=== PATIENT | male | born 1960 | race Caucasian/White ===

== ENCOUNTER 2019-09-09 17:00 | Outpatient (CLI) | payer OTHER, SELFPAY ==
[2019-09-09 17:26] LABS: Hematocrit 43.8 % (42.0-52.0); Mean Corpuscular HGB Conc 34.2 g/dl (32-36); Mean Corpuscular Hemoglobin 29.8 pg (26-34); Mean Corpuscular Volume 87.1 fl (80-100); Platelet Count Result 226 k/mm3 (150-375); Red Blood Count 5.03 M/mm3 (4.6-6.20); Red Cell Distribution Width 15.8 % (11.5-14.5); White Blood Count 9.6 K/mm3 (4.5-10.0)
[2019-09-09 17:37] LABS: Hemoglobin A1C 10.3 % (<5.7)
[2019-09-09 17:39] LABS: Alanine Aminotransferase 26 U/L (4-50); Albumin Level 3.8 g/dL (3.5-5.1); Alkaline Phosphatase 78 U/L (38-126); Aspartate Amino Transferase 34 U/L (17-59); Bilirubin,Total 0.5 mg/dL (0.2-1.3); Blood Urea Nitrogen 17 mg/dL (9-20); Carbon Dioxide 29 mmol/L (22-30); Chloride 94 mmol/L (98-107); Estimated Glomerular Filt Rate > 60; Glucose 416 mg/dL (75-110); Potassium 4.4 mmol/L (3.4-5.0); Sodium 130 mmol/L (137-145)
[2019-09-09 17:49] LABS: Add Urine Microscopic? YES; Appearance Urine Clear (Clear); Bacteria Urine Trace /hpf; Bilirubin Urine Negative (Negative); Blood Urine Negative (Negative); Color Urine Colorless (Yellow); Glucose Urine UA 3+ mg/dL (Negative); Ketones Urine Negative (Negative); Leukocyte Esterase Ur Negative LEU/UL (NEGATIVE); Nitrate Urine Negative (Negative); Protein Urine Negative (Negative); RBC Urine 0-2 /hpf (0-2); Specific Grav Ur 1.024 (1.001-1.035); Squamous Epithelial Cell Urine Rare /hpf (Few); Urobilinogen Urine Negative mg/dL (<2.0); WBC Urine 0-3 /hpf (0-3)
[2019-09-09 18:08] LABS: Prostate Specific Antigen < 0.1 ng/mL (< OR = 4.0)
== END 2019-09-09 17:01 | disposition home or self-care (01) ==
PROVIDERS: PCP Family Medicine; Visit Provider Family Medicine
DX: E11.9 Type 2 diabetes mellitus without complications (principal); R53.83 Other fatigue; C61 Malignant neoplasm of prostate
CPT/HCPCS: 36415; 80053; 81001; 83036; 84153; 85027

== ENCOUNTER 2020-01-24 14:23 | Outpatient (CLI) | payer OTHER, SELFPAY ==
--- NOTE | ~2020-01-24 | XR_ITS ---
EXAMINATION: XR hand LT 2V DATE: 01/24/2020 14:40 INDICATION: Left hand pain. TECHNIQUE: 2 views of left hand were obtained. COMPARISON: None. FINDINGS: Bone alignment is normal. No fracture. There is mild osteoarthritis of triscaphe joint, fir st carpometacarpal joint, first metacarpophalangeal joint, first interphalangeal joint, and second an d fourth distal interphalangeal joints. There is a punctate calcification at ulnar aspect of fourth m etacarpophalangeal joint. IMPRESSION: 1. Mild polyarticular osteoarthritis. Reviewed, dictated and finalized at location A.
== END 2020-01-24 14:24 | disposition home or self-care (01) ==
PROVIDERS: PCP Family Medicine; Visit Provider Family Medicine
DX: M19.042 Primary osteoarthritis, left hand (principal)
CPT/HCPCS: 73120

== ENCOUNTER 2020-06-19 18:26 | Observation (INO) | payer OTHER, SELFPAY ==
[2020-06-19] VITALS (23 sets, daily range): BP systolic 102–132; BP diastolic 57–83; PULSE 86–105; RESP 12–22; TEMP 36.9–38.2; O2SAT 90–98; BMI 32.8
--- NOTE | ~2020-06-19 | CT_ITS ---
EXAMINATION: CT abdomen pelvis w con EXAM DATE: 06/19/2020 19:48 INDICATION: Vomiting, weakness, abdominal pain. TECHNIQUE: Spiral CT of the abdomen and pelvis was performed following intravenous injection of 100 m L Omnipaque 350. Axial, coronal and sagittal images were reviewed. The dose-length product (DLP) fo r this examination was 805.56 mGy-cm. The exposure was tailored according to patient size (auto mA e xposure control), and iterative reconstruction (ASIR) was used as additional dose reduction technique . Comparison is made to prior examination from 02/12/2019. FINDINGS: The liver, spleen, adrenal glands and pancreas are unremarkable. Gallbladder is unremarkab le. No biliary obstruction. Portal and splenic veins are patent. Kidneys enhance symmetrically. T here is no hydronephrosis. There is a left renal cyst measuring about 3.5 cm. The prostate is unrema rkable. Small bilateral inguinal fat-containing hernias, right greater than left. The bladder is unr emarkable. There is mild to moderate scattered arteriosclerotic disease. Several right inguinal lymp h nodes upper limits of normal in size. The appendix is normal. The stomach and small bowel are unremarkable. There is expected amount of c olonic stool. No free intraperitoneal gas. The heart is normal in size. There are no pericardial or pleural effusions. Left lower lobe calcified granuloma. There are no osteoblastic or osteolytic lesions identified. IMPRESSION: 1. No acute intra-abdominal findings. 2. Right inguinal lymph nodes upper limits of normal in size. 3. Small inguinal hernias. Reviewed, dictated and finalized at location A.
--- NOTE | ~2020-06-19 | CT_ITS ---
EXAMINATION: CT brain wo con INDICATION: Headache and confusion COMPARISON: None TECHNIQUE: Standard unenhanced head CT. The dose-length product (DLP) was 605.33 mGy-cm. The mA was a djusted according to patient size. Iterative reconstruction technique was employed. FINDINGS: There is no intracranial hemorrhage, acute infarction, or abnormal mass lesion. There is no abnormal mass effect or midline shift. The horn-white matter differentiation is normal. The basal ci sterns are patent. The orbits are normal. There is mild enlargement of the left lateral ventricle com pared to the right with mild nodularity along the lateral aspect of the anterior horn of the lateral ventricle. The paranasal sinuses, mastoids and calvarium are normal. IMPRESSION: 1. No acute intracranial abnormality. 2. Mild nodularity along the lateral/anterior aspect of the left lateral ventricle which could reflec t sequela of prior infarction or possibly horn matter heterotopia. Reviewed, dictated and finalized at location A. IMPRESSION: 1. No acute intracranial abnormality. 2. Mild nodularity along the lateral/anterior aspect of the left lateral ventri sujit which could reflect sequela of prior infarction or possibly horn matter het erotopia.
--- NOTE | ~2020-06-19 | XR_ITS ---
EXAMINATION: XR chest 1V portable EXAM DATE: 06/19/2020 18:51 INDICATION: Cough, nausea and vomiting. TECHNIQUE: Portable AP frontal chest x-ray was obtained. Comparison is made to prior examination from 09/21/2016. FINDINGS: The lungs are clear. There are no pleural effusions. The cardiomediastinal silhouette is within normal limits. There is no pneumothorax suspected. The bones and soft tissues are unremarkab le. IMPRESSION: No acute cardiopulmonary findings. Reviewed, dictated and finalized at location A.
--- NOTE | ~2020-06-19 | CT_ITS ---
EXAMINATION: CT diagnostic chest wo con DATE: 06/20/2020 05:48 INDICATION: Hypoxia TECHNIQUE: Computed tomography (CT) of the chest was performed without intravenous contrast. The dose -length product (DLP) was 669.21 mGy-cm. Automated exposure control and iterative reconstruction tech nique were employed. COMPARISON: 05/22/2017 FINDINGS: There is mild emphysema. Dependent atelectasis is noted. No focal airspace opacities are id entified. There is no pleural effusion or pneumothorax. No pathologically enlarged thoracic lymph nod es are identified. The heart size is normal. There is calcified coronary artery atherosclerosis. Calc ified pulmonary nodules are consistent with old granulomatous disease. Punctate calcifications in an otherwise normal spleen also likely represent healed granulomatous disease. IMPRESSION: 1. Mild atelectasis. Reviewed, dictated and finalized at location A. IMPRESSION: 1. Mild atelectasis.
--- NOTE | ~2020-06-19 | XR_ITS ---
EXAMINATION: XR foot RT 2V INDICATION: Diabetic foot wound of the great toe TECHNIQUE: Two views of the right foot are obtained. COMPARISON: None available FINDINGS: A subtle soft tissue ulceration is seen at the medial aspect of the first toe near the inte rphalangeal joint. No underlying osseous abnormality is identified. There is no fracture. Mild osteoa rthritis is noted. IMPRESSION: 1. Soft tissue ulceration of the first toe without underlying osseous abnormality. Reviewed, dictated and finalized at location A. IMPRESSION: 1. Soft tissue ulceration of the first toe without underlying osseous abnormali ty.
--- NOTE | 2020-06-19 18:31 | ECG_ITS ---
Measurements Intervals [place] Rate: 103 P: 47 CO: 180 QRS: 36 QRSD: 97 T: 61 QT: 336 QTc: 441 Interpretive Statements SINUS TACHYCARDIA POSSIBLE LEFT ATRIAL ENLARGEMENT MINIMAL Q WAVES- INFERIOR LEADS BORDERLINE ECG Electronically Signed On 06-19-2020 18:45:09 CDT by Radhames Glasgow D.O.
[2020-06-19 18:42] LABS: Basophils Absolute Auto 0.1 K/mm3 (0.0-0.1); Basophils Percent Auto 0.3 % (0.2-1.2); Hematocrit 50.9 % (42.0-52.0); Hemoglobin 17.3 g/dL (14.0-18.0); Immature Granulocyte Absolute 0.15 K/mm3 (0.00-0.031); Immature Granulocyte Percent A 0.7 % (0-0.5); Lymphocytes Absolute Auto 1.26 K/mm3 (0.9-3.2); Lymphocytes Percent Auto 5.7 % (18.3-44.2); Mean Corpuscular Hemoglobin 28.7 pg (26-34); Mean Corpuscular Volume 84.4 fl (80-100); Mean Platelet Volume 10.2 fl (7.4-10.4); Monocytes Percent Auto 4.4 % (2.6-8.5); Neutrophils Absolute Auto 19.6 K/mm3 (1.3-6.7); Neutrophils Percent Auto 88.9 % (45.5-73.1); Platelet Count Result 230 k/mm3 (150-375); Red Blood Count 6.03 M/mm3 (4.6-6.20); Red Cell Distribution Width 14.9 % (11.5-14.5)
[2020-06-19 18:54] LABS: Alanine Aminotransferase 41 U/L (4-50); Alkaline Phosphatase 89 U/L (38-126); Anion Gap 8 mmol/L (8-16); Aspartate Amino Transferase 45 U/L (17-59); Bilirubin,Total 0.7 mg/dL (0.2-1.3); Blood Urea Nitrogen 18 mg/dL (9-20); Calcium 8.9 mg/dL (8.4-10.2); Carbon Dioxide 32 mmol/L (22-30); Chloride 92 mmol/L (98-107); Estimated CRCL calculation 74 ml/min; Estimated Glomerular Filt Rate > 60; Glucose 366 mg/dL (75-110); Lipase 106 U/L (23-300); Potassium 3.7 mmol/L (3.4-5.0); Sodium 132 mmol/L (137-145)
[2020-06-19] MEDS: ONDANSETRON INJ 4 MG/2 ML VIAL IV PUSH (19:51)
[2020-06-19] MEDS: SODIUM CHLORIDE 0.9% IV 1,000 ML 999 ML IV CONT ×2 (19:51→22:27)
[2020-06-19 20:31] LABS: Add Urine Microscopic? YES; Appearance Urine Clear (Clear); Bacteria Urine Trace /hpf; Bilirubin Urine Negative (Negative); Blood Urine Negative (Negative); Color Urine Yellow (Yellow); Glucose Urine UA 3+ mg/dL (Negative); Ketones Urine Negative (Negative); Leukocyte Esterase Ur Negative LEU/UL (Negative); Nitrate Urine Negative (Negative); Protein Urine 1+ mg/dL (Negative); Squamous Epithelial Cell Urine Rare /hpf (Few); Urobilinogen Urine Negative mg/dL (<2.0); WBC Urine 0-3 /hpf
[2020-06-19 20:32] LABS: Specific Grav Ur 1.044 (1.001-1.035)
--- NOTE | 2020-06-19 22:19 | ED.GENADULT ---
HPI - General Adult General Chief complaint: Weakness Stated complaint: lethargic/weak/chest pain/sore throat Time Seen by Provider: 06/19/20 19:17 History of Present Illness HPI narrative: Patient 59-year-old gentleman who presents the emergency department with chief complaint of generalized malaise patient reports that today he started having sore throat body aches and just feeling unwell. Patient states that there is not a true localizing symptom denies headache or nuchal rigidity. Patient has not had any vomiting or diarrhea patient denies any new wounds. Patient states not improved by anything nor is it worsened by anything. Related Data Home Medications Medication Instructions Recorded Confirmed atorvastatin 40 mg PO DAILY 06/19/20 hydrocodone-acetaminophen 1 tablet PO BID PRN 06/19/20 insulin glargine [Lantus Solostar 70 SUBCUT BID 06/19/20 U-100 Insulin] lisinopril 20 mg PO DAILY 06/19/20 Allergies Allergy/AdvReac Type Severity Reaction Status Date / Time Penicillins Allergy Unknown Nausea Verified 06/17/20 11:07 pregabalin Allergy Unknown Altered Verified 06/17/20 11:07 mental status Sulfa (Sulfonamide Allergy Unknown Gastrointestinal Verified 06/17/20 11:07 Antibiotics) Upset Review of Systems Review of Systems: Narrative: A 10 system review of systems was completed on the patient and is negative except for what is stated in the HPI. Nursing and ancillary documentation was reviewed. [facility] Past Medical History Medical History Long-term insulin use Non-compliant patient Surgical History Surgical History Status post prostatectomy Family History Family History Mother Family history of diabetes mellitus in first degree relative Social History Social History Smoking packs per day: 2 Smoking cigarettes per day: 40.0 Years smoked: 50 Smoking pack-years: 100.00 Smoking status: Heavy tobacco smoker Tobacco type: cigarettes Second hand tobacco smoke exposure: Yes Alcohol intake: current Drinks per week: 1 Substance use: never Substance use type: does not use Gender identity (if verbalized by the patient): Male Exam Narrative: Exam Narrative: GENERAL: Ill-appearing, well-nourished, and in no acute distress. HEAD: Normocephalic, atraumatic. EYES: PERRLA and EOMI. ENT: Nares clear, no rhinorrhea or epistaxis. Mucous membranes moist. NECK: Supple. CHEST: Clear to auscultation. No respiratory distress. HEART: Regular rate and rhythm. No murmur heard. Normal peripheral pulses. ABDOMEN: Soft, nontender, nondistended, normal active bowel sounds. EXTREMITIES: Normal range of motion. No edema. SKIN: Warm, dry, no rash. NEURO: No focal deficits. Alert and oriented x3. PSYCH: Normal mood and affect. Course Course Emergency Course: Patient laboratory studies showed a significant white blood cell count elevation of 22,000. A infectious work-up has been obtained which is not showed a localizing infectious source at this time patient does appear to be moderately dehydrated with a specific gravity being elevated patient received 30/kg of normal saline boluses given there is not a current definitive infectious source cultures were obtained at this time in discussion with the hospitalist the patient will not be treated with antimicrobial therapy and will be closely observed. Patient has been fairly recently tested for COVID-19 but will be retested for COVID-19 Vital Signs Vital signs: Vital Signs Temperature 36.9 C 06/19/20 18:30 Pulse Rate 105 H 06/19/20 18:30 Respiratory Rate 22 H 06/19/20 18:30 Blood Pressure 131/75 06/19/20 18:30 Pulse Oximetry 98 06/19/20 18:30 Temperature 36.9 C 06/19/20 18:30
[2020-06-19 23:05] LABS: Lactic Acid Reflex 1.3 mmol/L (0.7-2.1)
--- NOTE | 2020-06-19 23:19 | ADMGEN ---
This patient, Israel Ward, was admitted to -. Patient/family oriented to hospital policies and general routines including ID bracelet, bed and alarms, visiting hours, pain management, procedures, bathroom and other care routines, personal items, smoking policy, room service/diet, and visiting hours. Information on how to activate the Rapid Response Team has been discussed. Patient/Family are encouraged to report perceived risks to care and to ask questions if they do not understand what they are told or what they should do.
[2020-06-20] VITALS (9 sets, daily range): BP systolic 108–131; BP diastolic 61–70; PULSE 56–84; RESP 14–20; TEMP 36.6–36.9; O2SAT 88–98
[2020-06-20 00:15] LABS: Glucose Point of Care 222 (65-105)
[2020-06-20] MEDS: SODIUM CHLORIDE 0.9% IV 1,000 ML 999 ML IV CONT (00:21)
[2020-06-20] MEDS: HYDROcodone/acetaminophen (*CRX) 10-325 MG TABLET 1 TAB PO ×2 (00:51→14:12)
[2020-06-20] MEDS: SODIUM CHLORIDE 0.9% IV 1,000 ML 125 ML IV CONT ×3 (02:11→22:10)
[2020-06-20] MEDS: INSULIN HUMAN ISOPHAN/REGULAR 70/30 (*BKC) 100 UNITS/ML 35 UNITS SUB-Q ×3 (02:22→17:50)
--- NOTE | 2020-06-20 02:31 | PM.IMHP ---
H&P: HPI History of Present Illness Date/Time: 06/20/20 02:31 Chief Complaint: Vomiting, weakness, sore throat and body aches Narrative: 59-year-old male with a past medical history of diabetes mellitus, diabetic peripheral neuropathy, COPD and history of medical non compliant who presented to the ER with reports of sore throat, weakness, body aches and vomiting. The patient reported that he has had a sore throat that is waxing and waning for the last several months. He reports that his more uncomfortable when he tries to swallow. He denies any choking on food. He thought it was associated with swallowing food that was too hot a couple of months ago. He has had a chronic smoker's cough. But he reports that over the last month he has had a cough productive of yellow to greenish sputum. He denies any chest pain. He has chronic shortness of breath that is unchanged from baseline. However over the last 2 or 3 days he has had increasing weakness and body aches. He denies any known COVID-19 exposures. He had a rapid COVID swab performed at [place] [facility] last week so that he could be evaluated his primary care physician's office. His COVID swab was negative. There is no recent notes from his primary care provider in the system but it appears that he was evaluated on 06/17/2020. It appears that some of his home medications were refilled in mid May. He stated that he had not been taking his Lantus for several months but started taking his Lantus again last week. He reported that when he was at his primary care provider's office his glucose was in the 500s. His glucose when he arrived to the ER was down to the mid 300s. He received samples of insulin from his primary care physician's office. He has not been checking Accu-Cheks. On review of outside records it appears the patient has been offered samples of multiple he denies any dysuria. He does have chronic difficulty with leakage of urine. He does have difficulty starting and stopping his urinary stream and will have urinary hesitancy. These symptoms are all unchanged from his baseline. He reports generalized body aches and fatigue. He reported that he had slept most of the day on the before coming to the ER. He has been having a constant moderate posterior headache. He is not having any neck stiffness or visual changes. He denies feeling confused. The patient is alert and oriented x3 but then will give variable answers on history. He did have a couple of episodes of vomiting yesterday before coming to the ER. He denies any hematemesis or coffee-ground emesis. He has been having intermittent loose stools with 1-2 loose stools a day on and off for the last week. He reports lower abdominal pain. He had a CT of the abdomen in the ER to demonstrated no acute intra-abdominal process. He denies any fevers or chills. After arriving to the medical floor the patient did spike a fever to 100.7. Patient was briefly tachycardic and had intermittent tachypnea in the ER. When the patient arrived to the medical floor the patient was noted to be hypoxic with oxygen saturations between 88 and 89% on room air and was placed on 2 L nasal cannula. He does not use inhalers at home. He had not tried any medications to relieve his symptoms. He does have a chronic wound on his left great toe on the plantar surface. He reports that it occasionally drains clear fluid. The area is not red or swollen. He also has a chronic wound on the top of his left foot between the 4th and 5th metatarsal that does not appear infected or swollen. He reports that he is supposed to follow-up with a surgeon as outpatient regarding his toe but he does not recall the name of the surgeon. Review of Systems Review of Systems: Narrative: 12 systems were reviewed with pertinent positives and negatives per HPI. Except as documented in the HPI, all other systems were reviewed and are negative. [facility] Past Medical History Medical Histo
--- NOTE | 2020-06-20 03:21 | PC.NURSE ---
Patient is drowsy and oriented but is inconsistent. Pt will say things that make it seem as if he is not alert and oriented. Speach at times can slurred and hard to understand. When Nurse asks patient to repeat himself his speach clears and he is able to be understood. Patient is also unsteady on his feet. He has a staggering gait. MD aware of patients behavior. MD aware of temperature and at times tachycardia. Patient is a poor historian and what he said for the admission is questionable. While doing admission patient requested a blanket and when nurse returned found patient digging through his bags trying to take his home [place]. Patient notified that it was not allowed. Patient was also notified that nurse needed to get his blood sugar and patient proceeded to drink his 32oz soft drink that he brought to the hospital. Patient notified that drinking soda was not conducive to blood sugar control.
[2020-06-20 04:37] LABS: Amphetamine Screen Urine Negative (Negative); Barbiturate Screen Urine Negative (Negative); Benzodiazepines Screen Urine Negative (Negative); Cannabinoid Screen Urine Negative (Negative); Cocaine Screen Urine Negative (Negative); Methadone Screen Urine Negative (Negative); Opiate Screen Urine Positive (Negative); Phencyclidine Screen Urine Negative (Negative)
[2020-06-20 06:31] LABS: Basophils Percent Auto 0.3 % (0.2-1.2); Eosinophils Percent Auto 0.2 % (0-4.4); Hematocrit 45.9 % (42.0-52.0); Hemoglobin 15.4 g/dL (14.0-18.0); Immature Granulocyte Absolute 0.07 K/mm3 (0.00-0.031); Immature Granulocyte Percent A 0.5 % (0-0.5); Lymphocytes Absolute Auto 2.84 K/mm3 (0.9-3.2); Mean Corpuscular HGB Conc 33.6 g/dl (32-36); Mean Corpuscular Hemoglobin 27.9 pg (26-34); Mean Corpuscular Volume 83.2 fl (80-100); Mean Platelet Volume 10.2 fl (7.4-10.4); Monocytes Absolute Auto 0.9 K/mm3 (0.1-0.6); Neutrophils Absolute Auto 11.1 K/mm3 (1.3-6.7); Platelet Count Result 195 k/mm3 (150-375); Red Blood Count 5.52 M/mm3 (4.6-6.20); Red Cell Distribution Width 14.6 % (11.5-14.5)
[2020-06-20 06:36] LABS: Glucose Point of Care 158 (65-105)
[2020-06-20 06:44] LABS: Anion Gap 1 mmol/L (8-16); Blood Urea Nitrogen 14 mg/dL (9-20); Calcium 7.9 mg/dL (8.4-10.2); Carbon Dioxide 31 mmol/L (22-30); Chloride 103 mmol/L (98-107); Estimated CRCL calculation 110 ml/min; Estimated Glomerular Filt Rate > 60; Glucose 138 mg/dL (75-110); Potassium 3.2 mmol/L (3.4-5.0); Sodium 135 mmol/L (137-145)
[2020-06-20 07:41] LABS: Ethanol < 10 mg/dL (<10)
[2020-06-20] MEDS: ALBUTEROL SULFATE (*SP) INHALER 6 PUFF INHALATION ×3 (07:46→20:38)
[2020-06-20 08:19] LABS: Glucose Point of Care 157 (65-105)
[2020-06-20] MEDS: NICOTINE (*PBKC) 21 MG PATCH 1 PATCH TRANSDERM (08:52)
[2020-06-20] MEDS: ENOXAPARIN 40 MG/0.4 ML SYRINGE SUB-Q (08:56)
[2020-06-20] MEDS: FLUCONAZOLE 100 MG TABLET PO (08:56)
[2020-06-20] MEDS: GABAPENTIN 300 MG CAPSULE 600 MG PO ×4 (08:58→20:37)
[2020-06-20] MEDS: ASPIRIN 81 MG ENTERIC TABLET PO (08:58)
[2020-06-20] MEDS: ATORVASTATIN 40 MG TABLET PO (08:58)
[2020-06-20] MEDS: SERTRALINE HCL 50 MG TABLET PO (08:58)
[2020-06-20 11:52] LABS: Glucose Point of Care 145 (65-105)
--- NOTE | 2020-06-20 13:36 | PM.IMPN ---
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 source unclear. CXR negative. ua negative. does endorse cough and sore throat. CT abdomen and pelvis negative. CT chest with atelecatsis. COVID tested recently was negative. reordered and pending. # Acute hypoxia: improved. underlying COPD and chronic tobacco abuse. continue albuterol prn. on levaquin for bronchitis. # acute bronchitis/pharyngitis: on levaquin. strep swab culture pending. # possible thrush on fluconazole. # sore throat: strep screen neative. influeza a and b negative. # TYpe 2 DM: ssi. home dose of insulin. # Diabetic neuropathy # Toe ulcer: foot xray negative. routine wound care. likely related to diabetic foot # Tobacco abuse # DVT proph: lovenox Subjective Date/time seen: 06/20/20 13:36 Interval history: no overnight events,s till feels ill. he has not had any fever since yeserday. he reports sore throat. he feels a little nauseous as well. no abdominal pain, he has chronic foot ulcerations on great toe. Review of Systems Constitutional: Constitutional: Reports fatigue, Reports lethargy and Reports weakness Eyes: Eyes: Denies blurry vision and Denies photophobia ENT: Denies epistaxis and Denies nasal discharge Cardiovascular: Cardiovascular: Denies chest pain, Denies diaphoresis, Denies lightheadedness and Denies palpitations Respiratory: Respiratory: Reports cough, Denies hemoptysis, Denies dyspnea, Denies dyspnea on exertion and Denies wheezing Gastrointestinal: Gastrointestinal: Denies abdominal pain, Denies bloating, Denies constipation, Denies diarrhea, Reports nausea and Denies vomiting Genitourinary: Genitourinary: Denies dysuria and Denies urinary frequency Musculoskeletal: Musculoskeletal: Denies back pain and Denies neck pain Integumentary/Breasts: Skin/Breast: Denies dry skin and Denies pruritus Neurologic: Denies confusion and Denies numbness Psychiatric: Psychiatric: Denies anxiety and Denies confusion Exam Narrative: Exam Narrative: PHYSICAL EXAM: General: No acute distress, obese HEENT: Mucous membranes are tacky, crowded posterior oropharynx, large tongue, posterior oral pharyngeal tissues, petechiae to the undersurface of the tongue Respiratory: decreased breath sounds bilaterally, no increased work of breathing Cardiovascular: Regular rate, regular rhythm, non distant heart sounds, 2+ bilateral radial and pedal pulses Gastrointestinal: Obese, nontender, soft, normal bowel sounds Skin: Tattoo left upper arm, Trip complexion Musculoskeletal: Wound to the right great toe on the plantar surface, no surrounding erythema, no drainage, wound to the ventral surface of the left foot between the 4th and 5th metatarsal space no drainage, no erythema Neurological: Alert and oriented x3, however still a difficult historian, moves all extremities equally, no facial asymmetry, speech is slow but clear, unsteady gait Psychiatric: Odd affect, otherwise co
[2020-06-20 16:46] LABS: Glucose Point of Care 157 (65-105)
[2020-06-20 20:23] LABS: SARS-CoV-2 RNA PCR Negative
[2020-06-20 22:33] LABS: Glucose Point of Care 197 (65-105)
[2020-06-21] MEDS: HYDROcodone/acetaminophen (*CRX) 10-325 MG TABLET 1 TAB PO (05:23)
[2020-06-21 06:00] VITALS: BP 137/62; PULSE 68; RESP 20; TEMP 37; O2SAT 98
[2020-06-21 06:41] LABS: Basophils Percent Auto 0.2 % (0.2-1.2); Eosinophils Absolute Auto 0.1 K/mm3 (0-0.3); Eosinophils Percent Auto 1.3 % (0-4.4); Hematocrit 41.2 % (42.0-52.0); Hemoglobin 13.6 g/dL (14.0-18.0); Immature Granulocyte Absolute 0.03 K/mm3 (0.00-0.031); Immature Granulocyte Percent A 0.3 % (0-0.5); Lymphocytes Absolute Auto 1.71 K/mm3 (0.9-3.2); Lymphocytes Percent Auto 19.5 % (18.3-44.2); Mean Corpuscular Hemoglobin 28.3 pg (26-34); Mean Corpuscular Volume 85.8 fl (80-100); Mean Platelet Volume 10.9 fl (7.4-10.4); Monocytes Absolute Auto 0.6 K/mm3 (0.1-0.6); Monocytes Percent Auto 7.3 % (2.6-8.5); Neutrophils Absolute Auto 6.3 K/mm3 (1.3-6.7); Neutrophils Percent Auto 71.4 % (45.5-73.1); Platelet Count Result 157 k/mm3 (150-375); Red Cell Distribution Width 14.9 % (11.5-14.5); White Blood Count 8.8 K/mm3 (4.5-10.0)
[2020-06-21 06:53] LABS: Anion Gap 2 mmol/L (8-16); Blood Urea Nitrogen 13 mg/dL (9-20); Calcium 7.7 mg/dL (8.4-10.2); Carbon Dioxide 29 mmol/L (22-30); Chloride 103 mmol/L (98-107); Estimated CRCL calculation 110 ml/min; Estimated Glomerular Filt Rate > 60; Glucose 225 mg/dL (75-110); Potassium 3.4 mmol/L (3.4-5.0); Sodium 134 mmol/L (137-145)
[2020-06-21 08:00] VITALS: PULSE 68; RESP 20; O2SAT 98
[2020-06-21] MEDS: ALBUTEROL SULFATE (*SP) INHALER 6 PUFF INHALATION (08:15)
[2020-06-21] MEDS: INSULIN HUMAN ISOPHAN/REGULAR 70/30 (*BKC) 100 UNITS/ML 35 UNITS SUB-Q (08:16)
[2020-06-21] MEDS: ENOXAPARIN 40 MG/0.4 ML SYRINGE SUB-Q (08:18)
[2020-06-21] MEDS: GABAPENTIN 300 MG CAPSULE 600 MG PO (08:18)
[2020-06-21] MEDS: NICOTINE (*PBKC) 21 MG PATCH 1 PATCH TRANSDERM (08:18)
[2020-06-21] MEDS: ATORVASTATIN 40 MG TABLET PO (08:19)
[2020-06-21] MEDS: lisinopriL 20 MG TABLET PO (08:19)
[2020-06-21] MEDS: ASPIRIN 81 MG ENTERIC TABLET PO (08:19)
[2020-06-21] MEDS: FLUCONAZOLE 100 MG TABLET PO (08:19)
[2020-06-21] MEDS: SERTRALINE HCL 50 MG TABLET PO (08:19)
[2020-06-21 08:32] LABS: Glucose Point of Care 178 (65-105)
--- NOTE | 2020-06-21 10:16 | PM.DS ---
DS: Admitting Diagnosis Admitting Diagnosis Admitting Diagnosis: Dehydration Leukocytosis Hyperglycemia DS: Discharge Diagnosis Discharge Diagnosis (1) Hyperglycemia: Code(s): R73.9 - Hyperglycemia, unspecified Status: Acute (2) Leukocytosis: Qualifiers: Leukocytosis type: unspecified Qualified Code(s): D72.829 - Elevated white blood cell count, unspecified Code(s): D72.829 - Elevated white blood cell count, unspecified Status: Acute (3) Dehydration: Code(s): E86.0 - Dehydration Status: Acute (4) Type 2 diabetes mellitus with hyperglycemia: Qualifiers: Diabetes mellitus watermelon inspector insulin use: with watermelon inspector use Qualified Code(s): E11.65 - Type 2 diabetes mellitus with hyperglycemia; Z79.4 - care home (current) use of insulin Code(s): E11.65 - Type 2 diabetes mellitus with hyperglycemia Status: Acute (5) SIRS (systemic inflammatory response syndrome): Code(s): R65.10 - Systemic inflammatory response syndrome (SIRS) of non-infectious origin without acute organ dysfunction Status: Acute DS: Summary Hospital Course Reason for hospitalization: Dehydration Leukocytosis Hyperglycemia Hospital Course: Patient is 59 years old male with history of diabetes admitted complains of having generalized weakness patient was found to have leukocytosis WBC count of 22 no obvious source of infection was present except possible bronchitis. Patient also complained of have generalized weakness. Patient was found to have hyperglycemia. Patient was given IV antibiotics. Blood cultures were negative. Today patient is feeling better so patient discharged home stable condition. Time spent discussing smoking cessation with patient: 3 to 10 minutes Status at Discharge Cognitive/behavioral status at discharge: Stable Functional status at discharge: independent ambulation Overall status at discharge: patient is back to baseline Time Spent with Patient Time attestation: Total time spent providing and/or coordinating discharge services: Time spent: Less than 30 minutes DS: Data Data Completed and Pending Labs on day of discharge: Labs from last 24 hours 06/21/20 06/21/20 06/21/20 08:12 06:06 06:06 WBC 8.8 RBC 4.80 Hgb 13.6 L Hct 41.2 L MCV 85.8 MCH 28.3 MCHC 33.0 RDW 14.9 H Plt Count 157 MPV 10.9 H Immature Gran % (Auto) 0.3 Neut % (Auto) 71.4 Lymph % (Auto) 19.5 [place] % (Auto) 7.3 Eos % (Auto) 1.3 Baso % (Auto) 0.2 Lymph # (Auto) 1.71 Gooding # (Auto) 0.6 Eos # (Auto) 0.1 Baso # (Auto) 0.0 Abs Immat Gran (auto) 0.03 Absolute Neuts (auto) 6.3 Absolute Nucleated RBC 0.0 Nucleated RBC % 0.0 Sodium 134 L Potassium 3.4 Chloride 103 Carbon Dioxide 29 Anion Gap 2 L BUN 13 Creatinine 0.70 Estim Creat Clear Calc 110 Estimated GFR > 60 Glucose 225 H POC Capillary Glucose 178 H Calcium 7.7 L SARS-CoV-2 RNA (RT-PCR) 06/20/20 06/20/20 06/20/20 20:35 16:42 11:45 WBC RBC Hgb Hct MCV MCH MCHC RDW Plt Count MPV Immature Gran % (Auto) Neut % (Auto) Lymph % (Auto) [place] % (Auto) Eos % (Auto) Baso % (Auto) Lymph # (Auto) Gooding # (Auto) Eos # (Auto) Baso # (Auto) Abs Immat Gran (auto) Absolute Neuts (auto) Absolute Nucleated RBC Nucleated RBC % Sodium Potassium Chloride Carbon Dioxide Anion Gap BUN Creatinine Estim Creat Clear Calc Estimated GFR Glucose POC Capillary Glucose 197 H 157 H 145 H Calcium SARS-CoV-2 RNA (RT-PCR) 06/19/20 22:59 WBC RBC Hgb Hct MCV MCH MCHC RDW Plt Count MPV Immature Gran % (Auto) Neut % (Auto) Lymph % (Auto) Good[place] % (Auto) Eos % (Auto) Baso % (Auto) Lymph # (Auto) Gooding # (Auto) Eos # (Auto) Baso # (Auto) Abs Immat Gran (auto) Absolute Neuts (auto
[2020-06-22 07:13] LABS: Glucose Point of Care 380 (65-105)
== END 2020-06-21 11:45 | disposition home or self-care (01) ==
LOC: ANHED 22:21 → ANH3MEDSUR 23:53
PROVIDERS: Emergency Medicine; Internal Medicine; Admitting Provider Internal Medicine; Emergency Provider Emergency Medicine; PCP Family Medicine; Visit Provider Internal Medicine
DX: E86.0 Dehydration (principal); R65.10 Systemic inflammatory response syndrome (SIRS) of non-infectious origin without acute organ dysfunction; J96.01 Acute respiratory failure with hypoxia; E11.42 Type 2 diabetes mellitus with diabetic polyneuropathy; E11.65 Type 2 diabetes mellitus with hyperglycemia; Z20.822 Contact with and (suspected) exposure to COVID-19; F17.210 Nicotine dependence, cigarettes, uncomplicated; G47.33 Obstructive sleep apnea (adult) (pediatric); J44.9 Chronic obstructive pulmonary disease, unspecified; Z85.46 Personal history of malignant neoplasm of prostate; Z79.4 Long term (current) use of insulin
CPT/HCPCS: 36415; 70450; 71045; 71250; 73620; 74177; 80048; 80053; 80307; 81001; 82948; 83605; 83690; 85025; 87040; 87081; 87804; 87880; 93005; 94640; 96361; 96365; 96372; 96374; 99285; A9270; C9803; G0378; J1650; J1815; J1956; J2405; J7030; Q9967; U0003; U0005

== ENCOUNTER 2020-09-15 15:55 | Outpatient (CLI) | payer OTHER, SELFPAY ==
[2020-09-15 17:22] LABS: Prostate Specific Antigen < 0.1 ng/mL (< OR = 4.0)
[2020-09-15 17:32] LABS: Hemoglobin A1C 6.8 % (<5.7)
== END 2020-09-15 15:56 | disposition home or self-care (01) ==
PROVIDERS: PCP Family Medicine; Visit Provider Family Medicine
DX: C61 Malignant neoplasm of prostate (principal); E11.65 Type 2 diabetes mellitus with hyperglycemia; Z79.4 Long term (current) use of insulin
CPT/HCPCS: 36415; 83036; 84153

== ENCOUNTER 2020-10-26 15:57 | Outpatient (CLI) | payer OTHER, SELFPAY ==
--- NOTE | ~2020-10-26 | XR_ITS ---
EXAMINATION: XR foot LT min 3V DATE: 10/26/2020 16:29 INDICATION: Left foot pain, initial encounter TECHNIQUE: Dorsoplantar, lateral, and oblique views of the left foot were obtained. COMPARISON: None. FINDINGS: There is an acute, traumatic, closed, oblique, nondisplaced fracture in the proximal shaft of the fifth metatarsal. There is adjacent swelling of the soft tissues. There are approximately 2 mm of separation of the fracture fragments with weightbearing. The joint spaces are normal. No addition al acute osseous findings are evident. IMPRESSION: 1. Acute fracture in the proximal shaft of the fifth metatarsal. Reviewed, dictated and finalized at location A.
== END 2020-10-26 15:58 | disposition home or self-care (01) ==
PROVIDERS: PCP Family Medicine; Visit Provider Podiatrist Foot & Ankle Surgery
DX: S92.352A Displaced fracture of fifth metatarsal bone, left foot, initial encounter for closed fracture (principal)
CPT/HCPCS: 73630

== ENCOUNTER 2020-10-29 09:28 | Outpatient (CLI) | payer OTHER, SELFPAY ==
[2020-10-29 10:04] LABS: Anion Gap 3 mmol/L (8-16); Blood Urea Nitrogen 15 mg/dL (9-20); Carbon Dioxide 31 mmol/L (22-30); Chloride 102 mmol/L (98-107); Estimated Glomerular Filt Rate > 60; Glucose 194 mg/dL (65-110); Potassium 3.9 mmol/L (3.4-5.0); Sodium 136 mmol/L (137-145)
== END 2020-10-29 09:29 | disposition home or self-care (01) ==
PROVIDERS: Anesthesiology; PCP Family Medicine; Visit Provider Podiatrist Foot & Ankle Surgery
DX: E11.9 Type 2 diabetes mellitus without complications (principal); Z01.818 Encounter for other preprocedural examination
CPT/HCPCS: 36415; 80048

== ENCOUNTER 2020-11-16 03:04 | Day surgery (SDC) | payer OTHER, SELFPAY ==
[2020-11-11 14:43] VITALS: BMI 31.4
[2020-11-16] VITALS (10 sets, daily range): BP systolic 118–138; BP diastolic 56–71; PULSE 49–66; RESP 12–16; TEMP 36.2; O2SAT 91–100
--- NOTE | ~2020-11-16 | XR_ITS ---
EXAMINATION: XR surgery orthopedic DATE: 11/16/2020 08:29 INDICATION: Left fifth metatarsal fracture. TECHNIQUE: 4 intraoperative fluoroscopic views of left foot were obtained. I was not present. Fluoros copy exposure time was 1 minute 13 seconds. COMPARISON: Left foot radiographs 10/26/2020 FINDINGS: There is a transverse fracture of proximal diaphysis of fifth metatarsal in near-anatomic a lignment. Internal fixation is seen with a lag screw. IMPRESSION: 1. Internal fixation of a transverse fracture of proximal diaphysis of fifth metatarsal. Reviewed, dictated and finalized at location A. IMPRESSION: 1. Internal fixation of a transverse fracture of proximal diaphysis of fifth me tatarsal.
[2020-11-16] MEDS: LACTATED RINGERS 1,000 ML 30 ML IV CONT ×2 (06:50→08:37)
[2020-11-16 06:51] LABS: Glucose Point of Care 130 mg/dl (65-105)
--- NOTE | 2020-11-16 06:57 | WPDANESEPPF ---
Anes - Initial Pre Proc Eval Procedure: Operation Date: 11/16/20 07:30 Proposed Procedures p Open Reduction Internal Fixation Left Fifth Metatarsal - Nnamdi Cole MD Date/Time: 11/16/20 06:57 Surgeon: Nnamdi Cole MD Pre Op Diagnosis: left 5th metatarsal fracture Patient Data Age: 59 Gender: M Height: 1.8 m Weight: 102.2 kg Allergies Allergy/AdvReac Type Severity Reaction Status Date / Time Sulfa (Sulfonamide Allergy Severe Gastrointestinal Verified 11/16/20 06:38 Antibiotics) Upset Penicillins Allergy Intermediate Nausea Verified 11/16/20 06:38 pregabalin Allergy Unknown Altered Verified 11/16/20 06:38 mental status Home Medications Medication Instructions Recorded Confirmed Type gabapentin 300 mg capsule 600 mg PO QID #240 cap 06/17/20 11/11/20 Rx Lantus Solostar U-100 Insulin 55 unit SUBCUT BID 06/19/20 11/11/20 History aspirin 81 mg PO DAILY 06/19/20 11/11/20 History blood sugar diagnostic #100 ea 06/23/20 11/03/20 Rx sertraline 100 mg tablet 100 mg PO DAILY #90 tablet 09/09/20 11/11/20 Rx atorvastatin 40 mg tablet 40 mg PO DAILY #90 tablet 10/13/20 11/11/20 Rx lisinopril 20 mg tablet 20 mg PO DAILY #90 tablet 10/13/20 11/11/20 Rx ibuprofen 400 mg PO Q6H PRN 10/28/20 11/11/20 History rivaroxaban [Xarelto] 10 mg PO DAILY 10/28/20 11/11/20 History hydrocodone 10 mg-acetaminophen 1 tablet PO BID PRN #60 tablet 11/06/20 11/11/20 Rx 325 mg tablet Laboratory Tests 11/16/20 06:49 POC Capillary Glucose 130 mg/dl H mg/dl (65-105) Patient hx anesthesia problems: none Family hx anesthesia problems: none PMFSH Past Medical History Medical History Anxiety Congestion of nasal sinus COPD (chronic obstructive pulmonary disease) Coronary artery disease involving [place] coronary artery of [place] heart Depression Diabetic peripheral neuropathy associated with type 2 diabetes mellitus Erectile dysfunction following simple prostatectomy Essential hypertension Excessive bleeding Fracture of fifth metatarsal bone of left foot History of MRSA infection Hyperlipidemia Insulin dependent diabetes mellitus Left foot pain Obstructive sleep apnea Describes symptoms but has never had a formal polysomnogram Peripheral neuropathy Prostate cancer Radical prostatectomy October 2015 with recurrence treated with radiation therapy March 2017 Tobacco use Wears glasses Surgical History Surgical History History of cardiac catheterization (~09/2016) 100% occlusion of the distal left circumflex artery with evidence of collaterals with several collaterals filling the left PDA, RCA is a small vessel with 50% lesion not amenable to intervention, 30-40% lesion will small diagonal branch of the LAD, left main coronary is mild stenosis 10-20% History of carpal tunnel release (~1995) Left History of colonoscopy with polypectomy (~11/2017) History of shoulder surgery (~2001) Status post prostatectomy (~10/2015) Radical prostatectomy Family History Family History Mother Diabetes mellitus Hypertension Father COPD (chronic obstructive pulmonary disease) Social History Social History Social History: He has smoked up to 2 pack of cigarettes per day since the age of 14. He denies any significant alcohol use. He lives at home with his girlfriend. He has 2 adult children. 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 Primary care physician: Dr. Levar Melgar Code status: Full code Smoking packs per day: 0.5 Smoking cigarettes per day: 10.0 Years smoked: 40 Smoking pack-years: 20.00 Smoking status: Current every day smoker Tobacco type: cigarettes Second hand tobacco smoke exposure: Yes Additional smoking assessment comments: STATES 2PK/DAY DOWN TO 0.5PK/DAY-SMOKED FOR
--- NOTE | 2020-11-16 07:09 | WPDHPUPDATE1 ---
History and Physical Update Update Date/Time: 11/16/20 07:09 History and Physical has been reviewed, including an updated exam of the patient. There are NO changes in the patient's condition. Risks, benefits, and alternatives have been discussed and questions answered. Patient agrees to proceed with procedure.
[2020-11-16] MEDS: ACETAMINOPHEN 500 MG TABLET 1000 MG PO (07:14)
[2020-11-16] MEDS: KETOROLAC 15 MG/ML VIAL (*BKC) IV PUSH (07:16)
[2020-11-16] MEDS: ceFAZolin 2 GM/D5W 50 ML 2 GM/50 ML BAG IVPB (07:27)
[2020-11-16] MEDS: BUPIVACAINE HCL 0.5% PF 30 ML VIAL INFILTRATE (08:06)
[2020-11-16 08:50] LABS: Glucose Point of Care 119 mg/dl (65-105)
--- NOTE | 2020-11-16 08:58 | W.PM.PROC2 ---
Procedure Note - Detailed Date of Procedure 11/16/20 Pre-op Diagnosis left 5th metatarsal fracture Post-op Diagnosis same Procedure Performed Open reduction internal fixation left 5th metatarsal fracture Surgeon Nnamdi Cole MD [employer] 1st legislative assistant Anesthesia general Indications 59-year-old gentleman with diabetes and peripheral neuropathy with left 5th metatarsal fracture. Fracture in the location of metatarsal bone at risk for delayed or nonunion. Presents for operative treatment. Findings Fracture with minimal displacement. No appreciable healing noted on radiograph. Description of Procedure What was done: Patient identified in the preoperative holding. Informed consent given. Operative extremity marked. Patient received intravenous antibiotics. Patient brought to the operating room where underwent general anesthetic by anesthesia team. Positioned supine on operating room table. Time-out performed confirming the patient, site of the surgery and the plan. Left foot prepped draped usual sterile surgical fashion using ChloraPrep skin solution. Foot and Ankle exsanguinated and a calf tourniquet inflated to 225 mmHg. Local anesthetic with 0.5% Marcaine plain. Fifteen blade knife used to make a longitudinal incision at the base of the 5th metatarsal. Image intensification used to confirm the location of the incision. Dissection carried down through the fascia to the metatarsal bone. Reduction of the fracture ensured with fluoroscopy. fixation achieved with a 5.5 mm partially-threaded compression screw. Guide pin placed and verified. Drilling and tapping performed. 60 mm x 5.5 mm screw then placed with good compression. Image intensification confirmed final placement. Wound irrigated and closed with 4-0 nylon in a running suture. Sterile dressing applied. The patient was then woken from anesthesia, extubated and taken to the recovery room in stable condition. All sponge, needle, instrument counts were correct at the end of the case. Implants Arthrex 5.5 mm x 60 mm solid screw, partially threaded Estimated Blood Loss 5 Tourniquet Time 40 Drains No Packing No Pathology none sent Complications None Condition stable Disposition PACU
== END 2020-11-16 11:03 | disposition home or self-care (01) ==
PROVIDERS: PCP Family Medicine; Visit Provider Orthopaedic Surgery
PROC: (CPT 28485; principal; 2020-11-16 07:30)
DX: S92.352A Displaced fracture of fifth metatarsal bone, left foot, initial encounter for closed fracture (principal); Y93.K1 Activity, walking an animal; Y93.9 Activity, unspecified; Y92.9 Unspecified place or not applicable; Y99.9 Unspecified external cause status; E11.42 Type 2 diabetes mellitus with diabetic polyneuropathy; Z79.4 Long term (current) use of insulin; I25.10 Atherosclerotic heart disease of native coronary artery without angina pectoris; J44.9 Chronic obstructive pulmonary disease, unspecified; I10 Essential (primary) hypertension; E78.5 Hyperlipidemia, unspecified; F41.9 Anxiety disorder, unspecified; F32.9 Major depressive disorder, single episode, unspecified; F17.210 Nicotine dependence, cigarettes, uncomplicated; Z86.14 Personal history of Methicillin resistant Staphylococcus aureus infection; Z85.46 Personal history of malignant neoplasm of prostate; Z90.79 Acquired absence of other genital organ(s); Z79.01 Long term (current) use of anticoagulants; Z79.899 Other long term (current) drug therapy; Z79.82 Long term (current) use of aspirin; Z88.0 Allergy status to penicillin; Z88.2 Allergy status to sulfonamides
CPT/HCPCS: 28485; 82948; A9270; J0690; J1100; J1885; J2250; J2370; J2405; J2704; J3010; J7120

== ENCOUNTER 2021-01-07 14:51 | Inpatient (IN) | payer OTHER, SELFPAY ==
[2021-01-07] VITALS (7 sets, daily range): BP systolic 132–172; BP diastolic 58–76; PULSE 43–451; RESP 12–20; TEMP 36.2–37.1; O2SAT 97–100; BMI 31.4
--- NOTE | ~2021-01-07 | US_ITS ---
EXAMINATION: US carotid duplex BI DATE: 01/08/2021 15:01 INDICATION: Dysphagia and left hemiparesis. TECHNIQUE: Grayscale, color Doppler, and pulsed Doppler images of the cervical carotid arteries were obtained. The degree of vessel stenosis is placed in one of the following categories: normal, <50%, 5 0-69%, >=70% but less than near-occlusion, near-occlusion, or total occlusion. Note that percent sten osis relative to normal distal artery lumen diameter is indirectly measured from velocity measurement s as described by Raymon, et al. Radiology 2003; [id number]:340-346. COMPARISON: None. FINDINGS: RIGHT: The right common carotid artery (CCA) peak systolic velocity (PSV) is 143 cm/s. The right internal ca rotid artery (ICA) PSV is 109 cm/s. The right ICA end-diastolic velocity (EDV) is 25 cm/s. The right ICA/CCA PSV ratio is 0.8. Grayscale and color Doppler images yield an estimate of <50% diameter reduc tion from plaque in the ICA. The external carotid artery (ECA) PSV is 166 cm/s. There is antegrade fl ow in the right vertebral artery. LEFT: The left CCA PSV is 119 cm/s. The left ICA PSV is 123 cm/s. The left ICA EDV is 31 cm/s. The left ICA /CCA PSV ratio is 1.0. Grayscale and color Doppler images yield an estimate of <50% diameter reductio n from plaque in the ICA. The ECA PSV is 156 cm/s. There is antegrade flow in the left vertebral greg ry. IMPRESSION: 1. <50% stenosis in the right internal carotid artery. 2. <50% stenosis in the left internal carotid artery. Reviewed, dictated and finalized at location A.
--- NOTE | ~2021-01-07 | MR_ITS ---
EXAMINATION: MR brain/brain stem wo/w con EXAM DATE: 01/08/2021 11:21 INDICATION: De [place] matter heterotopia?, CVA. Left hemiparesis. TECHNIQUE: Magnetic resonance imaging (MRI) of the brain/brain stem obtained without contrast. Sagit silvio T1, axial diffusion, gradient echo (T2*), T1, T2, FLAIR sequences obtained. Patient was then inj ected with 20 cc intravenous Multihance contrast. Axial and coronal postcontrast T1 weighted sequence s obtained. There is no prior study for comparison. FINDINGS: There is focus of restricted diffusion in the right side of the archana measuring 1.2 cm consi stent with an acute infarction. There is also punctate acute infarction in the left internal capsule. No larger territorial infarctions. Along the lateral margin of the left lateral ventricle there is focal region of nodularity measuring about 1.7 x 0.8 cm, which follows de la cruz matter signal intensity on all pulse sequences, consistent wit h de la cruz matter heterotopia. No enhancement or hemorrhage within this. There is no acute hemorrhage seen on the T2*, a hemosiderin sensitive sequence. There is mild perive ntricular and subcortical T2/FLAIR signal hyperintensity, nonspecific but probably related to small v essel ischemic disease (microangiopathy). There is mild prominence of the sulci and ventricles rela luda to cerebral atrophy. There are no extra-axial collections. Flow voids are seen in the cerebral arteries on the T2-weighted sequences consistent with their expected patency. The orbits are unrema rkable. Soft tissue is unremarkable. There are no areas of abnormal enhancement on the postcontrast images. IMPRESSION: 1. Acute small right archana infarction and punctate left internal capsular lacunar infarctions. 2. 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 Reviewed, dictated and finalized at location B. IMPRESSION: 1. Acute small right archana infarction and punctate left internal capsular lacun ar infarctions. 2. 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
--- NOTE | ~2021-01-07 | CT_ITS ---
EXAMINATION: CT soft tissue neck w con DATE: 01/07/2021 17:34 INDICATION: Neck pain. Dysphagia. TECHNIQUE: Computed tomography (CT) of the neck was performed with 75 mL Omnipaque-350 intravenous co ntrast. Automated exposure control and iterative reconstruction technique were employed. The dose-ritchie gth product was 663.32 mGy-cm. COMPARISON: Chest CT 06/20/2020 FINDINGS: There is mild emphysema. There are no pathologically enlarged lymph nodes. There is plaque in the proximal internal carotid arteries with less than 50% stenosis relative to normal distal arter y lumen diameters. There is mild mucosal thickening in the paranasal sinuses. There is mild cervical spondylosis. IMPRESSION: 1. Mild emphysema. Reviewed, dictated and finalized at location A. IMPRESSION: 1. Mild emphysema.
--- NOTE | ~2021-01-07 | CT_ITS ---
EXAMINATION: CT brain wo con DATE: 01/07/2021 17:33 INDICATION: Left hemiparesis. Neck pain. TECHNIQUE: Computed tomography (CT) of the head was performed without intravenous contrast. The mA wa s adjusted according to patient size. Iterative reconstruction technique was employed. The dose-lengt h product was 681.00 mGy-cm. COMPARISON: Head CT 06/20/2020 FINDINGS: There is a 1.9 x 0.5 cm mass at the lateral aspect of body of left lateral ventricle that i s isodense to horn matter. There is periventricular volume loss in this area with ex vacuo dilatation of the body of the left lateral ventricle. There are scattered areas of low attenuation in the cereb ral white matter. There is no acute ischemic infarct or intracranial hemorrhage. The orbits are norm al. There is mild mucosal thickening in the paranasal sinuses. The mastoid air cells are normal. IMPRESSION: 1. Stable mass at lateral aspect of body of left lateral ventricle with local volume loss, which may be horn matter heterotopia. Brain MRI without and with contrast is recommended. 2. Mild nonspecific cerebral white matter disease, which likely represents chronic small vessel ische britney disease. Reviewed, dictated and finalized at location A. IMPRESSION: 1. Stable mass at lateral aspect of body of left lateral ventricle with local v olume loss, which may be horn matter heterotopia. Brain MRI without and with co ntrast is recommended. 2. Mild nonspecific cerebral white matter disease, which likely represents tint layer sam small vessel ischemic disease.
--- NOTE | ~2021-01-07 | XR_ITS ---
EXAMINATION: XR chest 1V portable DATE: 01/07/2021 16:04 INDICATION: Slurred speech. TECHNIQUE: A single frontal view of the chest was obtained. COMPARISON: Chest single view 06/19/2020 FINDINGS: There is mild atelectasis in left lower lung zone. No pleural effusion or pneumothorax. The heart size is normal. IMPRESSION: 1. Mild atelectasis in left lower lung zone. Reviewed, dictated and finalized at location A.
--- NOTE | ~2021-01-07 | XR_ITS ---
MODIFIED ESOPHAGRAM HISTORY: CVA. Dysphagia. TECHNIQUE: Modified barium esophagram was performed by speech pathologist under radiologist fluorosco pic guidance. This was recorded on tape. The exam was reviewed on 01/10/2021 10:22 CDT. The DAP fo r this procedure was 3.1 Gycm2. Fluoroscopy time is 3.1 minutes. FINDINGS: Lateral projection of the cervical spine demonstrates normal alignment. During pharyngeal phase there is reduced laryngeal elevation and adduction. There is pyriform sinus residue. There is laryngeal penetration with aspiration. There is delayed swallow trigger.. IMPRESSION: 1: Laryngeal penetration with aspiration, particularly with thin liquids. 2: Please refer to speech pathologist report for additional detail. Reviewed, dictated and finalized at location A.
--- NOTE | ~2021-01-07 | XR_ITS ---
EXAMINATION: XR chest 2V DATE: 01/09/2021 14:40 INDICATION: Leukocytosis. Dysphagia. TECHNIQUE: Frontal and lateral views of the chest were obtained. COMPARISON: Chest single view 01/07/2021, chest CT 06/20/2020 FINDINGS: A calcified left lung nodule is consistent with old granulomatous disease. No pleural effus ion or pneumothorax. The heart size is normal. IMPRESSION: 1. No acute cardiopulmonary disease. Reviewed, dictated and finalized at location A.
--- NOTE | 2021-01-07 15:03 | ECG_ITS ---
Measurements Intervals [place] Rate: 51 P: 57 LA: 190 QRS: 26 QRSD: 101 T: 52 QT: 444 QTc: 412 Interpretive Statements SINUS BRADYCARDIA PEAKED T WAVES- CONSIDER HYPERKALEMIA OR ISCHEMIA ABNORMAL ECG Electronically Signed On 01-07-2021 15:17:14 CDT by Radhames Glasgow D.O.
[2021-01-07 15:28] LABS: Glucose Point of Care 204 mg/dl (65-105)
[2021-01-07 15:35] LABS: Basophils Percent Auto 0.4 % (0.2-1.2); Eosinophils Absolute Auto 0.2 K/mm3 (0-0.3); Eosinophils Percent Auto 1.5 % (0-4.4); Hematocrit 40.8 % (42.0-52.0); Hemoglobin 13.8 g/dL (14.0-18.0); Immature Granulocyte Absolute 0.07 K/mm3 (0.00-0.031); Immature Granulocyte Percent A 0.7 % (0-0.5); Lymphocytes Absolute Auto 2.18 K/mm3 (0.9-3.2); Lymphocytes Percent Auto 20.8 % (18.3-44.2); Mean Corpuscular HGB Conc 33.8 g/dl (32-36); Mean Corpuscular Hemoglobin 30.1 pg (26-34); Mean Corpuscular Volume 89.1 fl (80-100); Mean Platelet Volume 9.9 fl (7.4-10.4); Monocytes Absolute Auto 0.7 K/mm3 (0.1-0.6); Monocytes Percent Auto 6.9 % (2.6-8.5); Neutrophils Absolute Auto 7.3 K/mm3 (1.3-6.7); Neutrophils Percent Auto 69.7 % (45.5-73.1); Platelet Count Result 220 k/mm3 (150-375); Red Blood Count 4.58 M/mm3 (4.6-6.20); Red Cell Distribution Width 15.7 % (11.5-14.5); White Blood Count 10.5 K/mm3 (4.5-10.0)
[2021-01-07 15:44] LABS: INR 0.9; Prothrombin Time 12.2 Seconds (11.1-14.7)
[2021-01-07 15:45] LABS: Partial Thromboplastin Time 27.7 SECONDS (22.3-36.8)
[2021-01-07 15:46] LABS: Anion Gap 7 mmol/L (8-16); Blood Urea Nitrogen 10 mg/dL (9-20); Calcium 8.9 mg/dL (8.4-10.2); Carbon Dioxide 30 mmol/L (22-30); Chloride 101 mmol/L (98-107); Estimated CRCL calculation 116 ml/min; Estimated Glomerular Filt Rate > 60; Glucose 204 mg/dL (65-110); Potassium 3.7 mmol/L (3.4-5.0); Sodium 138 mmol/L (137-145)
--- NOTE | 2021-01-07 15:56 | PC.NURSE ---
no answer for x-ray
[2021-01-07 15:57] LABS: Troponin I < 0.012 ng/mL (0.000-0.034)
--- NOTE | 2021-01-07 16:06 | ED.NEUROSD ---
HPI - Neuro Symptoms/Deficit General Chief Complaint: Neuro Symptoms/Deficit Stated Complaint: slurred speech Time Seen by Provider: 01/07/21 16:05 Source: patient Mode of arrival: ambulatory Limitations: no limitations History of Present Illness HPI Narrative: Pt is a 60 yo M with a history of Type II DM, HLD, previous LA, presenting for evaluation of difficulty swallowing with slurred speech. Pt also reports dyspnea and fatigue. Last known normal was yesterday morning 01/06. Pt has had difficulty eating and difficulty with coordinating swallowing. Pt reports a change in his voice. He has had decreased oral intake secondary to difficulty swallowing. He is tolerating his secretions. He denies significant throat pain. He does reports rhinorrhea and congestion. Pt reports left sided weakness as well. No vision changes. No headache or dizziness. No numbness. No pain in his chest or abdomen. Denies recent sick contacts. No history of COVID. He is vaccinated. Related Data Home Medications Medication Instructions Recorded Confirmed aspirin 81 mg PO DAILY 06/19/20 12/22/20 Xarelto 10 mg PO DAILY 10/28/20 12/22/20 ibuprofen 400 mg PO Q6H PRN 10/28/20 12/22/20 Allergies Allergy/AdvReac Type Severity Reaction Status Date / Time Sulfa (Sulfonamide Allergy Severe Gastrointestinal Verified 12/22/20 10:08 Antibiotics) Upset Penicillins Allergy Intermediate Nausea Verified 12/22/20 10:08 pregabalin Allergy Unknown Altered Verified 12/22/20 10:08 mental status Review of Systems Review of Systems: CONSTITUTIONAL: Denies fever, chills, or sweats. EYES: Denies visual changes, redness, or discharge. ENT: Denies rhinorrhea, congestion, sore throat, or otalgia. Reports difficulty with swallowing. CARDIOVASCULAR: Denies chest pain, palpitations, or edema. RESPIRATORY: Denies cough or dyspnea. GASTROINTESTINAL: Denies abdominal pain, nausea, vomiting, or diarrhea. GENITOURINARY: Denies dysuria or hematuria. SKIN: Denies rash or itching. MUSCULOSKELETAL: Denies back pain, joint pain, or myalgia. NEUROLOGIC: Denies headache, numbness, reports left sided weakness PMFSH Past Medical History Medical History Anxiety Congestion of nasal sinus COPD (chronic obstructive pulmonary disease) Coronary artery disease involving [place] coronary artery of [place] heart Depression Diabetic peripheral neuropathy associated with type 2 diabetes mellitus Encounter for postoperative care Erectile dysfunction following simple prostatectomy Essential hypertension Excessive bleeding Fracture of fifth metatarsal bone of left foot History of MRSA infection Hyperlipidemia Insulin dependent diabetes mellitus Left foot pain Obstructive sleep apnea Describes symptoms but has never had a formal polysomnogram Peripheral neuropathy Prostate cancer Radical prostatectomy October 2015 with recurrence treated with radiation therapy March 2017 Tobacco use Wears glasses Surgical History Surgical History History of cardiac catheterization (~09/2016) 100% occlusion of the distal left circumflex artery with evidence of collaterals with several collaterals filling the left PDA, RCA is a small vessel with 50% lesion not amenable to intervention, 30-40% lesion will small diagonal branch of the LAD, left main coronary is mild stenosis 10-20% History of carpal tunnel release (~1995) Left History of colonoscopy with polypectomy (~11/2017) History of shoulder surgery (~2001) Status post prostatectomy (~10/2015) Radical prostatectomy Family History Family History Mother Diabetes mellitus Hypertension Father COPD (chronic obstructive pulmonary disease) Social History Social History Social History: He has smoked up to 2 pack of cigarettes per day sin
--- NOTE | 2021-01-07 19:58 | PM.IMHP ---
H&P: HPI History of Present Illness Date/Time: 01/07/21 19:58 Chief Complaint: Problem swallowing Narrative: This is a 60-year-old male with past medical history significant for dyslipidemia, diabetes, peripheral diabetic neuropathy, tobacco dependence, hypertension. Patient presented to the emergency room with complaints of problems swallowing his own secretions states that has not been able to eat in the last 2 days or so this started abruptly in the morning of the day before prior to coming to emergency room. Patient states that he has been his usual state of health no fevers, no rigors, no chills, no nausea, no vomiting, no new medications, no cough, no sputum production ,no shortness of breath, no focal sensorimotor deficit, no vision changes, no syncope, no near syncope, no dizziness, no vertigo, no lightheadedness. Patient felt that he is lips and mouth were swelling and that his speech was abnormal due to these can not speak properly Preliminary workup was unrevealing a CT of soft tissue of the neck any enlarged lymph nodes. A CT of the head showed a left lateral ventricle stable mass. A chest x-ray showed left base atelectasis. Patient has been placed in observation. Review of Systems Review of Systems: Problems swallowing has not been able to eat in roughly 2 days this started a day before presenting to the emergency room. Constitutional: Constitutional: Denies body ache(s), Denies chills, Denies fatigue, Denies fever(s), Denies frequent falls, Denies headache(s) and Denies lethargy Eyes: Eyes: Denies change in vision ENT: Reports dysphagia, Denies vertigo, Denies dizziness, Denies lip swelling, Denies nasal discharge, Denies nasal obstruction, Denies neck mass, Denies neck pain and Denies odynophagia Cardiovascular: Cardiovascular: Denies chest pain at rest, Denies rapid heart rate, Denies lightheadedness, Denies radiating jaw, neck or arm pain, Denies palpitations, Denies dyspnea, Denies dyspnea on exertion and Denies orthopnea Respiratory: Respiratory: Denies change in phlegm color, Denies cough, Denies excessive phlegm production and Denies dyspnea Gastrointestinal: Gastrointestinal: Denies abdominal pain, Denies dyspepsia, Denies heartburn, Denies diarrhea, Denies nausea and Denies vomiting Genitourinary: Genitourinary: Reports no additional male genitourinary complaints Musculoskeletal: Musculoskeletal: Reports no additional musculoskeletal complaints Integumentary/Breasts: Skin/Breast: Reports system reviewed and no additional complaints, except as docu Neurologic: Reports system reviewed and no additional complaints, except as documented, Denies focal weakness, Denies Sensory deficit (Neuro) and Denies disequilibrium Psychiatric: Psychiatric: Reports no additional psychiatric complaints Endocrine: Endocrine: Reports no additional endocrine complaints Hematologic/Lymphatic: Hematologic/Lymphatic: Reports no additional hematologic/lymphatic complaints Allergic/Immunologic: Allergic/Immunologic: Reports no additional allergic/immunologic complaints [facility] Past Medical History Medical History (Updated 01/08/21 @ 00:58 by Yusuf Pham MD) Anxiety Congestion of nasal sinus COPD (chronic obstructive pulmonary disease) Coronary artery disease involving [place] coronary artery of [place] heart Depression Diabetic peripheral neuropathy associated with type 2 diabetes mellitus Encounter for postoperative care Erectile dysfunction following simple prostatectomy Essential hypertension Excessive bleeding Fracture of fifth metatarsal bone of left foot History of MRSA infection Hyperlipidemia Insulin dependent diabetes mellitus Left foot pain Obstructive sleep apnea Describes symptoms but has never had a formal polysomnogram Peripheral neuropathy Prostate cancer Radical prostatectomy October 2015 with recurrence treated with radiation therapy March 2017 Tobacco use Wears glasses Surgical History Surgical History (
--- NOTE | 2021-01-07 21:24 | PC.NURSE ---
This patient, Israel Ward, was admitted to 3 Med Surg Room [id number]. Patient/family oriented to hospital policies and general routines including ID bracelet, bed and alarms, visiting hours, pain management, procedures, bathroom and other care routines, personal items, smoking policy, room service/diet, and visiting hours. Information on how to activate the Rapid Response Team has been discussed. Patient/Family are encouraged to report perceived risks to care and to ask questions if they do not understand what they are told or what they should do.
[2021-01-07] MEDS: HYDROcodone/acetaminophen (*CRX) 10-325 MG TABLET 1 TAB PO (23:34)
[2021-01-07] MEDS: GABAPENTIN 300 MG CAPSULE 600 MG PO (23:34)
[2021-01-07] MEDS: NICOTINE (*PBKC) 21 MG PATCH 1 PATCH TRANSDERM (23:59)
[2021-01-08] VITALS (7 sets, daily range): BP systolic 147–168; BP diastolic 63–79; PULSE 49–65; RESP 16–20; TEMP 36.1–36.8; O2SAT 94–95
--- NOTE | 2021-01-08 04:22 | PC.NURSE ---
patient complained through the night of intense pain in legs (chronic), said he takes norco to sleep. Gave the patient norco as ordered and he called within an hour to say he needed to double his dose because that is what he takes at home... I told him that is not how it is prescribed so I would not give it that way. He began to be irritated and said I should do as he says, not what is ordered/prescribed because he takes it the way he wants to at home . I Told him I would call the doctor and get tylenol on board but that was it, because I would not help him abuse medication. I educated him on the importance of taking medications as prescribed and the risks of overusing pain medications, he was not interested in what I had to say. I informed the doctor of his requests and when I went back in to give him the tylenol he was very asleep and I did not wake him. Will reassess his pain and see how else I can assist during morning rounds.
[2021-01-08] MEDS: ACETAMINOPHEN 500 MG TABLET 1000 MG PO (05:00)
[2021-01-08] MEDS: OXYMETAZOLINE HCL 0.05% NAS 15 ML BTL (*BKC) 1 SPRAY NASAL ×2 (05:01→22:22)
[2021-01-08] MEDS: HYDROcodone/acetaminophen (*CRX) 10-325 MG TABLET 1 TAB PO ×3 (08:10→22:22)
[2021-01-08] MEDS: ATORVASTATIN 40 MG TABLET PO (08:11)
[2021-01-08] MEDS: GABAPENTIN 300 MG CAPSULE 600 MG PO ×4 (08:11→22:22)
[2021-01-08] MEDS: SERTRALINE HCL 50 MG TABLET 100 MG PO (08:11)
[2021-01-08] MEDS: NICOTINE (*PBKC) 21 MG PATCH 1 PATCH TRANSDERM (08:11)
[2021-01-08] MEDS: ASPIRIN 81 MG ENTERIC TABLET PO (08:11)
[2021-01-08] MEDS: INSULIN GLARGINE (*BKC) 100 UNITS/ML 55 UNITS SUB-Q ×2 (08:14→17:08)
[2021-01-08 08:26] LABS: Glucose Point of Care 223 mg/dl (65-105)
--- NOTE | 2021-01-08 10:25 | PM.IMPN ---
Progress Note: A&P Assessment and Plan (1) Acute CVA (cerebrovascular accident): Code(s): I63.9 - Cerebral infarction, unspecified Status: Acute Assessment and Plan: patient reported left-sided weakness with slurred speech and difficulty swallowing MRI confirmed findings of an acute stroke carotid Dopplers show less than 50% stenosis bilaterally echo in the a.m. labs stable neurology consult thank you for your suggestions Plavix and aspirin on board patient currently on atorvastatin at home (2) Dysphagia: Code(s): R13.10 - Dysphagia, unspecified Status: Acute Assessment and Plan: Seems to be resolved at this time CT head reviewed CT soft tissue of the neck reviewed Will hold lisinopril Unclear etiology MRI showed acute CVA (3) Coronary artery disease involving [place] coronary artery of [place] heart: Code(s): I25.10 - Atherosclerotic heart disease of [place] coronary artery without angina pectoris Status: Acute Assessment and Plan: Stable Continue home meds (4) Obstructive sleep apnea: Code(s): G47.33 - Obstructive sleep apnea (adult) (pediatric) Status: Inactive Assessment and Plan: Unclear if patient using CPAP at nighttime (5) Tobacco use: Code(s): Z72.0 - Tobacco use Status: Acute Assessment and Plan: Nicotine patch as needed smoking cessation information and education provided for 15 minutes (6) Diabetic peripheral neuropathy associated with type 2 diabetes mellitus: Code(s): E11.42 - Type 2 diabetes mellitus with diabetic polyneuropathy Status: Acute Assessment and Plan: Continue gabapentin (7) Peripheral neuropathic pain: Code(s): M79.2 - Neuralgia and neuritis, unspecified Status: Acute Assessment and Plan: Continue gabapentin (8) COPD (chronic obstructive pulmonary disease): Code(s): J44.9 - Chronic obstructive pulmonary disease, unspecified Status: Acute Assessment and Plan: Patient is on no meds (9) Diabetes mellitus: Code(s): E11.9 - Type 2 diabetes mellitus without complications Status: Acute Assessment and Plan: glucose on labs is 204 continue home Lantus 55 units subQ b.i.d. Accu-Cheks a.c. HS insulin sliding scale trend glucose adjust medications as needed Time Spent With Patient Time with patient: Greater than 35 minutes Subjective Date/time seen: 01/08/21 10:25 Interval history: patient is a 60-year-old male who is here for left-sided weakness. MRI today showed that he had an acute stroke. Patient has not had any issues since yesterday. He has been able to swallow and has been able to eat solid food. He has also been able to walk without stumbling or falling. his only complaint was that his feet hurt from diabetic neuropathy. Patient also explained that when this all started his daughter when get shots answer coughing and hacking his face. However no residual effects at this time. patient probably discharge tomorrow after echocardiogram. Review of Systems Review of Systems: All systems reviewed & are unremarkable except as noted in HPI and below Exam Const: General: cooperative, healthy appearing, no acute distress, well developed, alert and awake Nutritional Appearance: well nourished Orientation/consciousness: patient oriented x3 Limitations: no limitations HENMT: Head: normal to inspection Ears: hearing grossly normal bilaterally General nose exam: Normal external nose present Mouth: Yes Normal oral and palatal mucosa present, Yes lip normal and Yes tongue normal Teeth and gingiva: abnormal tooth and associated gingiva and poor dentition Eyes: General: appearance normal, both eyes and all related structures Neck: Neck: normal visual inspection, full ROM, trachea midline and supple Chest: Chest palpation & inspection: normal inspection of the
[2021-01-08 12:24] LABS: Glucose Point of Care 191 mg/dl (65-105)
[2021-01-08] MEDS: CLOPIDOGREL BISULFATE 300 MG TABLET PO (17:09)
[2021-01-08 17:10] LABS: Glucose Point of Care 187 mg/dl (65-105)
[2021-01-08 17:47] LABS: SARS-CoV-2 RNA PCR Negative
[2021-01-08 21:02] LABS: Glucose Point of Care 203 mg/dl (65-105)
[2021-01-09] VITALS (9 sets, daily range): BP systolic 138–154; BP diastolic 61–74; PULSE 43–57; RESP 16–19; TEMP 36.4–36.6; O2SAT 92–96
--- NOTE | 2021-01-09 | ECHO_ITS ---
Patient Info Name: Israel Ward Age: 60 years : 1960 Gender: Male Ht: 71 in Wt: 225 lbs BSA: 2.29 m2 HR: 45 bpm Technical Quality: Good Exam Date: 01/09/2021 8:28 AM Exam Location: [facility] Patient Status: Inpatient Admit Date: 01/08/2021 Staff Ordering Physician: Mau [employer] As[employer]er: Emmy Pimentel RDCS Attending Provider: Cris Grace MD Referring Physician: Prashanth ESTRELLA; Exam Type: CA echo doppler w bubble study Study Info Indications - cva Complete two-dimensional, color flow and Doppler transthoracic echocardiogram is performed with agitated saline. Contrast/Agitated Saline Contrast/Ag. Saline: Agitated Saline Amount: 6.00 ml Summary 1. Left ventricular chamber dimension is normal. 2. Left ventricular systolic function is normal, estimated at 55-60%. 3. There is mildly increased left ventricular wall thickness. 4. The left ventricular diastolic function is normal. 5. E/e' 8 is minimally elevated. 6. Left atrial chamber dimension is mildly enlarged. 7. The mitral valve has mildly calcified annulus. 8. There is mild mitral valve regurgitation. 9. There is trace tricuspid valve regurgitation. 10. No pulmonary hypertension, estimated pulmonary arterial systolic pressure is 34 mmHg. Left Ventricle E/e' 8 is minimally elevated. Left ventricular chamber dimension is normal. Left ventricular systolic function is normal, estimated at 55-60%. There is mildly increased left ventricular wall thickness. The left ventricular diastolic function is normal. Right Ventricle Right ventricular systolic function is normal and with normal TAPSE 2. 6 cm. Right ventricular chamber dimension is normal. Left Atria Left atrial chamber dimension is mildly enlarged. Right Atria Right atrial chamber dimension is normal. Atrial Septum Agitated saline injection opacified right cardiac chambers with and without vasalva maneuver without shunt to left cardiac chambers. Intact interatrial septum visualized by color flow and agitated saline imaging. Aortic Valve The aortic valve is trileaflet. There is no aortic valve stenosis. There is no aortic valve regurgitation. Pulmonic Valve There is no pulmonic regurgitation. Mitral Valve The mitral valve has mildly calcified annulus. There is no mitral valve stenosis. There is mild mitral valve regurgitation. Tricuspid Valve There is trace tricuspid valve regurgitation. No pulmonary hypertension, estimated pulmonary arterial systolic pressure is 34 mmHg. Pericardium/Pleural There is no pericardial effusion. Inferior Vena Cava Normal inferior vena cava with >50% collapse upon inspiration consistent with normal right atrial pressure, 5 mmHg. Aorta The aortic root size at the sinus of Valsalva is normal. Left Ventricular Outflow Tract Name Value Normal LVOT 2D LVOT Diameter 2.4 cm LVOT Doppler LVOT Peak Gradient 3 mmHg LVOT Mean Gradient 1 mmHg LVOT VTI 20 cm LVOT VTI/A
[2021-01-09] MEDS: HYDROcodone/acetaminophen (*CRX) 10-325 MG TABLET 1 TAB PO ×3 (04:49→22:00)
[2021-01-09 06:28] LABS: Basophils Percent Auto 0.2 % (0.2-1.2); Eosinophils Percent Auto 0.1 % (0-4.4); Hematocrit 42.1 % (42.0-52.0); Hemoglobin 14.6 g/dL (14.0-18.0); Immature Granulocyte Absolute 0.09 K/mm3 (0.00-0.031); Immature Granulocyte Percent A 0.6 % (0-0.5); Lymphocytes Absolute Auto 2.69 K/mm3 (0.9-3.2); Lymphocytes Percent Auto 17.4 % (18.3-44.2); Mean Corpuscular HGB Conc 34.7 g/dl (32-36); Mean Corpuscular Hemoglobin 29.9 pg (26-34); Mean Corpuscular Volume 86.3 fl (80-100); Monocytes Absolute Auto 0.9 K/mm3 (0.1-0.6); Monocytes Percent Auto 5.9 % (2.6-8.5); Neutrophils Absolute Auto 11.7 K/mm3 (1.3-6.7); Neutrophils Percent Auto 75.8 % (45.5-73.1); Platelet Count Result 251 k/mm3 (150-375); Red Blood Count 4.88 M/mm3 (4.6-6.20); Red Cell Distribution Width 15.3 % (11.5-14.5); White Blood Count 15.5 K/mm3 (4.5-10.0)
[2021-01-09 06:47] LABS: Alanine Aminotransferase 18 U/L (4-50); Albumin Level 4.3 g/dL (3.5-5.1); Alkaline Phosphatase 59 U/L (38-126); Anion Gap 8 mmol/L (8-16); Aspartate Amino Transferase 24 U/L (17-59); Bilirubin,Total 0.5 mg/dL (0.2-1.3); Blood Urea Nitrogen 21 mg/dL (9-20); Calcium 9.4 mg/dL (8.4-10.2); Carbon Dioxide 31 mmol/L (22-30); Chloride 99 mmol/L (98-107); Estimated CRCL calculation 116 ml/min; Estimated Glomerular Filt Rate > 60; Glucose 113 mg/dL (65-110); Potassium 3.8 mmol/L (3.4-5.0); Sodium 138 mmol/L (137-145)
[2021-01-09 08:32] LABS: Glucose Point of Care 92 mg/dl (65-105)
[2021-01-09] MEDS: ASPIRIN 81 MG ENTERIC TABLET PO (09:04)
[2021-01-09] MEDS: GABAPENTIN 300 MG CAPSULE 600 MG PO ×4 (09:04→22:00)
[2021-01-09] MEDS: CLOPIDOGREL BISULFATE 75 MG TABLET PO (09:04)
[2021-01-09] MEDS: NICOTINE (*PBKC) 21 MG PATCH 1 PATCH TRANSDERM (09:04)
[2021-01-09] MEDS: SERTRALINE HCL 50 MG TABLET 100 MG PO (09:05)
[2021-01-09] MEDS: INSULIN GLARGINE (*BKC) 100 UNITS/ML 55 UNITS SUB-Q ×2 (09:05→17:33)
[2021-01-09] MEDS: ATORVASTATIN 40 MG TABLET PO (09:05)
[2021-01-09 12:14] LABS: Glucose Point of Care 114 mg/dl (65-105)
--- NOTE | 2021-01-09 14:02 | PM.IMPN ---
Progress Note: A&P Assessment and Plan (1) Acute CVA (cerebrovascular accident): Code(s): I63.9 - Cerebral infarction, unspecified Status: Acute Assessment and Plan: patient reported left-sided weakness (IMPROVED) with slurred speech and difficulty swallowing (PERSISTENT) slurring of words and mumbling speech since 9am Dec. 14, and admitted to ED on afternoon. MRI confirmed findings of an acute stroke: MRI yesterday showed that he had multiple acute infarcts or stroke. His MRI showed acute right archana infarct and punctate left internal capsular lacunar infarct. carotid Dopplers show less than 50% stenosis bilaterally Echo was completed this morning, but awaiting Report WBC elevated at 15.5 awaiting Neurology consultation Plavix and aspirin and statin on board Ordered Speech therapy evaluation, swallow study, as well as PT and OT evaluation. (2) Dysphagia: Code(s): R13.10 - Dysphagia, unspecified Status: Acute Assessment and Plan: May be improved, but persisting, CXR clear todoay, but need a SWALLOW study and Speech therapist evaluation CT head clear CT soft tissue of the neck reviewed BPs stable 138/68 - 147/73; able to restart lisinopril MRI showed acute CVA getting PT/OT evaluation and Neurology consultation (3) Coronary artery disease involving [place] coronary artery of [place] heart: Code(s): I25.10 - Atherosclerotic heart disease of [place] coronary artery without angina pectoris Status: Acute Assessment and Plan: Stable Continue home meds (4) Tobacco use: Code(s): Z72.0 - Tobacco use Status: Acute Assessment and Plan: Nicotine patch as needed COPD history - but not symptomatic smoking cessation information and education provided for 15 minutes (5) Diabetic peripheral neuropathy associated with type 2 diabetes mellitus: Code(s): E11.42 - Type 2 diabetes mellitus with diabetic polyneuropathy Status: Acute Assessment and Plan: Continue gabapentin continues to have chronic diabetic neuropathy in both feet and legs, which he treats thru his Orthopedic surgeon and his Pain Management physicians. has long healing multiple diabetic foot ulcers on both feet, ordered Wound Nurse consultation. (6) Peripheral neuropathic pain: Code(s): M79.2 - Neuralgia and neuritis, unspecified Status: Acute Assessment and Plan: Continue gabapentin (7) COPD (chronic obstructive pulmonary disease): Code(s): J44.9 - Chronic obstructive pulmonary disease, unspecified Status: Acute Assessment and Plan: Patient is on no meds no wheezing, no cough, no SOB, no O2 requirement (8) Diabetes mellitus: Code(s): E11.9 - Type 2 diabetes mellitus without complications Status: Acute Assessment and Plan: glucose on labs is 113, controlled continue home Lantus 55 units subQ b.i.d. Accu-Cheks a.c. HS insulin sliding scale diabetic diet (9) Bradycardia: Code(s): R00.1 - Bradycardia, unspecified Status: Acute Assessment and Plan: EKG at admission: SINUS BRADYCARDIA, PEAKED T WAVES- CONSIDER HYPERKALEMIA OR ISCHEMIA, ABNORMAL ECG. Continuous cardiac telemetry monitoring bradycardic with HR 43-50bpm, cardiac history per patient denies chest pain or palpitations at this time no BB on home med list even in 2014 his HR showed some bradycardia with HR 50s Potassium 3.8 sodium 138 Mag 2.0 Subjective Date/time seen: 01/09/21 14:02 Interval history: Israel is a 60-year-old male who is here for left sided weakness, slurring of words and mumbling speech since 9am , and admitted to ED on afternoon. He is bradycardic with HR 43-50bpm, but denies chest pain or palpitations at this time. Left-sided weakness seems to have resolved at this time of my assessment. Patient denies any concerns for left sided weakness. Patient was informed and did n
--- NOTE | 2021-01-09 14:54 | PCPTNOTE ---
On 01/09/21, the student, Andry Bautista, provided care and completed [facility] documentation on this patient. I have reviewed the student's documentation and agree with the findings.
[2021-01-09 17:10] LABS: Glucose Point of Care 120 mg/dl (65-105)
[2021-01-09] MEDS: OXYMETAZOLINE HCL 0.05% NAS 15 ML BTL (*BKC) 1 SPRAY NASAL (19:49)
[2021-01-09 20:57] LABS: Glucose Point of Care 174 mg/dl (65-105)
[2021-01-10] VITALS (9 sets, daily range): BP systolic 138–154; BP diastolic 65–74; PULSE 43–72; RESP 18–20; TEMP 36–36.5; O2SAT 93–96
[2021-01-10 07:42] LABS: Hematocrit 43.5 % (42.0-52.0); Hemoglobin 14.5 g/dL (14.0-18.0); Mean Corpuscular HGB Conc 33.3 g/dl (32-36); Mean Corpuscular Volume 89.9 fl (80-100); Mean Platelet Volume 10.5 fl (7.4-10.4); Platelet Count Result 241 k/mm3 (150-375); Red Blood Count 4.84 M/mm3 (4.6-6.20); Red Cell Distribution Width 15.5 % (11.5-14.5); White Blood Count 10.6 K/mm3 (4.5-10.0)
[2021-01-10 07:52] LABS: Anion Gap 8 mmol/L (8-16); Blood Urea Nitrogen 22 mg/dL (9-20); Calcium 9.1 mg/dL (8.4-10.2); Carbon Dioxide 32 mmol/L (22-30); Chloride 99 mmol/L (98-107); Estimated CRCL calculation 103 ml/min; Estimated Glomerular Filt Rate > 60; Glucose 93 mg/dL (65-110); Potassium 3.7 mmol/L (3.4-5.0); Sodium 139 mmol/L (137-145)
[2021-01-10 08:21] LABS: Glucose Point of Care 102 mg/dl (65-105)
[2021-01-10] MEDS: CLOPIDOGREL BISULFATE 75 MG TABLET PO (08:24)
[2021-01-10] MEDS: GABAPENTIN 300 MG CAPSULE 600 MG PO ×4 (08:24→20:24)
[2021-01-10] MEDS: ASPIRIN 81 MG ENTERIC TABLET PO (08:24)
[2021-01-10] MEDS: SERTRALINE HCL 50 MG TABLET 100 MG PO (08:24)
[2021-01-10] MEDS: ATORVASTATIN 40 MG TABLET PO (08:24)
[2021-01-10] MEDS: NICOTINE (*PBKC) 21 MG PATCH 1 PATCH TRANSDERM (08:24)
[2021-01-10] MEDS: INSULIN GLARGINE (*BKC) 100 UNITS/ML 55 UNITS SUB-Q ×2 (08:25→17:30)
[2021-01-10] MEDS: HYDROcodone/acetaminophen (*CRX) 10-325 MG TABLET 1 TAB PO ×3 (08:29→20:24)
--- NOTE | 2021-01-10 09:11 | PCSTNOTE ---
Bedside swallow evaluation completed. Please see ST Inpatient Evaluation for details and recommendations.
--- NOTE | 2021-01-10 11:26 | PCSTNOTE ---
Modified Barium Swallow Study completed. Please see ST Inpatient Evaluation for details and recommendations.
[2021-01-10 11:54] LABS: Glucose Point of Care 125 mg/dl (65-105)
[2021-01-10] MEDS: OXYMETAZOLINE HCL 0.05% NAS 15 ML BTL (*BKC) 1 SPRAY NASAL (12:02)
--- NOTE | 2021-01-10 12:17 | PM.IMPN ---
Progress Note: A&P Assessment and Plan (1) Acute CVA (cerebrovascular accident): Code(s): I63.9 - Cerebral infarction, unspecified Status: Acute Assessment and Plan: patient reported left-sided weakness (IMPROVED) with slurred speech and difficulty swallowing (PERSISTENT) slurring of words and mumbling speech since 9am , and admitted to ED on afternoon. MRI confirmed findings of an acute stroke: MRI yesterday showed that he had multiple acute infarcts or stroke. His MRI showed acute right archana infarct and punctate left internal capsular lacunar infarct. carotid Dopplers show less than 50% stenosis bilaterally Echo was completed this morning, but awaiting Report WBC elevated at 15.5 awaiting Neurology consultation Plavix and aspirin and statin on board Speech therapy evaluation, swallow study completed PT and OT evaluation Likely home 01/11 (2) Dysphagia: Code(s): R13.10 - Dysphagia, unspecified Status: Acute Assessment and Plan: Improving, but persisting, MRI showed acute CVA (3) Coronary artery disease involving [place] coronary artery of [place] heart: Code(s): I25.10 - Atherosclerotic heart disease of [place] coronary artery without angina pectoris Status: Acute Assessment and Plan: Stable Continue home meds (4) Tobacco use: Code(s): Z72.0 - Tobacco use Status: Acute Assessment and Plan: Nicotine patch as needed He would like a nicotine patch at discharge COPD history - but not symptomatic smoking cessation information and education provided for 15 minutes (5) Diabetic peripheral neuropathy associated with type 2 diabetes mellitus: Code(s): E11.42 - Type 2 diabetes mellitus with diabetic polyneuropathy Status: Acute Assessment and Plan: Continue gabapentin continues to have chronic diabetic neuropathy in both feet and legs, which he treats thru his Orthopedic surgeon and his Pain Management physicians. has long healing multiple diabetic foot ulcers on both feet wound nurse to evaluate (6) Peripheral neuropathic pain: Code(s): M79.2 - Neuralgia and neuritis, unspecified Status: Acute Assessment and Plan: Continue gabapentin (7) COPD (chronic obstructive pulmonary disease): Code(s): J44.9 - Chronic obstructive pulmonary disease, unspecified Status: Acute Assessment and Plan: Patient is on no meds no wheezing, no cough, no SOB, no O2 requirement (8) Diabetes mellitus: Code(s): E11.9 - Type 2 diabetes mellitus without complications Status: Acute Assessment and Plan: glucose reviewed 01/10 continue home Lantus 55 units subQ b.i.d. Accu-Cheks a.c. HS insulin sliding scale diabetic diet (9) Bradycardia: Code(s): R00.1 - Bradycardia, unspecified Status: Acute Assessment and Plan: EKG at admission: SINUS BRADYCARDIA, PEAKED T WAVES- CONSIDER HYPERKALEMIA OR ISCHEMIA, ABNORMAL ECG. Continuous cardiac telemetry monitoring unremarkable 01/10 bradycardic with HR 43-50bpm, cardiac history per patient denies chest pain or palpitations at this time no BB on home med list even in 2014 his HR showed some bradycardia with HR 50s Subjective Date/time seen: 01/10/21 12:17 Interval history: Israel is a 60-year-old left-handed male who is here for left sided weakness, slurring of words and mumbling speech since 9am , and admitted to ED on afternoon. His MRI showed acute right archana infarct and punctate left internal capsular lacunar infarct. 01/20 visit: Patient has not had new issues since admission. He has been able to swallow and has been able to eat solid food per his report. He has also been able to walk without stumbling or falling. He continues to have slurred words and have mumbled speech when he speaks fast. He does appear to have a right sided droop of his lower lip. Speech ther
[2021-01-10 17:10] LABS: Glucose Point of Care 128 mg/dl (65-105)
[2021-01-10 20:32] LABS: Glucose Point of Care 150 mg/dl (65-105)
[2021-01-11] VITALS: PULSE 56
[2021-01-11 04:00] VITALS: PULSE 45
[2021-01-11] MEDS: HYDROcodone/acetaminophen (*CRX) 10-325 MG TABLET 1 TAB PO ×2 (04:53→14:29)
[2021-01-11 06:00] VITALS: BP 187/81; PULSE 47; RESP 18; TEMP 36.9; O2SAT 96
[2021-01-11 08:00] VITALS: PULSE 64; O2SAT 95
[2021-01-11] MEDS: OXYMETAZOLINE HCL 0.05% NAS 15 ML BTL (*BKC) 1 SPRAY NASAL (08:01)
[2021-01-11] MEDS: NICOTINE (*PBKC) 21 MG PATCH 1 PATCH TRANSDERM (08:01)
[2021-01-11] MEDS: ASPIRIN 81 MG ENTERIC TABLET PO (08:01)
[2021-01-11] MEDS: GABAPENTIN 300 MG CAPSULE 600 MG PO ×2 (08:01→12:41)
[2021-01-11] MEDS: SERTRALINE HCL 50 MG TABLET 100 MG PO (08:02)
[2021-01-11] MEDS: ATORVASTATIN 40 MG TABLET PO (08:02)
[2021-01-11 08:22] LABS: Glucose Point of Care 102 mg/dl (65-105)
[2021-01-11] MEDS: INSULIN GLARGINE (*BKC) 100 UNITS/ML 55 UNITS SUB-Q (08:43)
--- NOTE | 2021-01-11 10:15 | PM.DS ---
DS: Admitting Diagnosis Discharge Date Date of service 01/11/2021 at 10:15 a.m. Admitting Diagnosis acute CVA DS: Discharge Diagnosis Discharge Diagnosis (1) Acute CVA (cerebrovascular accident): Code(s): I63.9 - Cerebral infarction, unspecified Status: Acute Assessment and Plan: patient reported left-sided weakness (IMPROVED) with slurred speech and difficulty swallowing (PERSISTENT) slurring of words and mumbling speech since 9am , and admitted to ED on afternoon. MRI confirmed findings of an acute stroke: MRI yesterday showed that he had multiple acute infarcts or stroke. His MRI showed acute right archana infarct and punctate left internal capsular lacunar infarct. carotid Dopplers show less than 50% stenosis bilaterally Echo was completed this morning, but awaiting Report WBC trending down 10.6 Neurology consultation Plavix and aspirin and statin on board Speech therapy evaluation, swallow study completed PT and OT evaluation Likely home 01/11 (2) Dysphagia: Code(s): R13.10 - Dysphagia, unspecified Status: Acute Assessment and Plan: Improving, but persisting, MRI showed acute CVA (3) Coronary artery disease involving [place] coronary artery of [place] heart: Code(s): I25.10 - Atherosclerotic heart disease of [place] coronary artery without angina pectoris Status: Acute Assessment and Plan: Stable Continue home meds (4) Tobacco use: Code(s): Z72.0 - Tobacco use Status: Acute Assessment and Plan: Nicotine patch as needed COPD history - but not symptomatic smoking cessation information and education provided for 15 minutes (5) Diabetic peripheral neuropathy associated with type 2 diabetes mellitus: Code(s): E11.42 - Type 2 diabetes mellitus with diabetic polyneuropathy Status: Acute Assessment and Plan: Continue gabapentin continues to have chronic diabetic neuropathy in both feet and legs, which he treats thru his Orthopedic surgeon and his Pain Management physicians. has long healing multiple diabetic foot ulcers on both feet wound nurse to evaluate (6) Peripheral neuropathic pain: Code(s): M79.2 - Neuralgia and neuritis, unspecified Status: Acute Assessment and Plan: Continue gabapentin (7) COPD (chronic obstructive pulmonary disease): Code(s): J44.9 - Chronic obstructive pulmonary disease, unspecified Status: Acute Assessment and Plan: Patient is on no meds no wheezing, no cough, no SOB, no O2 requirement (8) Diabetes mellitus: Code(s): E11.9 - Type 2 diabetes mellitus without complications Status: Acute Assessment and Plan: glucose reviewed 01/10 continue home Lantus 55 units subQ b.i.d. Accu-Cheks a.c. HS insulin sliding scale diabetic diet (9) Bradycardia: Code(s): R00.1 - Bradycardia, unspecified Status: Acute Assessment and Plan: EKG at admission: SINUS BRADYCARDIA, PEAKED T WAVES- CONSIDER HYPERKALEMIA OR ISCHEMIA, ABNORMAL ECG. Continuous cardiac telemetry monitoring unremarkable 01/10 bradycardic with HR 43-50bpm, cardiac history per patient denies chest pain or palpitations at this time no BB on home med list even in 2014 his HR showed some bradycardia with HR 50s DS: Summary Hospital Course Hospital Course: patient is 60-year-old male with a past medical history of hyperlipidemia, diabetes, and high blood pressure who presented to the ED with left-sided weakness and dysphasia. Head CT was performed which showed cerebral white matter disease and left lateral ventricle and local volume loss. Brain MRI showed acute small right archana infarction and small left internal capsular Lacunar infarct. Carotid Doppler ultrasounds showed less than 50% stenosis. Echocardiogram was also done with an EF of 55-60%. Modified barium swallow was
--- NOTE | 2021-01-11 10:15 | P.DS_ITS ---
DS: Admitting Diagnosis Discharge Date Date of service 01/11/2021 at 10:15 a.m. Admitting Diagnosis acute CVA DS: Discharge Diagnosis Discharge Diagnosis (1) Acute CVA (cerebrovascular accident): Code(s): I63.9 - Cerebral infarction, unspecified Status: Acute Assessment and Plan: * patient reported left-sided weakness (IMPROVED) with slurred speech and difficulty swallowing (PERSISTENT) * slurring of words and mumbling speech since 9am , and admitted to ED on afternoon. * MRI confirmed findings of an acute stroke: MRI yesterday showed that he had multiple acute infarcts or stroke. His MRI showed acute right archana infarct and punctate left internal capsular lacunar infarct. * carotid Dopplers show less than 50% stenosis bilaterally * Echo was completed this morning, but awaiting Report * WBC trending down 10.6 * Neurology consultation * Plavix and aspirin and statin on board * Speech therapy evaluation, swallow study completed * PT and OT evaluation * Likely home 01/11 (2) Dysphagia: Code(s): R13.10 - Dysphagia, unspecified Status: Acute Assessment and Plan: * Improving, but persisting, * MRI showed acute CVA (3) Coronary artery disease involving [place] coronary artery of [place] heart: Code(s): I25.10 - Atherosclerotic heart disease of [place] coronary artery without angina pectoris Status: Acute Assessment and Plan: * Stable * Continue home meds (4) Tobacco use: Code(s): Z72.0 - Tobacco use Status: Acute Assessment and Plan: * Nicotine patch as needed * COPD history - but not symptomatic * smoking cessation information and education provided for 15 minutes (5) Diabetic peripheral neuropathy associated with type 2 diabetes mellitus: Code(s): E11.42 - Type 2 diabetes mellitus with diabetic polyneuropathy Status: Acute Assessment and Plan: Continue gabapentin continues to have chronic diabetic neuropathy in both feet and legs, which he treats thru his Orthopedic surgeon and his Pain Management physicians. has long healing multiple diabetic foot ulcers on both feet wound nurse to evaluate (6) Peripheral neuropathic pain: Code(s): M79.2 - Neuralgia and neuritis, unspecified Status: Acute Assessment and Plan: Continue gabapentin (7) COPD (chronic obstructive pulmonary disease): Code(s): J44.9 - Chronic obstructive pulmonary disease, unspecified Status: Acute Assessment and Plan: * Patient is on no meds * no wheezing, no cough, no SOB, no O2 requirement (8) Diabetes mellitus: Code(s): E11.9 - Type 2 diabetes mellitus without complications Status: Acute Assessment and Plan: * glucose reviewed 01/10 * continue home Lantus 55 units subQ b.i.d. * Accu-Cheks a.c. HS * insulin sliding scale * diabetic diet (9) Bradycardia: Code(s): R00.1 - Bradycardia, unspecified Status: Acute Assessment and Plan: EKG at admission: SINUS BRADYCARDIA, PEAKED T WAVES- CONSIDER HYPERKALEMIA OR ISCHEMIA, ABNORMAL ECG. Continuous cardiac telemetry monitoring unremarkable 01/10 bradycardic with HR 43-50bpm, cardiac history per patient denies chest pain or palpitations at this time no BB on home med list even in 2014 his HR showed some bradycardia with HR 50s DS: Summary Hospital Course Hospital Course: jesika
[2021-01-11 11:36] LABS: Glucose Point of Care 126 mg/dl (65-105)
[2021-01-11] MEDS: CLOPIDOGREL BISULFATE 75 MG TABLET PO (12:23)
[2021-01-11 14:19] VITALS: BP 150/72; PULSE 52; RESP 18; TEMP 36.5; O2SAT 95
--- NOTE | 2021-02-02 11:41 | WPDNEURCNPN ---
Consult date: 02/02/21 HPI: Israel Ward is a 60 year old male not seen in consult. [facility] Past Medical History Medical History Anxiety Congestion of nasal sinus COPD (chronic obstructive pulmonary disease) Coronary artery disease involving [place] coronary artery of [place] heart Depression Diabetic peripheral neuropathy associated with type 2 diabetes mellitus Encounter for postoperative care Erectile dysfunction following simple prostatectomy Essential hypertension Excessive bleeding Fracture of fifth metatarsal bone of left foot History of MRSA infection History of stroke with current residual effects Hyperlipidemia Insulin dependent diabetes mellitus Left foot pain Obesity Obstructive sleep apnea Describes symptoms but has never had a formal polysomnogram Peripheral neuropathy Prostate cancer Radical prostatectomy October 2015 with recurrence treated with radiation therapy March 2017 Tobacco use Wears glasses Surgical History Surgical History History of cardiac catheterization (~09/2016) 100% occlusion of the distal left circumflex artery with evidence of collaterals with several collaterals filling the left PDA, RCA is a small vessel with 50% lesion not amenable to intervention, 30-40% lesion will small diagonal branch of the LAD, left main coronary is mild stenosis 10-20% History of carpal tunnel release (~1995) Left History of colonoscopy with polypectomy (~11/2017) History of shoulder surgery (~2001) Status post prostatectomy (~10/2015) Radical prostatectomy Family History Family History Mother Diabetes mellitus Hypertension Father COPD (chronic obstructive pulmonary disease) Social History Social History Social History: He has smoked up to 2 pack of cigarettes per day since the age of 14. He denies any significant alcohol use. He lives at home with his girlfriend. He has 2 adult children. 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 Primary care physician: Dr. Levar Melgar Code status: Full code Smoking packs per day: 0.5 Smoking cigarettes per day: 10.0 Years smoked: 45 Smoking pack-years: 22.50 Tobacco type: cigarettes Second hand tobacco smoke exposure: Yes Additional smoking assessment comments: STATES 2PK/DAY DOWN TO 0.5PK/DAY-SMOKED FOR 35-40 YR Alcohol intake: former Drinks per week: 1 Alcohol use details: occasionally Substance use: never Substance use type: does not use Spiritual care concerns: No Meds Home Medications and Allergies Home Medications Medication Instructions Recorded Confirmed Type aspirin 81 mg PO DAILY 06/19/20 01/19/21 History sertraline 100 mg tablet 100 mg PO DAILY #90 tablet 09/09/20 01/19/21 Rx atorvastatin 40 mg tablet 40 mg PO DAILY #90 tablet 10/13/20 01/19/21 Rx ibuprofen 400 mg PO Q6H PRN 10/28/20 01/19/21 History gabapentin 300 mg capsule 600 mg PO QID #240 cap 12/23/20 01/19/21 Rx insulin glargine 100 unit/mL (3 55 unit SUBCUT BID #15 ml 12/24/20 01/19/21 Rx mL) subcutaneous pen lisinopril 20 mg tablet 20 mg PO DAILY #90 tablet 12/29/20 01/19/21 Rx hydrocodone 10 mg-acetaminophen 1 tablet PO Q6-8H PRN #60 tablet 01/07/21 01/19/21 Rx 325 mg tablet nicotine 1 patch TRANSDERMAL DAILY 01/07/21 01/19/21 History EB-N3 DR 1 tablet PO DAILY 01/11/21 01/19/21 History clopidogrel 75 mg PO QAM 42 Days #42 tablet 01/11/21 01/19/21 Rx Allergies Allergy/AdvReac Type Severity Reaction Status Date / Time Sulfa (Sulfonamide Allergy Severe Gastrointestinal Verified 01/19/21 08:25 Antibiotics) Upset Penicillins Allergy Intermediate Nausea Verified 01/19/21 08:25 pregabalin Allergy Unknown Altered Verified 01/19/21 08:25 mental status Results Labs CBC & Chem 7: 01/10/21 06:00
== END 2021-01-11 16:20 | disposition home or self-care (01) | DRG 65 ==
LOC: ANHED 19:18 → ANH3MEDSUR 22:40 → ANH3MED 05-18 15:30 → ANH3MEDSUR 05-18 15:30
PROVIDERS: Emergency Medicine; Nurse Practitioner; Admitting Provider Internal Medicine; Emergency Provider Emergency Medicine; PCP Family Medicine; Visit Provider Nurse Practitioner
DX: I63.9 Cerebral infarction, unspecified (principal); G81.94 Hemiplegia, unspecified affecting left nondominant side; Z20.822 Contact with and (suspected) exposure to COVID-19; R47.81 Slurred speech; R26.2 Difficulty in walking, not elsewhere classified; R13.10 Dysphagia, unspecified; I25.10 Atherosclerotic heart disease of native coronary artery without angina pectoris; E11.42 Type 2 diabetes mellitus with diabetic polyneuropathy; J44.9 Chronic obstructive pulmonary disease, unspecified; E11.9 Type 2 diabetes mellitus without complications; R00.1 Bradycardia, unspecified; E78.5 Hyperlipidemia, unspecified; F19.10 Other psychoactive substance abuse, uncomplicated; G47.33 Obstructive sleep apnea (adult) (pediatric); F32.A Depression, unspecified; F17.210 Nicotine dependence, cigarettes, uncomplicated; F41.9 Anxiety disorder, unspecified; I25.2 Old myocardial infarction; Z79.01 Long term (current) use of anticoagulants; Z79.82 Long term (current) use of aspirin; Z85.46 Personal history of malignant neoplasm of prostate
CPT/HCPCS: 36415; 70450; 70491; 70553; 71045; 71046; 80048; 80053; 82948; 83735; 84484; 85025; 85027; 85610; 85730; 87081; 87880; 92507; 92523; 92610; 92611; 93005; 93306; 93880; 96365; 96375; 97161; 97165; 99285; A9270; A9577; C9803; G0378; J0131; J1100; J1815; Q9967; U0003; U0005

== ENCOUNTER 2021-02-24 13:00 | Outpatient (RCR) | payer OTHER, SELFPAY ==
--- NOTE | 2021-02-16 13:45 | PTOPEVAL ---
PHYSICAL THERAPY EVALUATION/ DISCHARGE 02-16-21 Thank you for referring Israel Ward to [facility] s/p CVA. Irsael is doing well with his LE strength, mobility and balance skills. Skilled PT services are not indicated for him, therefore he will be discharged from PT services. And is to continue at home with increasing his activity level and endurance. Please review, sign, date and return this plan of care YESSENIA. I agree with and certify that the following plan of care is medically necessary. Referring Physician Date Attending Provider: Levar Melgar MD Document 02/16/21 13:05 GAUDENCIO (Rec: 02/16/21 13:45 GAUDENCIO [id number]) Therapy Assessment Status Past Medical History Source of Past Medical History Recalled from Previous Visit, Confirmed with Patient/Family Neurological History Hx Cerebrovascular Accident (CVA) Yes: this admission dx Hx Other Neurological Disorders Yes: DIABETIC NEUROPATHY B LE and feet Cardiovascular History Hx Coronary Artery Disease Yes Hx Hypercholesterolemia Yes: meds Hx Hypertension Yes: meds Hx Myocardial Infarction Yes Respiratory History Hx Pneumonia Yes Hx Sleep Apnea Yes: not been tested Gastrointestinal History Hx Gastrointestinal Disorders No Significant History Genitourinary History Hx Prostatectomy Yes: due to cancer- radiation treatments Musculoskeletal History Hx Fractures Yes: RT WRIST, LT 5TH METATARSAL FX Hx Orthopedic Surgery Yes: RT WRIST X2, BILATERAL CTR; R rot cuff surgery Hematological History Hx Hematological Disorders No Significant History Endocrine History Hx Diabetes Yes: type 2 HEENT History Hx Sinus Problems Yes Hx Dental Problems Yes: UPPER FULL DENTURES Integumentary History Hx Other Skin Disorders Yes: SORES ON ARMS Reproductive History Hx Other Reproductive Disorders Yes: ERECTILE DYSFUNCTION Psychosocial History Hx Anxiety Yes Hx Depression Yes Pain History Has Past Pain Affected Your Daily Life Yes: DIABETIC NEUROPATHY History of Long-Term Prescription Pain Yes: HYDROCODONE Medication Use (Opiates) Anesthesia History Hx Post-Op Nausea/Vomiting Yes Other History Hx Cancer Yes: PROSTATE Hx Radiation Therapy Yes: COMPLETED Evaluation Information Problem Diagnosis CVA Onset Jan 08, 2021 Subjective Information was in the hospital for 5 days Query Text:As Reported By Patient/ ; then returned home; has Family not had any therapy; no leg exercises at home, just
--- NOTE | 2021-02-16 16:17 | STOPEVAL ---
SPEECH THERAPY INITIAL EVALUATION: Thank you for referring Israel Ward to [facility].? The patient is scheduled to be seen for therapy? 1x/week for 4 weeks. Please review, sign, date and return this plan of care YESSENIA. I agree with and certify that the following plan of care is medically necessary. Referring Physician Date Attending Provider: Levar Melgar MD Outpatient Past Medical History Past Medical History Source of Past Medical History Recalled from Previous Visit, Confirmed with Patient/Family Neurological History Hx Cerebrovascular Accident (CVA) Yes: Mid December; hospitalized x5 days Hx Other Neurological Disorders Yes: DIABETIC NEUROPATHY B LE and feet Cardiovascular History Hx Coronary Artery Disease Yes Hx Hypercholesterolemia Yes: meds Hx Hypertension Yes: meds Hx Myocardial Infarction Yes Respiratory History Hx Pneumonia Yes Hx Sleep Apnea Yes: not been tested Gastrointestinal History Hx Gastrointestinal Disorders No Significant History Genitourinary History Hx Prostatectomy Yes: due to cancer- radiation treatments Musculoskeletal History Hx Fractures Yes: RT WRIST, LT 5TH METATARSAL FX Hx Orthopedic Surgery Yes: RT WRIST X2, BILATERAL CTR; R rot cuff surgery Hematological History Hx Hematological Disorders No Significant History Endocrine History Hx Diabetes Yes: type 2 HEENT History Hx Sinus Problems Yes Hx Dental Problems Yes: UPPER FULL DENTURES Integumentary History Hx Other Skin Disorders Yes: SORES ON ARMS Reproductive History Hx Other Reproductive Disorders Yes: ERECTILE DYSFUNCTION Psychosocial History Hx Anxiety Yes Hx Depression Yes Pain History Has Past Pain Affected Your Daily Life Yes: DIABETIC NEUROPATHY History of Long-Term Prescription Pain Yes: HYDROCODONE Medication Use (Opiates) Anesthesia History Hx Post-Op Nausea/Vomiting Yes Other History Hx Cancer Yes: PROSTATE Hx Radiation Therapy Yes: COMPLETED Evaluation Information Problem Diagnosis s/p CVA; dysphagia and dysarthria Onset Jan 08, 2021 Subjective Information Pt was in the hospital for 5 Query Text:As Reported By Patient/ days with CVA; then returned Family home; he has not had any home health; Pt reports he is not doing any HEP for dysphagia but says he was told to tuck his chin down so fo
--- NOTE | 2021-02-24 13:21 | PCSTNOTE ---
Patient did not show up for scheduled appointment this date.
--- NOTE | 2021-03-12 13:56 | PCSTNOTE ---
Speech Therapy Discharge: Attending Provider: Levar Melgar MD Patient:Israel aWrd Date of :1960 Patient has not returned for any further treatments since the initial evaluation on 02/24/2021, therefore he will be discharged at this time. Thank you for referring this patient to [facility]. Please review, sign, date and return this discharge summary YESSENIA. I have been updated about the patient's current status and I agree with discharge from the above service at this time. Referring Physician Date
== END 2021-05-03 07:39 | disposition home or self-care (01) ==
LOC: ANHST 13:00
PROVIDERS: PCP Family Medicine; Visit Provider Family Medicine
DX: I69.291 Dysphagia following other nontraumatic intracranial hemorrhage (principal); M62.81 Muscle weakness (generalized)
CPT/HCPCS: 92522; 92610; 97161

== ENCOUNTER 2021-03-09 10:55 | Outpatient (CLI) | payer OTHER, SELFPAY ==
[2021-03-09 11:26] LABS: Alanine Aminotransferase 23 U/L (4-50); Alkaline Phosphatase 67 U/L (38-126); Anion Gap 6 mmol/L (8-16); Aspartate Amino Transferase 29 U/L (17-59); Bilirubin,Total 0.5 mg/dL (0.2-1.3); Blood Urea Nitrogen 15 mg/dL (9-20); Calcium 8.7 mg/dL (8.4-10.2); Carbon Dioxide 31 mmol/L (22-30); Chloride 95 mmol/L (98-107); Estimated Glomerular Filt Rate > 60; Glucose 216 mg/dL (65-110); Hemoglobin A1C 7.4 % (<5.7); Sodium 132 mmol/L (137-145)
[2021-03-09 11:57] LABS: Prostate Specific Antigen < 0.1 ng/mL (< OR = 4.0)
== END 2021-03-09 10:56 | disposition home or self-care (01) ==
LOC: ANHLAB 10:57
PROVIDERS: PCP Family Medicine; Visit Provider Family Medicine
DX: Z12.5 Encounter for screening for malignant neoplasm of prostate (principal); C61 Malignant neoplasm of prostate; E11.9 Type 2 diabetes mellitus without complications
CPT/HCPCS: 36415; 80053; 83036; 84153

== ENCOUNTER 2021-07-16 15:26 | Emergency (ER) | payer OTHER, SELFPAY ==
[2021-07-16 15:44] VITALS: BP 161/133; PULSE 90; RESP 16; TEMP 36.9; O2SAT 97
--- NOTE | 2021-07-16 17:26 | PC.NURSE ---
no answer when called from waiting room
== END 2021-07-16 17:37 | disposition left against medical advice (07) ==
PROVIDERS: Emergency Provider Nurse Practitioner Family; PCP Family Medicine
DX: S99.922A Unspecified injury of left foot, initial encounter (principal)
CPT/HCPCS: 99199

== ENCOUNTER 2023-06-28 09:21 | Outpatient (CLI) | payer OTHER, SELFPAY ==
[2023-06-28 09:55] LABS: Basophils Absolute Auto 0.1 K/mm3 (0.0-0.1); Basophils Percent Auto 0.3 % (0.2-1.2); Eosinophils Absolute Auto 0.2 K/mm3 (0-0.3); Eosinophils Percent Auto 1.1 % (0-4.4); Hematocrit 43.8 % (42.0-52.0); Hemoglobin 13.7 g/dL (14.0-18.0); Immature Granulocyte Absolute 0.11 K/mm3 (0.00-0.031); Immature Granulocyte Percent A 0.6 % (0-0.5); Lymphocytes Absolute Auto 1.32 K/mm3 (0.9-3.2); Lymphocytes Percent Auto 7.1 % (18.3-44.2); Mean Corpuscular HGB Conc 31.3 g/dl (32-36); Mean Corpuscular Hemoglobin 27.5 pg (26-34); Mean Corpuscular Volume 87.8 fl (80-100); Monocytes Absolute Auto 1.2 K/mm3 (0.1-0.6); Monocytes Percent Auto 6.4 % (2.6-8.5); Neutrophils Absolute Auto 15.8 K/mm3 (1.3-6.7); Neutrophils Percent Auto 84.5 % (45.5-73.1); Platelet Count Result 241 k/mm3 (150-375); Red Blood Count 4.99 M/mm3 (4.6-6.20); Red Cell Distribution Width 14.6 % (11.5-14.5); White Blood Count 18.7 K/mm3 (4.5-10.0)
[2023-06-28 10:17] LABS: Alanine Aminotransferase 15 U/L (6-50); Albumin Level 3.9 g/dL (3.5-5.1); Alkaline Phosphatase 54 U/L (38-126); Anion Gap 7 mmol/L (4-12); Aspartate Amino Transferase 37 U/L (17-59); Bilirubin,Total 1.2 mg/dL (0.2-1.3); Blood Urea Nitrogen 33 mg/dL (9-20); Calcium 8.9 mg/dL (8.4-10.2); Carbon Dioxide 28 mmol/L (22-30); Chloride 98 mmol/L (98-107); Cholesterol 173 mg/dL (0-200); Estimated Glomerular Filt Rate 26; Glucose 199 mg/dL (65-110); HDL Direct 28 mg/dL; Potassium 4.1 mmol/L (3.4-5.0); Sodium 133 mmol/L (137-145); Triglycerides 203 mg/dL (<150)
[2023-06-28 10:27] LABS: LDL Cholesterol Direct 106 mg/dL
[2023-06-28 11:26] LABS: Hepatitis C Virus Antibody Negative (Negative)
== END 2023-06-28 09:22 | disposition home or self-care (01) ==
PROVIDERS: PCP Family Medicine; Visit Provider Family Medicine
DX: E78.5 Hyperlipidemia, unspecified (principal); I10 Essential (primary) hypertension; E11.9 Type 2 diabetes mellitus without complications; F32.A Depression, unspecified; Z11.59 Encounter for screening for other viral diseases
CPT/HCPCS: 36415; 80053; 80061; 83036; 85025; 86803

== ENCOUNTER 2023-06-29 12:12 | Inpatient (IN) | payer OTHER, SELFPAY ==
[2023-06-29] VITALS (7 sets, daily range): BP systolic 102–128; BP diastolic 54–98; PULSE 81–112; RESP 15–20; TEMP 35.8–37.7; O2SAT 93–100; BMI 31.4
--- NOTE | ~2023-06-29 | US_ITS ---
EXAMINATION: US renal BI DATE: 06/30/2023 09:42 INDICATION: Acute renal insufficiency TECHNIQUE: Multiple ultrasound grayscale images of the kidneys were obtained. COMPARISON: None. FINDINGS: The right kidney measures 11.4 x 5.6 x 4.9 cm. The left kidney measures 11.8 x 6.3 x 4.8 cm. The kidn eys demonstrate normal echogenicity. Bilateral anechoic renal cysts measuring 1.7 cm on the right and 4.1 cm on the left. There is no hydronephrosis in either kidney. 4 mm echogenic stone with twinkle artifact at the mid left kidney. The bladder is normal. IMPRESSION: 1. 4 mm left renal stone and bilateral renal cysts. Otherwise normal kidneys with no hydronephrosis. Reviewed, dictated and finalized at location A. IMPRESSION: 1. 4 mm left renal stone and bilateral renal cysts. Otherwise normal kidneys w ith no hydronephrosis.
--- NOTE | ~2023-06-29 | CT_ITS ---
EXAMINATION: CT brain wo con DATE: 06/29/2023 20:39 INDICATION: Diabetic presenting with leukocytosis, chills and fatigue. TECHNIQUE: Computed tomography (CT) of the head was performed without intravenous contrast. Sagittal and coronal reconstructions were performed. The mA was adjusted according to patient size. Iterative reconstruction technique was employed. The dose-length product was 756.67 mGy-cm. COMPARISON: No prior imaging available at this time for comparison. Correlation was made with report from MRI dated 01/08/[address] dated 01/07/2021 FINDINGS: No acute intracranial hemorrhage, acute infarction or abnormal extra axial fluid collection. There is mild scattered white matter hypoattenuation consistent with chronic small vessel ischemic disease. 1 .8 x 0.6 cm mass at the lateral aspect of the body of the left lateral ventricle which is isodense to horn matter with similar measurements described on prior CT consistent with horn matter heterotopia. No new or enlarging intracranial masses identified. Ventricles are otherwise normal and symmetric. M ild mucosal thickening in the right maxillary and bilateral ethmoid sinuses. The orbits and mastoid a ir cells are normal. IMPRESSION: 1. No acute intracranial process. 2. Mild scattered white matter hypoattenuation consistent with chronic small vessel ischemic disease. 3. 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 Reviewed, dictated and finalized at location A. IMPRESSION: 1. No acute intracranial process. 2. Mild scattered white matter hypoattenuation consistent with chronic small ve ssel ischemic disease. 3. No change in size of a chronic left ventricular mass most consistent with gr ay matter heterotopia.
--- NOTE | ~2023-06-29 | XR_ITS ---
EXAMINATION: XR toe 2nd LT min 2V DATE: 06/29/2023 12:53 INDICATION: Left second toe swelling. TECHNIQUE: 4 views of left second toe were obtained. COMPARISON: None. FINDINGS: Bone alignment is normal. No fracture. There is mild flattening of head of second metatarsa l, consistent with osteonecrosis (Freiberg's infraction). There is screw fixation of fifth metatarsal . Joint spaces are normal in the second digit. IMPRESSION: 1. No fracture. Reviewed, dictated and finalized at location A. IMPRESSION: 1. No fracture.
[2023-06-29 13:17] LABS: Basophils Percent Auto 0.2 % (0.2-1.2); Eosinophils Absolute Auto 0.2 K/mm3 (0-0.3); Eosinophils Percent Auto 0.8 % (0-4.4); Hematocrit 41.9 % (42.0-52.0); Hemoglobin 13.2 g/dL (14.0-18.0); Immature Granulocyte Absolute 0.13 K/mm3 (0.00-0.031); Immature Granulocyte Percent A 0.6 % (0-0.5); Lymphocytes Absolute Auto 1.68 K/mm3 (0.9-3.2); Lymphocytes Percent Auto 8.1 % (18.3-44.2); Mean Corpuscular HGB Conc 31.5 g/dl (32-36); Mean Corpuscular Hemoglobin 27.6 pg (26-34); Mean Corpuscular Volume 87.5 fl (80-100); Mean Platelet Volume 11.8 fl (7.4-10.4); Monocytes Absolute Auto 1.3 K/mm3 (0.1-0.6); Monocytes Percent Auto 6.3 % (2.6-8.5); Neutrophils Absolute Auto 17.3 K/mm3 (1.3-6.7); Platelet Count Result 244 k/mm3 (150-375); Red Blood Count 4.79 M/mm3 (4.6-6.20); Red Cell Distribution Width 14.5 % (11.5-14.5); White Blood Count 20.7 K/mm3 (4.5-10.0)
--- NOTE | 2023-06-29 13:40 | ED.WOUNDLAC ---
HPI - Wound/Laceration General Chief Complaint: Wound/Laceration Stated Complaint: left toe wound (type 2 diabetic) Time Seen by Provider: 06/29/23 13:11 Source: patient Mode of arrival: ambulatory Limitations: no limitations History of Present Illness HPI narrative: patient presents with report of a wound to his left 2nd toe. He has been experiencing chills and fatigue for the past 3 or 4 days. He only noticed the wound today when it started bleeding. Does not know last HA1C. Denies alcohol; long time smoker. Patient states he takes 55 units of long-acting insulin b.i.d., name unknown and he took his last dose yesterday evening. Related Data Home Medications Medication Instructions Recorded Confirmed atorvastatin 20 mg tablet 20 mg PO DAILY 06/07/23 06/29/23 cyclobenzaprine 10 mg tablet 10 mg PO TID PRN Muscle Spasm 06/07/23 06/29/23 fenofibrate 120 mg tablet 120 mg PO DAILY 06/07/23 06/29/23 gabapentin 300 mg capsule 600 mg PO BID 06/29/23 06/29/23 hydrocodone 10 mg-acetaminophen 1 tablet PO Q6-8H PRN Pain (Scale 06/29/23 06/29/23 325 mg tablet Score 4-6) naproxen sodium 550 mg tablet 550 mg PO Q12H PRN Pain (Scale 06/29/23 06/29/23 Score 1-3) oxymetazoline 0.05 % nasal spray 1 spray intranasal BID PRN Nasal 06/29/23 06/29/23 (12 Hour Nasal [place]) Congestion Allergies Allergy/AdvReac Type Severity Reaction Status Date / Time Sulfa (Sulfonamide Allergy Severe Gastrointestinal Verified 06/29/23 12:30 Antibiotics) Upset Penicillins Allergy Intermediate Nausea Verified 06/29/23 12:30 pregabalin Allergy Unknown Altered Verified 06/29/23 12:30 mental status [facility] Past Medical History Medical History Anxiety Congestion of nasal sinus COPD (chronic obstructive pulmonary disease) Coronary artery disease involving [place] coronary artery of [place] heart Depression Diabetic peripheral neuropathy associated with type 2 diabetes mellitus Erectile dysfunction following simple prostatectomy Essential hypertension Excessive bleeding Fracture of fifth metatarsal bone of left foot History of MRSA infection History of stroke with current residual effects Hyperlipidemia Insulin dependent diabetes mellitus L3 vertebral fracture Left foot pain Obesity Obstructive sleep apnea Describes symptoms but has never had a formal polysomnogram Peripheral neuropathy Prostate cancer Radical prostatectomy October 2015 with recurrence treated with radiation therapy March 2017 Tobacco use Wears glasses Surgical History Surgical History History of cardiac catheterization (~09/2016) 100% occlusion of the distal left circumflex artery with evidence of collaterals with several collaterals filling the left PDA, RCA is a small vessel with 50% lesion not amenable to intervention, 30-40% lesion will small diagonal branch of the LAD, left main coronary is mild stenosis 10-20% History of carpal tunnel release (~1995) Left History of colonoscopy with polypectomy (~11/2017) History of shoulder surgery (~2001) S/P foot surgery, left Status post prostatectomy (~10/2015) Radical prostatectomy Family History Family History Mother Diabetes mellitus Hypertension Father COPD (chronic obstructive pulmonary disease) Social History Social History Social History: He has smoked up to 2 pack of cigarettes per day since the age of 14. He denies any significant alcohol use. He lives at home with his girlfriend. He has 2 adult children. 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 Primary care physician: Dr. Levar Melgar Code status: Full code Smoking packs per day: 0.5 Smoking cigarettes per day: 10.0 Years smoked: 45 Smoking pack-years: 22.50 Smoking status: Current every day smoker Tobacco type: cigarette
[2023-06-29 13:48] LABS: Alanine Aminotransferase 15 U/L (6-50); Albumin Level 3.9 g/dL (3.5-5.1); Alkaline Phosphatase 64 U/L (38-126); Anion Gap 9 mmol/L (4-12); Aspartate Amino Transferase 41 U/L (17-59); Bilirubin,Total 1.2 mg/dL (0.2-1.3); Blood Urea Nitrogen 31 mg/dL (9-20); Carbon Dioxide 24 mmol/L (22-30); Chloride 98 mmol/L (98-107); Estimated CRCL calculation 42 ml/min; Estimated Glomerular Filt Rate 34; Glucose 199 mg/dL (65-110); Potassium 4.8 mmol/L (3.4-5.0); Sodium 131 mmol/L (137-145)
[2023-06-29] MEDS: SODIUM CHLORIDE 0.9% IV 1,000 ML 999 ML IV CONT ×2 (13:55)
[2023-06-29 14:32] LABS: Erythrocyte Sedimentation Rate 22 mm/hr (0-20)
[2023-06-29 14:59] LABS: Influenza A QL RT-PCR Negative (Negative); Influenza B QL RT-PCR Negative (Negative); RSV RNA, RT-PCR Negative (Negative); SARS-CoV-2 RNA PCR Negative (Negative)
[2023-06-29] MEDS: PIPERACILLN/TAZ 3.375GM/NS50ML 3.375 GM/50 ML BAG IVPB ×2 (15:17→22:50)
--- NOTE | 2023-06-29 16:02 | PC.NURSE ---
1600-ENTERED PATIENT'S ROOM. INQUIRED TO HOW PATIENT WAS FEELING AND IF HE WAS HAVING ANY PAIN. PATIENT DEMANDED-I AM HUNGRY AND THIRSTY. WHAT DO I HAVE TO DO TO GET SOME SERVICE AROUND HERE? I EXPLAINED TO PATIENT I WOULD CHECK IF HE COULD HAVE SOMETHING TO EAT OR DRINK.
[2023-06-29 16:09] LABS: Reflex Lactic Acid Yes or No Add Lactic
[2023-06-29 16:29] LABS: Lactic Acid 1.2 mmol/L (0.7-2.0)
[2023-06-29] MEDS: VANCOMYCIN 1,500 MG/NS 500 ML 1,500 MG/500 ML BAG 250 MG IVPB (16:53)
--- NOTE | 2023-06-29 17:54 | PC.NURSE ---
1754-PER ORDER OF PROVIDER, PATIENT WAS OFFERED FOOD AND DRINK BUT DECLINED.
--- NOTE | 2023-06-29 19:01 | PC.NURSE ---
1900-DESPITE MULTIPLE INSTRUCTIONS AND REPOSITIONING, PATIENT WILL NOT LEAVE LEFT ARM ON BED. PATIENT CONSTANTLY IS PLACING LEFT ARM UNDER HEAD CAUSING IV VANCOMYCIN TO STOP RUNNING. WILL MOVE IV VANCOMYCIN TO OTHER RIGHT ARM IV SITE.
--- NOTE | 2023-06-29 19:39 | PM.IMHP ---
H&P: HPI History of Present Illness Date/Time: 06/29/23 19:39 Chief Complaint: Wound Narrative: 62 y/o M presents here with wound to left second toe with PMH of COPD, depression, CAD, diabetes, ED, HTN, MRSA, stroke, HLD, obesity, BINTA, prostate cancer (s/p radical prostatectomy in 2016, radiation therapy 2018), in tobacco use. Patient presented here from home for further evaluation of a wound to his left 2nd toe. Patient 1st noted wound today due to bleeding that occurred. Has been experiencing associated chills, fever, body aches, and fatigue for the past 3-4 days. Patient is known diabetic. Diabetes medications are currently managed by his PCP, last saw his provider in the past 6 months. Patient does not know when his last A1C was. Denies any preceding injury, wounds, or cuts to feet or toes. Still endorsing chills. Denying pain to foot/toe. Rare alcohol use - once every 8 to 9 months. No new work outs, strenuous activity, seizure disorder, or falls prior to arrival. After arrival to the ED, patient was attempting to get up to urinate. Patient urinated on himself and then he slipped in the urine. +head strike without LOC. no other injuries endorsed by patient. Head CT was negative for acute intracranial abnormality. No previous history of kidney disease. Initial VS at presentation: 96.4? F, HR 112, RR 20, 117/98, and 100% on RA. ED workup showed: WBC 20.7, mild anemia, sodium 131, creatinine 2.5 with a GFR of 26 (previously 0.8 on 03/09/2021), glucose 199, lactic acid 3.0, CRP 43, and viral PCR negative. XR of left toe showed no fracture or and mild flattening of the head of the 2nd metatarsal consistent with osteonecrosis. Review of Systems Review of Systems: All systems reviewed & are unremarkable except as noted in HPI and below [facility] Past Medical History Medical History Anxiety Congestion of nasal sinus COPD (chronic obstructive pulmonary disease) Coronary artery disease involving [place] coronary artery of [place] heart Depression Diabetic peripheral neuropathy associated with type 2 diabetes mellitus Erectile dysfunction following simple prostatectomy Essential hypertension Excessive bleeding Fracture of fifth metatarsal bone of left foot History of MRSA infection History of stroke with current residual effects Hyperlipidemia Insulin dependent diabetes mellitus L3 vertebral fracture Left foot pain Obesity Obstructive sleep apnea Describes symptoms but has never had a formal polysomnogram Peripheral neuropathy Prostate cancer Radical prostatectomy October 2015 with recurrence treated with radiation therapy March 2017 Tobacco use Wears glasses Surgical History Surgical History History of cardiac catheterization (~09/2016) 100% occlusion of the distal left circumflex artery with evidence of collaterals with several collaterals filling the left PDA, RCA is a small vessel with 50% lesion not amenable to intervention, 30-40% lesion will small diagonal branch of the LAD, left main coronary is mild stenosis 10-20% History of carpal tunnel release (~1995) Left History of colonoscopy with polypectomy (~11/2017) History of shoulder surgery (~2001) S/P foot surgery, left Status post prostatectomy (~10/2015) Radical prostatectomy Family History Family History Mother Diabetes mellitus Hypertension Father COPD (chronic obstructive pulmonary disease) Social History Social History Social History: He has smoked up to 2 pack of cigarettes per day since the age of 14. He denies any significant alcohol use. He lives at home with his girlfriend. He has 2 adult children. 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 Primary care physician: Dr. Levar Melgar Code status: Full code Smoking packs per day: 0.
[2023-06-29 20:18] LABS: Creatine Kinase 810 U/L (55-170)
[2023-06-29 21:28] LABS: Appearance Urine Clear (Clear); Bacteria Urine None Seen /hpf; Bilirubin Urine Negative (Negative); Blood Urine Negative (Negative); Color Urine Yellow (Yellow); Glucose Urine UA 1+ mg/dL (Negative); Ketones Urine Negative (Negative); Leukocyte Esterase Ur Negative LEU/UL (Negative); Nitrate Urine Negative (Negative); Non Pathogenic Casts 0-2; Protein Urine Trace mg/dL (Negative); RBC Urine 0-2 /hpf (0-2); Specific Grav Ur 1.013 (1.001-1.035); Squamous Epithelial Cell Urine None Seen /hpf (Few); WBC Urine 0-5 /hpf (0-3)
[2023-06-29 21:29] LABS: Add Urine Microscopic? YES
--- NOTE | 2023-06-29 21:51 | ADMGEN ---
This patient, Israel Ward, was admitted to 2 Medical Room 247-. Patient/family oriented to hospital policies and general routines including ID bracelet, bed and alarms, visiting hours, pain management, procedures, bathroom and other care routines, personal items, smoking policy, room service/diet, and visiting hours. Information on how to activate the Rapid Response Team has been discussed. Patient/Family are encouraged to report perceived risks to care and to ask questions if they do not understand what they are told or what they should do.
[2023-06-29 21:52] LABS: Creatinine Urine 87.3 mg/dL; Total Protein Urine Random 22 mg/dL; Ur Ttl Prot Creatinine Ratio 0.25 mg/mg (0-0.20)
[2023-06-29 21:56] LABS: Sodium Urine Random 47 meq/L
[2023-06-29 22:23] LABS: Amphetamine Screen Urine Negative (Negative); Barbiturate Screen Urine Negative (Negative); Benzodiazepines Screen Urine Negative (Negative); Cannabinoid Screen Urine Negative (Negative); Cocaine Screen Urine Negative (Negative); Methadone Screen Urine Negative (Negative); Opiate Screen Urine Positive (Negative); Phencyclidine Screen Urine Negative (Negative)
[2023-06-29] MEDS: LACTATED RINGERS 1,000 ML 100 ML IV CONT (22:50)
[2023-06-29] MEDS: INSULIN GLARGINE (*BKC) 100 UNITS/ML 55 UNITS SUB-Q (22:52)
[2023-06-29 22:57] LABS: Glucose Point of Care 269 mg/dl (65-105)
[2023-06-30] MEDS: PIPERACILLN/TAZ 3.375GM/NS50ML 3.375 GM/50 ML BAG IVPB ×4 (04:21→23:21)
[2023-06-30 04:23] VITALS: BP 128/53; PULSE 83; RESP 16; TEMP 36.5; O2SAT 95
[2023-06-30] MEDS: LACTATED RINGERS 1,000 ML 100 ML IV CONT ×2 (04:24→11:03)
[2023-06-30 05:32] LABS: Glucose Point of Care 157 mg/dl (65-105)
[2023-06-30] MEDS: OXYMETAZOLINE HCL 0.05% NAS 15 ML BTL (*BKC) 1 SPRAY NASAL ×2 (06:06→22:59)
[2023-06-30] MEDS: HYDROcodone/acetaminophen (*CRX) 10-325 MG TABLET 1 TAB PO ×2 (06:06→19:58)
[2023-06-30] MEDS: ONDANSETRON INJ 4 MG/2 ML VIAL IV PUSH (06:08)
[2023-06-30 06:27] LABS: Basophils Absolute Auto 0.1 K/mm3 (0.0-0.1); Basophils Percent Auto 0.3 % (0.2-1.2); Eosinophils Absolute Auto 0.1 K/mm3 (0-0.3); Eosinophils Percent Auto 0.6 % (0-4.4); Hemoglobin 11.7 g/dL (14.0-18.0); Immature Granulocyte Absolute 0.22 K/mm3 (0.00-0.031); Immature Granulocyte Percent A 1.1 % (0-0.5); Lymphocytes Absolute Auto 2.11 K/mm3 (0.9-3.2); Lymphocytes Percent Auto 10.9 % (18.3-44.2); Mean Corpuscular HGB Conc 32.5 g/dl (32-36); Mean Corpuscular Hemoglobin 27.9 pg (26-34); Mean Corpuscular Volume 85.7 fl (80-100); Mean Platelet Volume 11.8 fl (7.4-10.4); Monocytes Absolute Auto 1.4 K/mm3 (0.1-0.6); Monocytes Percent Auto 7.5 % (2.6-8.5); Neutrophils Absolute Auto 15.4 K/mm3 (1.3-6.7); Neutrophils Percent Auto 79.6 % (45.5-73.1); Platelet Count Result 223 k/mm3 (150-375); Red Cell Distribution Width 14.3 % (11.5-14.5); White Blood Count 19.3 K/mm3 (4.5-10.0)
[2023-06-30 06:51] LABS: Alanine Aminotransferase 16 U/L (6-50); Albumin Level 3.2 g/dL (3.5-5.1); Alkaline Phosphatase 59 U/L (38-126); Anion Gap 3 mmol/L (4-12); Aspartate Amino Transferase 39 U/L (17-59); Blood Urea Nitrogen 19 mg/dL (9-20); Calcium 8.5 mg/dL (8.4-10.2); Carbon Dioxide 25 mmol/L (22-30); Chloride 106 mmol/L (98-107); Creatine Kinase 442 U/L (55-170); Estimated CRCL calculation 49 ml/min; Estimated Glomerular Filt Rate 41; Glucose 155 mg/dL (65-110); Potassium 4.6 mmol/L (3.4-5.0); Sodium 134 mmol/L (137-145)
--- NOTE | 2023-06-30 07:15 | P.PNIM_ITS ---
Progress Note: A&P Assessment and Plan (1) Diabetic foot infection: Code(s): E11.628 - Type 2 diabetes mellitus with other skin complications; L08.9 - Local infection of the skin and subcutaneous tissue, unspecified Status: Acute (2) Sepsis: Code(s): A41.9 - Sepsis, unspecified organism Status: Acute (3) Osteonecrosis: Code(s): M87.9 - Osteonecrosis, unspecified Status: Acute (4) Diabetic toe ulcer: Code(s): E11.621 - Type 2 diabetes mellitus with foot ulcer; L97.509 - Non-pressure chronic ulcer of other part of unspecified foot with unspecified severity Status: Acute (5) Lactic acidosis: Code(s): E87.20 - Acidosis, unspecified Status: Acute (6) SUSI (acute kidney injury): Code(s): N17.9 - Acute kidney failure, unspecified Status: Acute (7) Diabetes mellitus with hyperglycemia: Code(s): E11.65 - Type 2 diabetes mellitus with hyperglycemia Status: Acute (8) Hyponatremia: Code(s): E87.1 - Hypo-osmolality and hyponatremia Status: Acute (9) Obesity: Code(s): E66.9 - Obesity, unspecified Status: Acute (10) Tobacco use: Code(s): Z72.0 - Tobacco use Status: Acute Plan Sepsis without septic shock secondary diabetic foot wound * Vancomyocin/zosyn * Monitor lactic acid levels q6hr. 3.0 POA 1.2 * Repeat CBC, CMP. * urine cultures. Pending * C-reactive proteins elevated * procalcitonin level. elevated * PTT and PT, INR. * glucose monitoring and control * Blood cultures pending * Wound culture pending * Monitor IV hydration. * consulted and following Diabetic foot ulcer: LT 2nd toe * Blood cultures pending * Wound culture pending * Surgery consulted * Imaging: XR, Toe, Left: Bone alignment is normal. No fracture. There is mild flattening of head of second metatarsal, consistent with osteonecrosis (Freiberg's infraction). There is screw fixation of fifth metatarsal. Joint spaces are normal in the second digit. * Antibiotic regimen targeting patient's risk factors, adjust based on culture and sensitivity currently * Monitor IV hydration. Acute on chronic renal failure * CR 2.5 POA/previous 0.8 * Gentle IV hydration. * nephrology consulted * Avoid nephrotoxic drugs. * Monitor antihypertensive drug therapy. * Avoid NSAIDs. * Routine CMP monitoring GFR. * Monitor electrolytes especially potassium. * Antibiotic doses depending on creatinine clearance. * Pharmacy does medications. Diabetes * Accu-Cheks a.c. HS * sliding scale insulin * resume patient's home long-acting * Hemoglobin A1c 8.0 * lipid panel pending * Diabetic diet * consult to dietitian * encourage lifestyle modifications and weight loss * Optimize Cosme inhibitors and statins. * Watch for hypoglycemia/hypoglycemic protocol ordered Obesity * encourage increased on physical activity and lifestyle modifications * Stress monitoring and eating disorder evaluation. * encourage outpatient weight loss clinic * BMI . * Diet exercise counseling done. * consult to dietitian Smoking * smoking cessation education * nicotine patch daily * remove at night * recommend prescription for nicotine patches at discharge HX HTN: Holding lisinopril due to SUSI HLD: Lipid panel pending/holding atorvastatin Code status: Full code per patient DVT prophylaxis: SCD's/start pharmaceutical post surgery Stress ulcer pro
--- NOTE | 2023-06-30 07:15 | PM.IMPN ---
Progress Note: A&P Assessment and Plan (1) Diabetic foot infection: Code(s): E11.628 - Type 2 diabetes mellitus with other skin complications; L08.9 - Local infection of the skin and subcutaneous tissue, unspecified Status: Acute (2) Sepsis: Code(s): A41.9 - Sepsis, unspecified organism Status: Acute (3) Osteonecrosis: Code(s): M87.9 - Osteonecrosis, unspecified Status: Acute (4) Diabetic toe ulcer: Code(s): E11.621 - Type 2 diabetes mellitus with foot ulcer; L97.509 - Non-pressure chronic ulcer of other part of unspecified foot with unspecified severity Status: Acute (5) Lactic acidosis: Code(s): E87.20 - Acidosis, unspecified Status: Acute (6) SUSI (acute kidney injury): Code(s): N17.9 - Acute kidney failure, unspecified Status: Acute (7) Diabetes mellitus with hyperglycemia: Code(s): E11.65 - Type 2 diabetes mellitus with hyperglycemia Status: Acute (8) Hyponatremia: Code(s): E87.1 - Hypo-osmolality and hyponatremia Status: Acute (9) Obesity: Code(s): E66.9 - Obesity, unspecified Status: Acute (10) Tobacco use: Code(s): Z72.0 - Tobacco use Status: Acute Plan Sepsis without septic shock secondary diabetic foot wound Vancomyocin/zosyn Monitor lactic acid levels q6hr. 3.0 POA 1.2 Repeat CBC, CMP. urine cultures. Pending C-reactive proteins elevated procalcitonin level. elevated PTT and PT, INR. glucose monitoring and control Blood cultures pending Wound culture pending Monitor IV hydration. consulted and following Diabetic foot ulcer: LT 2nd toe Blood cultures pending Wound culture pending Surgery consulted Imaging: XR, Toe, Left: Bone alignment is normal. No fracture. There is mild flattening of head of second metatarsal, consistent with osteonecrosis (Freiberg's infraction). There is screw fixation of fifth metatarsal. Joint spaces are normal in the second digit. Antibiotic regimen targeting patient's risk factors, adjust based on culture and sensitivity currently Monitor IV hydration. Acute on chronic renal failure CR 2.5 POA/previous 0.8 Gentle IV hydration. nephrology consulted Avoid nephrotoxic drugs. Monitor antihypertensive drug therapy. Avoid NSAIDs. Routine CMP monitoring GFR. Monitor electrolytes especially potassium. Antibiotic doses depending on creatinine clearance. Pharmacy does medications. Diabetes Accu-Cheks a.c. HS sliding scale insulin resume patient's home long-acting Hemoglobin A1c 8.0 lipid panel pending Diabetic diet consult to dietitian encourage lifestyle modifications and weight loss Optimize Cosme inhibitors and statins. Watch for hypoglycemia/hypoglycemic protocol ordered Obesity encourage increased on physical activity and lifestyle modifications Stress monitoring and eating disorder evaluation. encourage outpatient weight loss clinic BMI . Diet exercise counseling done. consult to dietitian Smoking smoking cessation education nicotine patch daily remove at night recommend prescription for nicotine patches at discharge HX HTN: Holding lisinopril due to SUSI HLD: Lipid panel pending/holding atorvastatin Code status: Full code per patient DVT prophylaxis: SCD's/start pharmaceutical post surgery Stress ulcer prophylaxis: Protonix 40 daily PT/OT notes: Disposition: Patient admitted for diabetic foot wound to the LT 2nd toe, surgery consulted. Time Spent With Patient Time with patient: 15 - 25 minutes Subjective Date/time seen: 06/30/23 07:15 Interval history: Admission: Medical Record 62 y/o M presents here with wound to left second toe with PMH of COPD, depression, CAD, diabetes, ED, HTN, MRSA, stroke, HLD, obesity, BINTA, prostate cancer (s/p radical prostatectomy in 2016, radiation therapy 2018), in tobacco use. Patient
[2023-06-30 08:32] LABS: Glucose Point of Care 140 mg/dl (65-105)
[2023-06-30 08:33] VITALS: O2SAT 90
[2023-06-30] MEDS: NICOTINE (*PBKC) 14 MG PATCH 1 PATCH TRANSDERM (09:57)
--- NOTE | 2023-06-30 10:50 | PM.CNNEP ---
Assessment and Plan Assessment and plan (1) SUSI (acute kidney injury): Code(s): N17.9 - Acute kidney failure, unspecified Status: Acute Assessment and Plan: normal creatinine (but last testing was in February 2021) possible element of CKD present(?) suspect insult secondary to: prerenal factors infection/early sepsis JERSEY-I and NSAID use prior to admission evaluaton to date: urine electrolytes prerenal bland UA mild proteinuria urine eosinophils pending renal ultrasound with left renal stone and bilateral renal cysts but no osbtruction CPK mildly elevated (but not high enough to affect kidney function and downtrending) improvement noted since admission follow trend of repeat labs and UOP (2) Sepsis: Code(s): A41.9 - Sepsis, unspecified organism Status: Acute Assessment and Plan: as noted by tachycardia, lacti acidosis, mild hypothermia, leukocytosis, and SUSI s/p IVF boluses and on maintenance IVF suspected source = #3 follow culture data on antibiotic therapy (3) Diabetic toe ulcer: Code(s): E11.621 - Type 2 diabetes mellitus with foot ulcer; L97.509 - Non-pressure chronic ulcer of other part of unspecified foot with unspecified severity Status: Acute Assessment and Plan: Surgery consulted local wound care imaging noted on antibiotics (4) Hypertension: Code(s): I10 - Essential (primary) hypertension Status: Chronic Assessment and Plan: reasonable control follow trend of hemodynamics (5) Diabetes mellitus: Code(s): E11.9 - Type 2 diabetes mellitus without complications Status: Acute Assessment and Plan: follow accu-cheks glycemic control per hospitalists I will continue to follow the patient with you while he remains hospitalized make further recommendations as deemed necessary. Thank you for allowing me to participate in the care of this patient. History of Present Illness Reason for Consult Consult date: 06/30/23 Reason for consult: acute renal failure Chief Complaint Chief complaint: Diabetic Foot Wound,SUSI History of Present Illness Narrative: The patient is a 62-year-old male with a past medical history as outlined below who presented to [facility] Emergency Room for further evaluation of his left 2nd toe wound. I am not entirely clear how long the wound has been present but the patient noted on the day of admission that there was some bloody drainage present at the wound to his left 2nd toe. Furthermore, he reports for the past 3 or 4 days that he has noted subjective chills, fevers, body aches, and fatigue. He reports no specific injury to his left toe or any other previous wounds/cuts/trauma to his feet or toes. Given these constellation of symptoms and the presence of the wound and recent change, he came to the emergency room for further assessment. Workup and evaluation emergency room demonstrated the patient be hemodynamically stable but he was noted to be tachycardic and mildly hypothermic. Subsequent laboratory testing demonstrated elevated white blood cell count of 20.7, mild anemia, and elevated BUN and creatinine above his baseline (although his previous labs to compare to were done in February of 2021 ). His lactic acid was mildly elevated as was his inflammatory markers but viral testing for COVID, RSV, and influenza were negative. Subsequent x-ray of his left toe showed no fracture or but did note mild flattening of the head of the 2nd metatarsal consistent with osteonecrosis. Given the concerns for early sepsis with regard to his left 2nd toe, he received combination of IV fluids as well as IV antibiotic therapy after appropriate cultures were obtained. He was subsequently admitted to the hospital for further evaluation therapy. Since his admission, his renal function seems to have improved somewhat with supportive therapy. it should be noted
--- NOTE | 2023-06-30 10:50 | P.CONNP_ITS ---
Assessment and Plan Assessment and plan (1) SUSI (acute kidney injury): Code(s): N17.9 - Acute kidney failure, unspecified Status: Acute Assessment and Plan: * normal creatinine (but last testing was in February 2021) * possible element of CKD present(?) * suspect insult secondary to: * prerenal factors * infection/early sepsis * JERSEY-I and NSAID use prior to admission * evaluaton to date: * urine electrolytes prerenal * bland UA * mild proteinuria * urine eosinophils pending * renal ultrasound with left renal stone and bilateral renal cysts but no osbtruction * CPK mildly elevated (but not high enough to affect kidney function and downtrending) * improvement noted since admission * follow trend of repeat labs and UOP (2) Sepsis: Code(s): A41.9 - Sepsis, unspecified organism Status: Acute Assessment and Plan: * as noted by tachycardia, lacti acidosis, mild hypothermia, leukocytosis, and SUSI * s/p IVF boluses and on maintenance IVF * suspected source = #3 * follow culture data * on antibiotic therapy (3) Diabetic toe ulcer: Code(s): E11.621 - Type 2 diabetes mellitus with foot ulcer; L97.509 - Non-pressure chronic ulcer of other part of unspecified foot with unspecified severity Status: Acute Assessment and Plan: * Surgery consulted * local wound care * imaging noted * on antibiotics (4) Hypertension: Code(s): I10 - Essential (primary) hypertension Status: Chronic Assessment and Plan: * reasonable control * follow trend of hemodynamics (5) Diabetes mellitus: Code(s): E11.9 - Type 2 diabetes mellitus without complications Status: Acute Assessment and Plan: * follow accu-cheks * glycemic control per hospitalists I will continue to follow the patient with you while he remains hospitalized ma ke further recommendations as deemed necessary. Thank you for allowing me to participate in the care of this patient. History of Present Illness Reason for Consult Consult date: 06/30/23 Reason for consult: acute renal failure Chief Complaint Chief complaint: Diabetic Foot Wound,SUSI History of Present Illness Narrative: The patient is a 62-year-old male with a past medical history as o utlined below who presented to [facility] Emergency Room for further evaluation of his left 2nd toe wound. I am not entirely clear how long the wound has been present but the patient noted on the day of admission that there was some bloody drainage present at the wound to his left 2nd toe. Furthermore, he reports for the past 3 or 4 days that he has noted subjective chills, fevers, body aches, and fatigue. He reports no specific injury to his left toe or any other previous wounds/cut s/trauma to his feet or toes. Given these constellation of symptoms and the presence of the wound and recent change, he came to the emergency room for further assessment. Workup and evaluation emergency room demonstrated the patient be hemodynamically stable but he was noted to be tachycardic and mildly hypothermic. Subsequent laboratory testing demonstrated elevated white blood cell count of 20.7, mild anemia, and elevated BUN and creatinine above his baseline (although his previous labs to compare to were done in February of 2021 ). His lactic acid was mildly elevated as was his inflammatory markers but viral testing for COVID, RSV, and influenza were negative. Subsequent x-ray of his left toe showed no fracture or but did note mild flattening of the
[2023-06-30 12:12] LABS: Glucose Point of Care 180 mg/dl (65-105)
--- NOTE | 2023-06-30 13:58 | PC.NURSE ---
On 06/30/23, the student, [Susanne Post], provided care and completed [facility] documentation on this patient. I have reviewed the student's documentation and agree with the findings.
[2023-06-30 14:30] VITALS: BP 112/60; PULSE 59; RESP 16; TEMP 36.5; O2SAT 99
[2023-06-30 17:18] LABS: Glucose Point of Care 129 mg/dl (65-105)
[2023-06-30 17:55] LABS: Vancomycin Random 5.6 ug/mL (10-20)
[2023-06-30 18:09] LABS: Eosinophil Urine None Seen % (None Seen); Urine Eos QC 2nd Tech Confirmed
--- NOTE | 2023-06-30 18:28 | WPDCN ---
Assessment and Plan Assessment and plan (1) Diabetic foot infection: Code(s): E11.628 - Type 2 diabetes mellitus with other skin complications; L08.9 - Local infection of the skin and subcutaneous tissue, unspecified Status: Acute Assessment and Plan: Patient has had longstanding some dependent diabetes mellitus. He has not developed a left foot diabetic ulcer as well as white gangrene of his left 2nd toe. Continue IV antibiotics. Medical management for his diabetes to keep his blood sugars under control. Acute kidney injury management as per Nephrology. (2) Diabetic toe ulcer: Code(s): E11.621 - Type 2 diabetes mellitus with foot ulcer; L97.509 - Non-pressure chronic ulcer of other part of unspecified foot with unspecified severity Status: Acute Assessment and Plan: Patient has a chronic diabetic foot ulcer on the plantar surface of his left forefoot. Still has white gangrene of the left 2nd toe. I have discussed with him the salvage the left 2nd toe is not to be possible. I have recommended amputation of left 2nd toe tomorrow with packing of the wound and continued IV antibiotics. Will heal and he can avoid additional amputations. He is agreeable to proceeding with the amputation left 2nd toe tomorrow. He will be kept NPO after midnight. (3) Leukocytosis: Code(s): D72.829 - Elevated white blood cell count, unspecified Status: Acute Assessment and Plan: Likely due to diabetic left foot infection. Continue broad-spectrum IV antibiotics. HPI Data of Consult Date/Time: 06/30/23 18:28 Requesting Physician: Rahat Weaver MD Primary Care Provider: Emmanuel Brito MD Consult Narrative Reason for consult: Cellulitis and gangrene of left 2nd toe, plantar L forefoot ulcer Narrative: Israel Ward is a 62 year old male he has had 1 to 2 day history of bleeding and drainage from his left 2nd toe. He also was brought to the hospital because he fell and had a head injury and loss of consciousness but workup in the emergency room showed no intracranial pathology. He is a known insulin-dependent diabetic. He is unsure when his last hemoglobin A1c is. He states he takes his insulin on a regular basis. He has not had any previous amputations of his toes. Not had any previous nonhealing wounds in his lower extremities due to his diabetes. White blood cell count was [id number] on admission. X-rays show of the left foot showed some changes to the 2nd metatarsal head. No obvious osteomyelitis was seen. He also had acute kidney injury on admission with elevated creatinine. He has been a diabetic for over 20 years. He has not had any previous vascular interventions for peripheral vascular disease. He has had a prostatectomy for prostate cancer in the past. Review of Systems Review of Systems: The remainder of the review of systems to include constitutional, HEENT, cardiovascular, respiratory, GI, , integumentary, musculoskeletal, endocrine, immunologic, hematologic, psychiatric, and neurologic are all negative except for which is mentioned above in the HPI. [facility] Past Medical History Medical History Anxiety Congestion of nasal sinus COPD (chronic obstructive pulmonary disease) Coronary artery disease involving [place] coronary artery of [place] heart Depression Diabetic peripheral neuropathy associated with type 2 diabetes mellitus Erectile dysfunction following simple prostatectomy Essential hypertension Excessive bleeding Fracture of fifth metatarsal bone of left foot History of MRSA infection History of stroke with current residual effects Hyperlipidemia Insulin dependent diabetes mellitus L3 vertebral fracture Left foot pain Obesity Obstructive sleep apnea Describes symptoms but has never had a formal polysomnogram Peripheral neuropathy Prostate cancer Radical prostatectomy October 2015 with recurrence tr
[2023-06-30] MEDS: VANCOMYCIN 1,500 MG/NS 500 ML 1,500 MG/500 ML BAG 250 MG IVPB (18:31)
[2023-06-30 21:02] LABS: Glucose Point of Care 217 mg/dl (65-105)
[2023-06-30 22:00] VITALS: BP 97/40; PULSE 63; RESP 18; TEMP 37.2; O2SAT 97
[2023-07-01] VITALS (13 sets, daily range): BP systolic 102–147; BP diastolic 32–81; PULSE 50–78; RESP 12–18; TEMP 36.1–36.7; O2SAT 94–100
[2023-07-01] MEDS: PIPERACILLN/TAZ 3.375GM/NS50ML 3.375 GM/50 ML BAG IVPB ×4 (03:58→22:39)
[2023-07-01] MEDS: ONDANSETRON INJ 4 MG/2 ML VIAL IV PUSH (04:05)
[2023-07-01 04:46] LABS: Hematocrit 34.8 % (42.0-52.0); Hemoglobin 10.9 g/dL (14.0-18.0); Mean Corpuscular HGB Conc 31.3 g/dl (32-36); Mean Corpuscular Hemoglobin 27.2 pg (26-34); Mean Corpuscular Volume 86.8 fl (80-100); Mean Platelet Volume 11.8 fl (7.4-10.4); Platelet Count Result 223 k/mm3 (150-375); Red Blood Count 4.01 M/mm3 (4.6-6.20); Red Cell Distribution Width 14.4 % (11.5-14.5)
[2023-07-01 04:57] LABS: Alanine Aminotransferase 18 U/L (6-50); Albumin Level 3.3 g/dL (3.5-5.1); Alkaline Phosphatase 62 U/L (38-126); Anion Gap 6 mmol/L (4-12); Aspartate Amino Transferase 32 U/L (17-59); Bilirubin,Total 0.8 mg/dL (0.2-1.3); Blood Urea Nitrogen 20 mg/dL (9-20); Calcium 8.6 mg/dL (8.4-10.2); Carbon Dioxide 24 mmol/L (22-30); Chloride 102 mmol/L (98-107); Cholesterol 141 mg/dL (0-200); Estimated CRCL calculation 55 ml/min; Estimated Glomerular Filt Rate 47; Glucose 232 mg/dL (65-110); HDL Direct 17 mg/dL; Potassium 4.5 mmol/L (3.4-5.0); Sodium 132 mmol/L (137-145); Triglycerides 215 mg/dL (<150)
[2023-07-01 05:08] LABS: LDL Cholesterol Direct 88 mg/dL
--- NOTE | 2023-07-01 07:31 | WPDANESEPPF ---
Anes - Initial Pre Proc Eval Procedure: Operation Date: 07/01/23 07:30 Proposed Procedures p Toe Amputation Second Toe(Left) - Temo Gallegos MD Date/Time: 07/01/23 07:31 Surgeon: Rahat Weaver MD Pre Op Diagnosis: Diabetic Foot Wound,SUSI Patient Data Age: 62 Gender: M Height: 1.8 m Weight: 102.3 kg Last Vital Signs Temp 36.6 C 07/01/23 06:00 Pulse 61 07/01/23 06:00 Resp 18 07/01/23 06:00 BP 126/40 L 07/01/23 06:00 Pulse Ox 94 07/01/23 06:00 O2 Del Method Room Air 06/30/23 20:00 Allergies Allergy/AdvReac Type Severity Reaction Status Date / Time Sulfa (Sulfonamide Allergy Severe Gastrointestinal Verified 06/29/23 12:30 Antibiotics) Upset Penicillins Allergy Intermediate Nausea Verified 06/29/23 12:30 pregabalin Allergy Unknown Altered Verified 06/29/23 12:30 mental status Home Medications Medication Instructions Recorded Confirmed Type lisinopril 20 mg tablet 20 mg PO DAILY #90 tabs 12/29/20 06/29/23 Rx insulin glargine 100 unit/mL (3 55 unit (0.55 mL) subcut BID #15 mL 09/07/21 06/29/23 Rx mL) subcutaneous pen (Lantus Solostar U-100 Insulin) sertraline 100 mg tablet 100 mg PO DAILY #90 tabs 09/10/21 06/29/23 Rx atorvastatin 20 mg tablet 20 mg PO DAILY 06/07/23 06/29/23 History cyclobenzaprine 10 mg tablet 10 mg PO TID PRN Muscle Spasm 06/07/23 06/29/23 History fenofibrate 120 mg tablet 120 mg PO HS 06/07/23 06/30/23 History gabapentin 300 mg capsule 600 mg PO BID 06/29/23 06/29/23 History hydrocodone 10 mg-acetaminophen 1 tablet PO Q6-8H PRN Pain (Scale 06/29/23 06/29/23 History 325 mg tablet Score 4-6) naproxen sodium 550 mg tablet 550 mg PO Q12H PRN Pain (Scale 06/29/23 06/29/23 History Score 1-3) oxymetazoline 0.05 % nasal spray 1 spray intranasal BID PRN Nasal 06/29/23 06/29/23 History (12 Hour Nasal [place]) Congestion pregabalin 300 mg capsule 300 mg PO BID 06/30/23 06/30/23 History Laboratory Tests 06/30/23 06/30/23 06/30/23 08:29 12:06 16:42 WBC RBC Hgb Hct MCV MCH MCHC RDW Plt Count MPV Sodium Potassium Chloride Carbon Dioxide Anion Gap BUN Creatinine Estim Creat Clear Calc Estimated GFR Glucose POC Capillary Glucose 140 H mg/dl 180 H mg/dl (65-105) (65-105) Calcium Total Bilirubin AST ALT Alkaline Phosphatase Total Protein Albumin Triglycerides Cholesterol LDL Cholesterol Direct HDL Direct Urine Eosinophils Random Vancomycin 5.6 L ug/mL (10-20) 06/30/23 06/30/23 06/30/23 17:16 17:33 21:00 WBC RBC Hgb Hct MCV MCH MCHC RDW Plt Count MPV Sodium Potassium Chloride Carbon Dioxide Anion Gap BUN Creatinine Estim Creat Clear Calc Estimated GFR Glucose POC Capillary Glucose 129 H mg/dl 217 H mg/dl (65-105) (65-105) Calcium Total Bilirubin AST ALT Alkaline Phosphatase Total Protein Albumin Triglycerides Cholesterol LDL Cholesterol Direct HDL Direct Urine Eosinophils None seen % (None Seen) Random Vancomycin 07/01/23 04:04 WBC 16.0 H K/mm3 (4.5-10.0) RBC 4.01 L M/mm3 (4.6-6.20) Hgb 10.9 L g/dL (14.0-18.0) Hct 34.8 L % (42.0-52.0) MCV 86.8 fl (80-100) MCH 27.2 pg
[2023-07-01] MEDS: LACTATED RINGERS 1,000 ML 30 ML IV CONT (07:35)
--- NOTE | 2023-07-01 07:51 | PC.NURSE ---
Patient to surgery at 0710 per charge nurse Rowan. Report provided to Pre-op nurse per night nurse Socorro.
[2023-07-01 08:54] LABS: Glucose Point of Care 181 mg/dl (65-105)
--- NOTE | 2023-07-01 08:59 | P.OP_ITS ---
Procedure Note - Detailed Date of Procedure 07/01/23 Pre-op Diagnosis Diabetic Foot Wound,SUSI, gangrene left 2nd toe Post-op Diagnosis Same Procedure Performed Incision and drainage of left diabetic foot ulcer and amputation of left 2nd t oe. Surgeon Temo Gallegos MD Anesthesia General Indications Patient is a 62-year-old longstanding insulin-dependent diabetic which has not been well controlled. He has developed a ulcer on the plantar surface of his left forefoot and the infection has progressed and now involves the left 2nd toe. There is gangrenous changes left 2nd toe and cellulitis across the left forefoot. She presents now for incision and drainage of the diabetic foot ulcer and amputation of the left 2nd gangrenous toe. Findings Patient quit gangrene of the left 2nd toe. The process extended to the metatarsophalangeal joint. The abscess in the plantar surface of the forefoot of the left foot extended by probing to the left 2nd metatarsophalangeal joint. The left 2nd toe was amputated at the metatarsophalangeal joint. Description of Procedure After informed consent was obtained patient brought to the operating room was placed supine position and general LMA anesthesia was administered. The left lower extremity from the mid tibia distally was then prepped and draped usual sterile fashion circumferentially. A time-out was then performed correctly identifying the patient as well as procedure to be performed verifying that he was are as scheduled IV antibiotics. Site marking was verified as well. I then proceeded to make a circumferential incision around the base of the left 2nd toe with a scalpel. Dissection was carried down through the soft tissues until the phalanx was encountered. Scalp was used to divide the flexor and extensor tendon. Pus started to drain out of the metatarsophalangeal joint. This pus was cultured and sent to microbiology. I then proceeded to disarticulate the phalanx from the metatarsal with sharp scalpel and scissor dissection. Once this is done the toe was sent to pathology for examination. The metatarsal head appeared to be normal without evidence of obvious bony destruction. The opening on the plantar surface the foot extended up into the area of the metatarsal phalangeal joint and then I opened the skin bridge with a scalpel to open the whole area. The tract leading up into the joint space was then excisionally debrided with sharp scalpel and scissor dissection. At this point I then irrigated out the with sterile saline solution and hemostasis was achieved utilized electrocautery. I then packed the wound with quarter-inch iodoform gauze and covered the wound with fluffed 4x4 gauze, Kerlix gauze, and 4in Cosme wrap. The patient tolerated the procedure well no complications. All sponges, needles, and instrument counts were correct at the end procedure. EBL was _25__cc. The patient was awakened and taken to recovery in stable and satisfactory condition. Implants None Estimated Blood Loss 25 Tourniquet Time Total Tourniquet Time: None Urine Output 4 Drains No Packing Yes (Quarter-inch iodoform gauze) Pathology Yes Complications No immediate complications Condition Stable Disposition PACU [facility] Billing Surgery - Charge Forward: Surgery Billing
--- NOTE | 2023-07-01 09:50 | PC.NURSE ---
Patient returned from surgery @ 2673.
[2023-07-01 09:58] LABS: Glucose Point of Care 204 mg/dl (65-105)
[2023-07-01] MEDS: ATORVASTATIN 20 MG TABLET PO (10:15)
[2023-07-01] MEDS: PANTOPRAZOLE 40 MG TABLET PO (10:16)
[2023-07-01] MEDS: PREGABALIN (*CRX) 75 MG CAPSULE 300 MG PO ×2 (10:17→18:39)
[2023-07-01] MEDS: SERTRALINE HCL 50 MG TABLET 100 MG PO (10:17)
[2023-07-01] MEDS: NICOTINE (*PBKC) 14 MG PATCH 1 PATCH TRANSDERM (10:18)
[2023-07-01] MEDS: INSULIN GLARGINE (*BKC) 100 UNITS/ML 55 UNITS SUB-Q ×2 (10:37→22:21)
[2023-07-01] MEDS: HYDROcodone/acetaminophen (*CRX) 10-325 MG TABLET 1 TAB PO (10:45)
[2023-07-01] MEDS: LACTATED RINGERS 1,000 ML 100 ML IV CONT ×2 (11:03→23:56)
[2023-07-01 12:20] LABS: Glucose Point of Care 255 mg/dl (65-105)
[2023-07-01] MEDS: INSULIN ASPART (*BKC) 100 UNITS/ML SUB-Q ×3 (12:26→22:21)
--- NOTE | 2023-07-01 13:06 | P.PNIM_ITS ---
Progress Note: A&P Assessment and Plan (1) Diabetic foot infection: Code(s): E11.628 - Type 2 diabetes mellitus with other skin complications; L08.9 - Local infection of the skin and subcutaneous tissue, unspecified Status: Acute (2) Sepsis: Qualifiers: Sepsis type: Streptococcus group B Sepsis acute organ dysfunction status: with acute organ dysfunction Severe sepsis acute organ dysfunction type: acute renal failure Acute renal failure type: unspecified Severe sepsis shock status: without septic shock Qualified Code(s): A40.1 - Sepsis due to streptococcus, group B; R65.20 - Severe sepsis without septic shock; N17.9 - Acute kidney failure, unspecified Code(s): A41.9 - Sepsis, unspecified organism Status: Acute (3) Osteonecrosis: Code(s): M87.9 - Osteonecrosis, unspecified Status: Acute (4) Diabetic toe ulcer: Code(s): E11.621 - Type 2 diabetes mellitus with foot ulcer; L97.509 - Non-pressure chronic ulcer of other part of unspecified foot with unspecified severity Status: Acute (5) Lactic acidosis: Code(s): E87.20 - Acidosis, unspecified Status: Acute (6) SUSI (acute kidney injury): Code(s): N17.9 - Acute kidney failure, unspecified Status: Acute (7) Diabetes mellitus with hyperglycemia: Code(s): E11.65 - Type 2 diabetes mellitus with hyperglycemia Status: Acute (8) Hyponatremia: Code(s): E87.1 - Hypo-osmolality and hyponatremia Status: Acute (9) Obesity: Code(s): E66.9 - Obesity, unspecified Status: Acute (10) Tobacco use: Code(s): Z72.0 - Tobacco use Status: Acute (11) Gangrene of toe: Code(s): I96 - Gangrene, not elsewhere classified Status: Acute Plan Sepsis without septic shock secondary diabetic foot wound-RESOLVING * Vancomyocin/zosyn * Monitor lactic acid levels q6hr. 3.0 POA 1.2 * Repeat CBC, CMP. * urine cultures. Pending * C-reactive proteins elevated * procalcitonin level. elevated * PTT and PT, INR. * glucose monitoring and control * Blood cultures pending * Wound culture Staphylococcus aureus and group B Streptococcus * Monitor IV hydration. * consulted and following Diabetic foot ulcer: LT 2nd toe * Blood cultures pending * Wound culture Staphylococcus aureus and group B Streptococcus * Surgery consulted * Imaging: XR, Toe, Left: Bone alignment is normal. No fracture. There is mild flattening of head of second metatarsal, consistent with osteonecrosis (Freiberg's infraction). There is screw fixation of fifth metatarsal. Joint spaces are normal in the second digit. * Antibiotic regimen targeting patient's risk factors, adjust based on culture and sensitivity currently * Monitor IV hydration. 06/30: * Postop day 1 left 2nd toe amputation * No apparent signs of bleeding * Elevate left foot * Intraoperative culture pending * Continue IV antibiotic therapy * will need post-op shoe Acute on chronic renal failure-Improving * CR 2.5 POA/previous 0.8/1.5 06/30 * Gentle IV hydration. * nephrology consulted * Avoid nephrotoxic drugs. * Monitor antihypertensive drug therapy. * Avoid NSAIDs. * Routine CMP monitoring GFR. * Monitor electrolytes especially potassium. * Antibiotic doses depending on creatinine clearance. * Pharmacy does medications. Diabetes * Accu-Cheks a.c. HS * sliding scale insulin * resume patient's home long-acting * Hemoglobin A1c 8.0 * lipid panel pending * Diabetic diet
--- NOTE | 2023-07-01 13:06 | PM.IMPN ---
Progress Note: A&P Assessment and Plan (1) Diabetic foot infection: Code(s): E11.628 - Type 2 diabetes mellitus with other skin complications; L08.9 - Local infection of the skin and subcutaneous tissue, unspecified Status: Acute (2) Sepsis: Qualifiers: Sepsis type: Streptococcus group B Sepsis acute organ dysfunction status: with acute organ dysfunction Severe sepsis acute organ dysfunction type: acute renal failure Acute renal failure type: unspecified Severe sepsis shock status: without septic shock Qualified Code(s): A40.1 - Sepsis due to streptococcus, group B; R65.20 - Severe sepsis without septic shock; N17.9 - Acute kidney failure, unspecified Code(s): A41.9 - Sepsis, unspecified organism Status: Acute (3) Osteonecrosis: Code(s): M87.9 - Osteonecrosis, unspecified Status: Acute (4) Diabetic toe ulcer: Code(s): E11.621 - Type 2 diabetes mellitus with foot ulcer; L97.509 - Non-pressure chronic ulcer of other part of unspecified foot with unspecified severity Status: Acute (5) Lactic acidosis: Code(s): E87.20 - Acidosis, unspecified Status: Acute (6) SUSI (acute kidney injury): Code(s): N17.9 - Acute kidney failure, unspecified Status: Acute (7) Diabetes mellitus with hyperglycemia: Code(s): E11.65 - Type 2 diabetes mellitus with hyperglycemia Status: Acute (8) Hyponatremia: Code(s): E87.1 - Hypo-osmolality and hyponatremia Status: Acute (9) Obesity: Code(s): E66.9 - Obesity, unspecified Status: Acute (10) Tobacco use: Code(s): Z72.0 - Tobacco use Status: Acute (11) Gangrene of toe: Code(s): I96 - Gangrene, not elsewhere classified Status: Acute Plan Sepsis without septic shock secondary diabetic foot wound-RESOLVING Vancomyocin/zosyn Monitor lactic acid levels q6hr. 3.0 POA 1.2 Repeat CBC, CMP. urine cultures. Pending C-reactive proteins elevated procalcitonin level. elevated PTT and PT, INR. glucose monitoring and control Blood cultures pending Wound culture Staphylococcus aureus and group B Streptococcus Monitor IV hydration. consulted and following Diabetic foot ulcer: LT 2nd toe Blood cultures pending Wound culture Staphylococcus aureus and group B Streptococcus Surgery consulted Imaging: XR, Toe, Left: Bone alignment is normal. No fracture. There is mild flattening of head of second metatarsal, consistent with osteonecrosis (Freiberg's infraction). There is screw fixation of fifth metatarsal. Joint spaces are normal in the second digit. Antibiotic regimen targeting patient's risk factors, adjust based on culture and sensitivity currently Monitor IV hydration. 06/30: Postop day 1 left 2nd toe amputation No apparent signs of bleeding Elevate left foot Intraoperative culture pending Continue IV antibiotic therapy will need post-op shoe Acute on chronic renal failure-Improving CR 2.5 POA/previous 0.8/1.5 06/30 Gentle IV hydration. nephrology consulted Avoid nephrotoxic drugs. Monitor antihypertensive drug therapy. Avoid NSAIDs. Routine CMP monitoring GFR. Monitor electrolytes especially potassium. Antibiotic doses depending on creatinine clearance. Pharmacy does medications. Diabetes Accu-Cheks a.c. HS sliding scale insulin resume patient's home long-acting Hemoglobin A1c 8.0 lipid panel pending Diabetic diet consult to dietitian encourage lifestyle modifications and weight loss Optimize Cosme inhibitors and statins. Watch for hypoglycemia/hypoglycemic protocol ordered Obesity encourage increased on physical activity and lifestyle modifications Stress monitoring and eating disorder evaluation. encourage outpatient weight loss clinic BMI . Diet exercise counseling done. consult to dietitian Smoking smoking cessation education nicotine patch daily remov
[2023-07-01] MEDS: GABAPENTIN 300 MG CAPSULE 600 MG PO (17:16)
[2023-07-01 17:17] LABS: Glucose Point of Care 249 mg/dl (65-105)
[2023-07-01 18:45] LABS: Vancomycin Random 6.4 ug/mL (10-20)
[2023-07-01] MEDS: VANCOMYCIN 1,500 MG/NS 500 ML 1,500 MG/500 ML BAG 250 MG IVPB (20:05)
[2023-07-01 20:29] LABS: Glucose Point of Care 276 mg/dl (65-105)
[2023-07-02 03:33] VITALS: BP 145/52; PULSE 65; RESP 18; TEMP 36.5; O2SAT 94
[2023-07-02] MEDS: PIPERACILLN/TAZ 3.375GM/NS50ML 3.375 GM/50 ML BAG IVPB ×3 (03:40→15:20)
[2023-07-02 05:08] LABS: Hematocrit 32.9 % (42.0-52.0); Hemoglobin 10.2 g/dL (14.0-18.0); Mean Platelet Volume 11.8 fl (7.4-10.4); Platelet Count Result 220 k/mm3 (150-375); Red Blood Count 3.78 M/mm3 (4.6-6.20); Red Cell Distribution Width 14.5 % (11.5-14.5)
[2023-07-02 05:21] LABS: Alanine Aminotransferase 15 U/L (6-50); Albumin Level 3.1 g/dL (3.5-5.1); Alkaline Phosphatase 51 U/L (38-126); Anion Gap 1 mmol/L (4-12); Aspartate Amino Transferase 19 U/L (17-59); Bilirubin,Total 0.6 mg/dL (0.2-1.3); Blood Urea Nitrogen 19 mg/dL (9-20); Calcium 8.7 mg/dL (8.4-10.2); Carbon Dioxide 30 mmol/L (22-30); Chloride 104 mmol/L (98-107); Estimated CRCL calculation 63 ml/min; Estimated Glomerular Filt Rate 56; Glucose 179 mg/dL (65-110); Potassium 4.5 mmol/L (3.4-5.0); Sodium 135 mmol/L (137-145)
--- NOTE | 2023-07-02 07:19 | P.PNIM_ITS ---
Progress Note: A&P Assessment and Plan (1) Diabetic foot infection: Code(s): E11.628 - Type 2 diabetes mellitus with other skin complications; L08.9 - Local infection of the skin and subcutaneous tissue, unspecified Status: Acute (2) Sepsis: Qualifiers: Acute renal failure type: unspecified Sepsis acute organ dysfunction status: with acute organ dysfunction Sepsis type: Streptococcus group B Severe sepsis acute organ dysfunction type: acute renal failure Severe sepsis shock status: without septic shock Qualified Code(s): A40.1 - Sepsis due to streptococcus, group B; R65.20 - Severe sepsis without septic shock; N17.9 - Acute kidney failure, unspecified Code(s): A41.9 - Sepsis, unspecified organism Status: Acute (3) Osteonecrosis: Code(s): M87.9 - Osteonecrosis, unspecified Status: Acute (4) Diabetic toe ulcer: Code(s): E11.621 - Type 2 diabetes mellitus with foot ulcer; L97.509 - Non-pressure chronic ulcer of other part of unspecified foot with unspecified severity Status: Acute (5) Lactic acidosis: Code(s): E87.20 - Acidosis, unspecified Status: Acute (6) SUSI (acute kidney injury): Code(s): N17.9 - Acute kidney failure, unspecified Status: Acute (7) Diabetes mellitus with hyperglycemia: Code(s): E11.65 - Type 2 diabetes mellitus with hyperglycemia Status: Acute (8) Hyponatremia: Code(s): E87.1 - Hypo-osmolality and hyponatremia Status: Acute (9) Obesity: Code(s): E66.9 - Obesity, unspecified Status: Acute (10) Tobacco use: Code(s): Z72.0 - Tobacco use Status: Acute (11) Gangrene of toe: Code(s): I96 - Gangrene, not elsewhere classified Status: Acute Plan Sepsis without septic shock secondary diabetic foot wound-RESOLVING * Vancomyocin/zosyn * Monitor lactic acid levels q6hr. 3.0 POA 1.2 * Repeat CBC, CMP. * urine cultures. Pending * C-reactive proteins elevated * procalcitonin level. elevated * PTT and PT, INR. * glucose monitoring and control * Blood cultures pending * Wound culture Staphylococcus aureus and group B Streptococcus * Monitor IV hydration. * consulted and following Diabetic foot ulcer: LT 2nd toe * Blood cultures pending * Wound culture Staphylococcus aureus and group B Streptococcus * Surgery consulted * Imaging: XR, Toe, Left: Bone alignment is normal. No fracture. There is mild flattening of head of second metatarsal, consistent with osteonecrosis (Freiberg's infraction). There is screw fixation of fifth metatarsal. Joint spaces are normal in the second digit. * Antibiotic regimen targeting patient's risk factors, adjust based on culture and sensitivity currently * Monitor IV hydration. 06/30: * Postop day 1 left 2nd toe amputation * No apparent signs of bleeding * Elevate left foot * Intraoperative culture pending * Continue IV antibiotic therapy * will need post-op shoe 07/01: * Post-op day 2 * WBC 12 * Staph aureus/strep B * interoperative culture pending Acute on chronic renal failure-Improving * CR 2.5 POA/previous 0.8/1.5 06/30 * Gentle IV hydration. * nephrology consulted * Avoid nephrotoxic drugs. * Monitor antihypertensive drug therapy. * Avoid NSAIDs. * Routine CMP monitoring GFR. * Monitor electrolytes especially potassium. * Antibiotic doses depending on creatinine clearance. * Pharmacy does medications. Diabetes * Accu-Cheks a.c. HS * sliding scale insulin *
--- NOTE | 2023-07-02 07:19 | PM.IMPN ---
Progress Note: A&P Assessment and Plan (1) Diabetic foot infection: Code(s): E11.628 - Type 2 diabetes mellitus with other skin complications; L08.9 - Local infection of the skin and subcutaneous tissue, unspecified Status: Acute (2) Sepsis: Qualifiers: Acute renal failure type: unspecified Sepsis acute organ dysfunction status: with acute organ dysfunction Sepsis type: Streptococcus group B Severe sepsis acute organ dysfunction type: acute renal failure Severe sepsis shock status: without septic shock Qualified Code(s): A40.1 - Sepsis due to streptococcus, group B; R65.20 - Severe sepsis without septic shock; N17.9 - Acute kidney failure, unspecified Code(s): A41.9 - Sepsis, unspecified organism Status: Acute (3) Osteonecrosis: Code(s): M87.9 - Osteonecrosis, unspecified Status: Acute (4) Diabetic toe ulcer: Code(s): E11.621 - Type 2 diabetes mellitus with foot ulcer; L97.509 - Non-pressure chronic ulcer of other part of unspecified foot with unspecified severity Status: Acute (5) Lactic acidosis: Code(s): E87.20 - Acidosis, unspecified Status: Acute (6) SUSI (acute kidney injury): Code(s): N17.9 - Acute kidney failure, unspecified Status: Acute (7) Diabetes mellitus with hyperglycemia: Code(s): E11.65 - Type 2 diabetes mellitus with hyperglycemia Status: Acute (8) Hyponatremia: Code(s): E87.1 - Hypo-osmolality and hyponatremia Status: Acute (9) Obesity: Code(s): E66.9 - Obesity, unspecified Status: Acute (10) Tobacco use: Code(s): Z72.0 - Tobacco use Status: Acute (11) Gangrene of toe: Code(s): I96 - Gangrene, not elsewhere classified Status: Acute Plan Sepsis without septic shock secondary diabetic foot wound-RESOLVING Vancomyocin/zosyn Monitor lactic acid levels q6hr. 3.0 POA 1.2 Repeat CBC, CMP. urine cultures. Pending C-reactive proteins elevated procalcitonin level. elevated PTT and PT, INR. glucose monitoring and control Blood cultures pending Wound culture Staphylococcus aureus and group B Streptococcus Monitor IV hydration. consulted and following Diabetic foot ulcer: LT 2nd toe Blood cultures pending Wound culture Staphylococcus aureus and group B Streptococcus Surgery consulted Imaging: XR, Toe, Left: Bone alignment is normal. No fracture. There is mild flattening of head of second metatarsal, consistent with osteonecrosis (Freiberg's infraction). There is screw fixation of fifth metatarsal. Joint spaces are normal in the second digit. Antibiotic regimen targeting patient's risk factors, adjust based on culture and sensitivity currently Monitor IV hydration. 06/30: Postop day 1 left 2nd toe amputation No apparent signs of bleeding Elevate left foot Intraoperative culture pending Continue IV antibiotic therapy will need post-op shoe 07/01: Post-op day 2 WBC 12 Staph aureus/strep B interoperative culture pending Acute on chronic renal failure-Improving CR 2.5 POA/previous 0.8/1.5 06/30 Gentle IV hydration. nephrology consulted Avoid nephrotoxic drugs. Monitor antihypertensive drug therapy. Avoid NSAIDs. Routine CMP monitoring GFR. Monitor electrolytes especially potassium. Antibiotic doses depending on creatinine clearance. Pharmacy does medications. Diabetes Accu-Cheks a.c. HS sliding scale insulin resume patient's home long-acting Hemoglobin A1c 8.0 lipid panel pending Diabetic diet consult to dietitian encourage lifestyle modifications and weight loss Optimize Cosme inhibitors and statins. Watch for hypoglycemia/hypoglycemic protocol ordered Obesity encourage increased on physical activity and lifestyle modifications Stress monitoring and eating disorder evaluation. encourage outpatient weight loss clinic BMI . Diet exercise counseling done. cons
[2023-07-02 07:33] VITALS: BP 137/54; PULSE 41; RESP 18; TEMP 37.1; O2SAT 95
--- NOTE | 2023-07-02 08:30 | WPDANESPN ---
Anes - Prog Note Post-Op Date/Time: 07/02/23 08:30 Cardiovascular status: normal Respiratory status: normal Airway patency: baseline Mental status: baseline Post-Op hydration status: normal Vital Signs: Last Vital Signs Temp 36.5 C 07/02/23 03:33 Pulse 65 07/02/23 03:33 Resp 18 07/02/23 03:33 BP 145/52 H 07/02/23 03:33 Pulse Ox 94 07/02/23 03:33 O2 Del Method Room Air 07/01/23 20:00 O2 Flow Rate 8 07/01/23 08:38 Pain Score (VAS): 0/10 I/O: Intake & Output 07/01/23 07/02/23 07/02/23 23:59 07:59 15:59 Intake Total 1490 Balance 1490 Laboratory Tests 07/02/23 04:32 07/02/23 04:32 07/01/23 07/01/23 07/01/23 08:52 09:55 12:17 WBC RBC Hgb Hct MCV MCH MCHC RDW Plt Count MPV Sodium Potassium Chloride Carbon Dioxide Anion Gap BUN Creatinine Estim Creat Clear Calc Estimated GFR Glucose POC Capillary Glucose 181 H 204 H 255 H Calcium Total Bilirubin AST ALT Alkaline Phosphatase Total Protein Albumin Random Vancomycin 07/01/23 07/01/23 07/01/23 17:12 18:15 20:20 WBC RBC Hgb Hct MCV MCH MCHC RDW Plt Count MPV Sodium Potassium Chloride Carbon Dioxide Anion Gap BUN Creatinine Estim Creat Clear Calc Estimated GFR Glucose POC Capillary Glucose 249 H 276 H Calcium Total Bilirubin AST ALT Alkaline Phosphatase Total Protein Albumin Random Vancomycin 6.4 L 07/02/23 04:32 WBC 12.0 H RBC 3.78 L Hgb 10.2 L Hct 32.9 L MCV 87.0 MCH 27.0 MCHC 31.0 L RDW 14.5 Plt Count 220 MPV 11.8 H Sodium 135 L Potassium 4.5 Chloride 104 Carbon Dioxide 30 Anion Gap 1 L BUN 19 Creatinine 1.30 Estim Creat Clear Calc 63 Estimated GFR 56 L Glucose 179 H POC Capillary Glucose Calcium 8.7 Total Bilirubin 0.6 AST 19 ALT 15 Alkaline Phosphatase 51 Total Protein 7.0 Albumin 3.1 L Random Vancomycin Microbiology 06/29/23 12:49 Blood Blood Culture - Preliminary Group B Streptococcus isolated 06/29/23 15:21 Foot - Unspecified Wound Culture - Preliminary Staphylococcus aureus Group B Streptococcus isolated Post-procedural complaints: none Patient Feedback: Patient satisfied with anesthetic care.
--- NOTE | 2023-07-02 08:41 | WPDPN ---
Progress Note: A&P Assessment and Plan (1) Diabetic foot infection: Code(s): E11.628 - Type 2 diabetes mellitus with other skin complications; L08.9 - Local infection of the skin and subcutaneous tissue, unspecified Status: Acute Assessment and Plan: Left forefoot diabetic ulcer has been opened an abscess drained. Necrotic and gangrenous left 2nd toe has been amputated. The wound is clean without any necrotic tissue or drainage of any remaining pus. Redness and swelling across left forefoot is much improved today. White blood cell count is down to 12,000 from 16,000. He is improving nicely. Continue local wound dressing changes daily. He needs to stand IV antibiotics for at least another 24 to 48 hours. Will need to set up home health for dressing changes and will likely just follow him up in [facility] if he qualifies to be seen there versus being seen in my office. (2) Diabetic toe ulcer: Code(s): E11.621 - Type 2 diabetes mellitus with foot ulcer; L97.509 - Non-pressure chronic ulcer of other part of unspecified foot with unspecified severity Status: Acute Assessment and Plan: As above. (3) Diabetes mellitus: Code(s): E11.9 - Type 2 diabetes mellitus without complications Status: Acute Assessment and Plan: Management as per hospitalist service. I counseled patient that he needs to be compliant with his diabetes management and taking his medications at home. Otherwise he is at risk of having further amputations. Subjective Date/time seen: 07/02/23 08:41 Interval history: Patient feels of his left foot is much better today. Much less soreness. Is able to the walk with a postop shoe on his left foot. He is using a walker to help with balance. White blood count is decreased from 16,000 yesterday to 12,000 now postoperatively after amputation the gangrenous left 2nd toe and drainage of the diabetic foot abscess. Tolerating diet. No fever. Blood sugars today are 179 but he has been the 220s prior to the amputation. Exam Extrem: Other: Left foot redness and swelling in the forefoot is much improved. The wound is open and draining bloody serous fluid but no pus and no necrotic tissue remaining in the wound. He is able to move all his toes. At the base of the wound the 2nd metatarsal head is exposed but otherwise appears normal. Objective Data Vital Signs Vital Signs: Vital Signs - 24 hr 07/01/23 08:45 07/01/23 09:00 07/01/23 09:15 Temperature Pulse Rate 71 73 68 Respiratory Rate 17 12 14 Blood Pressure 122/70 134/76 131/73 Pulse Oximetry 100 100 95 Oxygen Delivery Room Air Room Air Room Air 07/01/23 09:30 07/01/23 09:45 07/01/23 10:00 Temperature Pulse Rate 68 67 78 Respiratory Rate 14 18 18 Blood Pressure 147/81 H 136/67 135/71 Pulse Oximetry 95 94 94 Oxygen Delivery Room Air 07/01/23 10:30 07/01/23 11:30 07/01/23 15:08 Temperature 36.6 C 36.7 C 36.7 C Pulse Rate 74 60 50 L Respiratory Rate 18 18 16 Blood Pressure 140/79 136/55 L 102/50 L Pulse Oximetry 94 95 95 Oxygen Delivery 07/01/23 19:33 07/01/23 23:33 07/01/23 20:00 Temperature 36.2 C L 36.3 C L Pulse Rate 54 L 58 L Respiratory Rate 18 18 Blood Pressure 126/61 135/32 L Pulse Oximetry 95 99 Oxygen Delivery Room Air 07/02/23 03:33 Temperature 36.5 C Pulse Rate 65 Respiratory Rate 18 Blood Pressure 145/52 H Pulse Oximetry 94 Oxygen Delivery Intake/Output Intake/Output: Intake & Output 06/29/23 06/30/23 07/01/23 07/02/23 23:59 23:59 23:59 23:59 Intake Total 2600 3071.7 2100 Output Total 100 1750 933 Balance 2500 1321.7 1167 Meds/Results Medications: Active Medications Generic Name Dose Route Start Last Admin Trade Name Freq PRN Reason Stop Dose Admin Acetaminophen 650 mg 06/29/23 17:50 Acetaminophen 325 Mg Tablet PO Q4H PRN Mild Pain (1-3) or Fever Hydrocodone Bitart/Acetaminophen 1 tab 06/29/23 21
[2023-07-02 08:44] LABS: Glucose Point of Care 174 mg/dl (65-105)
[2023-07-02] MEDS: PREGABALIN (*CRX) 75 MG CAPSULE 300 MG PO ×2 (08:53→17:13)
[2023-07-02] MEDS: ATORVASTATIN 20 MG TABLET PO (08:54)
[2023-07-02] MEDS: SERTRALINE HCL 50 MG TABLET 100 MG PO (08:54)
[2023-07-02] MEDS: GABAPENTIN 300 MG CAPSULE 600 MG PO ×2 (08:54→17:13)
[2023-07-02] MEDS: PANTOPRAZOLE 40 MG TABLET PO (08:54)
[2023-07-02] MEDS: FENOFIBRATE NANOCRYSTALLIZED 145 MG TABLET PO (08:55)
[2023-07-02] MEDS: INSULIN GLARGINE (*BKC) 100 UNITS/ML 55 UNITS SUB-Q ×2 (08:55→21:36)
[2023-07-02] MEDS: NICOTINE (*PBKC) 14 MG PATCH 1 PATCH TRANSDERM (08:55)
[2023-07-02] MEDS: HEPARIN SODIUM 5,000 UNITS/ML VIAL 5000 UNITS SUB-Q ×2 (08:55→21:36)
[2023-07-02 11:33] VITALS: BP 123/69; PULSE 48; RESP 16; TEMP 36.8; O2SAT 97
[2023-07-02 14:44] LABS: Glucose Point of Care 158 mg/dl (65-105)
--- NOTE | 2023-07-02 16:12 | P.PNNP_ITS ---
Progress Note: A&P Assessment and Plan (1) SUSI (acute kidney injury): Code(s): N17.9 - Acute kidney failure, unspecified Status: Acute Assessment and Plan: * normal creatinine of 1.3 today * suspect former insult secondary to: * prerenal factors * infection/early sepsis * JERSEY-I and NSAID use prior to admission * evaluaton to date: * urine electrolytes prerenal * bland UA * mild proteinuria * urine eosinophils pending * renal ultrasound with left renal stone and bilateral renal cysts but no osbtruction * CPK mildly elevated (but not high enough to affect kidney function and downtrending) * now resoved, probably due to treating the toe. * follow trend of repeat labs and UOP (2) Sepsis: Qualifiers: Sepsis type: Streptococcus group B Sepsis acute organ dysfunction status: with acute organ dysfunction Severe sepsis acute organ dysfunction type: acute renal failure Acute renal failure type: unspecified Severe sepsis shock status: without septic shock Qualified Code(s): A40.1 - Sepsis due to streptococcus, group B; R65.20 - Severe sepsis without septic shock; N17.9 - Acute kidney failure, unspecified Code(s): A41.9 - Sepsis, unspecified organism Status: Acute Assessment and Plan: * as noted by tachycardia, lacti acidosis, mild hypothermia, leukocytosis, and SUSI * s/p IVF boluses and on maintenance IVF * suspected source = #3 * follow culture data * on piperacillin and vanco. * is there a way to change from either pip or vanco? the combo can lead to susi. * I will reach out to GAGE olivares (3) Diabetic toe ulcer: Code(s): E11.621 - Type 2 diabetes mellitus with foot ulcer; L97.509 - Non-pressure chronic ulcer of other part of unspecified foot with unspecified severity Status: Acute Assessment and Plan: * Surgery consulted * local wound care * s/p surgery * imaging noted * on antibiotics (4) Hypertension: Code(s): I10 - Essential (primary) hypertension Status: Chronic Assessment and Plan: * BP doing well. * follow trend of hemodynamics (5) Diabetes mellitus: Code(s): E11.9 - Type 2 diabetes mellitus without complications Status: Acute Assessment and Plan: * follow accu-cheks * glycemic control per hospitalists Subjective Date/time seen: 07/02/23 16:12 Interval history: alert. feels better. no sob or cp he had toe removed yesterday Review of Systems Cardiovascular: Cardiovascular: Reports no additional cardiovascular complaints Respiratory: Respiratory: Reports no additional respiratory complaints Gastrointestinal: Gastrointestinal: Reports no additional gastrointestinal complaints Genitourinary: Genitourinary: Reports no additional male genitourinary complaints Exam Narrative: WDWN in NAD skin no rash head ncat lungs clear cor reg no rub abd BS+ nontender and soft ext no edema. bandage on right foot Objective Data Vital Signs Vital Signs: Vital Signs - 24 hr 07/01/23 19:33 07/01/23 23:33 07/01/23 20:00 Temperature 97.1 F L 97.4 F L Pulse Rate 54 L 58 L Respiratory Rate 18 18 Blood Pressure 126/61 135/32 L Pulse Oximetry 95 99 Oxygen Delivery Room Air 07/02/23 03:33 07/02/23 07:33 04/
--- NOTE | 2023-07-02 16:12 | PM.PNNEP ---
Progress Note: A&P Assessment and Plan (1) SUSI (acute kidney injury): Code(s): N17.9 - Acute kidney failure, unspecified Status: Acute Assessment and Plan: normal creatinine of 1.3 today suspect former insult secondary to: prerenal factors infection/early sepsis JERSEY-I and NSAID use prior to admission evaluaton to date: urine electrolytes prerenal bland UA mild proteinuria urine eosinophils pending renal ultrasound with left renal stone and bilateral renal cysts but no osbtruction CPK mildly elevated (but not high enough to affect kidney function and downtrending) now resoved, probably due to treating the toe. follow trend of repeat labs and UOP (2) Sepsis: Qualifiers: Sepsis type: Streptococcus group B Sepsis acute organ dysfunction status: with acute organ dysfunction Severe sepsis acute organ dysfunction type: acute renal failure Acute renal failure type: unspecified Severe sepsis shock status: without septic shock Qualified Code(s): A40.1 - Sepsis due to streptococcus, group B; R65.20 - Severe sepsis without septic shock; N17.9 - Acute kidney failure, unspecified Code(s): A41.9 - Sepsis, unspecified organism Status: Acute Assessment and Plan: as noted by tachycardia, lacti acidosis, mild hypothermia, leukocytosis, and SUSI s/p IVF boluses and on maintenance IVF suspected source = #3 follow culture data on piperacillin and vanco. is there a way to change from either pip or vanco? the combo can lead to susi. I will reach out to GAGE olivares (3) Diabetic toe ulcer: Code(s): E11.621 - Type 2 diabetes mellitus with foot ulcer; L97.509 - Non-pressure chronic ulcer of other part of unspecified foot with unspecified severity Status: Acute Assessment and Plan: Surgery consulted local wound care s/p surgery imaging noted on antibiotics (4) Hypertension: Code(s): I10 - Essential (primary) hypertension Status: Chronic Assessment and Plan: BP doing well. follow trend of hemodynamics (5) Diabetes mellitus: Code(s): E11.9 - Type 2 diabetes mellitus without complications Status: Acute Assessment and Plan: follow accu-cheks glycemic control per hospitalists Subjective Date/time seen: 07/02/23 16:12 Interval history: alert. feels better. no sob or cp he had toe removed yesterday Review of Systems Cardiovascular: Cardiovascular: Reports no additional cardiovascular complaints Respiratory: Respiratory: Reports no additional respiratory complaints Gastrointestinal: Gastrointestinal: Reports no additional gastrointestinal complaints Genitourinary: Genitourinary: Reports no additional male genitourinary complaints Exam Narrative: WDWN in NAD skin no rash head ncat lungs clear cor reg no rub abd BS+ nontender and soft ext no edema. bandage on right foot Objective Data Vital Signs Vital Signs: Vital Signs - 24 hr 07/01/23 19:33 07/01/23 23:33 07/01/23 20:00 Temperature 97.1 F L 97.4 F L Pulse Rate 54 L 58 L Respiratory Rate 18 18 Blood Pressure 126/61 135/32 L Pulse Oximetry 95 99 Oxygen Delivery Room Air 07/02/23 03:33 07/02/23 07:33 07/02/23 08:50 Temperature 97.7 F 98.7 F Pulse Rate 65 41 L Respiratory Rate 18 18 Blood Pressure 145/52 H 137/54 L Pulse Oximetry 94 95 Oxygen Delivery Room Air 07/02/23 11:33 Temperature 98.3 F Pulse Rate 48 L Respiratory Rate 16 Blood Pressure 123/69 Pulse Oximetry 97 Oxygen Delivery Intake/Output Intake/Output: Intake & Output 06/29/23 06/30/23 07/01/23 07/02/23 23:59 23:59 23:59 23:59 Intake Total 2600 3071.7 2100 580 Output Total 100 1750 933 Balance 2500 1321.7 1167 580 Meds/Results Medications: Active Medications Generic Name Dose Route Start Last Admin Trade Name Freq PRN Reason Stop Dose Admin Acetaminophen 650 mg 06/29/23 17:50 Acetaminoph
[2023-07-02] MEDS: CLINDAMYCIN 900 MG/D5W 50 ML 900 MG/50 ML PIGGYBACK 50 MG IVPB ×2 (17:14→23:40)
[2023-07-02 17:15] LABS: Glucose Point of Care 165 mg/dl (65-105)
[2023-07-02] MEDS: HYDROcodone/acetaminophen (*CRX) 10-325 MG TABLET 1 TAB PO (17:20)
[2023-07-02 20:02] VITALS: BP 109/34; PULSE 50; RESP 18; TEMP 36.4; O2SAT 96
[2023-07-02 20:41] LABS: Glucose Point of Care 182 mg/dl (65-105)
[2023-07-03 05:40] LABS: Hematocrit 33.3 % (42.0-52.0); Hemoglobin 10.6 g/dL (14.0-18.0); Mean Corpuscular HGB Conc 31.8 g/dl (32-36); Mean Corpuscular Hemoglobin 27.1 pg (26-34); Mean Corpuscular Volume 85.2 fl (80-100); Mean Platelet Volume 11.6 fl (7.4-10.4); Platelet Count Result 255 k/mm3 (150-375); Red Blood Count 3.91 M/mm3 (4.6-6.20); Red Cell Distribution Width 14.7 % (11.5-14.5); White Blood Count 10.8 K/mm3 (4.5-10.0)
[2023-07-03 06:03] LABS: Alanine Aminotransferase 15 U/L (6-50); Albumin Level 3.1 g/dL (3.5-5.1); Alkaline Phosphatase 44 U/L (38-126); Anion Gap 2 mmol/L (4-12); Aspartate Amino Transferase 19 U/L (17-59); Bilirubin,Total 0.4 mg/dL (0.2-1.3); Blood Urea Nitrogen 20 mg/dL (9-20); Calcium 8.5 mg/dL (8.4-10.2); Carbon Dioxide 31 mmol/L (22-30); Chloride 103 mmol/L (98-107); Estimated CRCL calculation 59 ml/min; Estimated Glomerular Filt Rate 51; Glucose 70 mg/dL (65-110); Phosphorus 3.7 mg/dL (2.5-4.5); Potassium 3.6 mmol/L (3.4-5.0); Sodium 136 mmol/L (137-145)
[2023-07-03 06:05] VITALS: BP 106/48; PULSE 74; RESP 18; TEMP 36.4; O2SAT 95
[2023-07-03] MEDS: CLINDAMYCIN 900 MG/D5W 50 ML 900 MG/50 ML PIGGYBACK 50 MG IVPB (06:27)
--- NOTE | 2023-07-03 06:58 | P.PNIM_ITS ---
Progress Note: A&P Assessment and Plan (1) Diabetic foot infection: Code(s): E11.628 - Type 2 diabetes mellitus with other skin complications; L08.9 - Local infection of the skin and subcutaneous tissue, unspecified Status: Acute (2) Sepsis: Qualifiers: Acute renal failure type: unspecified Sepsis acute organ dysfunction status: with acute organ dysfunction Sepsis type: Streptococcus group B Severe sepsis acute organ dysfunction type: acute renal failure Severe sepsis shock status: without septic shock Qualified Code(s): A40.1 - Sepsis due to streptococcus, group B; R65.20 - Severe sepsis without septic shock; N17.9 - Acute kidney failure, unspecified Code(s): A41.9 - Sepsis, unspecified organism Status: Acute (3) Osteonecrosis: Code(s): M87.9 - Osteonecrosis, unspecified Status: Acute (4) Diabetic toe ulcer: Code(s): E11.621 - Type 2 diabetes mellitus with foot ulcer; L97.509 - Non-pressure chronic ulcer of other part of unspecified foot with unspecified severity Status: Acute (5) Lactic acidosis: Code(s): E87.20 - Acidosis, unspecified Status: Acute (6) SUSI (acute kidney injury): Code(s): N17.9 - Acute kidney failure, unspecified Status: Acute (7) Diabetes mellitus with hyperglycemia: Code(s): E11.65 - Type 2 diabetes mellitus with hyperglycemia Status: Acute (8) Hyponatremia: Code(s): E87.1 - Hypo-osmolality and hyponatremia Status: Acute (9) Obesity: Code(s): E66.9 - Obesity, unspecified Status: Acute (10) Tobacco use: Code(s): Z72.0 - Tobacco use Status: Acute (11) Gangrene of toe: Code(s): I96 - Gangrene, not elsewhere classified Status: Acute Plan Sepsis without septic shock secondary diabetic foot wound-RESOLVED * Vancomyocin/zosyn * Monitor lactic acid levels q6hr. 3.0 POA 1.2 * Repeat CBC, CMP. * urine cultures. Pending * C-reactive proteins elevated * procalcitonin level. elevated * PTT and PT, INR. * glucose monitoring and control * Blood cultures pending * Wound culture Staphylococcus aureus and group B Streptococcus * Monitor IV hydration. * consulted and following Diabetic foot ulcer: LT 2nd toe * Blood cultures Strep B * Wound culture Staphylococcus aureus and group B Streptococcus * Surgery consulted * Imaging: XR, Toe, Left: Bone alignment is normal. No fracture. There is mild flattening of head of second metatarsal, consistent with osteonecrosis (Freiberg's infraction). There is screw fixation of fifth metatarsal. Joint spaces are normal in the second digit. * Antibiotic regimen targeting patient's risk factors, adjust based on culture and sensitivity currently * Monitor IV hydration. 06/30: * Postop day 1 left 2nd toe amputation * No apparent signs of bleeding * Elevate left foot * Intraoperative culture Strep B/MSSA * Continue IV antibiotic therapy * will need post-op shoe 07/01: * Post-op day 2 * WBC 12 * Staph aureus/strep B * interoperative culture pending 07/02: * de-escalated ABX to Rocephin to preserve renal function * Interoperative culture Strep B/MSSA * Blood cultures with strep B * Follow-up cultures pending for clearance Acute on chronic renal failure-Improving * CR 2.5 POA/previous 0.8/1.5 06/30 * Gentle IV hydration. * nephrology consulted * Avoid nephrotoxic drugs. * Monitor antihypertensive drug therapy. * Avoid NSAIDs. * Routine CMP monitoring GFR. * Monitor electrolytes
--- NOTE | 2023-07-03 06:58 | PM.IMPN ---
Progress Note: A&P Assessment and Plan (1) Diabetic foot infection: Code(s): E11.628 - Type 2 diabetes mellitus with other skin complications; L08.9 - Local infection of the skin and subcutaneous tissue, unspecified Status: Acute (2) Sepsis: Qualifiers: Acute renal failure type: unspecified Sepsis acute organ dysfunction status: with acute organ dysfunction Sepsis type: Streptococcus group B Severe sepsis acute organ dysfunction type: acute renal failure Severe sepsis shock status: without septic shock Qualified Code(s): A40.1 - Sepsis due to streptococcus, group B; R65.20 - Severe sepsis without septic shock; N17.9 - Acute kidney failure, unspecified Code(s): A41.9 - Sepsis, unspecified organism Status: Acute (3) Osteonecrosis: Code(s): M87.9 - Osteonecrosis, unspecified Status: Acute (4) Diabetic toe ulcer: Code(s): E11.621 - Type 2 diabetes mellitus with foot ulcer; L97.509 - Non-pressure chronic ulcer of other part of unspecified foot with unspecified severity Status: Acute (5) Lactic acidosis: Code(s): E87.20 - Acidosis, unspecified Status: Acute (6) SUSI (acute kidney injury): Code(s): N17.9 - Acute kidney failure, unspecified Status: Acute (7) Diabetes mellitus with hyperglycemia: Code(s): E11.65 - Type 2 diabetes mellitus with hyperglycemia Status: Acute (8) Hyponatremia: Code(s): E87.1 - Hypo-osmolality and hyponatremia Status: Acute (9) Obesity: Code(s): E66.9 - Obesity, unspecified Status: Acute (10) Tobacco use: Code(s): Z72.0 - Tobacco use Status: Acute (11) Gangrene of toe: Code(s): I96 - Gangrene, not elsewhere classified Status: Acute Plan Sepsis without septic shock secondary diabetic foot wound-RESOLVED Vancomyocin/zosyn Monitor lactic acid levels q6hr. 3.0 POA 1.2 Repeat CBC, CMP. urine cultures. Pending C-reactive proteins elevated procalcitonin level. elevated PTT and PT, INR. glucose monitoring and control Blood cultures pending Wound culture Staphylococcus aureus and group B Streptococcus Monitor IV hydration. consulted and following Diabetic foot ulcer: LT 2nd toe Blood cultures Strep B Wound culture Staphylococcus aureus and group B Streptococcus Surgery consulted Imaging: XR, Toe, Left: Bone alignment is normal. No fracture. There is mild flattening of head of second metatarsal, consistent with osteonecrosis (Freiberg's infraction). There is screw fixation of fifth metatarsal. Joint spaces are normal in the second digit. Antibiotic regimen targeting patient's risk factors, adjust based on culture and sensitivity currently Monitor IV hydration. 06/30: Postop day 1 left 2nd toe amputation No apparent signs of bleeding Elevate left foot Intraoperative culture Strep B/MSSA Continue IV antibiotic therapy will need post-op shoe 07/01: Post-op day 2 WBC 12 Staph aureus/strep B interoperative culture pending 07/02: de-escalated ABX to Rocephin to preserve renal function Interoperative culture Strep B/MSSA Blood cultures with strep B Follow-up cultures pending for clearance Acute on chronic renal failure-Improving CR 2.5 POA/previous 0.8/1.5 06/30 Gentle IV hydration. nephrology consulted Avoid nephrotoxic drugs. Monitor antihypertensive drug therapy. Avoid NSAIDs. Routine CMP monitoring GFR. Monitor electrolytes especially potassium. Antibiotic doses depending on creatinine clearance. Pharmacy does medications. Diabetes Accu-Cheks a.c. HS sliding scale insulin resume patient's home long-acting Hemoglobin A1c 8.0 lipid panel pending Diabetic diet consult to dietitian encourage lifestyle modifications and weight loss Optimize Cosme inhibitors and statins. Watch for hypoglycemia/hypoglycemic protocol ordered Obesity encourage increased on physical act
[2023-07-03 08:25] LABS: Glucose Point of Care 61 mg/dl (65-105)
[2023-07-03] MEDS: cefTRIAXone 2 GM/NS 100 ML 2 GM/100 ML BAG IVPB (09:01)
[2023-07-03] MEDS: PREGABALIN (*CRX) 75 MG CAPSULE 300 MG PO ×2 (09:03→17:42)
[2023-07-03] MEDS: FENOFIBRATE NANOCRYSTALLIZED 145 MG TABLET PO (09:04)
[2023-07-03] MEDS: SERTRALINE HCL 50 MG TABLET 100 MG PO (09:04)
[2023-07-03] MEDS: PANTOPRAZOLE 40 MG TABLET PO (09:04)
[2023-07-03] MEDS: ATORVASTATIN 20 MG TABLET PO (09:04)
[2023-07-03] MEDS: GABAPENTIN 300 MG CAPSULE 600 MG PO ×2 (09:04→17:41)
[2023-07-03] MEDS: HEPARIN SODIUM 5,000 UNITS/ML VIAL 5000 UNITS SUB-Q (09:05)
[2023-07-03] MEDS: NICOTINE (*PBKC) 14 MG PATCH 1 PATCH TRANSDERM (09:05)
--- NOTE | 2023-07-03 10:00 | PM.PNGS ---
Progress Note: A&P Assessment and Plan (1) Diabetic foot infection: Code(s): E11.628 - Type 2 diabetes mellitus with other skin complications; L08.9 - Local infection of the skin and subcutaneous tissue, unspecified Status: Acute Assessment and Plan: Left forefoot diabetic ulcer has been opened an abscess drained. Necrotic and gangrenous left 2nd toe has been amputated. The wound is clean without any necrotic tissue or drainage of any remaining pus. Redness and swelling across left forefoot is improving. White blood cell count continues to improve down to 10,000 today. Continue local wound dressing changes daily. Continue IV antibiotics. Final preop wound cx growing MSSA and Group B strep. Intraoperative wound cultures growing group B strep and staph aureus, sensitivities pending. Will talk with wound care nurses regarding setting up follow-up in the wound clinic after discharge. CC working on home health referral. (2) Diabetic toe ulcer: Code(s): E11.621 - Type 2 diabetes mellitus with foot ulcer; L97.509 - Non-pressure chronic ulcer of other part of unspecified foot with unspecified severity Status: Acute Assessment and Plan: As above. (3) Diabetes mellitus: Code(s): E11.9 - Type 2 diabetes mellitus without complications Status: Acute Assessment and Plan: Management as per hospitalist service. Plan I have discussed the patient's case and plan of care with Dr. Gallegos. Subjective Subjective Date/Time Seen: 07/03/23 10:00 Post Op day: 2 (Incision and drainage of left diabetic foot ulcer and amputation of left 2nd toe) Patient reports: no new complaints and tolerating a regular diet Interval history: Chart reviewed. Patient seen today and dressing was changed. He denies any pain in his foot at this time. He reports only having some pain in his foot when he is walking, which he has taken hydrocodone for yesterday. He is ambulating in his postop shoe and doing well. No specific complaints at this time. Exam Const: General: comfortable and no acute distress Extrem: Other: Left foot redness and swelling in the forefoot improving, erythema around the wound on the dorsal and plantar foot and extending medially around the great toe. The wound is open and draining bloody serous fluid but no pus and no necrotic tissue remaining in the wound. He is able to move all his toes. Objective Data Vital Signs Vital Signs: Vital Signs - 24 hr 04/07/24 11:33 07/02/23 20:02 07/02/23 20:00 Temperature 98.3 F 97.5 F L Pulse Rate 48 L 50 L Respiratory Rate 16 18 Blood Pressure 123/69 109/34 L Pulse Oximetry 97 96 Oxygen Delivery Room Air 07/03/23 06:05 Temperature 97.5 F L Pulse Rate 74 Respiratory Rate 18 Blood Pressure 106/48 L Pulse Oximetry 95 Oxygen Delivery Intake/Output Intake/Output: Intake & Output 06/30/23 07/01/23 07/02/23 07/03/23 23:59 23:59 23:59 23:59 Intake Total 3071.7 2100 1160 50 Output Total 1750 933 Balance 1321.7 1167 1160 50 Meds/Results Medications: Active Medications Generic Name Dose Route Start Last Admin Trade Name Freq PRN Reason Stop Dose Admin Acetaminophen 650 mg 06/29/23 17:50 Acetaminophen 325 Mg Tablet PO Q4H PRN Mild Pain (1-3) or Fever Hydrocodone Bitart/Acetaminophen 1 tab 06/29/23 21:55 07/02/23 17:20 Hydrocodone/Acetaminophen (*Crx) 10-325 Mg Tablet PO 1 tab Q6-8H PRN Administration Pain (Scale Score 4-6) Atorvastatin Calcium 20 mg 06/30/23 09:00 07/03/23 09:04 Atorvastatin 20 Mg Tablet PO 20 mg DAILY ALFREDITO Administration Cyclobenzaprine HCl 10 mg 07/01/23 09:42 Cyclobenzaprine Hcl 10 Mg Tablet PO TID PRN Muscle Spasm Dextrose 12.5 gm 06/29/23 17:50 Dextrose 50% 25 Gm/50 Ml Syringe IV PUSH PRN PRN Hypoglycemia Protocol Fenofibrate 145 mg 06/30/23 10:40 07/03/23 09:04 Fenofibrate Nanocrystallized 145 Mg Tablet
--- NOTE | 2023-07-03 10:34 | PM.PNNEP ---
Progress Note: A&P Assessment and Plan (1) SUSI (acute kidney injury): Code(s): N17.9 - Acute kidney failure, unspecified Status: Acute Assessment and Plan: slow improvement (but with some fluctuations noted) suspect insult secondary to: prerenal factors infection/early sepsis JERSEY-I and NSAID use prior to admission evaluation to date: urine electrolytes prerenal bland UA mild proteinuria urine eosinophils negative renal ultrasound with left renal stone and bilateral renal cysts but no obstruction CPK mildly elevated (but not high enough to affect kidney function and downtrending) follow trend of repeat labs and UOP (2) Sepsis: Qualifiers: Sepsis type: Streptococcus group B Sepsis acute organ dysfunction status: with acute organ dysfunction Severe sepsis acute organ dysfunction type: acute renal failure Acute renal failure type: unspecified Severe sepsis shock status: without septic shock Qualified Code(s): A40.1 - Sepsis due to streptococcus, group B; R65.20 - Severe sepsis without septic shock; N17.9 - Acute kidney failure, unspecified Code(s): A41.9 - Sepsis, unspecified organism Status: Acute Assessment and Plan: as noted by tachycardia, lactic acidosis, mild hypothermia, leukocytosis, and SUSI s/p IVF boluses and on maintenance IVF suspected source = #3 culture data noted on antibiotics (3) Diabetic toe ulcer: Code(s): E11.621 - Type 2 diabetes mellitus with foot ulcer; L97.509 - Non-pressure chronic ulcer of other part of unspecified foot with unspecified severity Status: Acute Assessment and Plan: Surgery following s/p incision and drainage of left diabetic foot ulcer and amputation of left 2nd toe local wound care imaging noted to date on antibiotics (4) Hypertension: Code(s): I10 - Essential (primary) hypertension Status: Chronic Assessment and Plan: reasonable control at this time follow trend of hemodynamics (5) Diabetes mellitus: Code(s): E11.9 - Type 2 diabetes mellitus without complications Status: Acute Assessment and Plan: follow accu-cheks glycemic control per hospitalists Will continue to follow. Subjective Date/time seen: 07/03/23 10:34 Interval history: Follow-up for acute kidney injury/acute renal failure. Chart reviewed since last seen -- renal function seems to be doing better but still fluctuating; no issues or problems with pain control; eating and drinking okay; no apparent distress voiced at the time of my visit; no issues/events overnight or earlier this morning. Exam Narrative: General: WD/WN male in NAD Heart: normal S1 and S2; no rub Lungs: clear to auscultation Abdomen: soft, nontender, nondistended, positive bowel sounds Extremities: no cyanosis or clubbing; no edema Skin: right foot bandages in place Objective Data Vital Signs Vital Signs: Vital Signs Temp Pulse Resp BP Pulse Ox O2 Del Method 07/03/23 09:00 Room Air 07/03/23 06:05 97.5 F L 74 18 106/48 L 95 07/02/23 20:00 Room Air 07/02/23 20:02 97.5 F L 50 L 18 109/34 L 96 Intake/Output Intake/Output: Intake & Output 06/30/23 07/01/23 07/02/23 07/03/23 23:59 23:59 23:59 23:59 Intake Total 3071.7 2100 1160 270 Output Total 1750 933 Balance 1321.7 1167 1160 270 Meds/Results Medications: Active Medications Generic Name Dose Route Start Last Admin Trade Name Freq PRN Reason Stop Dose Admin Acetaminophen 650 mg 06/29/23 17:50 Acetaminophen 325 Mg Tablet PO Q4H PRN Mild Pain (1-3) or Fever Hydrocodone Bitart/Acetaminophen 1 tab 06/29/23 21:55 07/02/23 17:20 Hydrocodone/Acetaminophen (*Crx) 10-325 Mg Tablet PO 1 tab Q6-8H PRN Administration Pain (Scale Score 4-6) Atorvastatin Calcium 20 mg 06/30/23 09:00 07/03/23 09:04 Atorvastatin 20 Mg Tablet PO 20 mg
--- NOTE | 2023-07-03 10:34 | P.PNNP_ITS ---
Progress Note: A&P Assessment and Plan (1) SUSI (acute kidney injury): Code(s): N17.9 - Acute kidney failure, unspecified Status: Acute Assessment and Plan: * slow improvement (but with some fluctuations noted) * suspect insult secondary to: * prerenal factors * infection/early sepsis * JERSEY-I and NSAID use prior to admission * evaluation to date: * urine electrolytes prerenal * bland UA * mild proteinuria * urine eosinophils negative * renal ultrasound with left renal stone and bilateral renal cysts but no o bstruction * CPK mildly elevated (but not high enough to affect kidney function and downtrending) * follow trend of repeat labs and UOP (2) Sepsis: Qualifiers: Sepsis type: Streptococcus group B Sepsis acute organ dysfunction status: with acute organ dysfunction Severe sepsis acute organ dysfunction type: acute renal failure Acute renal failure type: unspecified Severe sepsis shock status: without septic shock Qualified Code(s): A40.1 - Sepsis due to streptococcus, group B; R65.20 - Severe sepsis without septic shock; N17.9 - Acute kidney failure, unspecified Code(s): A41.9 - Sepsis, unspecified organism Status: Acute Assessment and Plan: * as noted by tachycardia, lactic acidosis, mild hypothermia, leukocytosis, and SUSI * s/p IVF boluses and on maintenance IVF * suspected source = #3 * culture data noted * on antibiotics (3) Diabetic toe ulcer: Code(s): E11.621 - Type 2 diabetes mellitus with foot ulcer; L97.509 - Non-pressure chronic ulcer of other part of unspecified foot with unspecified severity Status: Acute Assessment and Plan: * Surgery following * s/p incision and drainage of left diabetic foot ulcer and amputation of left 2nd toe * local wound care * imaging noted to date * on antibiotics (4) Hypertension: Code(s): I10 - Essential (primary) hypertension Status: Chronic Assessment and Plan: * reasonable control at this time * follow trend of hemodynamics (5) Diabetes mellitus: Code(s): E11.9 - Type 2 diabetes mellitus without complications Status: Acute Assessment and Plan: * follow accu-cheks * glycemic control per hospitalists Will continue to follow. Subjective Date/time seen: 07/03/23 10:34 Interval history: Follow-up for acute kidney injury/acute renal failure. Chart reviewed since last seen -- renal function seems to be doing better but still fluctuating; no issues or problems with pain control; eating and drinking okay; no apparent distress voiced at the time of my visit; no issues/events overnight or earlier this morning. Exam Narrative: General: WD/WN male in NAD Heart: normal S1 and S2; no rub Lungs: clear to auscultation Abdomen: soft, nontender, nondistended, positive bowel sounds Extremities: no cyanosis or clubbing; no edema Skin: right foot bandages in place Objective Data Vital Signs Vital Signs: Vital Signs Temp Pulse Resp BP Pulse Ox O2 Del Method 07/03/23 09:00 Room Air 07/03/23 06:05 97.5 F L 74 18 106/48 L 95 07/02/23 20:00 Room Air 07/02/23 20:02 97.5 F L 50 L 18 109/34 L 96 Intake/Output Intake/Output: Intake & Output 06/30/23
[2023-07-03 10:36] LABS: Glucose Point of Care 81 mg/dl (65-105)
[2023-07-03 11:51] LABS: Glucose Point of Care 69 mg/dl (65-105)
[2023-07-03 15:03] VITALS: BP 122/49; PULSE 51; RESP 12; TEMP 36.1; O2SAT 94
[2023-07-03 17:26] LABS: Glucose Point of Care 80 mg/dl (65-105)
[2023-07-03] MEDS: HYDROcodone/acetaminophen (*CRX) 10-325 MG TABLET 1 TAB PO (17:42)
[2023-07-03 19:55] VITALS: BP 147/36; PULSE 61; RESP 18; TEMP 36.8; O2SAT 92
[2023-07-03 21:05] LABS: Glucose Point of Care 163 mg/dl (65-105)
[2023-07-04] VITALS (7 sets, daily range): BP systolic 104–141; BP diastolic 60–72; PULSE 51–66; RESP 15–18; TEMP 36.2–37.1; O2SAT 91–95
[2023-07-04 05:22] LABS: Hematocrit 37.7 % (42.0-52.0); Hemoglobin 11.9 g/dL (14.0-18.0); Mean Corpuscular HGB Conc 31.6 g/dl (32-36); Mean Corpuscular Hemoglobin 27.2 pg (26-34); Mean Corpuscular Volume 86.1 fl (80-100); Mean Platelet Volume 11.1 fl (7.4-10.4); Platelet Count Result 342 k/mm3 (150-375); Red Blood Count 4.38 M/mm3 (4.6-6.20); Red Cell Distribution Width 14.6 % (11.5-14.5); White Blood Count 12.6 K/mm3 (4.5-10.0)
[2023-07-04 05:33] LABS: Alanine Aminotransferase 15 U/L (6-50); Albumin Level 3.6 g/dL (3.5-5.1); Alkaline Phosphatase 50 U/L (38-126); Anion Gap 5 mmol/L (4-12); Aspartate Amino Transferase 21 U/L (17-59); Bilirubin,Total 0.4 mg/dL (0.2-1.3); Blood Urea Nitrogen 18 mg/dL (9-20); Carbon Dioxide 30 mmol/L (22-30); Chloride 101 mmol/L (98-107); Estimated CRCL calculation 59 ml/min; Estimated Glomerular Filt Rate 51; Glucose 82 mg/dL (65-110); Potassium 3.7 mmol/L (3.4-5.0); Sodium 136 mmol/L (137-145)
--- NOTE | 2023-07-04 07:11 | P.PNIM_ITS ---
Progress Note: A&P Assessment and Plan (1) Diabetic foot infection: Code(s): E11.628 - Type 2 diabetes mellitus with other skin complications; L08.9 - Local infection of the skin and subcutaneous tissue, unspecified Status: Acute (2) Sepsis: Qualifiers: Acute renal failure type: unspecified Sepsis acute organ dysfunction status: with acute organ dysfunction Sepsis type: Streptococcus group B Severe sepsis acute organ dysfunction type: acute renal failure Severe sepsis shock status: without septic shock Qualified Code(s): A40.1 - Sepsis due to streptococcus, group B; R65.20 - Severe sepsis without septic shock; N17.9 - Acute kidney failure, unspecified Code(s): A41.9 - Sepsis, unspecified organism Status: Acute (3) Osteonecrosis: Code(s): M87.9 - Osteonecrosis, unspecified Status: Acute (4) Diabetic toe ulcer: Code(s): E11.621 - Type 2 diabetes mellitus with foot ulcer; L97.509 - Non-pressure chronic ulcer of other part of unspecified foot with unspecified severity Status: Acute (5) Lactic acidosis: Code(s): E87.20 - Acidosis, unspecified Status: Acute (6) SUSI (acute kidney injury): Code(s): N17.9 - Acute kidney failure, unspecified Status: Acute (7) Diabetes mellitus with hyperglycemia: Code(s): E11.65 - Type 2 diabetes mellitus with hyperglycemia Status: Acute (8) Hyponatremia: Code(s): E87.1 - Hypo-osmolality and hyponatremia Status: Acute (9) Obesity: Code(s): E66.9 - Obesity, unspecified Status: Acute (10) Tobacco use: Code(s): Z72.0 - Tobacco use Status: Acute (11) Gangrene of toe: Code(s): I96 - Gangrene, not elsewhere classified Status: Acute (12) Diarrhea: Code(s): R19.7 - Diarrhea, unspecified Status: Acute Plan Sepsis without septic shock secondary diabetic foot wound-RESOLVED * Vancomyocin/zosyn * Monitor lactic acid levels q6hr. 3.0 POA 1.2 * Repeat CBC, CMP. * urine cultures. Pending * C-reactive proteins elevated * procalcitonin level. elevated * PTT and PT, INR. * glucose monitoring and control * Blood cultures pending * Wound culture Staphylococcus aureus and group B Streptococcus * Monitor IV hydration. * consulted and following Diabetic foot ulcer: LT 2nd toe * Blood cultures Strep B * Wound culture Staphylococcus aureus and group B Streptococcus * Surgery consulted * Imaging: XR, Toe, Left: Bone alignment is normal. No fracture. There is mild flattening of head of second metatarsal, consistent with osteonecrosis (Freibe rg's infraction). There is screw fixation of fifth metatarsal. Joint spaces are normal in the second digit. * Antibiotic regimen targeting patient's risk factors, adjust based on culture and sensitivity currently * Monitor IV hydration. 06/30: * Postop day 1 left 2nd toe amputation * No apparent signs of bleeding * Elevate left foot * Intraoperative culture Strep B/MSSA * Continue IV antibiotic therapy * will need post-op shoe 07/01: * Post-op day 2 * WBC 12 * Staph aureus/strep B * interoperative culture pending 07/02: * de-escalated ABX to Rocephin to preserve renal function * Interoperative culture Strep B/MSSA * Blood cultures with strep B * Follow-up cultures pending for clearance Diarrhea * likely secondary to ABX therapy * C-diff pending * probiotic ordered * will start Imodium if c-diff Acute on chronic renal failure-Improving * CR 2.5 POA/previo
--- NOTE | 2023-07-04 07:11 | PM.IMPN ---
Progress Note: A&P Assessment and Plan (1) Diabetic foot infection: Code(s): E11.628 - Type 2 diabetes mellitus with other skin complications; L08.9 - Local infection of the skin and subcutaneous tissue, unspecified Status: Acute (2) Sepsis: Qualifiers: Acute renal failure type: unspecified Sepsis acute organ dysfunction status: with acute organ dysfunction Sepsis type: Streptococcus group B Severe sepsis acute organ dysfunction type: acute renal failure Severe sepsis shock status: without septic shock Qualified Code(s): A40.1 - Sepsis due to streptococcus, group B; R65.20 - Severe sepsis without septic shock; N17.9 - Acute kidney failure, unspecified Code(s): A41.9 - Sepsis, unspecified organism Status: Acute (3) Osteonecrosis: Code(s): M87.9 - Osteonecrosis, unspecified Status: Acute (4) Diabetic toe ulcer: Code(s): E11.621 - Type 2 diabetes mellitus with foot ulcer; L97.509 - Non-pressure chronic ulcer of other part of unspecified foot with unspecified severity Status: Acute (5) Lactic acidosis: Code(s): E87.20 - Acidosis, unspecified Status: Acute (6) SUSI (acute kidney injury): Code(s): N17.9 - Acute kidney failure, unspecified Status: Acute (7) Diabetes mellitus with hyperglycemia: Code(s): E11.65 - Type 2 diabetes mellitus with hyperglycemia Status: Acute (8) Hyponatremia: Code(s): E87.1 - Hypo-osmolality and hyponatremia Status: Acute (9) Obesity: Code(s): E66.9 - Obesity, unspecified Status: Acute (10) Tobacco use: Code(s): Z72.0 - Tobacco use Status: Acute (11) Gangrene of toe: Code(s): I96 - Gangrene, not elsewhere classified Status: Acute (12) Diarrhea: Code(s): R19.7 - Diarrhea, unspecified Status: Acute Plan Sepsis without septic shock secondary diabetic foot wound-RESOLVED Vancomyocin/zosyn Monitor lactic acid levels q6hr. 3.0 POA 1.2 Repeat CBC, CMP. urine cultures. Pending C-reactive proteins elevated procalcitonin level. elevated PTT and PT, INR. glucose monitoring and control Blood cultures pending Wound culture Staphylococcus aureus and group B Streptococcus Monitor IV hydration. consulted and following Diabetic foot ulcer: LT 2nd toe Blood cultures Strep B Wound culture Staphylococcus aureus and group B Streptococcus Surgery consulted Imaging: XR, Toe, Left: Bone alignment is normal. No fracture. There is mild flattening of head of second metatarsal, consistent with osteonecrosis (Freiberg's infraction). There is screw fixation of fifth metatarsal. Joint spaces are normal in the second digit. Antibiotic regimen targeting patient's risk factors, adjust based on culture and sensitivity currently Monitor IV hydration. 06/30: Postop day 1 left 2nd toe amputation No apparent signs of bleeding Elevate left foot Intraoperative culture Strep B/MSSA Continue IV antibiotic therapy will need post-op shoe 07/01: Post-op day 2 WBC 12 Staph aureus/strep B interoperative culture pending 07/02: de-escalated ABX to Rocephin to preserve renal function Interoperative culture Strep B/MSSA Blood cultures with strep B Follow-up cultures pending for clearance Diarrhea likely secondary to ABX therapy C-diff pending probiotic ordered will start Imodium if c-diff Acute on chronic renal failure-Improving CR 2.5 POA/previous 0.8/1.5 06/30 Gentle IV hydration. nephrology consulted Avoid nephrotoxic drugs. Monitor antihypertensive drug therapy. Avoid NSAIDs. Routine CMP monitoring GFR. Monitor electrolytes especially potassium. Antibiotic doses depending on creatinine clearance. Pharmacy does medications. Diabetes Accu-Cheks a.c. HS sliding scale insulin resume patient's home long-acting Hemoglobin A1c 8.0 lipid panel pending Diabetic diet consult to dietit
[2023-07-04 07:57] LABS: Glucose Point of Care 84 mg/dl (65-105)
[2023-07-04] MEDS: cefTRIAXone 2 GM/NS 100 ML 2 GM/100 ML BAG IVPB (09:03)
[2023-07-04] MEDS: SERTRALINE HCL 50 MG TABLET 100 MG PO (09:04)
[2023-07-04] MEDS: PREGABALIN (*CRX) 75 MG CAPSULE 300 MG PO ×2 (09:05→17:38)
[2023-07-04] MEDS: FENOFIBRATE NANOCRYSTALLIZED 145 MG TABLET PO (09:05)
[2023-07-04] MEDS: ATORVASTATIN 20 MG TABLET PO (09:05)
[2023-07-04] MEDS: GABAPENTIN 300 MG CAPSULE 600 MG PO ×2 (09:05→17:38)
[2023-07-04] MEDS: PANTOPRAZOLE 40 MG TABLET PO (09:05)
[2023-07-04] MEDS: NICOTINE (*PBKC) 14 MG PATCH 1 PATCH TRANSDERM (09:06)
[2023-07-04] MEDS: HEPARIN SODIUM 5,000 UNITS/ML VIAL 5000 UNITS SUB-Q ×2 (09:06→20:34)
--- NOTE | 2023-07-04 09:23 | P.PNNP_ITS ---
Progress Note: A&P Assessment and Plan (1) SUSI (acute kidney injury): Code(s): N17.9 - Acute kidney failure, unspecified Status: Acute Assessment and Plan: * slow improvement (but with some fluctuations noted) * suspect insult secondary to: * prerenal factors * infection/early sepsis * JERSEY-I and NSAID use prior to admission * evaluation to date: * urine electrolytes prerenal * bland UA * mild proteinuria * urine eosinophils negative * renal ultrasound with left renal stone and bilateral renal cysts but no o bstruction * CPK mildly elevated (but not high enough to affect kidney function and downtrending) * possible underlying element of CKD(?) -- creatinine was normal by last labs but this was in 2020... * follow trend of repeat labs and UOP (2) Sepsis: Qualifiers: Acute renal failure type: unspecified Sepsis acute organ dysfunction status: with acute organ dysfunction Sepsis type: Streptococcus group B Severe sepsis acute organ dysfunction type: acute renal failure Severe sepsis shock status: without septic shock Qualified Code(s): A40.1 - Sepsis due to streptococcus, group B; R65.20 - Severe sepsis without septic shock; N17.9 - Acute kidney failure, unspecified Code(s): A41.9 - Sepsis, unspecified organism Status: Acute Assessment and Plan: * as noted by tachycardia, lactic acidosis, mild hypothermia, leukocytosis, and SUSI * s/p IVF boluses and on maintenance IVF * suspected source = #3 * culture data noted * on antibiotics (3) Diabetic toe ulcer: Code(s): E11.621 - Type 2 diabetes mellitus with foot ulcer; L97.509 - Non-pressure chronic ulcer of other part of unspecified foot with unspecified severity Status: Acute Assessment and Plan: * Surgery following * s/p incision and drainage of left diabetic foot ulcer and amputation of left 2nd toe * local wound care * imaging noted to date * on antibiotics (4) Hypertension: Code(s): I10 - Essential (primary) hypertension Status: Chronic Assessment and Plan: * reasonable control at this time * follow trend of hemodynamics (5) Diabetes mellitus: Code(s): E11.9 - Type 2 diabetes mellitus without complications Status: Acute Assessment and Plan: * follow accu-cheks * glycemic control per hospitalists Will continue to follow. Subjective Date/time seen: 04/09/24 09:23 Interval history: Follow-up for acute kidney injury/acute renal failure. Renal function remains relatively stable at this time as noted by trend of labs with no critical electrolytes and reasonable UOP; no apparent distress noted; no issues/events overnight or earlier this morning; noted WBC up a bit by AM labs; tolerating IV antibiotic therapy. Exam Narrative: General: WD/WN male in NAD Heart: normal S1 and S2; no rub Lungs: clear bilaterally Abdomen: soft, nontender, nondistended, positive bowel sounds Extremities: no cyanosis or clubbing; no edema Skin: right foot bandages present Objective Data Vital Signs Vital Signs: Vital Signs Temp Pulse Resp BP Pulse Ox O2 Del Method 07/04/23 09:05 Room Air 07/04/23 08:41 92 Room Air 07/04/23 08:03 98.5 F 52 L 16 141/67 H 93 07/04/23 05:26 98.7 F 60 18 104/60 95 07/03/23 20:00 Room
--- NOTE | 2023-07-04 09:23 | PM.PNNEP ---
Progress Note: A&P Assessment and Plan (1) SUSI (acute kidney injury): Code(s): N17.9 - Acute kidney failure, unspecified Status: Acute Assessment and Plan: slow improvement (but with some fluctuations noted) suspect insult secondary to: prerenal factors infection/early sepsis JERSEY-I and NSAID use prior to admission evaluation to date: urine electrolytes prerenal bland UA mild proteinuria urine eosinophils negative renal ultrasound with left renal stone and bilateral renal cysts but no obstruction CPK mildly elevated (but not high enough to affect kidney function and downtrending) possible underlying element of CKD(?) -- creatinine was normal by last labs but this was in 2020... follow trend of repeat labs and UOP (2) Sepsis: Qualifiers: Acute renal failure type: unspecified Sepsis acute organ dysfunction status: with acute organ dysfunction Sepsis type: Streptococcus group B Severe sepsis acute organ dysfunction type: acute renal failure Severe sepsis shock status: without septic shock Qualified Code(s): A40.1 - Sepsis due to streptococcus, group B; R65.20 - Severe sepsis without septic shock; N17.9 - Acute kidney failure, unspecified Code(s): A41.9 - Sepsis, unspecified organism Status: Acute Assessment and Plan: as noted by tachycardia, lactic acidosis, mild hypothermia, leukocytosis, and SUSI s/p IVF boluses and on maintenance IVF suspected source = #3 culture data noted on antibiotics (3) Diabetic toe ulcer: Code(s): E11.621 - Type 2 diabetes mellitus with foot ulcer; L97.509 - Non-pressure chronic ulcer of other part of unspecified foot with unspecified severity Status: Acute Assessment and Plan: Surgery following s/p incision and drainage of left diabetic foot ulcer and amputation of left 2nd toe local wound care imaging noted to date on antibiotics (4) Hypertension: Code(s): I10 - Essential (primary) hypertension Status: Chronic Assessment and Plan: reasonable control at this time follow trend of hemodynamics (5) Diabetes mellitus: Code(s): E11.9 - Type 2 diabetes mellitus without complications Status: Acute Assessment and Plan: follow accu-cheks glycemic control per hospitalists Will continue to follow. Subjective Date/time seen: 07/04/23 09:23 Interval history: Follow-up for acute kidney injury/acute renal failure. Renal function remains relatively stable at this time as noted by trend of labs with no critical electrolytes and reasonable UOP; no apparent distress noted; no issues/events overnight or earlier this morning; noted WBC up a bit by AM labs; tolerating IV antibiotic therapy. Exam Narrative: General: WD/WN male in NAD Heart: normal S1 and S2; no rub Lungs: clear bilaterally Abdomen: soft, nontender, nondistended, positive bowel sounds Extremities: no cyanosis or clubbing; no edema Skin: right foot bandages present Objective Data Vital Signs Vital Signs: Vital Signs Temp Pulse Resp BP Pulse Ox O2 Del Method 07/04/23 09:05 Room Air 07/04/23 08:41 92 Room Air 07/04/23 08:03 98.5 F 52 L 16 141/67 H 93 07/04/23 05:26 98.7 F 60 18 104/60 95 07/03/23 20:00 Room Air 07/03/23 19:55 98.2 F 61 18 147/36 H 92 07/03/23 15:03 96.9 F L 51 L 12 122/49 L 94 Intake/Output Intake/Output: Intake & Output 07/01/23 07/02/23 07/03/23 07/04/23 23:59 23:59 23:59 23:59 Intake Total 2100 1160 750 340 Output Total 933 Balance 1167 1160 750 340 Meds/Results Medications: Active Medications Generic Name Dose Route Start Last Admin Trade Name Freq PRN Reason Stop Dose Admin Acetaminophen 650 mg 06/29/23 17:50 Acetaminophen 325 Mg Tablet PO Q4H PRN Mild Pain (1-3) or Fever Hydrocodone Bitart/Acetaminophen 1 tab 06/29/23 21:55 07/03/23 17:42 Hy
[2023-07-04 11:42] LABS: Glucose Point of Care 146 mg/dl (65-105)
--- NOTE | 2023-07-04 13:22 | PM.PNGS ---
Progress Note: A&P Assessment and Plan (1) Diabetic foot infection: Code(s): E11.628 - Type 2 diabetes mellitus with other skin complications; L08.9 - Local infection of the skin and subcutaneous tissue, unspecified Status: Acute Assessment and Plan: Left forefoot diabetic ulcer has been opened an abscess drained. Necrotic and gangrenous left 2nd toe has been amputated. The wound is clean without any necrotic tissue or drainage of any remaining pus. Redness and swelling across left forefoot is improving. White blood cell count went up from 10,000 to 12,600 today. No worsening redness or concerning changes with the wound. Continue local wound dressing changes daily. Continue IV antibiotics at least another day. CC working on setting up home health. We will have patient f/u in the wound clinic 1 week after discharge. (2) Diabetic toe ulcer: Code(s): E11.621 - Type 2 diabetes mellitus with foot ulcer; L97.509 - Non-pressure chronic ulcer of other part of unspecified foot with unspecified severity Status: Acute Assessment and Plan: As above. (3) Diabetes mellitus: Code(s): E11.9 - Type 2 diabetes mellitus without complications Status: Acute Assessment and Plan: Management as per hospitalist service. Plan I have discussed the patient's case and plan of care with Dr. Gallegos. Subjective Subjective Date/Time Seen: 07/04/23 13:22 Post Op day: 3 (Incision and drainage of left diabetic foot ulcer and amputation of left 2nd toe) Patient reports: no new complaints and afebrile Interval history: Patient without any changes overnight or new complaints. Dressing change done by Dr. Gallegos earlier today. Exam Narrative: Left foot dressing dry and intact Const: General: comfortable and no acute distress Objective Data Vital Signs Vital Signs: Vital Signs - 24 hr 07/03/23 15:03 07/03/23 19:55 07/03/23 20:00 Temperature 96.9 F L 98.2 F Pulse Rate 51 L 61 Respiratory Rate 12 18 Blood Pressure 122/49 L 147/36 H Pulse Oximetry 94 92 Oxygen Delivery Room Air 07/04/23 05:26 07/04/23 08:03 07/04/23 08:41 Temperature 98.7 F 98.5 F Pulse Rate 60 52 L Respiratory Rate 18 16 Blood Pressure 104/60 141/67 H Pulse Oximetry 95 93 92 Oxygen Delivery Room Air 07/04/23 09:05 07/04/23 11:56 Temperature 97.2 F L Pulse Rate 51 L Respiratory Rate 15 Blood Pressure 137/60 Pulse Oximetry 91 Oxygen Delivery Room Air Intake/Output Intake/Output: Intake & Output 07/01/23 07/02/23 07/03/23 07/04/23 23:59 23:59 23:59 23:59 Intake Total 2100 1160 750 340 Output Total 933 Balance 1167 1160 750 340 Meds/Results Medications: Active Medications Generic Name Dose Route Start Last Admin Trade Name Freq PRN Reason Stop Dose Admin Acetaminophen 650 mg 06/29/23 17:50 Acetaminophen 325 Mg Tablet PO Q4H PRN Mild Pain (1-3) or Fever Hydrocodone Bitart/Acetaminophen 1 tab 06/29/23 21:55 07/03/23 17:42 Hydrocodone/Acetaminophen (*Crx) 10-325 Mg Tablet PO 1 tab Q6-8H PRN Administration Pain (Scale Score 4-6) Atorvastatin Calcium 20 mg 06/30/23 09:00 07/04/23 09:05 Atorvastatin 20 Mg Tablet PO 20 mg DAILY ALFREDITO Administration Cyclobenzaprine HCl 10 mg 07/01/23 09:42 Cyclobenzaprine Hcl 10 Mg Tablet PO TID PRN Muscle Spasm Dextrose 12.5 gm 06/29/23 17:50 Dextrose 50% 25 Gm/50 Ml Syringe IV PUSH PRN PRN Hypoglycemia Protocol Fenofibrate 145 mg 06/30/23 10:40 07/04/23 09:05 Fenofibrate Nanocrystallized 145 Mg Tablet PO 145 mg QAM ALFREDITO Administration Gabapentin 600 mg 07/01/23 09:42 07/04/23 09:05 Gabapentin 300 Mg Capsule PO 600 mg BID ALFREDITO Administration Glucagon 1 mg 06/29/23 17:50 Glucagon For Inj 1 Mg Vial IM PRN PRN Hypoglycemia Protocol Glucose 15 gm 06/29/23 17:50 Glucose Oral Gel 15 Gm Of Glucse In 37.5 Gm Tube PO
--- NOTE | 2023-07-04 14:26 | PCCCNOTE ---
On 07/04/23, the student, Zenia Dietz, provided care and completed [facility] documentation on this patient. I have reviewed the student's documentation and agree with the findings.
[2023-07-04 17:19] LABS: Glucose Point of Care 132 mg/dl (65-105)
[2023-07-04 19:35] LABS: Toxigenic C. Diff NEGATIVE (NEGATIVE)
[2023-07-04] MEDS: INSULIN ASPART (*BKC) 100 UNITS/ML SUB-Q (20:33)
[2023-07-04] MEDS: HYDROcodone/acetaminophen (*CRX) 10-325 MG TABLET 1 TAB PO (20:36)
[2023-07-05 02:45] VITALS: BP 142/88; PULSE 77; RESP 18; TEMP 36.4; O2SAT 96
[2023-07-05 04:01] LABS: Glucose Point of Care 235 mg/dl (65-105)
[2023-07-05 05:06] LABS: Hematocrit 38.5 % (42.0-52.0); Hemoglobin 12.2 g/dL (14.0-18.0); Mean Corpuscular HGB Conc 31.7 g/dl (32-36); Mean Corpuscular Volume 85.2 fl (80-100); Mean Platelet Volume 11.1 fl (7.4-10.4); Platelet Count Result 358 k/mm3 (150-375); Red Blood Count 4.52 M/mm3 (4.6-6.20); Red Cell Distribution Width 14.6 % (11.5-14.5)
[2023-07-05 05:25] LABS: Alanine Aminotransferase 15 U/L (6-50); Albumin Level 3.7 g/dL (3.5-5.1); Alkaline Phosphatase 52 U/L (38-126); Anion Gap 7 mmol/L (4-12); Aspartate Amino Transferase 21 U/L (17-59); Bilirubin,Total 0.4 mg/dL (0.2-1.3); Blood Urea Nitrogen 19 mg/dL (9-20); Carbon Dioxide 25 mmol/L (22-30); Chloride 102 mmol/L (98-107); Estimated CRCL calculation 59 ml/min; Estimated Glomerular Filt Rate 51; Glucose 188 mg/dL (65-110); Potassium 3.8 mmol/L (3.4-5.0); Sodium 134 mmol/L (137-145)
[2023-07-05 06:01] VITALS: BP 115/57; PULSE 50; RESP 16; TEMP 36.6; O2SAT 94
[2023-07-05] MEDS: GABAPENTIN 300 MG CAPSULE 600 MG PO (08:14)
[2023-07-05] MEDS: cefTRIAXone 2 GM/NS 100 ML 2 GM/100 ML BAG IVPB (08:14)
[2023-07-05] MEDS: PANTOPRAZOLE 40 MG TABLET PO (08:14)
[2023-07-05] MEDS: PREGABALIN (*CRX) 75 MG CAPSULE 300 MG PO (08:14)
[2023-07-05] MEDS: FENOFIBRATE NANOCRYSTALLIZED 145 MG TABLET PO (08:14)
[2023-07-05] MEDS: SERTRALINE HCL 50 MG TABLET 100 MG PO (08:14)
[2023-07-05] MEDS: ATORVASTATIN 20 MG TABLET PO (08:14)
[2023-07-05] MEDS: HEPARIN SODIUM 5,000 UNITS/ML VIAL 5000 UNITS SUB-Q (08:17)
[2023-07-05] MEDS: NICOTINE (*PBKC) 14 MG PATCH 1 PATCH TRANSDERM (08:17)
[2023-07-05 08:20] LABS: Glucose Point of Care 211 mg/dl (65-105)
[2023-07-05] MEDS: INSULIN ASPART (*BKC) 100 UNITS/ML SUB-Q ×2 (08:23→12:32)
[2023-07-05 12:05] LABS: Glucose Point of Care 226 mg/dl (65-105)
--- NOTE | 2023-07-05 12:37 | PM.DS ---
DS: Admitting Diagnosis Discharge Date 07/05/23 Admitting Diagnosis diabetic foot wound DS: Discharge Diagnosis Discharge Diagnosis (1) Diabetic foot infection: Code(s): E11.628 - Type 2 diabetes mellitus with other skin complications; L08.9 - Local infection of the skin and subcutaneous tissue, unspecified Status: Acute (2) Sepsis: Qualifiers: Acute renal failure type: unspecified Sepsis acute organ dysfunction status: with acute organ dysfunction Sepsis type: Streptococcus group B Severe sepsis acute organ dysfunction type: acute renal failure Severe sepsis shock status: without septic shock Qualified Code(s): A40.1 - Sepsis due to streptococcus, group B; R65.20 - Severe sepsis without septic shock; N17.9 - Acute kidney failure, unspecified Code(s): A41.9 - Sepsis, unspecified organism Status: Acute (3) Osteonecrosis: Code(s): M87.9 - Osteonecrosis, unspecified Status: Acute (4) Diabetic toe ulcer: Code(s): E11.621 - Type 2 diabetes mellitus with foot ulcer; L97.509 - Non-pressure chronic ulcer of other part of unspecified foot with unspecified severity Status: Acute (5) Lactic acidosis: Code(s): E87.20 - Acidosis, unspecified Status: Acute (6) SUSI (acute kidney injury): Code(s): N17.9 - Acute kidney failure, unspecified Status: Acute (7) Diabetes mellitus with hyperglycemia: Code(s): E11.65 - Type 2 diabetes mellitus with hyperglycemia Status: Acute (8) Hyponatremia: Code(s): E87.1 - Hypo-osmolality and hyponatremia Status: Acute (9) Obesity: Code(s): E66.9 - Obesity, unspecified Status: Acute (10) Tobacco use: Code(s): Z72.0 - Tobacco use Status: Acute (11) Gangrene of toe: Code(s): I96 - Gangrene, not elsewhere classified Status: Acute (12) Diarrhea: Code(s): R19.7 - Diarrhea, unspecified Status: Acute DS: Summary Hospital Course Hospital Course: 62 y/o M presents here with wound to left second toe with PMH of COPD, depression, CAD, diabetes, ED, HTN, MRSA, stroke, HLD, obesity, BINTA, prostate cancer (s/p radical prostatectomy in 2016, radiation therapy 2018), in tobacco use. Patient presented here from home for further evaluation of a wound to his left 2nd toe.? Patient 1st noted wound today due to bleeding that occurred.? Has been experiencing associated chills, fever, body aches, and fatigue for the past 3-4 days. Patient is known diabetic.? Diabetes medications are currently managed by his PCP, last saw his provider in the past 6 months.? Patient does not know when his last A1C was.? Denies any preceding injury, wounds, or cuts to feet or toes.? Still endorsing chills.? Denying pain to foot/toe. ED workup showed:? WBC 20.7, mild anemia, sodium 131, creatinine 2.5 with a GFR of 26 (previously 0.8 on 03/09/2021), glucose 199, lactic acid 3.0, CRP 43, and viral PCR negative.? XR of left toe showed no fracture or and mild flattening of the head of the 2nd metatarsal consistent with osteonecrosis. General surgery consulted. Patient had a right 2nd toe amputation on 07/01/23. patient originally started on IV antibiotic therapy with vancomycin and Zosyn. Wound cultures were drawn showing Staphylococcus aureus and group B strep. patient also had blood culture in 1 bottle positive for group a strep. Patient had repeat blood cultures drawn on 06 30 and have remained negative to date. During amputation wound culture was obtained again showing MSSA and group B strep. Both were pansensitive. Patient's white blood cell count improved during hospital stay. Patient did have Nephrology see him due to elevated BUN and creatinine. Nephrology recommend diabetes control. General surgery cleared patient for discharge. He will follow-up with wound care in the clinic. He will discharge to home health. His labs and vital signs are stable he is medically clear for discharge at [facility]
--- NOTE | 2023-07-05 13:38 | PM.PNGS ---
Progress Note: A&P Assessment and Plan (1) Diabetic foot infection: Code(s): E11.628 - Type 2 diabetes mellitus with other skin complications; L08.9 - Local infection of the skin and subcutaneous tissue, unspecified Status: Acute Assessment and Plan: Left forefoot diabetic ulcer s/p excisional debridement and 2nd left toe amputation. The wound is clean without any necrotic tissue or drainage of any remaining pus. Redness and swelling across left forefoot continues to improve. White blood cell count stable today. No worsening redness or concerning changes with the wound. Okay to discharge the patient with oral antibiotics from a surgical standpoint. Continue local wound care daily. Follow-up with Dr. Gallegos in the wound clinic in 1 week. Home health has been set up and the patient and his mother will be doing dressing changes on the days that home health is not there. (2) Diabetic toe ulcer: Code(s): E11.621 - Type 2 diabetes mellitus with foot ulcer; L97.509 - Non-pressure chronic ulcer of other part of unspecified foot with unspecified severity Status: Acute Assessment and Plan: As above. (3) Diabetes mellitus: Code(s): E11.9 - Type 2 diabetes mellitus without complications Status: Acute Assessment and Plan: Management as per hospitalist service. Plan I have discussed the patient's case and plan of care with Dr. Gallegos. Subjective Subjective Date/Time Seen: 07/05/23 13:38 Interval history: No new complaints. No acute changes. He is taking hydrocodone for his foot pain, which he takes for his neuropathy as well and has a prescription at home. Exam Const: General: comfortable and no acute distress Orientation/consciousness: patient oriented x3 Extrem: Other: Left foot redness and swelling in the forefoot continues to improve. The wound is open and draining bloody serous fluid but no pus and no necrotic tissue remaining in the wound. He is able to move all his toes. Objective Data Vital Signs Vital Signs: Vital Signs - 24 hr 07/04/23 15:13 07/04/23 20:00 07/04/23 22:31 Temperature 98.2 F 97.1 F L Pulse Rate 65 66 Respiratory Rate 17 16 Blood Pressure 141/64 H 140/72 Pulse Oximetry 94 94 Oxygen Delivery Room Air 07/05/23 02:45 07/04/23 21:50 07/05/23 06:01 Temperature 97.5 F L 97.9 F Pulse Rate 77 50 L Respiratory Rate 18 16 Blood Pressure 142/88 H 115/57 L Pulse Oximetry 96 95 94 Oxygen Delivery Room Air 07/05/23 08:15 Temperature Pulse Rate Respiratory Rate Blood Pressure Pulse Oximetry Oxygen Delivery Room Air Intake/Output Intake/Output: Intake & Output 07/02/23 07/03/23 07/04/23 07/05/23 23:59 23:59 23:59 23:59 Intake Total 1160 750 830 680 Output Total 200 200 Balance 1160 750 630 480 Meds/Results Medications: Active Medications Generic Name Dose Route Start Last Admin Trade Name Freq PRN Reason Stop Dose Admin Acetaminophen 650 mg 06/29/23 17:50 Acetaminophen 325 Mg Tablet PO Q4H PRN Mild Pain (1-3) or Fever Hydrocodone Bitart/Acetaminophen 1 tab 06/29/23 21:55 07/04/23 20:36 Hydrocodone/Acetaminophen (*Crx) 10-325 Mg Tablet PO 1 tab Q6-8H PRN Administration Pain (Scale Score 4-6) Atorvastatin Calcium 20 mg 06/30/23 09:00 07/05/23 08:14 Atorvastatin 20 Mg Tablet PO 20 mg DAILY ALFREDITO Administration Cyclobenzaprine HCl 10 mg 07/01/23 09:42 Cyclobenzaprine Hcl 10 Mg Tablet PO TID PRN Muscle Spasm Dextrose 12.5 gm 06/29/23 17:50 Dextrose 50% 25 Gm/50 Ml Syringe IV PUSH PRN PRN Hypoglycemia Protocol Fenofibrate 145 mg 06/30/23 10:40 07/05/23 08:14 Fenofibrate Nanocrystallized 145 Mg Tablet PO 145 mg QAM ALFREDITO Administration Gabapentin 600 mg 07/01/23 09:42 07/05/23 08:14 Gabapentin 300 Mg Capsule PO 600 mg BID ALFREDITO Administration Glucagon 1 mg 06/29/23 17:50 Glucagon For Inj 1 Mg
== END 2023-07-05 13:40 | disposition home health service (06) | DRG 710 ==
LOC: ANHED 13:17 → ANH2MED 20:09
PROVIDERS: Emergency Medicine; Internal Medicine; Internal Medicine Nephrology; Nurse Practitioner Family; Physician Assistant; Student in an Organized Health Care Education/Training Program; Surgery; Admitting Provider Hospitalist; Emergency Provider Student in an Organized Health Care Education/Training Program; PCP Family Medicine; Visit Provider Student in an Organized Health Care Education/Training Program
PROC: 0Y6S0Z0 Detachment at Left 2nd Toe, Complete, Open Approach (ICD-10-PCS; principal; 2023-07-01 07:30)
DX: A40.1 Sepsis due to streptococcus, group B (principal); R65.20 Severe sepsis without septic shock; M92.72 Juvenile osteochondrosis of metatarsus, left foot; Z20.822 Contact with and (suspected) exposure to COVID-19; N17.9 Acute kidney failure, unspecified; I12.9 Hypertensive chronic kidney disease with stage 1 through stage 4 chronic kidney disease, or unspecified chronic kidney disease; E11.621 Type 2 diabetes mellitus with foot ulcer; B95.61 Methicillin susceptible Staphylococcus aureus infection as the cause of diseases classified elsewhere; N18.9 Chronic kidney disease, unspecified; L97.529 Non-pressure chronic ulcer of other part of left foot with unspecified severity; E11.65 Type 2 diabetes mellitus with hyperglycemia; E11.52 Type 2 diabetes mellitus with diabetic peripheral angiopathy with gangrene; I96 Gangrene, not elsewhere classified; J44.9 Chronic obstructive pulmonary disease, unspecified; I25.10 Atherosclerotic heart disease of native coronary artery without angina pectoris; E11.22 Type 2 diabetes mellitus with diabetic chronic kidney disease; E87.1 Hypo-osmolality and hyponatremia; G47.33 Obstructive sleep apnea (adult) (pediatric); E66.9 Obesity, unspecified; D64.9 Anemia, unspecified; D72.829 Elevated white blood cell count, unspecified; E11.42 Type 2 diabetes mellitus with diabetic polyneuropathy; E78.5 Hyperlipidemia, unspecified; F17.210 Nicotine dependence, cigarettes, uncomplicated; Z68.31 Body mass index [BMI] 31.0-31.9, adult; Z85.46 Personal history of malignant neoplasm of prostate; Z86.73 Personal history of transient ischemic attack (TIA), and cerebral infarction without residual deficits; Z79.4 Long term (current) use of insulin
CPT/HCPCS: 36415; 70450; 73660; 76775; 80053; 80061; 80202; 80307; 81001; 81003; 82550; 82570; 82948; 83036; 83605; 84100; 84156; 84300; 85025; 85027; 85652; 85999; 86140; 87040; 87070; 87075; 87077; 87181; 87205; 87493; 87637; 88305; 88311; 96361; 96365; 96366; 96368; 99285; A9270; G0378; G0379; J0696; J1100; J1170; J1596; J1644; J1815; J2250; J2371; J2405; J2543; J2704; J3370; J7030; J7120

== ENCOUNTER 2023-08-10 14:39 | Outpatient (CLI) | payer OTHER, SELFPAY ==
--- NOTE | ~2023-08-10 | MR_ITS ---
EXAMINATION: MR lumbar spine wo con DATE: 08/10/2023 15:36 INDICATION: Fracture of third lumbar vertebra. TECHNIQUE: Magnetic resonance imaging (MRI) of the lumbar spine was performed without intravenous con trast. Sequences included sagittal T2-weighted FSE, sagittal T2-weighted FS FSE, sagittal T1-weighted FSE, and axial T2-weighted FSE. COMPARISON: None FINDINGS: There is 7 degrees levocurvature of lumbar spine. There is a compression fracture of T12 wi th 1/5 loss of height and edema-like marrow signal intensity. There are Schmorl's nodes at multiple l evels. There is a burst fracture of L3 with 3/5 loss of height centrally, retropulsion of bone 2 mm i nto central spinal canal, and edema-like marrow signal intensity. There is moderately decreased disc height at L2-L3 and mildly decreased disc height at L3-L4. The distal spinal cord signal intensity is normal. The conus medullaris is at L2. There is a 3.7 cm cyst in left kidney. The following disc lev els are specifically discussed: L1-L2: There is a central protrusion. There is mild bilateral facet joint osteoarthritis. There is no neural foraminal stenosis. There is mild central canal stenosis. L2-L3: The disc is bulging. There is severe bilateral facet joint osteoarthritis. There is mild bilat eral neural foraminal stenosis. There is mild central canal stenosis. L3-L4: The disc is bulging and has an annular fissure. There is severe bilateral facet joint osteoart hritis. There is mild bilateral neural foraminal stenosis. There is mild central canal stenosis. L4-L5: The disc is bulging. There is severe right and moderate left facet joint osteoarthritis. There is mild right and moderate left neural foraminal stenosis. There is mild central canal stenosis. L5-S1: The disc is bulging. There is severe bilateral facet joint osteoarthritis. There is mild bilat eral neural foraminal stenosis. There is mild central canal stenosis. IMPRESSION: 1. T12 compression fracture and L3 burst fracture, likely subacute. 2. Moderate lumbar spondylosis. Reviewed, dictated and finalized at location E.
== END 2023-08-10 14:40 | disposition home or self-care (01) ==
LOC: ANHIMG 14:41
PROVIDERS: PCP Family Medicine; Visit Provider Neurological Surgery
DX: S32.031A Stable burst fracture of third lumbar vertebra, initial encounter for closed fracture (principal); M43.06 Spondylolysis, lumbar region; X58.XXXA Exposure to other specified factors, initial encounter
CPT/HCPCS: 72148

== ENCOUNTER 2023-08-24 14:46 | Outpatient (CLI) | payer OTHER, SELFPAY ==
--- NOTE | ~2023-08-24 | XR_ITS ---
EXAM: XR lumbar spine min 4V DATE: 08/24/2023 15:07 HISTORY: Dorsalgia, unspecified BACK PAIN HX INJURY . COMPARISON: MR L-spine 08/10/2023. FINDINGS: 5 nonrib-bearing lumbar-type vertebral bodies. Pedicles intact. Normal vertebral body alig nment. Stable mild anterior wedge deformity at T12. Stable moderate burst fracture at L3. Multilevel mild marginal osteophytosis. Moderate disc space narrowing at L2-3 with vacuum phenomenon. Multilevel severe facet sclerosis and hypertrophy. Atherosclerotic abdominal aortic calcification, with dilatio n of the inferior abdominal aorta up to 3.1 cm. IMPRESSION: No acute fracture or traumatic malalignment detected in the lumbar spine. Stable mild T12 compression fracture. Stable moderate L3 burst fracture. Multilevel degenerative disc disease. Severe multilevel facet arthropathy. Infrarenal abdominal aortic aneurysm, recommend ultrasound of the aorta for further evaluation. Reviewed, dictated and finalized at location K. IMPRESSION: No acute fracture or traumatic malalignment detected in the lumbar spine. Stabl e mild T12 compression fracture. Stable moderate L3 burst fracture. Multilevel degenerative disc disease. Severe multilevel facet arthropathy. Infrarenal abdominal aortic aneurysm, recommend ultrasound of the aorta for fur ther evaluation.
== END 2023-08-24 14:47 | disposition home or self-care (01) ==
PROVIDERS: PCP Family Medicine; Visit Provider Neurological Surgery
DX: M51.36 Other intervertebral disc degeneration, lumbar region (principal); M47.896 Other spondylosis, lumbar region; S32.031D Stable burst fracture of third lumbar vertebra, subsequent encounter for fracture with routine healing; I71.43 Infrarenal abdominal aortic aneurysm, without rupture; X58.XXXD Exposure to other specified factors, subsequent encounter
CPT/HCPCS: 72110

== ENCOUNTER 2023-08-28 11:13 | Outpatient (CLI) | payer OTHER, SELFPAY ==
--- NOTE | ~2023-08-28 | XR_ITS ---
Lumbosacral Spine: AP and lateral views, with neutral, flexion, extension positioning Clinical History: Pain COMPARISON: 08/24/2023 Findings: The normal lordotic curve is maintained. Moderate L3 compression fracture again present. St able mild compression deformity of T12. There is minimal grade 1 retrolisthesis of L2 over L3, withou t instability. Moderate facet arthropathy at the lower lumbar spine noted. The sacroiliac joints are normally outlined. Impression: Stable L3 and T12 compression fractures, as above. Minimal grade 1 retrolisthesis of L2 over L3, without evidence for instability. Degenerative change, as above. Reviewed, dictated and finalized at location M. Impression: Stable L3 and T12 compression fractures, as above. Minimal grade 1 retrolisthesis of L2 over L3, without evidence for instability. Degenerative change, as above.
== END 2023-08-28 11:14 | disposition home or self-care (01) ==
LOC: ANHIMG 11:13
PROVIDERS: PCP Family Medicine; Visit Provider Neurological Surgery
DX: M48.56XA Collapsed vertebra, not elsewhere classified, lumbar region, initial encounter for fracture (principal); M48.54XA Collapsed vertebra, not elsewhere classified, thoracic region, initial encounter for fracture; M43.16 Spondylolisthesis, lumbar region
CPT/HCPCS: 72110

== ENCOUNTER 2023-09-02 12:54 | Outpatient (CLI) | payer OTHER, SELFPAY ==
--- NOTE | ~2023-09-02 | CT_ITS ---
Noncontrast CT scan of the lumbar spine CLINICAL HISTORY: Back pain TECHNIQUE: Axial noncontrast imaging of the lumbar spine was performed. Sagittal and coronal reformat luda images were constructed. Dose reduction technique was used on this scan by utilizing automated ex posure control and iterative reconstruction technique. The dose-length product (DLP) was 1175.46 mGy- cm. COMPARISON: Lumbar spine MR dated 08/10/2023 FINDINGS: Acute moderate compression fracture of L3, and acute mild compression fracture T12 are esse ntially unchanged as compared to prior MR. Schmorl's node at the superior endplate of L1 is unchanged . No new fracture or subluxation seen. At L1-L2, there is no disc bulge or herniation. There is mild facet arthropathy. No central canal antony nosis or definite neural foraminal narrowing. L2-L3, there is advanced degenerative disc change. There is disc bulge and facet arthropathy, but no sung spinal canal stenosis. There is moderate left neural foraminal narrowing. Right neural foramen probably preserved. At L3-L4, there is disc bulge and minimal facet arthropathy. No central canal stenosis. There is xenia re bilateral neural foraminal compromise, left worse than right. At L4-L5, there is disc bulge and facet moderate to severe facet arthropathy. No sung central canal stenosis. There is minimal bilateral neural foraminal narrowing. At L5-S1, there is disc bulge and severe facet arthropathy. No central canal stenosis. There is mild bilateral neural foraminal narrowing. Paravertebral soft tissues are unremarkable. Impression: Acute compression fractures of T12 and L3 which are essentially unchanged as compared to prior MR adelita ed 08/10/2023. Degenerative spondylosis, as detailed above, with neural foraminal narrowing worst at L3-L4. Reviewed, dictated and finalized at location . Impression: Acute compression fractures of T12 and L3 which are essentially unchanged as co mpared to prior MR dated 08/10/2023. Degenerative spondylosis, as detailed above, with neural foraminal narrowing wo rst at L3-L4.
== END 2023-09-02 12:55 | disposition home or self-care (01) ==
LOC: ANHIMG 12:54
PROVIDERS: PCP Family Medicine; Visit Provider Neurological Surgery
DX: S32.039A Unspecified fracture of third lumbar vertebra, initial encounter for closed fracture (principal); X58.XXXA Exposure to other specified factors, initial encounter; M47.896 Other spondylosis, lumbar region
CPT/HCPCS: 72131

== ENCOUNTER 2023-10-04 07:46 | Outpatient (RCR) | payer OTHER, SELFPAY ==
[2023-07-11 10:58] VITALS: BMI 31.4
--- NOTE | 2023-07-12 17:03 | P.PN_ITS ---
Progress Note: A&P Assessment and Plan (1) Gangrene of toe: Code(s): I96 - Gangrene, not elsewhere classified Status: Acute Assessment and Plan: Status post amputation of gangrenous left 2nd toe. The wound continues to heal with packing. Cellulitis has resolved and has minimal swelling of the left forefoot. Remaining toes of left foot are all viable. We will continue to do local dressing changes with silver gel and then covering with dry Gauze and Cosme wrap. Patient can come back to the Wound Care Clinic in 2 weeks. Subjective Date/time seen: July 11, 2023 Interval history: patient comes to the Wound Care Clinic for evaluation after being discharged from the hospital last week. He and amputation of the left 2nd toe at the metatarsophalangeal joint. He had a left plantar surface diabetic ulcer and abscess was tract and involved the left 2nd metatarsophalangeal joint and phalanx. The left 2nd toe was gangrenous. He seems to be doing well at home. He continues to do wound packed changes once a day. He has finished his oral antibiotic regimen. His blood sugars are running about 200 home and he is following up with an operational meteorologist. He has minimal feeling in his left forefoot. There has been no purulent drainage from the wound. Exam Extrem: Other: The left 2nd toe amputation site is clean. There is minimal granulation tiss ue at the base. Minimal redness on the base of the left great toe and marked decrease redness and swelling of the left forefoot. No necrotic tissue was noted within the base of the wound or skin edges. The wound now measures 5.5x2.5x2cm.
--- NOTE | 2023-07-27 16:35 | WPDPN ---
Progress Note: A&P Assessment and Plan (1) Diabetic foot infection: Code(s): E11.628 - Type 2 diabetes mellitus with other skin complications; L08.9 - Local infection of the skin and subcutaneous tissue, unspecified Status: Acute Assessment and Plan: Patient continues satisfactory progress on to healing the left 2nd toe amputation by secondary intention. His blood sugars are under good control. There is good granulation base around the edges and the bottom portion of the wound. There is no residual diabetic foot infection. Continue packing the wound. Continue with dry wrapping of the foot to prevent swelling and to protect the wound. We will see him back in the Wound Care Clinic in 2 weeks. Subjective Date/time seen: 07/26/23 Interval history: Patient is seen in a 2 week follow-up wound care clinic for his left 2nd toe amputation wound. He feels good and the wound has been managed at home by his mother as well as home health nurses. He has finished taking his oral antibiotics. Exam Extrem: Other: The left 2nd toe amputation wound continues to close by secondary intention. It now measures 5x1.7x1.8cm. There is good granulation tissue at the base over the previously exposed bone. Minimal swelling and redness is noted. Only serous drainage. Remaining toes on left foot are all viable and he can move all the toes.
--- NOTE | 2023-08-10 17:31 | WPDPN ---
Progress Note: A&P Assessment and Plan (1) Diabetic foot infection: Code(s): E11.628 - Type 2 diabetes mellitus with other skin complications; L08.9 - Local infection of the skin and subcutaneous tissue, unspecified Status: Acute Assessment and Plan: Status post amputation of the left 2nd toe. Due to gangrene of the toe in abscess. He seems to be doing very well. The wound continues to heal and close by secondary intention and contract at the edges. The remaining toes on the left foot are all viable and without wound. Continue present dressing changes and application of silver gel. We will see him back in the Wound care clinic in 2 weeks. Plan Subjective Date/time seen: 08/09/23 Interval history: patient return to the Wound Care Clinic today for interval evaluation of the healing left 2nd toe amputation wound. He continues daily dressing changes at home. He seems to be doing very well. His blood sugars are well controlled. He ambulates with a postop shoe. Exam Extrem: Other: Left 2nd toe amputation site wound measures 4x1.5x1.3cm. It continues to granulate both at the base and francisco j at the edges. There is excellent granulation tissue noted. There is no bone exposed. The remaining 4 toes on the left foot are all viable without other wounds.
--- NOTE | 2023-08-23 16:08 | P.PN_ITS ---
Progress Note: A&P Assessment and Plan (1) Gangrene of toe: Code(s): I96 - Gangrene, not elsewhere classified Status: Acute Assessment and Plan: Status post amputation of left 2nd toe. The wound continues to heal very nicely. He continues local wound dressing changes daily at home. He should continue the same wound care dressings at home. The wound continues to contract and has a good granulation base throughout the whole wound. There is no residual infection. Hopefully the in 2 weeks the wound will be come so shallow that will not need to be packed. I will see him back in the Wound Care Clinic in 2 weeks. Subjective Date/time seen: 08/23/23 16:08 Interval history: patient comes in [facility] today for interval exam. He is doing very well. He continues to dress the left 2nd toe amputation site self at home with the aid of his family. He has no complaints. Exam Extrem: Other: The left 2nd toe amputation site no measures 3.5x1.1x1.0cm. It has excellent granulation tissue throughout the whole base. There is no swelling or redness or purulent drainage.
--- NOTE | 2023-09-08 15:33 | WPDPN ---
Progress Note: A&P Assessment and Plan (1) Diabetic toe ulcer: Code(s): E11.621 - Type 2 diabetes mellitus with foot ulcer; L97.509 - Non-pressure chronic ulcer of other part of unspecified foot with unspecified severity Status: Acute Assessment and Plan: Status post amputation of left 2nd toe. He is doing very well the wound is almost healed. Continue applying silver gel and dry dressing to the area for now. We will see him back in the wound care clinic in about 3 to 4 weeks at which time hopefully would be completely closed. Continue to wear the postoperative shoe to ambulate. Subjective Date/time seen: September 06, 2023 Interval history: patient returns for interval 2 week follow-up on his wound on his left foot after amputation of left 2nd toe for diabetic ulcer. He is doing very well. Wound continues to heal very nicely. Is much smaller now and he continues just placing silver gel and dry dressing on the wound. He can actually do the wound care himself at home. Exam Extrem: Other: The left foot has no redness or swelling. The wound now measures 1.5x1x0.5cm. There is excellent granulation tissue at the base. No residual infection.
--- NOTE | 2023-10-09 17:38 | WPDPN ---
Progress Note: A&P Assessment and Plan (1) Amputation of toe of left foot: Code(s): S98.132A - Complete traumatic amputation of one left lesser toe, initial encounter Status: Acute Assessment and Plan: The left foot 2nd toe amputation wound is now completely closed. It on longer needs any packing. Dry eschar across the top of the wound. There is no residual cellulitis. No need to address the wound any longer. (2) Burn of foot, left, second degree: Code(s): T25.222A - Burn of second degree of left foot, initial encounter Status: Acute Assessment and Plan: The patient now has a small wound on the dorsal aspect of his left foot from a grease burn while cooking. There is no cellulitis at this time. the wound does not have a necrotic tissue in the base but there is only minimal granulation tissue. Continue to do local wound care onto the wound and wait for granulation base to formed. Hopefully will heal just like the amputation wound healed. Follow-up in wound care clinic in 1 week. Subjective Date/time seen: 10/04/23 Interval history: Patient returns to the Wound Care Clinic for interval follow-up on his left 2nd toe amputation wound. The wound is pre much closed has a scab on it now. He has a new wound on his left foot which she sustained wall cooking and had some grease fall onto the foot causing 2nd degree burn. Exam Extrem: Other: The left foot 2nd toe amputation wound has completely closed. There is no opening now. There is no redness or swelling around the wound or the surrounding toes. Remaining toes were all viable. On the dorsal aspect of left foot he now has a 3.5x2.2x0.4cm diabetic wound from a second-degree burn he suffered while cooking. The wound is clean with no necrotic tissue at the base. There is no cellulitis over the left forefoot. However only minimal granulation tissue was present.
== END 2023-10-09 23:59 | disposition home or self-care (01) ==
LOC: ANHWOC 07:46
PROVIDERS: PCP Family Medicine; Visit Provider Surgery
DX: E11.628 Type 2 diabetes mellitus with other skin complications (principal); L08.9 Local infection of the skin and subcutaneous tissue, unspecified
CPT/HCPCS: 99213; 99214; G0463

== ENCOUNTER 2023-10-20 11:25 | Outpatient (CLI) | payer OTHER, SELFPAY ==
--- NOTE | 2023-10-20 11:30 | ECG_ITS ---
Test Date: 2023-10-20 11:39:38 Measurements Intervals [place] Rate: 46 P: 20 NC: 162 QRS: 23 QRSD: 107 T: 55 QT: 467 QTc: 411 Interpretive Statements SINUS BRADYCARDIA BASELINE ARTIFACT- I, II, AVR BORDERLINE ECG No previous ECG available for comparison Electronically Signed On 10-20-2023 11:42:11 CDT by Radhames Glasgow D.O.
[2023-10-20 12:10] LABS: Anion Gap 10 mmol/L (4-12); Blood Urea Nitrogen 25 mg/dL (9-20); Calcium 8.9 mg/dL (8.4-10.2); Carbon Dioxide 29 mmol/L (22-30); Chloride 98 mmol/L (98-107); Estimated Glomerular Filt Rate 51; Glucose 205 mg/dL (65-110); Potassium 4.1 mmol/L (3.4-5.0); Sodium 137 mmol/L (137-145)
== END 2023-10-20 11:26 | disposition home or self-care (01) ==
PROVIDERS: Anesthesiology; PCP Family Medicine; Visit Provider Anesthesiology Pain Medicine
DX: Z01.818 Encounter for other preprocedural examination (principal); E11.9 Type 2 diabetes mellitus without complications; I10 Essential (primary) hypertension
CPT/HCPCS: 36415; 80048; 93005

== ENCOUNTER 2023-10-24 00:11 | Day surgery (SDC) | payer OTHER, SELFPAY ==
[2023-10-18 14:20] VITALS: BMI 31.4
--- NOTE | 2023-10-18 14:21 | PC.NURSE ---
Report to the Outpatient Waiting Room, entrance under the green pavilion located off [facility], at time _1100_ on date ___. Planned Procedure Time: . Time changes happen often and if your time is changed the preop area will call you the afternoon before. - You and your visitor will be asked to self-screen and do not enter if you have any COVID symptoms. - A mask is optional within the hospital at this time. - No food or drink from midnight until time of surgery Take the following medications with a SIP of water the morning of surgery: Gabapentin and Sertraline. Take 1/2 dose of Lantus 27 units morning of surgery. DO NOT STOP ANY OF YOUR OTHER PRESCRIPTION MEDICATIONS PRIOR TO SURGERY ?EXCEPT THE FOLLOWING Medications to discontinue per physician Please inquire of Dr Valente's office if ok to continue using Naproxen prior to surgery. Date to take last dose Please no make-up, nail maltese, hairspray, perfume, deodorant, or body powder the day of surgery. No jewelry (including any body piercings) or valuables the day of surgery, leave them at home. Please take a shower or bath the night before, or the morning of, surgery with an antibacterial soap. Wear comfortable, loose fitting clothing. - Jewelry must be removed prior to entering the operating room. Rings and piercings that are not removed may be cut off. - The hospital will not accept responsibility for valuables. - Please leave all valuables, including medications, at home the day of surgery. If you are going home after surgery, a licensed stud driver must drive you home. - NO public transportation without another adult if you receive anesthesia. - We recommend that an adult stay with you for 24 hours following discharge. - We also recommend that you do not drive, make important decision, drink alcoholic beverages, or take any drugs that were not prescribed by your health care provider for at least 24 hours after your discharge time. Follow any additional instructions given to you from your surgeon. If you or anyone in your household have experienced Covid symptoms in the past week, please notify your surgeon or the nurse liaison at the phone number below for possible testing. Telephone instructions given to ___Barry___and asked if any additional questions and then verbalized understanding. Patient advised to call surgeon office or pre surgery nurse liaison [phone] if any additional questions.
[2023-10-24] VITALS (12 sets, daily range): BP systolic 92–142; BP diastolic 42–65; PULSE 50–61; RESP 6–18; TEMP 36.1–36.2; O2SAT 90–100
--- NOTE | ~2023-10-24 | XR_ITS ---
EXAMINATION: XR fluoroscopy no charge DATE: 10/24/2023 14:33 INDICATION: Percutaneous intraosseous balloon assisted kyphoplasty with bone biopsy at T12 and L3 TECHNIQUE: 28 fluoroscopic images of the thoracolumbar spine were obtained during procedure performed by Dr. Valente. Radiologist was not present for the imaging or procedure. The amount of fluoroscopy she e used during this procedure was 7.8 minutes. FINDINGS: Images demonstrate trochar advanced into a mid lumbar vertebral body via a left transpedicular approa ch and into a lower thoracic vertebral body via right transpedicular approach. Definitive identificat ion of the vertebral bodies is limited on the small [id number] imaging. Methylmethacrylate is inje cted into the vertebral bodies at both levels. IMPRESSION: 1. Fluoroscopy utilized during and lower thoracic and mid lumbar kyphoplasty via transpedicular appro ach. See procedure note for further detail. Reviewed, dictated and finalized at location A. IMPRESSION: 1. Fluoroscopy utilized during and lower thoracic and mid lumbar kyphoplasty vi a transpedicular approach. See procedure note for further detail.
[2023-10-24] MEDS: LACTATED RINGERS 1,000 ML 30 ML IV CONT ×2 (12:10→14:08)
[2023-10-24 12:15] LABS: Glucose Point of Care 156 mg/dl (65-105)
--- NOTE | 2023-10-24 12:16 | WPDHPUPDATE1 ---
History and Physical Update Update Date/Time: 10/24/23 12:16 History and Physical has been reviewed, including an updated exam of the patient. There are NO changes in the patient's condition. Risks, benefits, and alternatives have been discussed and questions answered. Patient agrees to proceed with procedure.
--- NOTE | 2023-10-24 12:17 | W.PM.PROC2 ---
Procedure Note - Detailed Date of Procedure 10/24/23 Pre-op Diagnosis compression fx thoracic and lumbar vertebrae Post-op Diagnosis Same Procedure Performed Percutaneous Ballon- assisted vertebral augmentation of T12, L3 under Fluoroscopic Guidance. (Kyphoplasty). Surgeon Jean Valente MD Anesthesia General (GETA with local infiltration in the prone position.) Description of Procedure INFORMED CONSENT: Risks, benefits and alternatives to the procedure were discussed in detail with the patient who expressed explicit understanding and consent to proceed. Patient was informed verbally and in written form regarding the risks associated with the procedure including the low risk of serious infection, bleeding/bruising, allergic reaction, pulmonary embolus/edema, extravasation of cement requiring surgical intervention, worsening fracture, nerve or organ injury, paralysis, procedural site pain or discomfort, worsening pain and/or mobility, failure to treat and/or disfigurement. The patient expressed explicit understanding and consent to proceed. All materials required for the procedure were available prior to procedure start. Site and side were marked prior to procedure and confirmed in the presence of the patient. PROCEDURE IN DETAIL: After full informed consent was obtained, IV access was obtained by Anesthesia without difficulty. The patient was escorted to the operative theater. Supplemental oxygen initiated to maintain O2 saturation between 92-99%. Careful positioning was undertaken and ASA standard monitors applied and checked routinely throughout the case. Prophylactic antibiotics were administered prior to procedure start. Patient was placed in the prone position in optimal extension using pillows and the thoracolumbar spine was prepared and draped in the usual sterile manner using ChloraPrep scrub, allowed to dry completely. Fluoroscopy in the AP and lateral position was used with perfect linear projections at the T12 level. Percutaneous trocar was introduced from a rightward approach (transpedicular approach) via a small stab skin incision using a #11 scalpel following adequate anesthesia via infiltration of a 1:1 admixture of 2% PF lidocaine with epinephrine and 0.5% PF bupivacaine through a 2 inch 27-gauge needle after negative aspiration. Anesthesia was extended to periosteum with a 3.5 inch 22g Quincke spinal needle. A 10-gauge trocar with a sofiya tip was introduced through the skin and docked on the right posterior pedicle of T12 in the superolateral (11 o'clock) position. Under live fluoroscopy, alternating between AP and lateral views, the trocar was advanced anteriorly, medially and inferiorly using a metal surgical mallet, taking care to advance only in the AP view, using lateral views to confirm depth and direction. In the AP view, as the tip of the trocar approached (but did not violate) the medial inferior border of the pedicle, lateral view was utilized to confirm advancement of the trocar through the pedicle and into the posterior third of the vertebral body. Using the firearms inspector-provided bone biopsy device, an intravertebral core biopsy was obtained from each level treated and sent in an appropriately-labeled sterile specimen cup with formalin for pathological analysis. A manual bone drill was advanced, directed toward the fracture line and used to create a cavity within the vertebral body in the lateral and AP view, careful not to violate the anterior or. lateral vertebral avila. [A 20 ml balloon catheter prefilled with IsoVue 300M contrast medium was advanced to the anteromedial portion of the vertebral body in the lateral view and inflated with contrast to a volume 5 ml or less at a pressure of 700 psi or less, creating an appropriately sized cavity within the anteromedial vertebral body.] The cement introducer was then advanced into the far end of the cavity and the void was filled in a continuous fashion, monitored in both the lateral and A
--- NOTE | 2023-10-24 12:40 | WPDANESEPPF ---
Anes - Initial Pre Proc Eval Procedure: Operation Date: 10/24/23 13:00 Proposed Procedures p Percutaneous Intraosseous Balloon Assisted Vertebral Augmentation with Intraosseous Bone Biopsy at T12 and L3 Under Fluoroscopic Guidance - Jean Valente MD Date/Time: 10/24/23 12:40 Surgeon: Jean Valente MD Pre Op Diagnosis: compression fx thoracic and lumbar vertebrae Patient Data Age: 62 Gender: M Height: 1.8 m Weight: 99.75 kg Last Vital Signs Temp 97.0 F L 10/24/23 12:17 Pulse 50 L 10/24/23 12:17 Resp 18 10/24/23 12:17 BP 128/54 L 10/24/23 12:17 Pulse Ox 95 10/24/23 12:17 O2 Del Method Room Air 10/24/23 12:17 Allergies Allergy/AdvReac Type Severity Reaction Status Date / Time Sulfa (Sulfonamide AdvReac Severe Gastrointestinal Verified 10/24/23 12:15 Antibiotics) Upset Penicillins AdvReac Intermediate Nausea Verified 10/24/23 12:15 Home Medications Medication Instructions Recorded Confirmed Type lisinopril 20 mg tablet 20 mg PO DAILY #90 tabs 12/29/20 10/24/23 Rx sertraline 100 mg tablet 100 mg PO DAILY #90 tabs 09/10/21 10/24/23 Rx atorvastatin 20 mg tablet 20 mg PO DAILY 06/07/23 10/24/23 History cyclobenzaprine 10 mg tablet 10 mg PO TID PRN Muscle Spasm 06/07/23 10/24/23 History fenofibrate 120 mg tablet 120 mg PO HS 06/07/23 10/24/23 History gabapentin 300 mg capsule 600 mg PO BID 06/29/23 10/24/23 History hydrocodone 10 mg-acetaminophen 1 tablet PO Q6-8H PRN Pain (Scale 06/29/23 10/24/23 History 325 mg tablet Score 4-6) naproxen sodium 550 mg tablet 550 mg PO Q12H PRN Pain (Scale 06/29/23 10/24/23 History Score 1-3) oxymetazoline 0.05 % nasal spray 1 spray intranasal BID PRN Nasal 06/29/23 10/24/23 History (12 Hour Nasal [place]) Congestion insulin glargine 100 unit/mL (3 55 unit subcut BID 10/18/23 10/24/23 History mL) subcutaneous pen (Lantus Solostar U-100 Insulin) Laboratory Tests 10/24/23 12:11 POC Capillary Glucose 156 H mg/dl (65-105) Patient hx anesthesia problems: none Family hx anesthesia problems: none Results Review: All pre-operative results and documents have been reviewed as part of the pre-operative evaluation. 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 Depression Diabetic peripheral neuropathy associated with type 2 diabetes mellitus Erectile dysfunction following simple prostatectomy Essential hypertension Excessive bleeding Fracture of fifth metatarsal bone of left foot History of MRSA infection History of stroke with current residual effects Hyperlipidemia Insulin dependent diabetes mellitus L3 vertebral fracture Left foot pain Obesity Obstructive sleep apnea Describes symptoms but has never had a formal polysomnogram Peripheral neuropathy Prostate cancer Radical prostatectomy October 2015 with recurrence treated with radiation therapy March 2017 Tobacco use Wears glasses Surgical History Surgical History (Reviewed 10/16/23 @ 11:47 by Gina Sanchez [facility]) History of cardiac catheterization (~09/2016) 100% occlusion of the distal left circumflex artery with evidence of collaterals with several collaterals filling the left PDA, RCA is a small vessel with 50% lesion not amenable to intervention, 30-40% lesion will small diagonal branch of the LAD, left main coronary is mild stenosis 10-20% History of carpal tunnel release (~1995) Left History of colonoscopy with polypectomy (~11/2017) History of shoulder surgery (~2001) S/P foot surgery, left Status post prostatectomy (~10/2015) Radical prostatectomy Family History Family History Mother Diabetes mellitus Hypertension Father
[2023-10-24] MEDS: ceFAZolin 2 GM/D5W 50 ML 2 GM/50 ML BAG IVPB (12:50)
[2023-10-24] MEDS: LIDOCAINE HCL 2% PF INJ 5 ML VIAL 20 ML INFILTRATE (13:22)
[2023-10-24 15:00] LABS: Glucose Point of Care 165 mg/dl (65-105)
== END 2023-10-24 16:55 | disposition home or self-care (01) ==
PROVIDERS: PCP Family Medicine; Visit Provider Anesthesiology Pain Medicine
PROC: (CPT 22513; principal; 2023-10-24 13:00)
DX: S22.080A Wedge compression fracture of T11-T12 vertebra, initial encounter for closed fracture (principal); S32.030A Wedge compression fracture of third lumbar vertebra, initial encounter for closed fracture; W18.39XA Other fall on same level, initial encounter; I25.10 Atherosclerotic heart disease of native coronary artery without angina pectoris; J44.9 Chronic obstructive pulmonary disease, unspecified; E11.42 Type 2 diabetes mellitus with diabetic polyneuropathy; I10 Essential (primary) hypertension; E78.5 Hyperlipidemia, unspecified; G47.33 Obstructive sleep apnea (adult) (pediatric); F41.9 Anxiety disorder, unspecified; F32.A Depression, unspecified; Z85.46 Personal history of malignant neoplasm of prostate; E66.9 Obesity, unspecified; Z68.30 Body mass index [BMI] 30.0-30.9, adult; F17.210 Nicotine dependence, cigarettes, uncomplicated; F17.290 Nicotine dependence, other tobacco product, uncomplicated
CPT/HCPCS: 22513; 22515; 82948; 88307; 88311; 99199; J0330; J0461; J0690; J1100; J1170; J2250; J2371; J2405; J2704; J3010; J7120

== ENCOUNTER 2023-11-18 09:40 | Outpatient (CLI) | payer OTHER, SELFPAY ==
[2023-11-23 18:49] LABS: Testosterone Free 28.3 pg/mL (35.0-155.0); Testosterone Total 198 ng/dL (250-1100)
== END 2023-11-18 09:41 | disposition home or self-care (01) ==
LOC: ANHLAB 09:42
PROVIDERS: PCP Family Medicine; Visit Provider Anesthesiology Pain Medicine
DX: E29.1 Testicular hypofunction (principal); M85.80 Other specified disorders of bone density and structure, unspecified site
CPT/HCPCS: 36415; 84402; 84403

== ENCOUNTER 2023-12-13 07:29 | Outpatient (RCR) | payer OTHER, SELFPAY ==
[2023-10-10 00:03] VITALS: BMI 31.4
--- NOTE | 2023-10-18 20:56 | P.PN_ITS ---
Progress Note: A&P Assessment and Plan (1) Burn of foot, left, second degree: Code(s): T25.222A - Burn of second degree of left foot, initial encounter Status: Acute Assessment and Plan: The burn wound on the left foot continues to slowly heal. Continue to use enzymatic debriding agents on the wound for the yellow slough. He started to get some islands of granulation tissue. No cellulitis. Continue to cover with dry dressing. (2) Amputation of toe of left foot: Code(s): S98.132A - Complete traumatic amputation of one left lesser toe, initial en counter Status: Acute Assessment and Plan: Left foot amputation was completely healed. Subjective Date/time seen: 10/18/23 Interval history: Patient comes to the [facility] for his routine 2 week interval follow-up on his left 2nd toe amputation wound and his left forefoot burn wound. Is a diabetic. He has no new complaints. He is still dressing the burn on the left forefoot with Santyl enzymatic debridement agent. His blood sugars are running around 200 generally. Exam Extrem: Other: The left foot 2nd toe amputation wound has completely healed. There is no redness or drainage. The left forefoot wound which started as a burn from cooking grease getting on his foot now measures 3x1.7x0.3cm. There is about 20% granulation tissue right 80% yellow slough. There is no nonviable tissue in the wound. No swelling or redness across the forefoot to suggest cellulitis. Objective Data Meds/Results Medications: Active Medications Generic Name Dose Route Start Last Admin Trade Name Freq PRN Reason Stop Dose Admin Collagenase 1 applic 10/11/23 13:37 Collagenase Oint 30 Gm Tube TOPICAL 01/11/24 23:59 PRN PRN Wound Care
--- NOTE | 2023-10-25 10:56 | PCWOUND ---
WOCN NOTE Patient canceled for today due to having back surgery yesterday. he is rescheduled for NOV 07.
--- NOTE | 2023-11-09 18:45 | WPDPN ---
Progress Note: A&P Assessment and Plan (1) Burn of foot, left, second degree: Code(s): T25.222A - Burn of second degree of left foot, initial encounter Status: Acute Assessment and Plan: Burn left dorsal foot is healing well. Can stop the Santyl and just apply silver gel. Itchy continued healing the next 2 to 4 weeks. We will see him back in the office in the wound care clinic in about 4 weeks. Subjective Date/time seen: 11/08/23 Interval history: Patient returns to the Wound Care Clinic for me to see his left dorsal foot burn wound. He has no complaints today. The wound is being dressed with Santyl and silver gel. He has no complaints today. Exam Extrem: Other: The left foot wound now measures 2.3x1.2x0.3cm. There has been significant traction and healing of the wound since his last visit. There is approximately 80% beefy granulation tissue about 20% yellow slough. No surrounding cellulitis. Objective Data Meds/Results Medications: Active Medications Generic Name Dose Route Start Last Admin Trade Name Freq PRN Reason Stop Dose Admin Collagenase 1 applic 10/11/23 13:37 Collagenase Oint 30 Gm Tube TOPICAL 01/11/24 23:59 PRN PRN Wound Care
--- NOTE | 2023-12-13 16:40 | WPDPN ---
Progress Note: A&P Assessment and Plan (1) Burn of foot, left, second degree: Code(s): T25.222A - Burn of second degree of left foot, initial encounter Status: Acute Assessment and Plan: The burn wound on the left dorsal forefoot is much smaller now. There is only a small amount of hypergranulation tissue left this was treated with silver nitrate to obliterate the hypertrophic granulation tissue and cause a scab to form. The can come back to see me in the office on a p.r.n. basis. The wound is essentially healed. Subjective Date/time seen: 12/13/23 16:40 Interval history: Patient follows up in the [facility] wound [facility]. Last some couple weeks ago. The wound continues to heal well on his left dorsal foot. There is no pain or drainage now. Exam Extrem: Other: The left dorsal foot wound is very superficial now. It measures 0.8x0.4x0.2 cm. Most of it has re-epithelialized but there is a central area of granulation tissue which seems to be hypertrophic measuring about 3mm in diameter. No redness or any serous drainage. Objective Data Meds/Results Medications: Active Medications Generic Name Dose Route Start Last Admin Trade Name Freq PRN Reason Stop Dose Admin Collagenase 1 applic 10/11/23 13:37 Collagenase Oint 30 Gm Tube TOPICAL 01/11/24 23:59 PRN PRN Wound Care
== END 2024-01-09 23:59 | disposition home or self-care (01) ==
LOC: ANHWOC 07:29
PROVIDERS: PCP Family Medicine; Visit Provider Surgery
DX: E11.628 Type 2 diabetes mellitus with other skin complications (principal); L08.9 Local infection of the skin and subcutaneous tissue, unspecified
CPT/HCPCS: 99213; G0463

== ENCOUNTER 2023-12-26 06:06 | Day surgery (SDC) | payer OTHER, SELFPAY ==
[2023-11-16 14:41] VITALS: BMI 30.7
--- NOTE | 2023-12-05 08:26 | WPDHPUPDATE1 ---
History and Physical Update Update Date/Time: 12/05/23 08:26 History and Physical has been reviewed, including an updated exam of the patient. There are NO changes in the patient's condition. Risks, benefits, and alternatives have been discussed and questions answered. Patient agrees to proceed with procedure.
--- NOTE | 2023-12-05 08:27 | W.PM.PROC2 ---
Procedure Note - Detailed Date of Procedure 12/05/23 Pre-op Diagnosis Lumbar Spondylosis, Chronic Low Back Pain Post-op Diagnosis Same Procedure Performed Diagnostic Bilateral Lumbar Medial Branch Blocks at L1, L2, L3 Treating the Bilateral L2-3, L3-4 Facet Joints Under Fluoroscopic Guidance and with Contrast Control. (4 levels blocked). Surgeon Jean Valente MD Manager Advertising None. Anesthesia Local Description of Procedure INFORMED CONSENT: Risks, benefits and alternatives to the procedure were discussed in detail with the patient who expressed explicit understanding and consent to proceed. Patient was informed verbally and in written form regarding the risks associated with the procedure including the low risk of serious infection, bleeding/bruising, allergic reaction, nerve or organ injury, paralysis, procedural site pain or discomfort, worsening pain and/or mobility, failure to treat and/or disfigurement. The patient expressed explicit understanding and consent to proceed. All materials required for the procedure were available prior to procedure start. Site and side were marked prior to procedure and confirmed in the presence of the patient. PROCEDURE IN DETAIL: The patient was brought to the procedural suite and placed in the prone position. Patient was made comfortable with use of pillows under the head/chest, hips and ankles. Skin overlying the injection site on the affected side(s) was prepared broadly with ChloraPrep applicator and draped in a sterile manner. Aseptic technique was used throughout. The endplates of the vertebral bodies at the site(s) of interest were aligned in the AP view. Ipsilateral oblique angulation was utilized to optimize visualization of the intersection between the superior articulating process and transverse process at each target site. Local anesthesia was established by infiltration with approximately 5 mL of 1% lidocaine via a 1-1/2 inch 27-gauge needle. A 25-gauge 5.0 inch Quincke spinal needle was advanced until the needle tip contacted periosteum at the target site, right L1. Lateral view was utilized to confirm the appropriate placement of the needle tip just anterior to the facet line and superior to the pedicle. In the Lateral view, 0.25 mL of Omnipaque 300 contrast medium was injected after negative aspiration for CSF, blood or other bodily fluid, showing appropriate extra-articular spread of contrast without evidence of intravascular, foraminal or intrathecal placement. A 0.5 mL solution of 0.5% PF bupivacaine was injected after negative repeat aspiration. Appropriate spread of the injectate was confirmed with washout of previously injected contrast. No parasthesias were elicited. Needle was removed completely intact without difficulty. The same exact procedure was repeated for all remaining levels on the ipsilateral side, Right L2, L3 meduial branches, modified as necessary to accommodate for the new target location with identical findings and results and no evidence of complication. The same exact procedure was repeated for all remaining levels on the contralateral side, left L1, L2, L3 medial branches modified as necessary to accommodate for the new target location with identical findings and results and no evidence of complication. Images were saved and documented in the patient chart. Patient's skin was cleaned and sterile bandage applied. The patient tolerated the procedure well. The patient was transported to the recovery area in stable condition where they were observed for an appropriate amount of time prior to discharge, without evidence of complication. Patient was instructed on the appropriate completion of a pain diary over the next 12-24 hours. The patient was instructed to avoid excessive activity for the next 48 hours, including climbing and frequent use of stairs. Showers only for 48 hours. They were instructed not to drive or operate heavy machinery for 24 hours. They are to monitor for severe headache
--- NOTE | ~2023-12-26 | XR_ITS ---
EXAMINATION: XR fluoroscopy no charge DATE: 12/26/2023 8:25 CDT INDICATION: MANUEL L1,L2, L3 NERVE BLOCK . TECHNIQUE: 12 fluoroscopic images 5 cine clips of the lumbar spine were obtained during L1, L2, and L 3 nerve block, performed by Jean Valente MD. I was not present during the procedure. Fluoroscopy exposure time was 50.4 seconds. Air Kerma 20.19 mGy. COMPARISON: None FINDINGS/IMPRESSION: Fluoroscopic documentation of L1, L2, and L3 nerve block. Please refer to the operative note for comp lete procedural details . Reviewed, dictated and finalized at location K.
--- NOTE | 2023-12-26 05:33 | PM.HPGS ---
History of Present Illness History of Present Illness Consent: Risks, benefits, and alternatives have been discussed and questions answered. Patient agrees to proceed with procedure. Chief complaint: Lumbar Spondylosis Narrative: Israel Ward is a 63 year old male with chronic, recalcitrant and disabling bilateral Lumbar back pain secondary to degenerative spondylosis with failure to respond to aggressive conservative measures including PT, oral and topical analgesics, opioid and nonopioid analgesics, rest, time and activity/behavioral modification over the past 1-2 years who presents for diagnostic/prognostic medial branch blocks(#1) that L1, L2, L3 to address the bilateral L2-3, L3-4 facet joints under fluoroscopic guidance and with contrast control. Review of Systems Review of Systems: Patient denies any new infectious, allergic, cardiopulmonary, neurologic or constitutional symptoms or changes in activity tolerance or exercise capacity including new or progressive SOB/METCALF, peripheral edema, productive cough, dysuria, nausea/vomiting, diarrhea, weight change, fevers/chills/night sweats, new or progressive neurologic deficit, cognitive or mood changes since last seen, except as documented in the HPI. All systems reviewed & are unremarkable except as noted in HPI and below PMFSH Past Medical History Medical History Anxiety Burst fracture of lumbar vertebra with delayed healing Congestion of nasal sinus COPD (chronic obstructive pulmonary disease) Coronary artery disease involving campo coronary artery of campo heart Depression Diabetic peripheral neuropathy associated with type 2 diabetes mellitus Erectile dysfunction following simple prostatectomy Essential hypertension Excessive bleeding Fracture of fifth metatarsal bone of left foot History of MRSA infection History of stroke with current residual effects Hyperlipidemia Insulin dependent diabetes mellitus L3 vertebral fracture Left foot pain Obesity Obstructive sleep apnea Describes symptoms but has never had a formal polysomnogram Peripheral neuropathy Prostate cancer Radical prostatectomy October 2015 with recurrence treated with radiation therapy March 2017 Tobacco use Wears glasses Surgical History Surgical History History of cardiac catheterization (~09/2016) 100% occlusion of the distal left circumflex artery with evidence of collaterals with several collaterals filling the left PDA, RCA is a small vessel with 50% lesion not amenable to intervention, 30-40% lesion will small diagonal branch of the LAD, left main coronary is mild stenosis 10-20% History of carpal tunnel release (~1995) Left History of colonoscopy with polypectomy (~11/2017) History of shoulder surgery (~2001) S/P foot surgery, left Status post prostatectomy (~10/2015) Radical prostatectomy Family History Family History Mother Diabetes mellitus Hypertension Father COPD (chronic obstructive pulmonary disease) Social History Social History Social History: He has smoked up to 2 pack of cigarettes per day since the age of 14. He denies any significant alcohol use. He lives at home with his girlfriend. He has 2 adult children. 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 Primary care physician: Dr. Levar Melgar Code status: Full code Smoking packs per day: 2 Smoking cigarettes per day: 40.0 Years smoked: 40 Smoking pack-years: 80.00 Smoking status: Current every day smoker Tobacco type: cigarettes and e-cigarettes/vaping Second hand tobacco smoke exposure: Yes Additional smoking assessment comments: Down to 1/2 pack a day of cigarettes but vapes also. Alcohol intake: current Drinks per week: 1 Substance use: unknown Substance use type:
--- NOTE | 2023-12-26 05:38 | WPDHPUPDATE1 ---
History and Physical Update Update Date/Time: 12/26/23 05:38 History and Physical has been reviewed, including an updated exam of the patient. There are NO changes in the patient's condition. Risks, benefits, and alternatives have been discussed and questions answered. Patient agrees to proceed with procedure.
--- NOTE | 2023-12-26 05:39 | W.PM.PROC2 ---
Procedure Note - Detailed Date of Procedure 12/26/23 Pre-op Diagnosis Lumbar Spondylosis, chronic low back pain Post-op Diagnosis Same Procedure Performed Diagnostic bilateral Lumbar Medial Branch Blocks at L1, L2, L3 Treating the bilateral L2-3, L3-4 Facet Joints Under Fluoroscopic Guidance and with Contrast Control. ( 4 levels blocked). Surgeon Jean Valente MD Leather Tooler None. Anesthesia Local Description of Procedure INFORMED CONSENT: Risks, benefits and alternatives to the procedure were discussed in detail with the patient who expressed explicit understanding and consent to proceed. Patient was informed verbally and in written form regarding the risks associated with the procedure including the low risk of serious infection, bleeding/bruising, allergic reaction, nerve or organ injury, paralysis, procedural site pain or discomfort, worsening pain and/or mobility, failure to treat and/or disfigurement. The patient expressed explicit understanding and consent to proceed. All materials required for the procedure were available prior to procedure start. Site and side were marked prior to procedure and confirmed in the presence of the patient. PROCEDURE IN DETAIL: The patient was brought to the procedural suite and placed in the prone position. Patient was made comfortable with use of pillows under the head/chest, hips and ankles. Skin overlying the injection site on the affected side(s) was prepared broadly with ChloraPrep applicator and draped in a sterile manner. Aseptic technique was used throughout. The endplates of the vertebral bodies at the site(s) of interest were aligned in the AP view. Ipsilateral oblique angulation was utilized to optimize visualization of the intersection between the superior articulating process and transverse process at each target site. Local anesthesia was established by infiltration with approximately 5 mL of 1% lidocaine via a 1-1/2 inch 27-gauge needle. A 25-gauge 3.5 inch Quincke spinal needle was advanced until the needle tip contacted periosteum at the target site, right L1. Lateral view was utilized to confirm the appropriate placement of the needle tip just anterior to the facet line and superior to the pedicle. In the Lateral view, 0.25 mL of Omnipaque 300 contrast medium was injected after negative aspiration for CSF, blood or other bodily fluid, showing appropriate extra-articular spread of contrast without evidence of intravascular, foraminal or intrathecal placement. A 0.5 mL solution of 0.5% PF bupivacaine was injected after negative repeat aspiration. Appropriate spread of the injectate was confirmed with washout of previously injected contrast. No parasthesias were elicited. Needle was removed completely intact without difficulty. The same exact procedure was repeated for all remaining levels on the ipsilateral side, right L4, L5 medial branches/dorsal ramus, modified as necessary to accommodate for the new target location with identical findings and results and no evidence of complication. The same exact procedure was repeated for all remaining levels on the contralateral side, left L3, L4, L5 medial branches/dorsal ramus, modified as necessary to accommodate for the new target location with identical findings and results and no evidence of complication. Images were saved and documented in the patient chart. Patient's skin was cleaned and sterile bandage applied. The patient tolerated the procedure well. The patient was transported to the recovery area in stable condition where they were observed for an appropriate amount of time prior to discharge, without evidence of complication. Patient was instructed on the appropriate completion of a pain diary over the next 12-24 hours. The patient was instructed to avoid excessive activity for the next 48 hours, including climbing and frequent use of stairs. Showers only for 48 hours. They were instructed not to drive or operate heavy machinery for 24 hours. They
[2023-12-26 07:30] VITALS: BP 136/69; PULSE 61; RESP 18; TEMP 36.7; O2SAT 93
[2023-12-26 08:38] VITALS: BP 136/67; PULSE 55; RESP 20; O2SAT 95
[2023-12-26 08:48] VITALS: BP 128/63; PULSE 51; RESP 18; O2SAT 96
[2023-12-26] MEDS: LIDOCAINE HCL 1% PF INJ 5 ML VIAL 4 ML INFILTRATE (08:54)
[2023-12-26] MEDS: BUPivacaine HCL 0.5% 10 ML AMP 8 ML INFILTRATE (08:55)
[2023-12-26 09:02] VITALS: BP 130/67; PULSE 50; RESP 15; O2SAT 94
== END 2023-12-26 09:14 | disposition home or self-care (01) ==
PROVIDERS: PCP Family Medicine; Visit Provider Anesthesiology Pain Medicine
PROC: (CPT 64493; principal; 2023-12-26 08:30)
DX: M47.816 Spondylosis without myelopathy or radiculopathy, lumbar region (principal); M54.59 Other low back pain
CPT/HCPCS: 64493 ×2; 64494 ×2; 99199

== ENCOUNTER 2024-01-18 09:00 | Outpatient (RCR) | payer OTHER, SELFPAY ==
--- NOTE | 2023-11-09 16:30 | OPREHPOC ---
Outpatient Therapy Plan of Care This is a Multidisciplinary Plan of Care that may contain components documented by all disciplines (PT, OT, and ST.) PT Problem 1 PT Problem #1 Knowledge Deficit PT Goal 1 Goal * indep with HEP Target Visit 10 PT Problem 2 PT Problem #2 Pain PT Goal 1 Goal 1* pain rating at worst of 6/10 2* Oswestry self rating score of 24% limitation in activity level 3* pt report walking tolerance of 30 minutes Target Visit 10 PT Problem 3 PT Problem #3 Impaired Strength PT Goal 1 Goal increase strength of trunk and hips to improve mobility 1* mat strengthening exercises R and L x 20 reps 2* single leg standing R x 20 seconds 3* single leg standing L x 20 seconds 4* 2 minute walking test distance of 375' with pain of 5/10 5* pt stand with trunk in neutral/ no forward rotation on R Target Visit 10
--- NOTE | 2023-11-09 16:30 | PTOPEVAL1 ---
Assessment and note entered by Sherrie Smith, PT Evaluation Information Assessment Status Evaluation Diagnosis S32.001G stable lumbar burst fracture ICD-10 Condition Codes (PT) Pain in low back M54.50,Weakness R53.1 Other ICD-10 Condition Codes ( wedge compression fracture thoracic PT) Onset end of September, had kyphoplasty over thoracic and lumbar fractures Subjective Information originally hurt back in Dec: pulling boats out of dock, piece of the dock broke and he fell; since surgery- pain still there, not really helped the pain; Activity: lives with his mom, he helps her with home tasks; since surgery, not able to do yard work; retired. Reported Pain Level Pain Score Self Report Additional Pain Score Comments pain range 7-10/10 in back: R and L lower lumbar increase pain: standing and cooking 20 minutes; walking tolerance 15 min; sit to stand decrease pain: sit/rest; muscle relaxer taking hydrocodone for feet pain sleeping is OK is not using heat/ice --instruct on PRN use 10-15 min Assessment PT Clinical Summary [place] has the diagnosis of back pain, s/p kyphoplasty. Pain onset in Dec with a fall. Self assessment Oswestry rating o 34% limitation in activity. Limited standing, walking and activity level due to pain. With the evaluation: he has poor standing trunk posture and position; standing trunk flexion pain is more than extension pain; 2 minute walking test distance of 300' with increase pain to 10/10; weakness over trunk and hips, tightness over both hamstrings. Discussed aquatic therapy with pt, but he is not able to due to L foot burn/open wound on foot. If it heals, will use aquatic therapy. Skilled PT services are indicated for modalities to decrease pain, therapeutic exercises to increase strength and flexibility of trunk and hips with education for HEP and posture correction. Plan of Care Interventions Aquatic Therapy,Electrical Stimulation,Hot Pack/ Cold Pack,Manual Therapy,Neuro Re-education, Patient Education,Therapeutic Activities, Therapeutic Exercise,Ultrasound,Other Other Interventions [facility] PT Services Indicated Yes Treatment Frequency and 1-2x/wk for 10 visits Duration These treatments will address the objective and functional deficits as defined above. The patient will be advanced safely and appropriately in order for the patient to progress towards his/her prior level of function. Additional exercises will be introduced and as well as a comprehensive home exercise program upon discharge, if needed, ?to ensure carryover of functional gains achieved in the clinic. This treatment plan has been reviewed and agreement upon by the patient.
--- NOTE | 2023-11-24 13:35 | PCPTNOTE ---
Pt. No showed this date for PT. Called and left a voice mail with pt. and reminded him of his upcoming next appointment.
--- NOTE | 2023-12-07 16:21 | PCPTNOTE ---
pt no showed stating he had the wrong day, and was reminded of his next visit day and time.
--- NOTE | 2023-12-21 14:07 | OPREHPOC ---
Outpatient Therapy Plan of Care This is a Multidisciplinary Plan of Care that may contain components documented by all disciplines (PT, OT, and ST.) PT Problem 1 PT Problem #1 Knowledge Deficit PT Goal 1 Goal / Goal Update * indep with HEP Target Visit 10 Progress Met PT Problem 2 PT Problem #2 Pain PT Goal 1 Goal / Goal Update 1* pain rating at worst of 6/10 2* Oswestry self rating score of 24% limitation in activity level 3* pt report walking tolerance of 30 minutes Target Visit 16 Progress Not Met PT Problem 3 PT Problem #3 Impaired Strength PT Goal 1 Goal / Goal Update increase strength of trunk and hips to improve mobility 1* mat strengthening exercises R and L x 20 reps 2* single leg standing R x 20 seconds 3* single leg standing L x 20 seconds 4* 2 minute walking test distance of 375' with pain of 5/10 5* pt stand with trunk in neutral/ no forward rotation on R Target Visit 16 Progress Partially Met
--- NOTE | 2023-12-21 14:07 | PTOPPROG ---
Assessment and note entered by Graham Wolf, PT Evaluation Information Assessment Status Progress Diagnosis S32.001G stable lumbar burst fracture ICD-10 Condition Codes (PT) Pain in low back M54.50,Weakness R53.1 Other ICD-10 Condition Codes ( wedge compression fracture thoracic PT) Onset End of September, had kyphoplasty over thoracic and lumbar fractures Subjective Information Reports that at this point in therapy he is not noticing any increase or decrease in pain. He has been struggling with position change and does not feel like exercise has decreased pain or increased hip pain free mobility to this point. Currently scheduled for a cortisone injection in spine on . Assessment PT Clinical Summary Patient has seen some improvement in strength and hip ROM with mild increase in 2 minute walk test. Overall subjectively has not seen a lot of pain relief or self imposed perception of improved mobility. Patient will benefit from continuation of therapy pending recommendation form physician following injection on 12/26/23 Plan of Care Interventions Aquatic Therapy,Electrical Stimulation,Hot Pack/ Cold Pack,Manual Therapy,Neuro Re-education, Patient/Caregiver Educati,Therapeutic Activities, Therapeutic Exercise,Ultrasound,Other Other Interventions taping, IASTM PT Services Indicated Yes Treatment Frequency and 2x/week for 8 visits Duration These treatments will address the objective and functional deficits as defined above. The patient will be advanced safely and appropriately in order for the patient to progress towards his/her prior level of function. Additional exercises will be introduced and as well as a comprehensive home exercise program upon discharge, if needed, ?to ensure carryover of functional gains achieved in the clinic. This treatment plan has been reviewed and agreement upon by the patient.
--- NOTE | 2024-01-18 10:05 | OPREHPOC ---
Outpatient Therapy Plan of Care This is a Multidisciplinary Plan of Care that may contain components documented by all disciplines (PT, OT, and ST.) PT Problem 1 PT Problem #1 Knowledge Deficit PT Goal 1 Goal / Goal Update * indep with HEP Target Visit 10 Progress Met PT Problem 2 PT Problem #2 Pain PT Goal 1 Goal / Goal Update 1* pain rating at worst of 6/10 2* Oswestry self rating score of 24% limitation in activity level 3* pt report walking tolerance of 30 minutes Target Visit 16 Progress Not Met PT Problem 3 PT Problem #3 Impaired Strength PT Goal 1 Goal / Goal Update increase strength of trunk and hips to improve mobility 1* mat strengthening exercises R and L x 20 reps 2* single leg standing R x 20 seconds 3* single leg standing L x 20 seconds 4* 2 minute walking test distance of 375' with pain of 5/10 5* pt stand with trunk in neutral/ no forward rotation on R Target Visit 16 Progress Partially Met PT Goal 1 Goal / Goal Update Patient will improve nay hip abdcution strength to 4+/5 to improve lateral pelvic stability with gait and ADL performance Target Visit 16
--- NOTE | 2024-01-18 10:05 | PTOPPROG ---
Assessment and note entered by Graham Wolf, PT Evaluation Information Assessment Status Progress Diagnosis S32.001G stable lumbar burst fracture ICD-10 Condition Codes (PT) Pain in low back M54.50,Weakness R53.1 Other ICD-10 Condition Codes ( wedge compression fracture thoracic PT) Onset End of September, had kyphoplasty over thoracic and lumbar fractures Subjective Information Patient reports that he had injection on 12/26/23. Reports that he did not have any relief from this but MD told him that he would like to repeat and possibly inject lower in the spine. To this point continues to have pain and rigidity with motion. Was instructed to continue with therapy to continue pursuits of improve hip mobility and decreased lumbar compression. Assessment PT Clinical Summary Patient has seen some improvement in strength and hip ROM with mild increase in 2 minute walk test. Overall subjectively has not seen a lot of pain relief or self imposed perception of improved mobility. Patient will benefit from continuation of therapy pending recommendation form physician following injection on 12/26/23 Plan of Care Interventions Aquatic Therapy,Electrical Stimulation,Hot Pack/ Cold Pack,Manual Therapy,Neuro Re-education, Patient/Caregiver Education,Therapeutic Activities, Therapeutic Exercise,Ultrasound,Other Other Interventions taping, IASTM PT Services Indicated Yes Treatment Frequency and 2x/week for 8 visits Duration These treatments will address the objective and functional deficits as defined above. The patient will be advanced safely and appropriately in order for the patient to progress towards his/her prior level of function. Additional exercises will be introduced and as well as a comprehensive home exercise program upon discharge, if needed, ?to ensure carryover of functional gains achieved in the clinic. This treatment plan has been reviewed and agreement upon by the patient.
--- NOTE | 2024-01-22 14:41 | PCPTNOTE ---
Called and calcaled due to back pain. AKS
--- NOTE | 2024-01-24 14:33 | PCPTNOTE ---
Pt called and canceled remaining PT due to insurance. AKS
== END 2024-02-07 23:59 | disposition home or self-care (01) ==
LOC: ANHPT 09:00
PROVIDERS: PCP Family Medicine; Visit Provider Anesthesiology Pain Medicine
DX: S22.000A Wedge compression fracture of unspecified thoracic vertebra, initial encounter for closed fracture (principal); S32.001G Stable burst fracture of unspecified lumbar vertebra, subsequent encounter for fracture with delayed healing
CPT/HCPCS: 97014; 97110; 97140; 97161; 97530; G0283

== ENCOUNTER 2024-01-22 11:02 | Outpatient (CLI) | payer OTHER, SELFPAY ==
[2024-01-22 12:01] LABS: LDL Cholesterol Direct 123 mg/dL
[2024-01-22 12:19] LABS: Prostate Specific Antigen < 0.1 ng/mL (< OR = 4.0)
[2024-01-22 12:30] LABS: Alanine Aminotransferase 16 U/L (6-50); Albumin Level 4.3 g/dL (3.5-5.1); Alkaline Phosphatase 35 U/L (38-126); Anion Gap 10 mmol/L (4-12); Aspartate Amino Transferase 27 U/L (17-59); Bilirubin,Total 0.7 mg/dL (0.2-1.3); Blood Urea Nitrogen 22 mg/dL (9-20); Calcium 9.2 mg/dL (8.4-10.2); Carbon Dioxide 26 mmol/L (22-30); Chloride 100 mmol/L (98-107); Cholesterol 201 mg/dL (0-200); Estimated Glomerular Filt Rate 51; Glucose 221 mg/dL (65-110); HDL Direct 33 mg/dL; Potassium 4.4 mmol/L (3.4-5.0); Sodium 136 mmol/L (137-145); Triglycerides 302 mg/dL (<150)
[2024-01-22 13:14] LABS: Hepatitis C Virus Antibody Negative (Negative)
== END 2024-01-22 11:03 | disposition home or self-care (01) ==
LOC: ANHLAB 11:04
PROVIDERS: PCP Family Medicine; Visit Provider Registered Nurse
DX: Z12.5 Encounter for screening for malignant neoplasm of prostate (principal); Z11.59 Encounter for screening for other viral diseases; E11.9 Type 2 diabetes mellitus without complications; E78.5 Hyperlipidemia, unspecified
CPT/HCPCS: 36415; 80053; 80061; 83036; 84153; 86803; G0103

== ENCOUNTER 2024-02-19 10:19 | Outpatient (CLI) | payer OTHER, SELFPAY ==
--- NOTE | ~2024-02-19 | US_ITS ---
EXAMINATION: US art doppler w press LE BI DATE: 02/19/2024 11:45 INDICATION: Peripheral arterial occlusive disease TECHNIQUE: Segmental pressures and plethysmographic and Doppler waveforms of the brachial and lower e xtremity arteries were obtained. COMPARISON: None. FINDINGS: Right and left brachial artery pressures of 109 mm Hg and 114 mm Hg, respectively, are concordant (no rmal difference <= 30 mmHg). The right and left high-thigh pressure indices are 1.18 and 0.70, respec tively (normal > 1.2). The right ankle-brachial index (GUERA) is 0.79 (normal >= 0.9-1). The right great toe-brachial index (T BI) is 0.54 (normal >= 0.6-0.8). The right lower extremity segmental pressure gradients are increased between the high right thigh and the above the knee right popliteal artery (normal gradients <= 20-3 0 mmHg between adjacent levels on the same leg or the same levels on the two legs). Arterial waveform s demonstrate normal brisk systolic upstrokes throughout the arteries of the right lower limb The left GUERA is 0.69. The left TBI is 0.39. The left lower extremity segmental pressure gradients are increased between the right and left high thighs.. Arterial waveforms demonstrate normal systolic up strokes throughout the arteries of the left lower limb.. IMPRESSION: 1. Arterial occlusive disease to the bilateral lower limbs with mildly decreased right and moderately decreased left GUERA and TBI's. Reviewed, dictated and finalized at location A. [employer] IMPRESSION: 1. Arterial occlusive disease to the bilateral lower limbs with mildly decrease d right and moderately decreased left GUERA and TBI's.
== END 2024-02-19 10:20 | disposition home or self-care (01) ==
PROVIDERS: PCP Family Medicine; Visit Provider Podiatrist Foot & Ankle Surgery
DX: I77.89 Other specified disorders of arteries and arterioles (principal); I73.89 Other specified peripheral vascular diseases
CPT/HCPCS: 93923

== ENCOUNTER 2024-02-20 07:31 | Day surgery (SDC) | payer OTHER, SELFPAY ==
[2024-02-06 12:38] VITALS: BMI 30.7
--- NOTE | ~2024-02-20 | XR_ITS ---
EXAMINATION: XR fluoroscopy no charge DATE: 02/20/2024 8:15 HOME INSPECTOR INDICATION: MANUEL L3,L4,L5 MEDIAL BRANCH/DORSAL RAMUS NERVE BLK . TECHNIQUE: 11 fluoroscopic images of the lumbar spine were obtained during bilateral L3, L4, L5 media l branch/dorsal ramus nerve block, performed by Jean Valente MD. I was not present during the pro cedure. Fluoroscopy exposure time was 13.9 seconds. Air Kerma 11.44 mGy. COMPARISON: None FINDINGS/IMPRESSION: Fluoroscopic documentation of bilateral L3, L4, L5 medial branch/dorsal ramus nerve block. Please ref er to the operative note for complete procedural details . Reviewed, dictated and finalized at location K. INSPECTOR
--- NOTE | 2024-02-20 05:27 | PM.HPGS ---
History of Present Illness History of Present Illness Consent: Risks, benefits, and alternatives have been discussed and questions answered. Patient agrees to proceed with procedure. Chief complaint: Lumbosacral Spondylosis w/o Myelopathy or Radic. Narrative: Israel Ward is a 63 year old male with chronic, recalcitrant and disabling bilateral lumbosacral back pain secondary to degenerative spondylosis with failure to respond to aggressive conservative measures including PT, oral and topical analgesics, opioid and nonopioid analgesics, rest, time and activity/behavioral modification over the past 1-2 years who presents for diagnostic/prognostic medial branch blocks bilaterally at L3, L4, L5 (#1) addressing the bilateral L4-5, L5-S1 facet joints under fluoroscopic guidance and with contrast control. Review of Systems Review of Systems: Patient denies any new infectious, allergic, cardiopulmonary, neurologic or constitutional symptoms or changes in activity tolerance or exercise capacity including new or progressive SOB/METCALF, peripheral edema, productive cough, dysuria, nausea/vomiting, diarrhea, weight change, fevers/chills/night sweats, new or progressive neurologic deficit, cognitive or mood changes since last seen, except as documented in the HPI. All systems reviewed & are unremarkable except as noted in HPI and below PMFSH Past Medical History Medical History Anxiety Burst fracture of lumbar vertebra with delayed healing Congestion of nasal sinus COPD (chronic obstructive pulmonary disease) Coronary artery disease involving [place] coronary artery of [place] heart Depression Diabetic peripheral neuropathy associated with type 2 diabetes mellitus Erectile dysfunction following simple prostatectomy Essential hypertension Excessive bleeding Fracture of fifth metatarsal bone of left foot History of MRSA infection History of stroke with current residual effects Hyperlipidemia Insulin dependent diabetes mellitus L3 vertebral fracture Left foot pain Obesity Obstructive sleep apnea Describes symptoms but has never had a formal polysomnogram Peripheral neuropathy Prostate cancer Radical prostatectomy October 2015 with recurrence treated with radiation therapy March 2017 Tobacco use Wears glasses Surgical History Surgical History History of cardiac catheterization (~09/2016) 100% occlusion of the distal left circumflex artery with evidence of collaterals with several collaterals filling the left PDA, RCA is a small vessel with 50% lesion not amenable to intervention, 30-40% lesion will small diagonal branch of the LAD, left main coronary is mild stenosis 10-20% History of carpal tunnel release (~1995) Left History of colonoscopy with polypectomy (~11/2017) History of shoulder surgery (~2001) S/P foot surgery, left Status post prostatectomy (~10/2015) Radical prostatectomy Family History Family History Mother Diabetes mellitus Hypertension Father COPD (chronic obstructive pulmonary disease) Social History Social History Social History: He has smoked up to 2 pack of cigarettes per day since the age of 14. He denies any significant alcohol use. He lives at home with his girlfriend. He has 2 adult children. 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 Primary care physician: Dr. Levar Melgar Code status: Full code Smoking packs per day: 2 Smoking cigarettes per day: 40.0 Years smoked: 40 Smoking pack-years: 80.00 Smoking status: Current every day smoker Tobacco type: cigarettes and e-cigarettes/vaping Second hand tobacco smoke exposure: Yes Additional smoking assessment comments: Down to 1/2 pack a day of cigarettes but vapes also. Alcohol intake: current Drinks per week: 1 Substance use: unknown Substance use type: does not use Do You Feel Safe in your Home?: Yes Lack of Transportation: No Lack of Food: Never True Current Housing: Decline to Answer Concerned About Future Housing: Decline to Answer Difficulty Paying Gas/Electric Bills: Decline to Answer Difficulty Paying for Meds: Decline to Answer Currently Unemployed: Decline to Answer Education: Decline to Answer Difficulty w/ Childcare or Family Care: Decline to Answer Living arrangements: with family Occupation/Education: occupation Spiritual care concerns: No Meds Home Medications and Allergies Home Medications Medication Instructions Recorded Confirmed Type lisinopril 20 mg tablet 20 mg PO DAILY #90 tabs 12/29/20 02/06/24 Rx atorvastatin 20 mg tablet 20 mg PO DAILY 06/07/23 02/06/24 History cyclobenzaprine 10 mg tablet 10 mg PO TID PRN Muscle Spasm 06/07/23 02/06/24 History gabapentin 300 mg capsule 600 mg PO BID 06/29/23 02/06/24 History hydrocodone 10 mg-acetaminophen 1 tablet PO Q6-8H PRN Pain (Scale 06/29/23 02/06/24 History 325 mg tablet Score 4-6) oxymetazoline 0.05 % nasal spray 1 spray intranasal BID PRN Nasal 06/29/23 02/06/24 History (12 Hour Nasal [place]) Congestion insulin glargine 100 unit/mL (3 55 unit subcut BID 10/18/23 02/06/24 History mL) subcutaneous pen (Lantus Solostar U-100 Insulin) Allergies Allergy/AdvReac Type Severity Reaction Status Date / Time Sulfa (Sulfonamide AdvReac Severe Gastrointestinal Verified 02/06/24 12:35 Antibiotics) Upset naproxen AdvReac Intermediate Diarrhea Verified 02/06/24 12:35 Penicillins AdvReac Intermediate Nausea Verified 02/06/24 12:35 Exam Narrative: The patient's physical exam is essentially unchanged from prior examination on 01/16/2024. Specifically, patient demonstrates normal lung capacity, tidal volume and respiratory rate without wheezes, crackles, rales or rubs. Heart rate and rhythm are regular without murmurs, gallops or rubs. No JVD. Pulses 2+ globally without increasing peripheral edema. AAOx3, NC/AT without acute distress or altered consciousness. Speech, cognition, mood and judgment at baseline and within normal limits. Const: General: cooperative, no acute distress, alert, awake and Physically active Orientation/consciousness: patient oriented x3 Limitations: no limitations Assessment and Plan Assessment and plan (1) Lumbosacral spondylosis: Code(s): M47.817 - Spondylosis without myelopathy or radiculopathy, lumbosacral region Status: Acute Assessment and Plan: proceed as planned with diagnostic/ prognostic medial branch/dorsal ramus nerve blocks bilaterally at L3, L4, L5 to address Chronic, recalcitrant low back pain secondary to spondylosis and lumbar facet syndrome related to degenerative change within the the bilateral L4-5, L5-S1 facet joints. (2) Chronic low back pain: Code(s): M54.50 - Low back pain, unspecified; G89.29 - Other chronic pain Status: Acute
--- NOTE | 2024-02-20 05:31 | P.OP_ITS ---
Procedure Note - Detailed Date of Procedure 02/20/24 Pre-op Diagnosis Lumbosacral Spondylosis w/o Myelopathy or Radic., chronic low back pain Post-op Diagnosis Same Procedure Performed Diagnostic bilateral Lumbar Medial Branch/Dorsal Ramus Blocks at L3, L4, L5 Treating the bilateral L4-5, L5-S1 Facet Joints Under Fluoroscopic Guidance and with Contrast Control. ( 4 levels blocked). Surgeon Jean Valente MD Flight Test Mechanic None. Anesthesia Local Description of Procedure INFORMED CONSENT: Risks, benefits and alternatives to the procedure were discussed in detail with the patient who expressed explicit understanding and consent to proceed. Patient was informed verbally and in written form regarding the risks associated with the procedure including the low risk of serious infection, bleeding/bruising, allergic reaction, nerve or organ injury, paralysis, procedural site pain or discomfort, worsening pain and/or mobility, failure to treat and/or disfigurement. The patient expressed explicit understanding and consent to proceed. All materials required for the procedure were available prior to procedure start. Site and side were marked prior to procedure and confirmed in the presence of the patient. PROCEDURE IN DETAIL: The patient was brought to the procedural suite and placed in the prone position. Patient was made comfortable with use of pillows under the head/chest, hips and ankles. Skin overlying the injection site on the affected side(s) was prepared broadly with ChloraPrep applicator and draped in a sterile manner. Aseptic technique was used throughout. The endplates of the vertebral bodies at the site(s) of interest were aligned in the AP view. Ipsilateral oblique angulation was utilized to optimize visualization of the intersection between the superior articulating process and transverse process at each target site. Local anesthesia was established by infiltration with approximately 5 mL of 1% lidocaine via a 1-1/2 inch 27-gauge needle. A 25-gauge 5.0 inch Quincke spinal needle was advanced until the needle tip contacted periosteum at the target site, right L3. Lateral view was utilized to confirm the appropriate placement of the needle tip just anterior to the facet line and superior to the pedicle. In the Lateral view, 0.25 mL of Omnipaque 300 contrast medium was injected after negative aspiration for CSF, blood or other bodily fluid, showing appropriate extra-articular spread of contrast without evidence of intravascular, foraminal or intrathecal placement. A 0.5 mL solution of 0.5% PF bupivacaine was injected after negative repeat aspiration. Appropriate spread of the injectate was confirmed with washout of previously injected contrast. No parasthesias were elicited. Needle was removed completely intact without difficulty. The same exact procedure was repeated for all remaining levels on the ipsilateral side, right L4, L5 medial branches/dorsal ramus, modified as necessary to accommodate for the new target location with identical findings and results and no evidence of complication. The same exact procedure was repeated for all remaining levels on the contralateral side, left L3, L4, L5 medial branches/dorsal ramus, modified as necessary to accommodate for the new target location with identical findings and results and no evidence of complication. Images were saved and documented in the patient chart. Patient's skin was cleaned and sterile bandage applied. The patient tolerated the procedure well. The patient was transported to the recovery area in stable condition where they were observed for an appropriate amount of time prior to discharge, without evidence of complication. Patient was instructed on the appropriate completion of a pain diary over the next 12-24 hours. The patient was instructed to avoid excessive activity for the next 48 hours, including climbing and frequent use of stairs. Showers only for 48 hours. They were instructed not to drive or operate heavy machinery for 24 hours. They are to monitor for severe headaches, fevers, chills, night sweats, e rythema/swelling at the site or any other signs of infection, bleeding/bruising, bowel or bladder changes as well as new pain, weakness or numbness in the upper or lower extremity. Should they notice these changes, they are instructed to call our office immediately or report directly to the nearest Emergency Department if no answer or if after posted office hours. COMPLICATIONS: None COMMENTS: None CONTRAST WASTED: 28.5mL Omnipaque 300. Complications No immediate complications Condition Stable Disposition Same day [facility] Billing Surgery - Charge Forward: Surgery Billing
--- NOTE | 2024-02-20 05:31 | WPDHPUPDATE1 ---
History and Physical Update Update Date/Time: 02/20/24 05:31 History and Physical has been reviewed, including an updated exam of the patient. There are NO changes in the patient's condition. Risks, benefits, and alternatives have been discussed and questions answered. Patient agrees to proceed with procedure.
[2024-02-20 07:55] VITALS: BP 125/69; PULSE 78; RESP 16; TEMP 36.8; O2SAT 97; BMI 30.9
[2024-02-20 08:23] VITALS: BP 130/63; PULSE 77; RESP 14; O2SAT 92
[2024-02-20] MEDS: LIDOCAINE HCL 1% PF INJ 5 ML VIAL XX (08:23)
[2024-02-20 08:30] VITALS: BP 124/66; PULSE 72; RESP 12; O2SAT 93
[2024-02-20] MEDS: BUPivacaine HCL 0.5% 10 ML AMP INFILTRATE (08:31)
[2024-02-20 08:35] VITALS: BP 103/64; PULSE 81; RESP 14; O2SAT 95
== END 2024-02-20 09:15 | disposition home or self-care (01) ==
PROVIDERS: PCP Family Medicine; Visit Provider Anesthesiology Pain Medicine
PROC: (CPT 64493; principal; 2024-02-20 08:30)
DX: M47.817 Spondylosis without myelopathy or radiculopathy, lumbosacral region (principal); M54.59 Other low back pain
CPT/HCPCS: 64493 ×2; 64494 ×2; 99199

== ENCOUNTER 2024-04-16 06:04 | Day surgery (SDC) | payer OTHER, SELFPAY ==
[2024-03-28 10:40] VITALS: BMI 30.7
--- NOTE | ~2024-04-16 | XR_ITS ---
XR fluoroscopy no charge Indication: Bilateral L3, L4 and L5 medial branch/dorsal ramus nerve block TECHNIQUE: Fluoroscopy used during Bilateral L3, L4 and L5 medial branch/dorsal ramus nerve block pe rformed by [Jean Valente MD] on 04/16/2024. 14 fluoroscopic images obtained.. FINDINGS: Correlate with procedure note. IMPRESSION: Fluoroscopy used during Bilateral L3, L4 and L5 medial branch/dorsal ramus nerve block. Reviewed, dictated and finalized at location A. OLOGIST IMPRESSION: Fluoroscopy used during Bilateral L3, L4 and L5 medial branch/dorsa l ramus nerve block.
--- NOTE | 2024-04-16 05:19 | PM.HPGS ---
History of Present Illness History of Present Illness Consent: Risks, benefits, and alternatives have been discussed and questions answered. Patient agrees to proceed with procedure. Chief complaint: Lumbar Spondylosis w/o Myelopathy, chronic pain Narrative: Israel Ward is a 63 year old male with chronic, recalcitrant and disabling bilateral lumbosacral back pain secondary to degenerative spondylosis with failure to respond to aggressive conservative measures including PT, oral and topical analgesics, opioid and nonopioid analgesics, rest, time and activity/behavioral modification over the past 1-2 years who presents for diagnostic/prognostic medial branch blocks of the bilateral L3, L4, L5 medial branches/dorsal ramus #2 addressing the bilateral L4-5, L5-S1 facet joints under fluoroscopic guidance and with contrast control. Review of Systems Review of Systems: Patient denies any new infectious, allergic, cardiopulmonary, neurologic or constitutional symptoms or changes in activity tolerance or exercise capacity including new or progressive SOB/METCALF, peripheral edema, productive cough, dysuria, nausea/vomiting, diarrhea, weight change, fevers/chills/night sweats, new or progressive neurologic deficit, cognitive or mood changes since last seen, except as documented in the HPI. All systems reviewed & are unremarkable except as noted in HPI and below PMFSH Past Medical History Medical History Anxiety Burst fracture of lumbar vertebra with delayed healing Congestion of nasal sinus COPD (chronic obstructive pulmonary disease) Coronary artery disease involving [place] coronary artery of [place] heart Depression Diabetic peripheral neuropathy associated with type 2 diabetes mellitus Erectile dysfunction following simple prostatectomy Essential hypertension Excessive bleeding Fracture of fifth metatarsal bone of left foot History of MRSA infection History of stroke with current residual effects Hyperlipidemia Insulin dependent diabetes mellitus L3 vertebral fracture Left foot pain Obesity Obstructive sleep apnea Describes symptoms but has never had a formal polysomnogram Peripheral neuropathy Prostate cancer Radical prostatectomy October 2015 with recurrence treated with radiation therapy March 2017 Tobacco use Wears glasses Surgical History Surgical History History of cardiac catheterization (~09/2016) 100% occlusion of the distal left circumflex artery with evidence of collaterals with several collaterals filling the left PDA, RCA is a small vessel with 50% lesion not amenable to intervention, 30-40% lesion will small diagonal branch of the LAD, left main coronary is mild stenosis 10-20% History of carpal tunnel release (~1995) Left History of colonoscopy with polypectomy (~11/2017) History of shoulder surgery (~2001) S/P foot surgery, left Status post prostatectomy (~10/2015) Radical prostatectomy Family History Family History Mother Diabetes mellitus Hypertension Father COPD (chronic obstructive pulmonary disease) Social History Social History Social History: He has smoked up to 2 pack of cigarettes per day since the age of 14. He denies any significant alcohol use. He lives at home with his girlfriend. He has 2 adult children. 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 Primary care physician: Dr. Levar Melgar Code status: Full code Smoking packs per day: 2 Smoking cigarettes per day: 40.0 Years smoked: 40 Smoking pack-years: 80.00 Smoking status: Current every day smoker Tobacco type: cigarettes Second hand tobacco smoke exposure: Yes Additional smoking assessment comments: Down to 1/2 pack a day of cigarettes but vapes also. Alcohol intake: never Drinks per week: 1 Substance use: never Substance use type: does not use Do You Feel Safe in your Home?: Yes Lack of Transportation: No Lack of Food: Never True Current Housing: Decline to Answer Concerned About Future Housing: Decline to Answer Difficulty Paying Gas/Electric Bills: Decline to Answer Difficulty Paying for Meds: Decline to Answer Currently Unemployed: Decline to Answer Education: Decline to Answer Difficulty w/ Childcare or Family Care: Decline to Answer Living arrangements: alone Occupation/Education: occupation Spiritual care concerns: No Meds Home Medications and Allergies Home Medications ?Medication ?Instructions ?Recorded ?Confirmed ?Type lisinopril 20 mg tablet 20 mg PO DAILY #90 tabs 12/29/20 03/28/24 Rx atorvastatin 20 mg tablet 20 mg PO DAILY 06/07/23 03/28/24 History cyclobenzaprine 10 mg tablet 10 mg PO TID PRN Muscle Spasm 06/07/23 03/28/24 History gabapentin 300 mg capsule 600 mg PO BID 06/29/23 03/28/24 History hydrocodone 10 mg-acetaminophen 1 tablet PO Q6-8H PRN Pain (Scale 06/29/23 03/28/24 History 325 mg tablet Score 4-6) oxymetazoline 0.05 % nasal spray 1 spray intranasal BID PRN Nasal 06/29/23 03/28/24 History (12 Hour Nasal [place]) Congestion insulin glargine 100 unit/mL (3 55 unit subcut BID 10/18/23 03/28/24 History mL) subcutaneous pen (Lantus Solostar U-100 Insulin) dulaglutide 0.75 mg/0.5 mL 0.75 mg subcut WEEKLY 02/20/24 03/28/24 History subcutaneous pen injector (Trulicity) empagliflozin 25 mg tablet 25 mg PO DAILY 02/20/24 03/28/24 History (Jardiance) Allergies Allergy/AdvReac Type Severity Reaction Status Date / Time Sulfa (Sulfonamide AdvReac Severe Gastrointestinal Verified 03/28/24 10:38 Antibiotics) Upset naproxen AdvReac Intermediate Diarrhea Verified 03/28/24 10:38 Penicillins AdvReac Intermediate Nausea Verified 03/28/24 10:38 Exam Narrative: The patient's physical exam is essentially unchanged from prior examination on 03/04/2024. Specifically, patient demonstrates normal lung capacity, tidal volume and respiratory rate without wheezes, crackles, rales or rubs. Heart rate and rhythm are regular without murmurs, gallops or rubs. No JVD. Pulses 2+ globally without increasing peripheral edema. AAOx3 with no evidence of confusion, intoxication or altered mental state, NC/AT without acute distress or altered consciousness. Speech, cognition, mood, insight and judgment at baseline and within normal limits. Assessment and Plan Assessment and plan (1) Lumbosacral spondylosis: Code(s): M47.817 - Spondylosis without myelopathy or radiculopathy, lumbosacral region Status: Acute Assessment and Plan: proceed as planned with the diagnostic/ prognostic lumbosacral medial branch/dorsal ramus block at L3, L4, L5 bilaterally (# 2) a dressing the bilateral L4-5, L5-S1 facet joints Under fluoroscopic guidance. (2) Chronic low back pain: Code(s): M54.50 - Low back pain, unspecified; G89.29 - Other chronic pain Status: Acute
--- NOTE | 2024-04-16 05:23 | WPDHPUPDATE1 ---
History and Physical Update Update Date/Time: 04/16/24 05:23 History and Physical has been reviewed, including an updated exam of the patient. There are NO changes in the patient's condition. Risks, benefits, and alternatives have been discussed and questions answered. Patient agrees to proceed with procedure.
--- NOTE | 2024-04-16 05:24 | W.PM.PROC2 ---
Procedure Note - Detailed Date of Procedure 04/16/24 Pre-op Diagnosis Lumbar Spondylosis w/o Myelopathy, chronic pain Post-op Diagnosis Same Procedure Performed Diagnostic /Prognostic bilateral Lumbar Medial Branch/Dorsal Ramus Blocks at L3, L4, L5 Treating the bilateral L4-5, L5-S1 Facet Joints Under Fluoroscopic Guidance and with Contrast Control. ( 4 levels blocked). Surgeon Jean Valente MD Electroplating Technician None. Anesthesia Local Description of Procedure INFORMED CONSENT: Risks, benefits and alternatives to the procedure were discussed in detail with the patient who expressed explicit understanding and consent to proceed. Patient was informed verbally and in written form regarding the risks associated with the procedure including the low risk of serious infection, bleeding/bruising, allergic reaction, nerve or organ injury, paralysis, procedural site pain or discomfort, worsening pain and/or mobility, failure to treat and/or disfigurement. The patient expressed explicit understanding and consent to proceed. All materials required for the procedure were available prior to procedure start. Site and side were marked prior to procedure and confirmed in the presence of the patient. PROCEDURE IN DETAIL: The patient was brought to the procedural suite and placed in the prone position. Patient was made comfortable with use of pillows under the head/chest, hips and ankles. Skin overlying the injection site on the affected side(s) was prepared broadly with ChloraPrep applicator and draped in a sterile manner. Aseptic technique was used throughout. The endplates of the vertebral bodies at the site(s) of interest were aligned in the AP view. Ipsilateral oblique angulation was utilized to optimize visualization of the intersection between the superior articulating process and transverse process at each target site. Local anesthesia was established by infiltration with approximately 5 mL of 1% lidocaine via a 1-1/2 inch 27-gauge needle. A 25-gauge 5.0 inch Quincke spinal needle was advanced until the needle tip contacted periosteum at the target site, right L3. Lateral view was utilized to confirm the appropriate placement of the needle tip just anterior to the facet line and superior to the pedicle. In the Lateral view, 0.25 mL of Omnipaque 300 contrast medium was injected after negative aspiration for CSF, blood or other bodily fluid, showing appropriate extra-articular spread of contrast without evidence of intravascular, foraminal or intrathecal placement. A 0.5 mL solution of 2.0% PF lidocaine was injected after negative repeat aspiration. Appropriate spread of the injectate was confirmed with washout of previously injected contrast. No parasthesias were elicited. Needle was removed completely intact without difficulty. The same exact procedure was repeated for all remaining levels on the ipsilateral side, right L4, L5 medial branches/dorsal ramus, modified as necessary to accommodate for the new target location with identical findings and results and no evidence of complication. The same exact procedure was repeated for all remaining levels on the contralateral side, left L3, L4, L5 medial branches/dorsal ramus, modified as necessary to accommodate for the new target location with identical findings and results and no evidence of complication. Images were saved and documented in the patient chart. Patient's skin was cleaned and sterile bandage applied. The patient tolerated the procedure well. The patient was transported to the recovery area in stable condition where they were observed for an appropriate amount of time prior to discharge, without evidence of complication. Patient was instructed on the appropriate completion of a pain diary over the next 12-24 hours. The patient was instructed to avoid excessive activity for the next 48 hours, including climbing and frequent use of stairs. Showers only for 48 hours. They were instructed not to drive or operate heavy machinery for 24 hours. They are to monitor for severe headaches, fevers, chills, night sweats, erythema/swelling at the site or any other signs of infection, bleeding/bruising, bowel or bladder changes as well as new pain, weakness or numbness in the upper or lower extremity. Should they notice these changes, they are instructed to call our office immediately or report directly to the nearest Emergency Department if no answer or if after posted office hours. COMPLICATIONS: None COMMENTS: None CONTRAST WASTED: 28.5mL Omnipaque 300. Complications No immediate complications Condition Stable Disposition Same day [facility] Billing Surgery - Charge Forward: Surgery Billing
[2024-04-16 07:19] VITALS: BP 117/64; PULSE 57; RESP 18; TEMP 36.2; O2SAT 98
[2024-04-16 08:01] VITALS: BP 115/61; PULSE 76; RESP 20; O2SAT 93
[2024-04-16 08:10] VITALS: BP 100/62; PULSE 64; RESP 14; O2SAT 92
[2024-04-16] MEDS: LIDOCAINE 2% PF LOCAL INJ 5 ML VIAL 3 ML INFILTRATE (08:10)
[2024-04-16] MEDS: LIDOCAINE 1% PF INJ 5 ML VIAL 3 ML INFILTRATE (08:11)
[2024-04-16 08:14] VITALS: BP 102/66; PULSE 64; RESP 18; O2SAT 98
--- OUTSIDE RECORDS SUMMARY | 2024-04-18 15:29 | XMS_ITS | Referral Summary ---
Author Organization [facility] [address] [facility] [address] [place] [address] Care Team Providers Care Purchase Request Editor Name Role Phone Emmanuel Brito MD Primary Care Provider [phone] Encounters Date Type Department Care Team Description 03/08/2024 Telephone [facility] Specialists of [address] [place] [phone] Yris Jacob PA PA For Dexcom G7 Sensor 03/04/2024 Telephone [facility] Specialists of [address] [place] [phone] Julian Mathis MD Med Refill 02/06/2024 Telephone [facility] Specialists of [address] [place] [phone] Julian Mathis MD Medication Problem 02/05/2024 1:30 PM [employer] Office Visit [facility] Medical Group Diabetes and Endocrinology [address] [place] [phone] Julian Mathis MD Type 2 diabetes mellitus with hyperglycemia, with long-term current use of insulin (HCC) (Primary Dx); Stage 3a chronic kidney disease (HCC); Hypertension associated with diabetes (HCC); Combined hyperlipidemia associated with type 2 diabetes mellitus (HCC); Smoking addiction from Last 3 Months Allergies Active Allergy Reactions Criticality Noted Date Comments Penicillins Nausea & Vomiting Low 10/07/2016 Sulfa (Sulfonamide Antibiotics) Nausea & Vomiting Low 12/28/2021 Medications TRUE METRIX GLUCOSE TEST STRIP strip USE TO TEST BLOOD SUGAR TID 11 9 Active TRUEPLUS PEN NEEDLE 31 gauge x 1/4 needle daily 0 9 Active lisinopril (PRINIVIL,ZESTR IL) 20 mg tablet Take 1 tablet (20 mg total) by mouth daily 30 tablet 11 0 Active insulin glargine (Lantus Solostar U-100 Insulin) 100 unit/mL (3 mL) insulin pen Inject 70 Units under the skin every 12 (twelve) hours 15 pen 2 0 Active Additional Information Patient taking differently: 50 Unitssubcutaneous2 times daily, Indications: DM 2, Informant: Self, Reported on 02/05/2024 atorvastatin (LIPITOR) 40 mg tablet TAKE 1 TABLET(40 MG) BY MOUTH DAILY 90 tablet 1 0 Active Additional Information Patient taking differently: 20 mg oral Nightly, Indications: hyperlipidemia, Informant: Self, Reported on 02/05/2024 Novofine 32 32 gauge x 1/4 needle USE WITH INSULIN ONCE DAILY 100 each 1 Active blood glucose diagnostic (True Metrix Glucose Test Strip) strip True Metrix Glucose Test Strip TEST BLOOD SUGAR THREE TIMES DAILY DIRECTED Active HYDROcodone-jersey taminophen (NORCO) 10-325 mg per tabletIndicatio ns:Pain Take 1 tablet by mouth 2 (two) times a day 2 Active oxyCODONE (ROXICODONE) 5 mg immediate release tabletIndicatio ns:Pain Take 1 tablet (5 mg total) by mouth every 4 (four) hours as needed for pain 10 tablet 2 Active senna-docusate (PERICOLACE) 8.6-50 mg Take 1 tablet by mouth daily 10 tablet 2 Active atorvastatin (LIPITOR) 20 mg tablet Take 1 tablet (20 mg total) by mouth nightly 4 Active fenofibrate (FENOGLIDE) 120 mg tablet Take 1 tablet (120 mg total) by mouth nightly 4 Active TRUEplus Pen Needle 32 gauge x 532 needle USE DIRECTED WITH INSULIN 4 Active pregabalin (LYRICA) 300 mg capsule Take 1 capsule (300 mg total) by mouth 2 (two) times a day 4 Active sertraline (ZOLOFT) 100 mg tablet Take 1 tablet (100 mg total) by mouth daily 4 Active cyclobenzaprine (FLEXERIL) 10 mg tablet Take 1 tablet (10 mg total) by mouth 2 (two) times a day as needed for muscle spasms Active dulaglutide (TRULICITY) 1.5 mg/0.5 mL pen injectorIndicat ions:Type 2 diabetes mellitus with hyperglycemia, with long-term current use of insulin (HCC) Inject 0.5 mL (1.5 mg total) under the skin every 7 days 2 mL 5 4 09/03/19 25 Active dulaglutide (TRULICITY) 0.75 mg/0.5 mL pen injectorIndicat ions:Type 2 diabetes mellitus with hyperglycemia, with long-term current use of insulin (HCC) Inject 0.5 mL (0.75 mg total) under the skin every 7 days 2 mL 4 Active empagliflozin (JARDIANCE) 25 mg tabletIndicatio ns:Chronic Kidney Disease,type 2 diabetes mellitus Take 1 tablet (25 mg total) by mouth daily 90 tablet 1 4 09/01/19 25 Active Dexcom G7 Sensor deviceIndicatio ns:Type 2 diabetes mellitus with hyperglycemia, with long-term current use of insulin (HCC) Use one sensor every 10 days 9 each 3 4 Active Active Problems Problem Noted Date Diagnosed Date Stage 3a chronic kidney disease 02/06/2024 Assessment & Plan (02/06/2024 10:01 AM [employer]): Work on better glycemic control Hypertension well controlled Continue lisinopril Add SGLT2 inhibitors Type 2 diabetes mellitus wit h hyperglycemia, with long-term current use of insulin 05/16/2019 Assessment & Plan (02/06/2024 10:01 AM [employer]): Chronic, uncontrolled, worsening Hemoglobin A1c 9.5%, goal A1c at least less than 7 -7.5 % Counseled on diet and exercise Keep Lantus 50 units SQ twice daily Start Jardiance 25 mg oral daily ( discussed MOA, SE and benefits ) After 2 weeks Start Trulicity 0.75 mg weekly for 4 weeks, then increase and continue with 1.5 mg weekly. ( discussed MOA, SE and benefits ) If you have severe nausea, vomiting , abdominal pain and/or diarrhea, stop the medication and call the office. If having low blood sugars ( less than 100 ) decrease Lantus by 10 units on each time Cut back on drinking regular sodas and also cut back on smoking Try [employer]Z [employer] G 7 and [employer] mela We will try to obtain patient's recent lab results from PCP Follow up in 3 months Assessment & Plan (11/28/2019 12:13 PM CDT): Hypoglycemia occurring at various times in fasting state over past week. Reduce Lantus to 68 units bid. PC pattern often acceptable. Education provided on BG goals fasting and ac/pc. Use sensor to track pattern. Change prandial dose to 10 units. He is to call with hypoglycemia that occurs within 3 hours of eating. CF 2:50>150. Represents and overall reduction on insulin as Bydureon becomes more effective. He is to have sensor downloaded q 1-2 weeks until follow up so meds can be adjusted. Foot care, skin care reviewed. Assessment & Plan (10/17/2019 4:24 PM CDT): Hba1c was Lab Results Component Value Date HGBA1C 10.6 10/17/2019 today, indicating very poor DM control 1800 calorie, consistent carb diet recommended. No more than 30-45 grams of carbs per meal recommended, as well as avoiding high concentrated sweet drinks . 25-45 min daily exercise, combining both aerobic and resistance exercise recommended. The need to monitor blood glucose before meals and bedtime was discussed. Check your sugars At meal time ( even if not eating ) and bedtime Take Lantus, 70 units twice a day, morning and bedtime Humalog, 15 units before meals. For sugars over 200, take 20 units For sugars over 250, take 25 units For sugars over 300, take 30 units For sugars over 350, take 35 units For sugars over 400, take 40 units If not eating take Humalog, as follows: For sugars over 200, take 15 units For sugars over 250, take 20 units For sugars over 300, take 25 units For sugars over 350, take 30 units For sugars over 400, take 35 units Restart Bydureon Assessment & Plan (05/16/2019 2:55 PM [employer]): Hba1c was Lab Results Component Value Date HGBA1C 11.3 05/16/2019 today, indicating poor DM control 1800 calorie, consistent carb diet recommended, no more than 3-45 grams of carbs per meal, avoiding concentrated sweet drinks and rapid absorption carbs. 25-45 min daily aerobic and resistance exercise recommended Prevention and treatment of hyypoglcyemia discussed. Blood glucose monitoring with fingers sticks at least once a day Medications: Start Farxiga 10 mg daily Start Bydureon 2 mg weekly Increase Lantus 60 units daily Combined hyperlipidemia asso ciated with type 2 diabetes mellitus 05/16/2019 Assessment & Plan (02/06/2024 10:00 AM [employer]): Continue statin therapy and fenofibrate Assessment & Plan (11/28/2019 12:10 PM CDT): LDL above goal. Needs to focus on lower fat food choices. Education provided Assessment & Plan (05/16/2019 2:56 PM [employer]): Goal of treatment , LDL cholesterol less than 100 ( less than 70 in patients with history of heart attacks and / or strokes ) NonHDL cholesterol ( total cholesterol minus HDL cholesterol ) goal less than 130 ( less than 100 in patients with history of heart attacks and / or strokes ) Low cholesterol, low fat diet was discussed and advised. Daily exercise Restart Lipitor at 40 mg daily Hypertension associated with diabetes 05/16/2019 Assessment & Plan (02/06/2024 10:00 AM [employer]): Chronic, well controlled Continue lisinopril Assessment & Plan (11/28/2019 12:09 PM CDT): Continue lisinopril. Follow DASH diet Assessment & Plan (05/16/2019 2:57 PM [employer]): Goal blood pressure is less than 140/85 Low salt diet recommended Daily aerobic exercise Continue current meds, including JERSEY-I or ARB Restart Lisinopril 20 mg daily Erectile dysfunction 01/08/2018 S/P cardiac cath 10/07/2016 Angina, class II (CMS/HCC) 10/07/2016 Smoking addiction 10/07/2016 Assessment & Plan (02/06/2024 10:00 AM [employer]): Counseled patient to cut back and quit smoking Assessment & Plan (05/16/2019 2:55 PM [employer]): Smoking cessation discussed Pt not ready to quit. Coronary artery disease invo lving [place] coronary artery of [place] heart with unstable angina pectoris 10/07/2016 Social History Tobacco Use Types Packs/Day Years Used Date Smoking Tobacco: Every Day Cigars Passive Smoke Exposure: Past Smokeless Tobacco: Never Tobacco Cessation:Ready to Q uit: Not Asked; Counseling Given: Not Answered Alcohol Use Standard Drinks/Week Comments No 0 (1 standard drink = 0.6 oz pur e alcohol) AUDIT-C Answer Date Recorded Q1: How often do you have a drink containing alcohol? Never 01/12/2022 Q2: How many drinks containi ng alcohol do you have on a typical day when you are drinking? Patient does not drink Q3: How often do you have si x or more drinks on one occasion? Never 01/12/2022 Sex and Gender Information Value Date Recorded Sex Assigned at Not on file Legal Sex Male 4:09 AM [employer] Gender Identity Not on file Sexual Orientation Not on file Last Filed Vital Signs Vital Sign Reading Time Taken Comments Blood Pressure 112/72 02/05/2024 1:16 PM [employer] Pulse 65 02/05/2024 1:16 PM [employer] Temperature 36.3 ??C (97.4 ??F) 01/17/2022 9:33 AM CD T Respiratory Rate 16 02/05/2024 1:16 PM [employer] Oxygen Saturation 94% 01/12/2022 11:30 AM CDT Inhaled Oxygen Concentration - - Weight 101.6 kg (224 lb) 02/05/2024 1:16 PM [employer] Height 180.3 cm (5' 11 ) 02/05/2024 1:16 PM [employer] Body Mass Index 31.24 02/05/2024 1:16 PM [employer] Plan of Treatment Not on file Medical Devices Implanted Type Area Community Education Specialist Device Identifier Shelf Expiration Date Model / Serial / Lot [employer] Niki Ams 700 Kit Accessory Penile Prosthesis [id number] - [id number] Implanted:Qty: 1 on 01/12/2022 by German Arenas MD at [facility] N/A: Penis [employer] Niki [id number] 12/26/2026 [id number] / / [id number] [employer] Niki Conceal Low Profile Ramer 100ml Prosthesis Inhibizone Sterile Latex Free [id number] - [id number] Implanted:Qty: 1 on 01/12/2022 by German Arenas MD at [facility] N/A: Penis [employer] Niki [id number] 11/16/2023 [id number] / / [id number] [employer] Niki Prosthesis Penile Ams 700cx Ms Pump 18cm Preconnect 2 Cyl [id number] - [id number] Implanted:Qty: 1 on 01/12/2022 by German Arenas MD at [facility] N/A: Penis [employer] Niki [id number] 07/06/2023 [id number] / / [id number] [employer] Niki Ams Spectra 12/14mm 1cm Cylinder Concealable Malleable Rear Tip [id number] - [id number] Implanted:Qty: 1 on 01/12/2022 by German Arenas MD at [facility] N/A: Penis [employer] Niki [id number] 10/10/2026 [id number] / / [id number] Procedures Procedure Name Priority Date/Time Associated Diagnosis Comments POCT GLUCOSE Routine 02/05/2024 1:19 PM [employer] Type 2 diabetes mellitus with hyperglycemia, with long-term current use of insulin ([facility]) POCT HEMOGLOBIN A1C Routine 02/05/2024 1 :14 PM [employer] Type 2 diabetes mellitus with hyperglycemia, with long-term current use of insulin ([facility]) POCT LIPID PANEL Routine 05/16/2019 1:39 PM [employer] Type 2 diabetes mellitus with hyperglycemia, with long-term current use of insulin ([facility]) from Last 3 Months or Most Recently Relevant to Health Maintenance Results * (ABNORMAL) POCT glucose (02/05/2024 1:19 PM [employer]) Glucose Blood, POC 205 mg/dL Blood 02/05/2024 1:19 PM [employer] Julian Hanson MD POINT OF CARE TEST ORDERABLES Final Result * (ABNORMAL) POCT hemoglobin A1c (02/05/2024 1:14 PM [employer]) Hemoglobin A1C, POC 9.5 4.0 - 5.6 % Blood 02/05/2024 1:14 PM [employer] Julian Hanson MD POINT OF CARE TEST ORDERABLES Final Result * POCT lipid panel (05/16/2019 1:39 PM [employer]) Cholesterol, POC 299 mg/dL HDL, POC 22 mg/dL Triglycerides, POC 498 mg/dL LDL Cholesterol POC 177 mg/dL Chol/HDL Ratio, POC 13.7 Non-HDL Cholesterol, POC 277 mg/dL Cholesterol Total, POC 299 mg/dL Blood specimen (specimen) 05/16/2019 1:39 PM [employer] Damaris Daniel MD POINT OF CARE TEST ORDERABLES Fi nal Result from Last 3 Months or Most Recently Relevant to Health Maintenance [place] [address] [place] [address] [facility] Care Teams Purchase Request Editor Relationship Specialty Start Date End Date Emmanuel Brito MD PCP - General Family Medicine 12/08/21
--- OUTSIDE RECORDS SUMMARY | 2024-04-18 15:29 | XMS_ITS | Clinical Summary ---
Author Organization [facility] [address] [place] [address] Care Team Providers Care Wealth Management Director Name Role Phone Emmanuel Brito MD Primary Care Provider [phone]- [phone] Allergies Active Allergy Reactions Criticality Noted Date [...] Active TRUEplus Pen Needle 32 gauge x 5/32 needle USE DIRECTED WITH INSULIN 4 Active [...] hyperglycemia, with long-term current use of insulin ([facility]) Use one sensor every 10 days 9 each 3 4 Active Active Problems Problem Noted Date Diagnosed Date Stage 3a chronic kidney disease 02/06/2024 Assessment & Plan (02/06/2024 10:01 AM TOOL SETTER): Work on better glycemic control Hypertension well controlled Continue lisinopril Add SGLT2 inhibitors Type 2 diabetes mellitus wit h hyperglycemia, with long-term current use of insulin 05/16/2019 Assessment & Plan (02/06/2024 10:01 AM TOOL SETTER): Chronic, uncontrolled, worsening Hemoglobin A1c 9.5%, goal [...] and also cut back on smoking Try dexcom G 7 and dexcom clarity mela We will try to obtain patient's [...] Bydureon Assessment & Plan (05/16/2019 2:55 PM TOOL SETTER): Hba1c was Lab Results Component Value Date [...] 05/16/2019 Assessment & Plan (02/06/2024 10:00 AM TOOL SETTER): Continue statin therapy and fenofibrate Assessment & Plan (11/28/2019 12:10 PM CDT): LDL above goal. Needs to focus on lower fat food choices. Education provided Assessment & Plan (05/16/2019 2:56 PM TOOL SETTER): Goal of treatment , LDL cholesterol less [...] 05/16/2019 Assessment & Plan (02/06/2024 10:00 AM TOOL SETTER): Chronic, well controlled Continue lisinopril Assessment & Plan (11/28/2019 12:09 PM CDT): Continue lisinopril. Follow DASH diet Assessment & Plan (05/16/2019 2:57 PM TOOL SETTER): Goal blood pressure is less than 140/85 Low salt diet recommended Daily aerobic exercise Continue current meds, including JERSEY-I or ARB Restart Lisinopril 20 mg daily Erectile dysfunction 01/08/2018 S/P cardiac cath 10/07/2016 Angina, class II (CMS/HCC) 10/07/2016 Smoking addiction 10/07/2016 Assessment & Plan (02/06/2024 10:00 AM TOOL SETTER): Counseled patient to cut back and quit smoking Assessment & Plan (05/16/2019 2:55 PM TOOL SETTER): Smoking cessation discussed Pt not ready to quit. Coronary artery disease invo lving [place] coronary artery of [place] heart with unstable angina pectoris 10/07/2016 Encounters Date Type Department Care Team Description 03/08/2024 Telephone [facility] of [address] [phone] Yris Jacob PA PA For Dexcom G7 Sensor 03/04/2024 Telephone [facility] [address] [phone] Julian Mathis MD Med Refill 02/06/2024 Telephone [facility] [address] [phone] Julian Mathis MD Medication Problem 02/05/2024 1:30 PM TOOL SETTER Office Visit [facility] Medical Group Diabetes and Endocrinology [facility] [place] [address] Julian Mathis MD Type 2 diabetes mellitus with hyperglycemia, with long-term current use of insulin (HCC) (Primary Dx); Stage 3a chronic kidney disease (HCC); Hypertension associated with diabetes (HCC); Combined hyperlipidemia associated with type 2 diabetes mellitus (HCC); Smoking addiction from Last 3 Months Surgical History Surgery Date Site/Laterality Comments PROSTATECTOMY FOOT FRACTURE SURGERY Left 2020 CARPAL TUNNEL RELEASE Bilateral SHOULDER SURGERY Medical History Medical History Date Comments Chest pain Diabetes mellitus (HCC) Hypertension Cancer (CMS/HCC) (HCC) S/P cardiac cath 10/07/2016 Angina, class II (CMS/HCC) (HCC) 10/07/2016 Smoking addiction 10/07/2016 Personal history of other en docrine, nutritional and metabolic disease History of diabetes mellitus - (Added by [facility]) Personal history of other di seases of the circulatory system History of hypertension - (A dded by [email or web address]) Personal history of other en docrine, nutritional and metabolic disease History of hyperlipi demia - (Added by [email or web address]) Personal history of malignan t neoplasm of prostate History of malignant neoplas m of prostate - (Added by [employer] [facility]) Hx of radiation therapy 2011 Type 2 diabetes mellitus (HCC) Stroke (HCC) Family History Medical History Relation Name Comments COPD Father Diabetes Mother Family history of diabetes mellitus - (Added by [employer] Conv) Hypertension Mother Relation Name Status Comments Father Mother Social History Tobacco Use Types Packs/Day Years [...] on file Legal Sex Male 4:09 AM TOOL SETTER Gender Identity Not on file Sexual Orientation Not on file Obstetrics History Last Filed Vital Signs Vital Sign Reading Time Taken Comments Blood Pressure 112/72 02/05/2024 1:16 PM TOOL SETTER Pulse 65 02/05/2024 1:16 PM TOOL SETTER Temperature 36.3 ??C (97.4 ??F) 01/17/2022 9:33 AM CD T Respiratory Rate 16 02/05/2024 1:16 PM TOOL SETTER Oxygen Saturation 94% 01/12/2022 11:30 AM CDT Inhaled Oxygen Concentration - - Weight 101.6 kg (224 lb) 02/05/2024 1:16 PM TOOL SETTER Height 180.3 cm (5' 11 ) 02/05/2024 1:16 PM TOOL SETTER Body Mass Index 31.24 02/05/2024 1:16 PM TOOL SETTER Plan of Treatment Health Maintenance Due Date Last Done Comments Albumin Creatinine Ratio, Urine 1959 Colon Cancer Screening-Colonoscopy 1959 Depression Screening 1959 Hepatitis C Screening 1959 Prostate Cancer Screening-PSA 1959 eGFR 1959 Dilated Eye Exam 1959 Pneumococcal vaccine <65 (1 of 2 - PCV) 12/20/1965 DTaP/Tdap/Td Vaccine (1 - Tdap) 12/20/1970 Hepatitis B Screening 12/20/1977 Regular Well Visit/Exam 18-64 12/20/1977 Zoster Vaccine (1 of 2) 12/20/2009 Lipid Panel 07/09/2022 07/09/2021, 04/28, 12/14/2017 Covid-19 Vaccine (3 - 2023-2 5 season) 2023 07/17/2020, 06/25/2020 Influenza Vaccine (#1) 2023 Hemoglobin A1C 08/04/2024 02/05/2024, 11/25, 10/17/2019, Additional history exists Foot Exam 02/04/2025 02/05/2024, 05/16/2019 Medical Devices Implanted Type Area [employer]nc Mill Set Up Operator Device Identifier Shelf Expiration Date Model / Serial / Lot [employer] Niki Ams 700 Kit Accessory Penile Prosthesis [id number] - [id number] Implanted:Qty: 1 on 01/12/2022 by German Arenas MD at [facility] N/A: Penis [employer] Niki [id number] 12/26/2026 [id number] / / [id number] [employer] Niki Conceal Low Profile [place] 100ml Prosthesis Inhibizone Sterile Latex Free [id number] - [id number] Implanted:Qty: 1 on 01/12/2022 by German Arenas MD at [facility] N/A: Penis [employer] Niki [id number] 11/16/2023 [id number] / / [id number] [employer] Niki Prosthesis Penile Ams 700cx Ms Pump 18cm Preconnect 2 Cyl [id number] - [id number] Implanted:Qty: 1 on 01/12/2022 by German Arenas MD at [facility] N/A: Penis [employer] Niki [id number] 07/06/2023 [id number] / / [id number] [employer] Niki Ams Spectra 12/14mm 1cm Cylinder Concealable Malleable Rear Tip [id number] - [id number] Implanted:Qty: 1 on 01/12/2022 by German Arenas MD at [facility] N/A: Penis [employer] Niki [id number] 10/10/2026 [id number] / / [id number] Procedures Procedure Name Priority Date/Time Associated Diagnosis Comments POCT GLUCOSE Routine 02/05/2024 1:19 PM TOOL SETTER Type 2 diabetes mellitus with hyperglycemia, with long-term current use of insulin ([facility]) POCT HEMOGLOBIN A1C Routine 02/05/2024 1 :14 PM TOOL SETTER Type 2 diabetes mellitus with hyperglycemia, with long-term current use of insulin ([facility]) POCT LIPID PANEL Routine 05/16/2019 1:39 PM TOOL SETTER Type 2 diabetes mellitus with hyperglycemia, with long-term current use of insulin ([facility]) from Last 3 Months or Most Recently Relevant to Health Maintenance Results * (ABNORMAL) POCT glucose (02/05/2024 1:19 PM TOOL SETTER) Glucose Blood, POC 205 mg/dL Blood 02/05/2024 1:19 PM TOOL SETTER Julian Hanson MD POINT OF CARE TEST ORDERABLES Final Result * (ABNORMAL) POCT hemoglobin A1c (02/05/2024 1:14 PM TOOL SETTER) Hemoglobin A1C, POC 9.5 4.0 - 5.6 % Blood 02/05/2024 1:14 PM TOOL SETTER Julian Hanson MD POINT OF CARE TEST ORDERABLES Final Result * POCT lipid panel (05/16/2019 1:39 PM TOOL SETTER) Cholesterol, POC 299 mg/dL HDL, POC 22 mg/dL Triglycerides, POC 498 mg/dL LDL Cholesterol POC 177 mg/dL Chol/HDL Ratio, POC 13.7 Non-HDL Cholesterol, POC 277 mg/dL Cholesterol Total, POC 299 mg/dL Blood specimen (specimen) 05/16/2019 1:39 PM TOOL SETTER Damaris Daniel MD POINT OF CARE TEST ORDERABLES Fi nal Result from Last 3 Months or Most Recently Relevant to Health Maintenance Insurance [facility] Care Teams Wealth Management Director Relationship Specialty Start Date End Date Emmanuel Brito MD PCP - General Family Medicine 12/08/21
--- OUTSIDE RECORDS SUMMARY | 2024-04-18 15:29 | XMS_ITS | CONTINUITY OF CARE DOCUMENT ---
Author Name junieguyqing Address Unknown Organization [facility] Address [address] [facility] [address] [place] [address] Phone [phone] Care Team Providers Care Manager Plant Name Role Phone Zachery KIMBLE, Venkata Soto Unavailable [phone] RUTH JULIEN DO Unavailable [phone] RUTH JULIEN DO Unavailable [phone] INSURANCE PROVIDERS Payer name Policy type / Coverage type [place] red green party ID AETNA BETTER HEALTH OF [place] Medicaid [id number]
--- OUTSIDE RECORDS SUMMARY | 2024-04-18 15:29 | XMS_ITS | Clinical Summary ---
Author Organization [facility] Address [address] [place] [address]. 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 Gender Identity Not on file Sexual Orientation Not on file Plan of Treatment Health Maintenance Due Date Last Done Comments Colorectal Cancer Screening Colonoscopy (10 Years) 1960 Annual Physical 12/20/1962 Hepatitis C 12/20/1977 DTaP, Tdap and Td Vaccines ( 1 - Tdap) 12/20/1978 Zoster Vaccines (1 of 2) 12/20/2009 COVID-19 Vaccine ( - 2023-2 5 season) 2023 Influenza Adult (#1) 2023 RSV Immunization or 60+ Years (1 - 1-dose 75+ series) 12/20/2034 Meningococcal Vaccine Aged Out No gema juan eligible based on patient's age to complete this topic Pneumococcal Vaccine: Pediat rics (0 to 5 Years) and At-Risk Patients (6 to 64 Years) Aged Out No longer eligible b ased on patient's age to complete this topic RSV Immunizations Under 20 Months Aged Out No longer eligible based on patient's age to complete this topic
== END 2024-04-16 08:43 ==
LOC: ASC 07:00
PROVIDERS: PCP Family Medicine; Visit Provider Anesthesiology Pain Medicine
PROC: (CPT 64493; principal; 2024-04-16 07:30)
DX: M47.817 Spondylosis without myelopathy or radiculopathy, lumbosacral region (principal); G89.29 Other chronic pain
CPT/HCPCS: 64493 ×2; 64494 ×2; 64495 ×2; 99199

== ENCOUNTER 2024-05-07 09:38 | Outpatient (CLI) | payer OTHER, SELFPAY ==
[2024-05-07 10:22] LABS: Basophils Absolute Auto 0.1 K/mm3 (0.0-0.1); Basophils Percent Auto 0.7 % (0.2-1.2); Eosinophils Absolute Auto 0.2 K/mm3 (0-0.3); Eosinophils Percent Auto 3.4 % (0-4.4); Hematocrit 44.3 % (42.0-52.0); Immature Granulocyte Absolute 0.04 K/mm3 (0.00-0.031); Immature Granulocyte Percent A 0.6 % (0-0.5); Lymphocytes Absolute Auto 2.01 K/mm3 (0.9-3.2); Lymphocytes Percent Auto 28.4 % (18.3-44.2); Mean Corpuscular HGB Conc 31.6 g/dl (32-36); Mean Corpuscular Hemoglobin 26.6 pg (26-34); Mean Corpuscular Volume 84.1 fl (80-100); Mean Platelet Volume 10.8 fl (7.4-10.4); Monocytes Absolute Auto 0.7 K/mm3 (0.1-0.6); Monocytes Percent Auto 9.5 % (2.6-8.5); Neutrophils Absolute Auto 4.1 K/mm3 (1.3-6.7); Neutrophils Percent Auto 57.4 % (45.5-73.1); Platelet Count Result 252 k/mm3 (150-375); Red Blood Count 5.27 M/mm3 (4.6-6.20); Red Cell Distribution Width 15.5 % (11.5-14.5); White Blood Count 7.1 K/mm3 (4.5-10.0)
--- OUTSIDE RECORDS SUMMARY | 2024-05-07 10:40 | XMS_ITS | Clinical Summary ---
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
--- OUTSIDE RECORDS SUMMARY | 2024-05-07 10:40 | XMS_ITS | Clinical Summary ---
Author Organization [facility] [address] Address [address] [place] [address] Care Team Providers Care Cafe Attendant Name Role Phone Emmanuel Brito MD Primary Care Provider [phone] Allergies Active Allergy Reactions Criticality Noted Date Comments Penicillins Nausea & Vomiting Low 10/07/2016 Sulfa (Sulfonamide Antibiotics) Nausea & Vomiting Low 12/28/2021 Medications TRUE METRIX GLUCOSE TEST STRIP strip USE TO TEST BLOOD SUGAR TID 11 9 Active TRUEPLUS PEN NEEDLE 31 gauge x 1/4 needle daily 0 9 Active lisinopril (PRINIVIL,ZEST RIL) 20 mg tablet Take 1 tablet (20 mg total) by mouth daily 30 tablet 11 0 Active insulin glargine (Lantus Solostar U-100 Insulin) 100 unit/mL (3 mL) insulin pen Inject 70 Units under the skin every 12 (twelve) hours 15 pen 2 0 Active Additional Information Patient taking differently: 50 Unitssubcutaneous2 times daily, Indications: DM 2, Informant: Self, Reported on 02/05/2024 Novofine 32 32 gauge x 1/4 needle USE WITH INSULIN ONCE DAILY 100 each 1 Active blood glucose diagnostic (True Metrix Glucose Test Strip) strip True Metrix Glucose Test Strip TEST BLOOD SUGAR THREE TIMES DAILY DIRECTED Active HYDROcodone-ac etaminophen (NORCO) 10-325 mg per tabletIndicati ons:Pain Take 1 tablet by mouth 2 (two) times a day 2 Active atorvastatin (LIPITOR) 20 mg tablet Take 1 tablet (20 mg total) by mouth nightly 4 Active fenofibrate (FENOGLIDE) 120 mg tablet Take 1 tablet (120 mg total) by mouth nightly 4 Active TRUEplus Pen Needle 32 gauge x 32 needle USE DIRECTED WITH INSULIN 4 Active pregabalin (LYRICA) 300 mg capsule Take 1 capsule (300 mg total) by mouth 2 (two) times a day 4 Active sertraline (ZOLOFT) 100 mg tablet Take 1 tablet (100 mg total) by mouth daily 4 Active cyclobenzaprin e (FLEXERIL) 10 mg tablet Take 1 tablet (10 mg total) by mouth 2 (two) times a day as needed for muscle spasms Active dulaglutide (TRULICITY) 0.75 mg/0.5 mL pen injectorIndica tions:Type 2 diabetes mellitus with hyperglycemia, with long-term current use of insulin (HCC) Inject 0.5 mL (0.75 mg total) under the skin every 7 days 2 mL 4 Active empagliflozin (JARDIANCE) 25 mg tabletIndicati ons:Chronic Kidney Disease,type 2 diabetes mellitus Take 1 tablet (25 mg total) by mouth daily 90 tablet 1 4 09/01/19 25 Active Dexcom G7 Sensor deviceIndicati ons:Type 2 diabetes mellitus with hyperglycemia, with long-term current use of insulin (HCC) Use one sensor every 10 days 9 each 3 4 Active atorvastatin (LIPITOR) 40 mg tablet TAKE 1 TABLET(40 MG) BY MOUTH DAILY 90 tablet 1 0 05/01/19 25 Discontin ued(Patie nt Reported) oxyCODONE (ROXICODONE) 5 mg immediate release tabletIndicati ons:Pain Take 1 tablet (5 mg total) by mouth every 4 (four) hours as needed for pain 10 tablet 2 05/01/19 25 Discontin ued(Patie nt Reported) senna-docusate (PERICOLACE) 8.6-50 mg Take 1 tablet by mouth daily 10 tablet 2 05/01/19 25 Discontin ued(Patie nt Reported) dulaglutide (TRULICITY) 1.5 mg/0.5 mL pen injectorIndica tions:Type 2 diabetes mellitus with hyperglycemia, with long-term current use of insulin (HCC) Inject 0.5 mL (1.5 mg total) under the skin every 7 days 2 mL 5 4 05/01/19 25 Discontin ued(Daren nt Reported) Active Problems Problem Noted Date Diagnosed Date Peripheral neuropathy 05/01/2024 Prostate cancer 05/01/2024 Overview (05/01/2024): Status post (s/p) resection and radiation (2008) Myocardial infarct 05/01/2024 Stage 3a chronic kidney disease 02/06/2024 Assessment & Plan (02/06/2024 10:01 AM SEED YEAST OPERATOR): Work on better glycemic control Hypertension well controlled Continue lisinopril Add SGLT2 inhibitors Type 2 diabetes mellitus wit h hyperglycemia, with long-term current use of insulin 05/16/2019 Assessment & Plan (02/06/2024 10:01 AM SEED YEAST OPERATOR): Chronic, uncontrolled, worsening Hemoglobin A1c 9.5%, goal [...] Bydureon Assessment & Plan (05/16/2019 2:55 PM SEED YEAST OPERATOR): Hba1c was Lab Results Component Value Date [...] 05/16/2019 Assessment & Plan (02/06/2024 10:00 AM SEED YEAST OPERATOR): Continue statin therapy and fenofibrate Assessment & Plan (11/28/2019 12:10 PM CDT): LDL above goal. Needs to focus on lower fat food choices. Education provided Assessment & Plan (05/16/2019 2:56 PM SEED YEAST OPERATOR): Goal of treatment , LDL cholesterol less [...] 05/16/2019 Assessment & Plan (02/06/2024 10:00 AM SEED YEAST OPERATOR): Chronic, well controlled Continue lisinopril Assessment & Plan (11/28/2019 12:09 PM CDT): Continue lisinopril. Follow DASH diet Assessment & Plan (05/16/2019 2:57 PM SEED YEAST OPERATOR): Goal blood pressure is less than 140/85 Low salt diet recommended Daily aerobic exercise Continue current meds, including JERSEY-I or ARB Restart Lisinopril 20 mg daily Erectile dysfunction 01/08/2018 S/P cardiac cath 10/07/2016 Angina, class II (CMS/HCC) 10/07/2016 Smoking addiction 10/07/2016 Assessment & Plan (02/06/2024 10:00 AM SEED YEAST OPERATOR): Counseled patient to cut back and quit smoking Assessment & Plan (05/16/2019 2:55 PM SEED YEAST OPERATOR): Smoking cessation discussed Pt not ready to quit. Coronary artery disease invo lving [place] coronary artery of [place] heart with unstable angina pectoris 10/07/2016 Encounters Date Type Department Care Team Description 05/01/2024 2:30 PM SEED YEAST OPERATOR Office Visit [facility] Op[facility] 6th [place] [address] Kerwin Pope MD Diplopia [H53.2] (Primary Dx) 03/08/2024 Telephone [facility] Specialists of [address] [place] [address] Yris Jacob PA PA For Dexcom G7 Sensor 03/04/2024 Telephone [facility] Specialists of [address] [place] [address] Julian Mathis MD Med Refill 02/06/2024 Telephone [facility] Specialists of [address] [place] [address] Julian Mathis MD Medication Problem 02/05/2024 1:30 PM SEED YEAST OPERATOR Office Visit [facility] Medical Group Diabetes and Endocrinology [address] [place] [address] Julian Mathis MD Type 2 diabetes mellitus with hyperglycemia, with long-term current use of insulin (HCC) (Primary Dx); Stage 3a chronic kidney disease (HCC); Hypertension associated with diabetes (HCC); Combined hyperlipidemia associated with type 2 diabetes mellitus (HCC); Smoking addiction from Last 3 Months Surgical History Surgery Date Site/Laterality Comments PROSTATECTOMY FOOT FRACTURE SURGERY Left 2020 CARPAL TUNNEL RELEASE Bilateral SHOULDER SURGERY TOE AMPUTATION Medical History Medical History Date Comments Chest [...] History of hypertension - (A dded by TW Conv) Personal history of other en docrine, nutritional and metabolic disease History of hyperlipi demia - (Added by TW Conv) Personal history of malignan t neoplasm of prostate History of malignant neoplas m of prostate - (Added by TW Conv) Hx of radiation therapy 2011 Type 2 diabetes mellitus (HCC) Stroke (HCC) Stroke (cerebrum) (HCC) Family History Medical History Relation Name Comments COPD Father Diabetes Mother Family history of diabetes mellitus - (Added by TW Conv) Hypertension Mother Stroke Mother Blindness Neg Hx Glaucoma Neg Hx Retinal detachment Neg Hx Strabismus Neg Hx Relation Name Status Comments Father Mother Social [...] on file Legal Sex Male 4:09 AM SEED YEAST OPERATOR Gender Identity Not on file Sexual Orientation Not on file Obstetrics History Last Filed Vital Signs Vital Sign [place] Time Taken Comments Blood Pressure 112/72 02/05/2024 1:16 PM SEED YEAST OPERATOR Pulse 65 02/05/2024 1:16 PM SEED YEAST OPERATOR Temperature 36.3 C (97.4 F) 01/17/2022 9:33 AM CDT Respiratory Rate 16 02/05/2024 1:16 PM SEED YEAST OPERATOR Oxygen Saturation 94% 01/12/2022 11:30 AM CDT Inhaled Oxygen Concentration - - Weight 101.6 kg (224 lb) 02/05/2024 1:16 PM SEED YEAST OPERATOR Height 180.3 cm (5' 11 ) 02/05/2024 1:16 PM SEED YEAST OPERATOR Body Mass Index 31.24 02/05/2024 1:16 PM SEED YEAST OPERATOR Plan of Treatment Health Maintenance Due Date [...] Panel 07/09/2022 07/09/2021, 04/28, 12/14/2017 Covid-19 Vaccine (2023-2 5 season) 2023 07/17/2020, 06/25/2020 Influenza Vaccine (#1) 2023 Hemoglobin A1C 08/04/2024 02/05/2024, 11/25, 10/17/2019, Additional history exists Foot Exam 02/04/2025 02/05/2024, 05/16/2019 Medical Devices Implanted Type Area Process Improvement Manager Device Identifier Shelf Expiration Date Model / Serial / Lot [place] [employer] Niki Ams 700 Kit Accessory Penile Prosthesis [id number] - [id number] Implanted:Qty: 1 on 01/12/2022 by German Arenas MD at [facility] N/A: Penis [place] [employer] Niki [id number] 12/26/2026 [id number] / / [id number] [place] [employer] Niki Conceal Low Profile [place] 100ml Prosthesis Inhibizone Sterile Latex Free [id number] - [id number] Implanted:Qty: 1 on 01/12/2022 by German Arenas MD at [facility] N/A: Penis [place] [employer] Niki [id number] 11/16/2023 [id number] / / [id number] [place] [employer] Niki Prosthesis Penile Ams 700cx Ms Pump 18cm Preconnect 2 Cyl [id number] - [id number] Implanted:Qty: 1 on 01/12/2022 by German Arenas MD at [facility] N/A: Penis [place] [employer] Niki [id number] 07/06/2023 [id number] / / [id number] [place] [employer] Niki Ams Spectra 12/14mm 1cm Cylinder Concealable Malleable Rear Tip [id number] - [id number] Implanted:Qty: 1 on 01/12/2022 by German Arenas MD at [facility] N/A: Penis [place] [employer] Niki [id number] 10/10/2026 [id number] / / [id number] Procedures Procedure Name Priority Date/Time Associated Diagnosis Comments POCT GLUCOSE Routine 02/05/2024 1:19 PM SEED YEAST OPERATOR Type 2 diabetes mellitus with hyperglycemia, with long-term current use of insulin ([facility]) POCT HEMOGLOBIN A1C Routine 02/05/2024 1 :14 PM SEED YEAST OPERATOR Type 2 diabetes mellitus with hyperglycemia, with long-term current use of insulin ([facility]) POCT LIPID PANEL Routine 05/16/2019 1:39 PM SEED YEAST OPERATOR Type 2 diabetes mellitus with hyperglycemia, with long-term current use of insulin ([facility]) from Last 3 Months or Most Recently Relevant to Health Maintenance Results * (ABNORMAL) POCT glucose (02/05/2024 1:19 PM SEED YEAST OPERATOR) Glucose Blood, POC 205 mg/dL Blood 02/05/2024 1:19 PM SEED YEAST OPERATOR Julian Hanson MD POINT OF CARE TEST ORDERABLES Final Result * (ABNORMAL) POCT hemoglobin A1c (02/05/2024 1:14 PM SEED YEAST OPERATOR) Hemoglobin A1C, POC 9.5 4.0 - 5.6 % Blood 02/05/2024 1:14 PM SEED YEAST OPERATOR Julian Hanson MD POINT OF CARE TEST ORDERABLES Final Result * POCT lipid panel (05/16/2019 1:39 PM SEED YEAST OPERATOR) Cholesterol, POC 299 mg/dL HDL, POC 22 mg/dL Triglycerides, POC 498 mg/dL LDL Cholesterol POC 177 mg/dL Chol/HDL Ratio, POC 13.7 Non-HDL Cholesterol, POC 277 mg/dL Cholesterol Total, POC 299 mg/dL Blood specimen (specimen) 05/16/2019 1:39 PM SEED YEAST OPERATOR Damaris Daniel MD POINT OF CARE TEST ORDERABLES Fi nal Result from Last 3 Months or Most Recently Relevant to Health Maintenance Insurance [address] [place] [address] [facility] Care Teams Cafe Attendant Relationship Specialty Start Date End Date Emmanuel Brito MD PCP - General Family Medicine 12/08/21
--- OUTSIDE RECORDS SUMMARY | 2024-05-07 10:40 | XMS_ITS | Referral Summary ---
Author Organization [facility] [address] [facility] [address] Address [address] [place] [address] Care Team Providers Care Display Artist Name Role Phone Emmanuel Brito MD Primary Care Provider [phone] Encounters Date Type Department Care Team Description 05/01/2024 2:30 PM REAL ESTATE BROKER Office Visit [facility]mology [facility] 6th [place] [address] Kerwin Pope MD Diplopia [H53.2] (Primary Dx) 03/08/[address] [facility] Specialists of [address] [place] [address] Yris Jacob PA PA For Dexcom G7 Sensor 03/04/[address] [facility] Special[facility] of [address] [place] [address] Julian Mathis MD Med Refill 02/06/[address] [facility] Specialists of [address] [place] [address] Julian Mathis MD Medication Problem 02/05/2024 1:30 PM REAL ESTATE BROKER Office Visit [facility] Medical Group Diabetes and Endocrinology [address] [place] [address] Julian Mathis MD Type 2 [...] 2 mL 5 4 05/01/19 25 Discontin ued(Patie nt Reported) Active Problems Problem Noted Date Diagnosed Date Peripheral neuropathy 05/01/2024 Prostate cancer 05/01/2024 Overview (05/01/2024): Status post (s/p) resection and radiation (2008) Myocardial infarct 05/01/2024 Stage 3a chronic kidney disease 02/06/2024 Assessment & Plan (02/06/2024 10:01 AM REAL ESTATE BROKER): Work on better glycemic control Hypertension well controlled Continue lisinopril Add SGLT2 inhibitors Type 2 diabetes mellitus wit h hyperglycemia, with long-term current use of insulin 05/16/2019 Assessment & Plan (02/06/2024 10:01 AM REAL ESTATE BROKER): Chronic, uncontrolled, worsening Hemoglobin A1c 9.5%, goal [...] and also cut back on smoking Try dexgate5 G 7 and IP Ghoster mela We will try to obtain patient's [...] Bydureon Assessment & Plan (05/16/2019 2:55 PM REAL ESTATE BROKER): Hba1c was Lab Results Component Value Date [...] 05/16/2019 Assessment & Plan (02/06/2024 10:00 AM REAL ESTATE BROKER): Continue statin therapy and fenofibrate Assessment & Plan (11/28/2019 12:10 PM CDT): LDL above goal. Needs to focus on lower fat food choices. Education provided Assessment & Plan (05/16/2019 2:56 PM REAL ESTATE BROKER): Goal of treatment , LDL cholesterol less [...] 05/16/2019 Assessment & Plan (02/06/2024 10:00 AM REAL ESTATE BROKER): Chronic, well controlled Continue lisinopril Assessment & Plan (11/28/2019 12:09 PM CDT): Continue lisinopril. Follow DASH diet Assessment & Plan (05/16/2019 2:57 PM REAL ESTATE BROKER): Goal blood pressure is less than 140/85 Low salt diet recommended Daily aerobic exercise Continue current meds, including JERSEY-I or ARB Restart Lisinopril 20 mg daily Erectile dysfunction 01/08/2018 S/P cardiac cath 10/07/2016 Angina, class II (CMS/HCC) 10/07/2016 Smoking addiction 10/07/2016 Assessment & Plan (02/06/2024 10:00 AM REAL ESTATE BROKER): Counseled patient to cut back and quit smoking Assessment & Plan (05/16/2019 2:55 PM REAL ESTATE BROKER): Smoking cessation discussed Pt not ready to quit. Coronary artery disease invo lving [place] coronary artery of [place] heart with unstable angina pectoris 10/07/2016 Social [...] on file Legal Sex Male 4:09 AM REAL ESTATE BROKER Gender Identity Not on file Sexual Orientation Not on file Last Filed Vital Signs Vital Sign [place] Time Taken Comments Blood Pressure 112/72 02/05/2024 1:16 PM REAL ESTATE BROKER Pulse 65 02/05/2024 1:16 PM REAL ESTATE BROKER Temperature 36.3 C (97.4 F) 01/17/2022 9:33 AM CDT Respiratory Rate 16 02/05/2024 1:16 PM REAL ESTATE BROKER Oxygen Saturation 94% 01/12/2022 11:30 AM CDT Inhaled Oxygen Concentration - - Weight 101.6 kg (224 lb) 02/05/2024 1:16 PM REAL ESTATE BROKER Height 180.3 cm (5' 11 ) 02/05/2024 1:16 PM REAL ESTATE BROKER Body Mass Index 31.24 02/05/2024 1:16 PM REAL ESTATE BROKER Plan of Treatment Not on file Medical Devices Implanted Type Area Television Anchor Device Identifier Shelf Expiration Date Model / Serial / Lot [employer] Niki Ams 700 Kit Accessory Penile Prosthesis [id number] - [id number] Implanted:Qty: 1 on 01/12/2022 by German Arenas MD at [facility] N/A: Penis [place] Niki [id number] 12/26/2026 [id number] / / [id number] [employer] Niki Conceal Low Profile [place] 100ml Prosthesis Inhibizone Sterile Latex Free [id number] - [id number] Implanted:Qty: 1 on 01/12/2022 by German Arenas MD at [facility] N/A: Penis [place] [place] Niki [id number] 11/16/2023 [id number] / / [id number] [employer] Niki Prosthesis Penile Ams 700cx Ms Pump 18cm Preconnect 2 Cyl [id number] - [id number] Implanted:Qty: 1 on 01/12/2022 by German Arenas MD at [facility] N/A: Penis [employer] [place] Niki [id number] 07/06/2023 [id number] / / [id number] [employer] Niki Ams Spectra 12/14mm 1cm Cylinder Concealable Malleable Rear Tip [id number] - [id number] Implanted:Qty: 1 on 01/12/2022 by German Arenas MD at [facility] N/A: Penis [employer] Niki [id number] 10/10/2026 [id number] / / [id number] Procedures Procedure Name Priority Date/Time Associated Diagnosis Comments POCT GLUCOSE Routine 02/05/2024 1:19 PM REAL ESTATE BROKER Type 2 diabetes mellitus with hyperglycemia, with long-term current use of insulin ([facility]) POCT HEMOGLOBIN A1C Routine 02/05/2024 1 :14 PM REAL ESTATE BROKER Type 2 diabetes mellitus with hyperglycemia, with long-term current use of insulin ([facility]) POCT LIPID PANEL Routine 05/16/2019 1:39 PM REAL ESTATE BROKER Type 2 diabetes mellitus with hyperglycemia, with long-term current use of insulin ([facility]) from Last 3 Months or Most Recently Relevant to Health Maintenance Results * (ABNORMAL) POCT glucose (02/05/2024 1:19 PM REAL ESTATE BROKER) Glucose Blood, POC 205 mg/dL Blood 02/05/2024 1:19 PM REAL ESTATE BROKER Julian Hanson MD POINT OF CARE TEST ORDERABLES Final Result * (ABNORMAL) POCT hemoglobin A1c (02/05/2024 1:14 PM REAL ESTATE BROKER) Hemoglobin A1C, POC 9.5 4.0 - 5.6 % Blood 02/05/2024 1:14 PM REAL ESTATE BROKER Julian Hanson MD POINT OF CARE TEST ORDERABLES Final Result * POCT lipid panel (05/16/2019 1:39 PM REAL ESTATE BROKER) Cholesterol, POC 299 mg/dL HDL, POC 22 mg/dL Triglycerides, POC 498 mg/dL LDL Cholesterol POC 177 mg/dL Chol/HDL Ratio, POC 13.7 Non-HDL Cholesterol, POC 277 mg/dL Cholesterol Total, POC 299 mg/dL Blood specimen (specimen) 05/16/2019 1:39 PM REAL ESTATE BROKER us Damaris Daniel MD POINT OF CARE TEST ORDERABLES Fi nal Result from Last 3 Months or Most Recently Relevant to Health Maintenance Insurance [facility] Member Subscriber Plan / Payer (Ef fective 2023-Present) Name:Israel Ward Relation to Subscriber:Self Name:Israel Ward Payer ID:[id number] (NAIC) Group ID:Not on file Type:MEDICAID RISK OTHER Address: ATTN: CLAIMS DEPT [address] [facility] [place] [phone] [facility] [place] [address] Care Teams Display Artist Relationship Specialty Start Date End Date Emmanuel Brito MD PCP - General Family Medicine 12/08/21
--- OUTSIDE RECORDS SUMMARY | 2024-05-07 10:40 | XMS_ITS | CONTINUITY OF CARE DOCUMENT ---
Author Name junieguyqing Address Unknown Organization [facility] Address [address] [facility] [address] [place] [address] Phone [phone] Care Team Providers Care Client Relation Specialist Name Role Phone Zachery KIMBLE, Venkata Soto Unavailable [phone] RUTH JULIEN DO Unavailable [phone] RUTH JULIEN DO Unavailable [phone] INSURANCE PROVIDERS Payer name Policy type / Coverage type [place] red libertarian ID AETNA BETTER HEALTH OF [place] Medicaid [id number]
[2024-05-07 10:43] LABS: Alanine Aminotransferase 17 U/L (6-50); Alkaline Phosphatase 41 U/L (38-126); Anion Gap 6 mmol/L (4-12); Aspartate Amino Transferase 25 U/L (17-59); Bilirubin,Total 0.5 mg/dL (0.2-1.3); Blood Urea Nitrogen 13 mg/dL (9-20); Calcium 9.1 mg/dL (8.4-10.2); Carbon Dioxide 31 mmol/L (22-30); Chloride 103 mmol/L (98-107); Estimated Glomerular Filt Rate 56; Glucose 98 mg/dL (65-110); Potassium 4.4 mmol/L (3.4-5.0); Sodium 140 mmol/L (137-145)
[2024-05-07 11:23] LABS: Prostate Specific Antigen < 0.1 ng/mL (< OR = 4.0)
[2024-05-07 11:30] LABS: Hepatitis C Virus Antibody Negative (Negative)
== END 2024-05-07 09:39 | disposition home or self-care (01) ==
LOC: ANHLAB 09:44
PROVIDERS: PCP Family Medicine; Visit Provider Registered Nurse
DX: Z12.5 Encounter for screening for malignant neoplasm of prostate (principal); Z11.59 Encounter for screening for other viral diseases; E11.9 Type 2 diabetes mellitus without complications; E29.1 Testicular hypofunction
CPT/HCPCS: 36415; 80053; 83036; 84153; 84402; 84403; 85025; 86803; G0103

== ENCOUNTER 2024-06-03 14:47 | Outpatient (CLI) | payer OTHER, SELFPAY ==
--- NOTE | ~2024-06-03 | MR_ITS ---
EXAMINATION: MR foot RT wo/w con DATE: 06/03/2024 16:52 INDICATION: Right heel diabetic ulcer. TECHNIQUE: Magnetic resonance imaging (MRI) of the right foot was performed without and with 20 mL Pr oHance intravenous contrast. COMPARISON: Right foot radiographs 06/20/2020 FINDINGS: Alignment is normal. No fracture. Bone marrow signal intensity is normal. Joint spaces are normal. Th ere is mild Achilles tendinopathy. There are small ankle joint and subtalar joint effusions. There is moderate fatty atrophy of much of the foot musculature. There is increased T2-weighted signal intens ity in the musculature of the foot, likely subacute on chronic denervation. IMPRESSION: 1. No evidence of osteomyelitis. Reviewed, dictated and finalized at location B.
--- OUTSIDE RECORDS SUMMARY | 2024-06-03 17:23 | XMS_ITS | Clinical Summary ---
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
--- OUTSIDE RECORDS SUMMARY | 2024-06-03 17:23 | XMS_ITS | Clinical Summary ---
Author Organization [facility] [address] Address [address] [place] [address] Care Team Providers Care Financial Investment Manager Name Role Phone Emmanuel Brito MD Primary Care Provider [phone] Isaiah Dooley MD Unavailable Allergies Active Allergy Reactions Criticality Noted Date Comments Empagliflozin Other (See comments) Medium 05/22/2024 Severe Constipation Penicillins Nausea & Vomiting Low 10/07/2016 Sulfa (Sulfonamide Antibiotics) Nausea & Vomiting Low 12/28/2021 Dulaglutide Other (See comments) Medium 05/22/2024 Severe Constipation Medications TRUE METRIX GLUCOSE TEST STRIP strip USE TO TEST BLOOD SUGAR TID 11 12/26/19 19 Active lisinopril (PRINIVIL,ZES TRIL) 20 mg tablet Take 1 tablet (20 mg total) by mouth daily 30 tablet 11 05/16/19 20 Active insulin glargine (Lantus Solostar U-100 Insulin) 100 unit/mL (3 mL) insulin pen Inject 70 Units under the skin every 12 (twelve) hours 15 pen 2 10/29/19 20 Active Additional Information Patient taking differently: 50 Unitssubcutaneous2 times daily, Indications: DM 2, Informant: Self, Reported on 05/22/2024 blood glucose diagnostic (True Metrix Glucose Test Strip) strip True Metrix Glucose Test Strip TEST BLOOD SUGAR THREE TIMES DAILY DIRECTED Active HYDROcodone-a cetaminophen (NORCO) 10-325 mg per tabletIndicat ions:Pain Take 1 tablet by mouth 2 (two) times a day 11/09/19 22 Active atorvastatin (LIPITOR) 20 mg tablet Take 1 tablet (20 mg total) by mouth nightly 12/08/19 24 Active fenofibrate (FENOGLIDE) 120 mg tablet Take 1 tablet (120 mg total) by mouth nightly 01/08/20 24 Active pregabalin (LYRICA) 300 mg capsule Take 1 capsule (300 mg total) by mouth 2 (two) times a day 01/30/20 24 Active sertraline (ZOLOFT) 100 mg tablet Take 1 tablet (100 mg total) by mouth daily 11/29/19 24 Active cyclobenzapri ne (FLEXERIL) 10 mg tablet Take 1 tablet (10 mg total) by mouth 2 (two) times a day as needed for muscle spasms Active Garden Price G7 Sensor deviceIndicat ions:Type 2 diabetes mellitus with hyperglycemia , with long-term current use of insulin (HCC) Use one sensor every 10 days 9 each 3 03/04/20 24 Active liraglutide (Victoza 3-Alessandro) 0.6 mg/0.1 mL (18 mg/3 mL) injectionIndi cations:type 2 diabetes mellitus Inject 0.6 mg under the skin daily for 7 days, THEN 1.2 mg daily. Indications: type 2 diabetes mellitus. 9 mL 05/28/19 25 026 Active pen needle, diabetic (TechLITE Pen Needle) 32 gauge x 5/32 needleIndicat ions:Type 2 diabetes mellitus with hyperglycemia , with long-term current use of insulin (HCC) Use as directed with Liraglutide (Victoza) injection syringe. 100 each 3 05/28/19 25 Active TRUEPLUS PEN NEEDLE 31 gauge x 1/4 needle daily 0 03/19/20 19 025 Discontinued Novofine 32 32 gauge x 1/4 needle USE WITH INSULIN ONCE DAILY 100 each 05/15/19 21 025 Discontinued TRUEplus Pen Needle 32 gauge x 5/32 needle USE DIRECTED WITH INSULIN 01/24/20 24 025 Discontinued dulaglutide (TRULICITY) 0.75 mg/0.5 mL pen injectorIndic ations:Type 2 diabetes mellitus with hyperglycemia , with long-term current use of insulin ([facility]) Inject 0.5 mL (0.75 mg total) under the skin every 7 days 2 mL 03/04/20 24 025 Discontinued(Th erapy completed) empagliflozin (JARDIANCE) 25 mg tabletIndicat ions:Chronic Kidney Disease,type 2 diabetes mellitus Take 1 tablet (25 mg total) by mouth daily 90 tablet 1 03/04/20 24 025 Discontinued(Th erapy completed) clindamycin (CLEOCIN) 300 mg capsule TAKE 1 CAPSULE BY MOUTH THREE TIMES DAILY FOR 10 DAYS 02/27/20 24 025 Discontinued(Th erapy completed) Jardiance 10 mg tablet Take 1 tablet (10 mg total) by mouth daily 02/25/20 24 025 Discontinued(Th erapy completed) semaglutide (Ozempic) 0.25 mg or 0.5 mg(2 mg/1.5 mL) pen injector injection Inject 0.25mg weekly x 4 weeks then increase to 0.5mg weekly 3 mL 6 05/23/19 025 Discontinued(Al ternate therapy) Active Problems Problem Noted Date Diagnosed Date Peripheral neuropathy 05/01/2024 Prostate cancer 05/01/2024 Overview (05/01/2024): Status post (s/p) resection and radiation (2008) Myocardial infarct 05/01/2024 Stage 3a chronic kidney disease 02/06/2024 Assessment & Plan (05/22/2024 2:26 PM BI SPECIALIST): Chronic problem. Unknown status. Relates that PCP had labs drawn earlier this month. Release signed to get copy of those labs. Assessment & Plan (02/06/2024 10:01 AM BI SPECIALIST): Work on better glycemic control Hypertension well controlled Continue lisinopril Add SGLT2 inhibitors Type 2 diabetes mellitus wit h hyperglycemia, with long-term current use of insulin 05/16/2019 Assessment & Plan (05/22/2024 2:27 PM BI SPECIALIST): Chronic problem. Great improvement in A1c from 9.5% 02/05/24 to now 6.8%. Relates that he had to stop the Jardiance & Trulicity approx 3 wks ago d/t terrible constipation. Bowels are now back to normal. States that he took Ozempic past wo SE; agreeable to restart that. Ozempic 0.25mg weekly x 4 weeks then increase to 0.5mg weekly Current medications: Ozempic 0.25mg weekly x 4 weeks then increase to 0.5mg weekly Lantus 50 units twice daily (cut back if BG less than 100) by 10 units Relates that PCP had labs drawn earlier this month. Release signed to get copy of those labs. Will update MA/Cr today. Does not mychart. Verified phone #/address to contact re: results. DM eye exam 3-4 mos ago at [facility] in [place]. Letter sent to get copy of report. Discussed with Israel Ward: Strive for regular exercise (30min most days) and diet (get at least 4-5 servings of fruit and veggies daily, avoid processed foods, increase lean protein intake and decrease carb portions as well as fruit juices, regular soda & desserts). Watch carbs and simple sugars. Check the blood sugar: Dexcom G7. Check the feet daily for skin breakdown and infection. Assessment & Plan (02/06/2024 10:01 AM BI SPECIALIST): Chronic, uncontrolled, worsening Hemoglobin A1c 9.5%, goal [...] Bydureon Assessment & Plan (05/16/2019 2:55 PM BI SPECIALIST): Hba1c was Lab Results Component Value Date [...] 2 diabetes mellitus 05/16/2019 Assessment & Plan (05/22/2024 2:23 PM BI SPECIALIST): Chronic problem. Currently taking Atorvastatin 20mg & fenofibrate 120mg nightly. Last lipid panel: 07/09/21 LDL=81, KX=438. Relates that PCP had labs drawn earlier this month. Release signed to get copy of those labs. Assessment & Plan (02/06/2024 10:00 AM BI SPECIALIST): Continue statin therapy and fenofibrate Assessment & Plan (11/28/2019 12:10 PM CDT): LDL above goal. Needs to focus on lower fat food choices. Education provided Assessment & Plan (05/16/2019 2:56 PM BI SPECIALIST): Goal of treatment , LDL cholesterol less [...] associated with diabetes 05/16/2019 Assessment & Plan (05/22/2024 2:24 PM BI SPECIALIST): Chronic problem. Controlled on current lisinopril 20mg daily. Relates that PCP had labs drawn earlier this month. Release signed to get copy of those labs. Assessment & Plan (02/06/2024 10:00 AM BI SPECIALIST): Chronic, well controlled Continue lisinopril Assessment & Plan (11/28/2019 12:09 PM CDT): Continue lisinopril. Follow DASH diet Assessment & Plan (05/16/2019 2:57 PM BI SPECIALIST): Goal blood pressure is less than 140/85 Low salt diet recommended Daily aerobic exercise Continue current meds, including JERSEY-I or ARB Restart Lisinopril 20 mg daily Erectile dysfunction 01/08/2018 S/P cardiac cath 10/07/2016 Angina, class II 10/07/2016 Smoking addiction 10/07/2016 Assessment & Plan (02/06/2024 10:00 AM BI SPECIALIST): Counseled patient to cut back and quit smoking Assessment & Plan (05/16/2019 2:55 PM BI SPECIALIST): Smoking cessation discussed Pt not ready to quit. Coronary artery disease invo lving ak chin coronary artery of ak chin heart with unstable angina pectoris 10/07/2016 Encounters Date Type Department Care Team Description 05/28/[address] [facility] Medical [facility] Diabetes and Endocrinology [address] [place], [place] [phone] ProviderAdelaide MD 05/28/2024 Telephone [facility] Diabetes and Endocrinology [address] [place] [phone] Verenice Call NP Lab reports 05/24/2024 Telephone [facility] Diabetes and Endocrinology [address] [place] [phone] Verenice Call NP Prior Auth (Ozempic) 05/24/2024 Results Follow-Up [facility] Diabetes and Endocrinology [address] [place] [phone] Verenice Call NP 05/22/2024 2:25 PM BI SPECIALIST - 05/22/2024 11:59 PM BI SPECIALIST Hospital Encounter [address] [address] Type 2 diabetes mellitus with hyperglycemia, with long-term current use of insulin (HCC) Discharge Disposition: Discharge to home or self care 05/22/2024 2:15 PM BI SPECIALIST Lab [facility] Medical [facility] Outpatient Lab at [address] [phone] 05/22/2024 1:30 PM BI SPECIALIST Office Visit [facility] Diabetes and Endocrinology [address] [place] [phone] Verenice Call NP Type 2 diabetes mellitus with hyperglycemia, with long-term current use of insulin (HCC) (Primary Dx); Hypertension associated with diabetes (HCC); Combined hyperlipidemia associated with type 2 diabetes mellitus (HCC); Stage 3a chronic kidney disease (HCC) 05/01/2024 2:30 PM BI SPECIALIST Office Visit [facility] Ophthalmology [address] [facility] [address] [place] [address] Kerwin Pope MD Diplopia [H53.2] (Primary Dx) 03/08/2024 Telephone [facility] [id number] [place] [address] [address] [place] [address] Yris Jacob PA PA For Dexcom G7 Sensor from Last 3 Months Surgical History Surgery Date Site/Laterality Comments PROSTATECTOMY FOOT FRACTURE SURGERY Left 2020 CARPAL TUNNEL RELEASE Bilateral SHOULDER SURGERY TOE AMPUTATION Medical History Medical History Date Comments Chest pain Diabetes mellitus (HCC) Hypertension Cancer (HCC) S/P cardiac cath 10/07/2016 Angina, class II 10/07/2016 Smoking addiction 10/07/2016 Personal history of [...] on file Legal Sex Male 4:09 AM BI SPECIALIST Gender Identity Not on file Sexual Orientation Not on file Obstetrics History Last Filed Vital Signs Vital Sign Reading Time Taken Comments Blood Pressure 116/70 05/22/2024 1:33 PM BI SPECIALIST Pulse 66 05/22/2024 1:33 PM BI SPECIALIST Temperature 36.3 C (97.4 F) 01/17/2022 9:33 AM CDT Respiratory Rate 18 05/22/2024 1:33 PM BI SPECIALIST Oxygen Saturation 94% 01/12/2022 11:30 AM CDT Inhaled Oxygen Concentration - - Weight 101.6 kg (224 lb) 05/22/2024 1:33 PM BI SPECIALIST Height 180.3 cm (5' 10.98 ) 05/22/2024 1:[address] Body Mass Index 31.26 05/22/2024 1:33 PM BI SPECIALIST Plan of Treatment Health Maintenance Due Date Last Done Comments Colon Cancer Screening-Colonoscopy 1959 Depression Screening 1959 Hepatitis C Screening 1959 Prostate Cancer Screening-PSA 1959 Dilated Eye Exam 1959 DTaP/Tdap/Td Vaccine (1 - Tdap) 12/20/1970 Hepatitis B Screening 12/20/1977 Regular Well Visit/Exam 18-64 12/20/1977 Pneumococcal vaccine <65 (1 of 2 - PCV) 12/20/1978 Zoster Vaccine (1 of 2) 12/20/2009 Lipid Panel 07/09/2022 07/09/2021, 04/28, 12/14/2017 Covid-19 Vaccine (3 - 2023-2 5 season) 2023 07/17/2020, 06/25/2020 Influenza Vaccine (#1) 2023 Hemoglobin A1C 11/19/2024 05/22/2024, 01/25, 12/08/2021, Additional history exists Foot Exam 02/04/2025 02/05/2024, 05/16/2019 eGFR 05/07/2025 05/07/2024 Albumin Creatinine Ratio, Urine 05/22/2025 Medical Devices Implanted Type Area Crew Truck Driver Device Identifier Shelf Expiration Date Model / Serial / Lot [employer] Niki Ams 700 Kit Accessory Penile Prosthesis [id number] - [id number] Implanted:Qty: 1 on 01/12/2022 by German Arenas MD at [facility] N/A: Penis [employer] Niki [id number] 12/26/2026 [id number] / / [id number] [employer] Niki Conceal Low Profile [place] 100ml Prosthesis Inhibizone Sterile Latex Free [id number] - [id number] Implanted:Qty: 1 on 01/12/2022 by German Arenas MD at [facility] N/A: Penis [employer] Niki [id number] 11/16/2023 [id number] / / [id number] [employer] Niki Prosthesis Penile Ams 700cx Ms Pump 18cm Preconnect 2 Cyl [id number] - [id number] Implanted:Qty: 1 on 01/12/2022 by German Arenas MD at [facility] N/A: Penis [employer] Niki [id number] 07/06/2023 [id number] / / [id number] [employer] Niki Ams Spectra 12/14mm 1cm Cylinder Concealable Malleable Rear Tip [id number] - [id number] Implanted:Qty: 1 on 01/12/2022 by German Arenas MD at [facility] N/A: Penis [employer] Niki [id number] 10/10/2026 [id number] / / [id number] Procedures Procedure Name Priority Date/Time Associated Diagnosis Comments ALBUMIN CREATININE RATIO, URINE Routine 05/22/2024 3:03 PM BI SPECIALIST Type 2 diabetes mellitus with hyperglycemia, with long-term current use of insulin (HCC) POCT GLUCOSE Routine 05/22/2024 1:38 PM BI SPECIALIST Type 2 diabetes mellitus with hyperglycemia, with long-term current use of insulin ([facility]) POCT HEMOGLOBIN A1C Routine 05/22/2024 1 :38 PM BI SPECIALIST Type 2 diabetes mellitus with hyperglycemia, with long-term current use of insulin ([facility]) TESTOSTERONE, FREE AND TOTAL, SERUM Routine 05/07/2024 10:06 AM BI SPECIALIST PROSTATE SPECIFIC AG (PSA), DIAGNOSTIC Routine 05/07/2024 10:06 AM BI SPECIALIST COMPREHENSIVE METABOLIC PANEL Routine 05/07/2024 10:06 AM BI SPECIALIST POCT LIPID PANEL Routine 05/16/2019 1:39 PM BI SPECIALIST Type 2 diabetes mellitus with hyperglycemia, with long-term current use of insulin (HCC) from Last 3 Months or Most Recently Relevant to Health Maintenance Results * Albumin Creatinine Ratio, Urine (05/22/2024 3:03 PM BI SPECIALIST) Albumin Ur <12.0 mg/L Comment: Interpretive Data No reference range established. Current interpretive data was last revised 2018. Creatinine Ur 69.7 mg/dL JOSE Comment: Interpretive Data No reference range established. Current interpretive data was last revised 2018. Albumin Creatinine Ratio, Ur <17 1 - 29 mg/g JOSE Urine 05/22/2024 3:03 PM BI SPECIALIST 05/22/2024 8:06 PM BI SPECIALIST us Verenice Call NP LAB URINE ORDERABLES Jolie l Result JOSE [address] [place] [address] * (ABNORMAL) POCT hemoglobin A1c (05/22/2024 1:38 PM BI SPECIALIST) Hemoglobin A1C, POC 6.8 4.0 - 5.6 % Blood 05/22/2024 1:38 PM BI SPECIALIST us Verenice Call NP POINT OF CARE TEST ORDERA BLES Final Result * (ABNORMAL) POCT glucose (05/22/2024 1:38 PM BI SPECIALIST) Glucose Blood, POC 181 mg/dL Blood 05/22/2024 1:38 PM BI SPECIALIST Verenice Call [employer] SAL[employer]OC[employer] POINT OF CARE TEST ORDERA BLES Final Result * Prostate Specific Ag (PSA), Diagnostic (05/07/2024 10:06 AM BI SPECIALIST) Blood 05/07/2024 10:0 6 AM BI SPECIALIST Impressions EXTERNAL LAB - 05/07/2024 10:20 AM BI SPECIALIST Result: <0.1 (<=4.0) Result [facility] Historical Provider MD LAB BLOOD ORDERABLES Edit ed Result - Final EXTERNAL LAB * Testosterone, Free and Total, Serum (05/07/2024 10:06 AM BI SPECIALIST) Blood 05/07/2024 10:0 6 AM BI SPECIALIST Impressions EXTERNAL LAB - 05/07/2024 10:20 AM BI SPECIALIST Testosterone Free: 26.2 (35.0-155.0) Testosterone Total: 286 (250-1100) Historical Provider MD LAB BLOOD ORDERABLES Edit ed Result - Final EXTERNAL LAB * (ABNORMAL) Comprehensive metabolic panel (05/07/2024 10:06 AM BI SPECIALIST) Pathologist [facility] SCRIBED Sodium 140 137 - 145 mmol/L EXTERNAL LAB SCRIBED Potassium 4.4 3.4 - 5.0 mmol/L EXTERNAL LAB SCRIBED Chloride 103 98 - 107 mmol/L EXTERNAL LAB SCRIBED Carbon Dioxide 31(A) 22 - 30 mmol/L EXTERNAL LAB SCRIBED Anion Gap 6 4 - 12 mmol/L EXTERNAL LAB SCRIBED Urea Nitrogen (BUN) 13 9 - 20 mg/dl EXTERNAL LAB SCRIBED Creatinine 1.29 0.7 - 1.3 mg/dl EXTERNAL LAB SCRIBED Glucose 98 65 - 110 mg/dl EXTERNAL LAB SCRIBED Calcium 9.1 8.4 - 10.2 mg/dl EXTERNAL LAB SCRIBED Bilirubin 0.5 0.2 - 1.3 mg/dl EXTERNAL LAB SCRIBED Plasma Protein 8.0 6.3 - 8.2 g/dl EXTERNAL LAB SCRIBED Albumin 4.0 3.5 - 5.1 g/dl EXTERNAL LAB SCRIBED Alkaline Phosphatase 41 38 - 126 Units/L EXTERNAL LAB SCRIBED Alanine Transaminase (ALT) 17 6 - 50 Units/L EXTERNAL LAB SCRIBED Aspartate Transaminase (AST) 25 17 - 59 Units/L EXTERNAL LAB SCRIBED eGFR in NonAfrican [place]dean 56 >=60 - NA EXTERNAL LAB Blood 05/07/2024 10:0 6 AM BI SPECIALIST Historical Provider LAB BLOOD ORDERABLES Edit ed Result - Final EXTERNAL LAB * POCT lipid panel (05/16/2019 1:39 PM BI SPECIALIST) Cholesterol, POC 299 mg/dL HDL, POC 22 mg/dL Triglycerides, POC 498 mg/dL LDL Cholesterol POC 177 mg/dL Chol/HDL Ratio, POC 13.7 Non-HDL Cholesterol, POC 277 mg/dL Cholesterol Total, POC 299 mg/dL Blood specimen (specimen) 05/16/2019 1:39 PM BI SPECIALIST Damaris Daniel MD POINT OF CARE TEST ORDERABLES Fi nal Result from Last 3 Months or Most Recently Relevant to Health Maintenance Insurance [facility] Member Subscriber Plan / Payer (Ef fective 2023-Present) Name:Israel Ward Relation to Subscriber:Self Name:Israel Ward Payer ID:[id number] (NAIC) Group ID:Not on file Type:MEDICAID RISK OTHER Address: ATTN: CLAIMS DEPT [address] [facility] [place] [id number] [facility] Member Subscriber Plan / Payer ( fective 2023-Present) Name:Israel Ward Relation to Subscriber:Self Name:Israel Ward Payer ID:[id number] (NAIC) Group ID:Not on file Type:MEDICAID RISK OTHER Address: ATTN: CLAIMS DEPT [address] [facility] [place] [phone] Care Teams Financial Investment Manager Relationship Specialty Start Date End Date Emmanuel Brito MD PCP - General Family Medicine 12/08/21 Isaiah Dooley MD [address] [place] [address] Referring Physician Ophthalmology 05/28/24
--- OUTSIDE RECORDS SUMMARY | 2024-06-03 17:23 | XMS_ITS | CONTINUITY OF CARE DOCUMENT ---
Author Name [email or web address] Address Unknown Organization [facility] Address [address] [facility] [address] [place] [address] Phone [phone] Care Team Providers Care Watch Leader Name Role Phone Zachery KIMBLE, Venkata Soto Unavailable [phone] RUTH JULIEN DO Unavailable [phone] RUTH JULIEN DO Unavailable [phone] INSURANCE PROVIDERS Payer name Policy type / Coverage type [place] red republican ID [employer] [place] Medicaid [id number]
--- OUTSIDE RECORDS SUMMARY | 2024-06-03 17:23 | XMS_ITS | Referral Summary ---
Author Organization [facility] [address] Address [address] [place] [address] Care Team Providers Care Monotype Caster Name Role Phone Emmanuel Brito MD Primary Care Provider [phone] Isaiah Dooley MD Unavailable Encounters Date Type Department Care Team Description 05/28/2024 Orders Only [facility] Diabetes and Endocrinology [address] [place] [phone] ProviderAdelaide MD 05/28/2024 Telephone [facility] Endocr[facility] [address] [place] [phone] Verenice Call NP Lab reports 05/24/2024 Telephone [facility] Endocr[facility] [address] [place] [phone] Verenice Call NP Prior Auth (Ozempic) 05/24/2024 Results Follow-Up [facility]ocr[facility] [address] [place] [phone] Verenice Call NP 05/22/2024 2:25 PM [facility] S[facility]URE WINDER - 05/22/2024 11:59 PM [facility] Hospital Encounter [address] [address] Type 2 diabetes mellitus with hyperglycemia, with long-term current use of insulin (HCC) Discharge Disposition: Discharge to home or self care 05/22/2024 2:15 PM [facility]URE [facility]ER Lab [facility] Outpatient Lab at [address] [phone] 05/22/2024 1:30 PM [employer] SUTURE W[facility]ER Office Visit [facility] Diabetes and Endocrinology [address] [place] [phone] Verenice Call NP Type 2 diabetes mellitus with hyperglycemia, with long-term current use of insulin (HCC) (Primary Dx); Hypertension associated with diabetes (HCC); Combined hyperlipidemia associated with type 2 diabetes mellitus (HCC); Stage 3a chronic kidney disease (HCC) 05/01/2024 2:30 PM [employer] SUTURE WINDER Office Visit [facility] Ophthalmology [address] [facility] [address]th [place] [address] Kerwin Pope MD Diplopia [H53.2] (Primary Dx) 03/08/2024 Telephone [facility] [id number] [place] [address] [address], [place] [address] Yris Jacob PA PA For Dexcom G7 Sensor from Last 3 Months Allergies Active Allergy [...] day as needed for muscle spasms Active Dexcom G7 Sensor deviceIndicat ions:Type 2 diabetes mellitus with hyperglycemia , with long-term current use of insulin ([facility]) Use one sensor every 10 days 9 [...] daily 90 tablet 1 03/04/20 24 025 Discontinued( erapy completed) clindamycin (CLEOCIN) 300 mg capsule TAKE 1 CAPSULE BY MOUTH THREE TIMES DAILY FOR 10 DAYS 02/27/20 025 Discontinued(Th erapy completed) Jardiance 10 mg tablet Take 1 tablet (10 mg total) by mouth daily 02/25/20 025 Discontinued( erapy completed) semaglutide (Ozempic) 0.25 mg or [...] 02/06/2024 Assessment & Plan (05/22/2024 2:26 PM HAND SUTURE WINDER): Chronic problem. Unknown status. Relates that PCP had labs drawn earlier this month. Release signed to get copy of those labs. Assessment & Plan (02/06/2024 10:01 AM HAND SUTURE WINDER): Work on better glycemic control Hypertension well controlled Continue lisinopril Add SGLT2 inhibitors Type 2 diabetes mellitus wit h hyperglycemia, with long-term current use of insulin 05/16/2019 Assessment & Plan (05/22/2024 2:27 PM HAND SUTURE WINDER): Chronic problem. Great improvement in A1c from [...] DM eye exam 3-4 mos ago at [facility] in [place]. Letter sent to get copy of report. [...] infection. Assessment & Plan (02/06/2024 10:01 AM HAND SUTURE WINDER): Chronic, uncontrolled, worsening Hemoglobin A1c 9.5%, goal [...] Bydureon Assessment & Plan (05/16/2019 2:55 PM HAND SUTURE WINDER): Hba1c was Lab Results Component Value Date [...] 05/16/2019 Assessment & Plan (05/22/2024 2:23 PM HAND SUTURE WINDER): Chronic problem. Currently taking Atorvastatin 20mg & fenofibrate 120mg nightly. Last lipid panel: 07/09/21 LDL=81, ZS=023. Relates that PCP had labs drawn earlier this month. Release signed to get copy of those labs. Assessment & Plan (02/06/2024 10:00 AM HAND SUTURE WINDER): Continue statin therapy and fenofibrate Assessment & Plan (11/28/2019 12:10 PM CDT): LDL above goal. Needs to focus on lower fat food choices. Education provided Assessment & Plan (05/16/2019 2:56 PM HAND SUTURE WINDER): Goal of treatment , LDL cholesterol less [...] 05/16/2019 Assessment & Plan (05/22/2024 2:24 PM HAND SUTURE WINDER): Chronic problem. Controlled on current lisinopril 20mg daily. Relates that PCP had labs drawn earlier this month. Release signed to get copy of those labs. Assessment & Plan (02/06/2024 10:00 AM HAND SUTURE WINDER): Chronic, well controlled Continue lisinopril Assessment & Plan (11/28/2019 12:09 PM CDT): Continue lisinopril. Follow DASH diet Assessment & Plan (05/16/2019 2:57 PM HAND SUTURE WINDER): Goal blood pressure is less than 140/85 Low salt diet recommended Daily aerobic exercise Continue current meds, including JERSEY-I or ARB Restart Lisinopril 20 mg daily Erectile dysfunction 01/08/2018 S/P cardiac cath 10/07/2016 Angina, class II 10/07/2016 Smoking addiction 10/07/2016 Assessment & Plan (02/06/2024 10:00 AM HAND SUTURE WINDER): Counseled patient to cut back and quit smoking Assessment & Plan (05/16/2019 2:55 PM HAND SUTURE WINDER): Smoking cessation discussed Pt not ready to quit. 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 10/07/2016 Social [...] on file Legal Sex Male 4:09 AM HAND SUTURE WINDER Gender Identity Not on file Sexual Orientation Not on file Last Filed Vital Signs Vital Sign Reading Time Taken Comments Blood Pressure 116/70 05/22/2024 1:33 PM HAND SUTURE WINDER Pulse 66 05/22/2024 1:33 PM HAND SUTURE WINDER Temperature 36.3 C (97.4 F) 01/17/2022 9:33 AM CDT Respiratory Rate 18 05/22/2024 1:33 PM HAND SUTURE WINDER Oxygen Saturation 94% 01/12/2022 11:30 AM CDT Inhaled Oxygen Concentration - - Weight 101.6 kg (224 lb) 05/22/2024 1:33 PM HAND SUTURE WINDER Height 180.3 cm (5' 10.98 ) 05/22/2024 1:[address] Body Mass Index 31.26 05/22/2024 1:33 PM HAND SUTURE WINDER Plan of Treatment Not on file Medical Devices Implanted Type Area Heating Equipment Installer Device Identifier Shelf Expiration Date Model / Serial / Lot Pro 3 Games Niki Ams 700 Kit Accessory Penile Prosthesis [id number] - [id number] Implanted:Qty: 1 on 01/12/2022 by German Arenas MD at [facility] N/A: Penis [employer] Niki [id number] 12/26/2026 [id number] / / [id number] [employer] Niki Conceal Low Profile [place] 100ml Prosthesis Inhibizone Sterile Latex Free [id number] - [id number] Implanted:Qty: 1 on 01/12/2022 by German Arenas MD at [facility] N/A: Penis [employer] Niki [id number] 11/16/2023 [id number] / / [id number] [employer] Niki Prosthesis Penile Ams 700cx Ms Pump 18cm Preconnect 2 Cyl [id number] - [id number] Implanted:Qty: 1 on 01/12/2022 by German Arenas MD at [facility] N/A: Penis [employer] Niki [id number] 07/06/2023 [id number] / / [id number] [employer] Niki Ams Spectra 12/14mm 1cm Cylinder Concealable Malleable Rear Tip [id number] - [id number] Implanted:Qty: 1 on 01/12/2022 by German Arenas MD at [facility] N/A: Penis [employer] Niki [id number] 10/10/2026 [id number] / / [id number] Procedures Procedure Name Priority Date/Time Associated Diagnosis Comments ALBUMIN CREATININE RATIO, URINE Routine 05/22/2024 3:03 PM HAND SUTURE WINDER Type 2 diabetes mellitus with hyperglycemia, with long-term current use of insulin ([facility]) POCT GLUCOSE Routine 05/22/2024 1:38 PM HAND SUTURE WINDER Type 2 diabetes mellitus with hyperglycemia, with long-term current use of insulin ([facility]) POCT HEMOGLOBIN A1C Routine 05/22/2024 1 :38 PM HAND SUTURE WINDER Type 2 diabetes mellitus with hyperglycemia, with long-term current use of insulin ([facility]) TESTOSTERONE, FREE AND TOTAL, SERUM Routine 05/07/2024 10:06 AM HAND SUTURE WINDER PROSTATE SPECIFIC AG (PSA), DIAGNOSTIC Routine 05/07/2024 10:06 AM HAND SUTURE WINDER COMPREHENSIVE METABOLIC PANEL Routine 05/07/2024 10:06 AM HAND SUTURE WINDER POCT LIPID PANEL Routine 05/16/2019 1:39 PM HAND SUTURE WINDER Type 2 diabetes mellitus with hyperglycemia, with long-term current use of insulin (HCC) from Last 3 Months or Most Recently Relevant to Health Maintenance Results * Albumin Creatinine Ratio, Urine (05/22/2024 3:03 PM HAND SUTURE WINDER) Albumin Ur <12.0 mg/L Comment: Interpretive Data No reference range established. Current interpretive data was last revised 2018. Creatinine Ur 69.7 mg/dL JOSE Comment: Interpretive Data No reference range established. Current interpretive data was last revised 2018. Albumin Creatinine Ratio, Ur <17 1 - 29 mg/g JOSE Urine 05/22/2024 3:03 PM HAND SUTURE WINDER 05/22/2024 8:06 PM HAND SUTURE WINDER us Verenice Call NP LAB URINE ORDERABLES Jolie l Result JOSE [address] Department [place] [address] * (ABNORMAL) POCT hemoglobin A1c (05/22/2024 1:38 PM HAND SUTURE WINDER) Hemoglobin A1C, POC 6.8 4.0 - 5.6 % Blood 05/22/2024 1:38 PM HAND SUTURE WINDER us Verenice Call NP POINT OF CARE TEST ORDERA BLES Final Result * (ABNORMAL) POCT glucose (05/22/2024 1:38 PM HAND SUTURE WINDER) Glucose Blood, POC 181 mg/dL Blood 05/22/2024 1:38 PM HAND SUTURE WINDER Verenice Call NP POINT OF CARE TEST ORDERA BLES Final Result * Prostate Specific Ag (PSA), Diagnostic (05/07/2024 10:06 AM HAND SUTURE WINDER) Blood 05/07/2024 10:0 6 AM HAND SUTURE WINDER Impressions EXTERNAL LAB - 05/07/2024 10:20 AM HAND SUTURE WINDER Result: <0.1 (<=4.0) Historical Provider LAB BLOOD ORDERABLES Edit ed Result - Final EXTERNAL LAB * Testosterone, Free and Total, Serum (05/07/2024 10:06 AM HAND SUTURE WINDER) Blood 05/07/2024 10:0 6 AM HAND SUTURE WINDER Impressions EXTERNAL LAB - 05/07/2024 10:20 AM HAND SUTURE WINDER Testosterone Free: 26.2 (35.0-155.0) Testosterone Total: 286 (250-1100) Historical Provider LAB BLOOD ORDERABLES Edit ed Result - Final EXTERNAL LAB * (ABNORMAL) Comprehensive metabolic panel (05/07/2024 10:06 AM HAND SUTURE WINDER) SCRIBED Sodium 140 137 - 145 mmol/L [...] Units/L EXTERNAL LAB SCRIBED eGFR in NonAfrican Haitian 56 >=60 - NA EXTERNAL LAB Blood 05/07/2024 10:0 6 AM HAND SUTURE WINDER Historical Provider LAB BLOOD ORDERABLES Edit ed Result - Final EXTERNAL LAB * POCT lipid panel (05/16/2019 1:39 PM HAND SUTURE WINDER) Cholesterol, POC 299 mg/dL HDL, POC 22 mg/dL Triglycerides, POC 498 mg/dL LDL Cholesterol POC 177 mg/dL Chol/HDL Ratio, POC 13.7 Non-HDL Cholesterol, POC 277 mg/dL Cholesterol Total, POC 299 mg/dL Blood specimen (specimen) 05/16/2019 1:39 PM HAND SUTURE WINDER Damaris Daniel MD POINT OF CARE TEST ORDERABLES Fi nal Result from Last 3 Months or Most Recently Relevant to Health Maintenance Insurance [facility] Member Subscriber Plan / Payer (Ef fective 2023-Present) Name:Israel Ward Relation to Subscriber:Self Name:Israel Ward Payer ID:[id number] (NAIC) Group ID:Not on file Type:MEDICAID RISK OTHER Address: ATTN: CLAIMS DEPT [address] [place] [id number] [facility] Member Subscriber Plan / Payer (Ef fective 2023-Present) Name:Israel Ward Relation to Subscriber:Self Name:Israel Ward Payer ID:[id number] (NAIC) Group ID:Not on file Type:MEDICAID RISK OTHER Address: ATTN: CLAIMS DEPT [address] [place] [id number] Care Teams Monotype Caster Relationship Specialty Start Date End Date Emmanuel Brito MD PCP - General Family Medicine 12/08/21 Isaiah Dooley MD [address] [id number] Referring Physician Ophthalmology 05/28/24
== END 2024-06-03 14:48 | disposition home or self-care (01) ==
PROVIDERS: PCP Family Medicine; Visit Provider Podiatrist Foot & Ankle Surgery
DX: E11.621 Type 2 diabetes mellitus with foot ulcer (principal); L97.512 Non-pressure chronic ulcer of other part of right foot with fat layer exposed
CPT/HCPCS: 73720

== ENCOUNTER 2024-06-18 00:30 | Day surgery (SDC) | payer OTHER, SELFPAY ==
[2024-06-10 14:20] VITALS: BMI 30.7
--- NOTE | 2024-06-10 14:56 | PC.NURSE ---
Report to the Outpatient Waiting Room, entrance under the green pavilion located off [facility], at time _0630__ on 06/18/24 . Planned Procedure Time: .? Time changes happen often and if your time is changed the preop area will call you the afternoon before. - You and your visitor will be asked to self-screen and do not enter if you have any COVID symptoms. Please call surgeon if you need to reschedule. - A mask is optional within the hospital at this time. - No food from midnight until time of surgery and no smoking, or chewing tobacco (or any form of nicotine). No chewing gum, candy or mints. IF YOU EXPERIENCE A CRITICALLY LOW BLOOD SUGAR THE MORNING OF SURGERY BEFORE ARRIVAL, NOTIFY US @ [phone]. WE ARE HERE AT 0530 AM. Take only the following medications with a SIP of water on the morning of surgery: ___GABAPENTIN, HYDROCODONE/ACETAMINOPHEN___ NO CHANGES TO YOUR NORMAL EVENING LANTUS DOSE THE NIGHT BEFORE SURGERY; DO NOT TAKE ANY LANTUS OR VICTOZA THE MORNING OF SURGERY DO NOT STOP ANY OF YOUR OTHER PRESCRIPTION MEDICATIONS PRIOR TO SURGERY EXCEPT THE FOLLOWING Hold all vitamins and supplements for 3 days per anesthesiologist. Medications to discontinue per physician N/A Date to take last dose____N/A Please no make-up, nail faroese, hairspray, perfume, deodorant, or body powder the day of surgery.? No jewelry (including any body piercings) or valuables the day of surgery, leave them at home.? Please take a shower or bath the night before, or the morning of, surgery with an antibacterial soap.? Wear comfortable, loose fitting clothing.? - Jewelry must be removed prior to entering the operating room.? Rings and piercings that are not removed may be cut off. - The hospital will not accept responsibility for valuables.? - Please leave all valuables, including medications, at home the day of surgery. If you are going home after surgery, a licensed truck driver must drive you home.? - NO public transportation without another adult if you receive anesthesia. - We recommend that an adult stay with you for 24 hours following discharge. - We also recommend that you do not drive, make important decision, drink alcoholic beverages, or take any drugs that were not prescribed by your health care provider for at least 24 hours after your discharge time. Follow any additional instructions given to you from your surgeon. Telephone instructions given to ___SLADE and asked if any additional questions and then verbalized understanding. Patient advised to call surgeon office or pre surgery nurse liaison [phone] if any additional questions.
--- NOTE | ~2024-06-18 | XR_ITS ---
EXAMINATION: XR fluoroscopy no charge DATE: 06/18/2024 09:40 INDICATION: Spondylosis, lumbosacral region. Chronic low back pain. TECHNIQUE: 13 intraoperative fluoroscopic views of the lumbar spine were obtained. I was not present. Fluoroscopy exposure time was 109 seconds. COMPARISON: Lumbar spine CT 09/02/2023 FINDINGS: There is mild lumbar spondylosis. There is a chronic burst fracture of L3 with changes of v ertebroplasty. Bilateral needles are noted for lumbar medial branch/dorsal ramus ablation at the L3, L4, and L5 levels. IMPRESSION: 1. Mild lumbar spondylosis. Reviewed, dictated and finalized at location A. IMPRESSION: 1. Mild lumbar spondylosis.
--- OUTSIDE RECORDS SUMMARY | 2024-06-18 00:32 | XMS_ITS | CONTINUITY OF CARE DOCUMENT ---
Author Name [email or web address] Address Unknown Organization [facility] Address [address] [facility] [address] [place] [address] Phone [phone] Care Team Providers Care Sales Program Coordinator Name Role Phone Zachery KIMBLE, Venkata Soto Unavailable [phone] RUTH JULIEN DO Unavailable [phone] RUTH JULIEN DO Unavailable [phone] INSURANCE PROVIDERS Payer name Policy type / Coverage type [place] red democrat ID [employer] [place] Medicaid [id number]
--- OUTSIDE RECORDS SUMMARY | 2024-06-18 00:32 | XMS_ITS | Clinical Summary ---
Author Organization [facility] [place] [address] Address [address] [place] [address] Care Team Providers Care Oil Lease Operator Name Role Phone Emmanuel Brito MD Primary Care Provider [phone] Isaiah Dooley MD Unavailable [phone] Allergies Active Allergy Reactions Criticality Noted Date [...] daily 30 tablet 11 05/16/19 20 Active blood glucose diagnostic (True Metrix Glucose [...] syringe. 100 each 3 05/28/19 25 Active insulin glargine (LANTUS) 100 unit/mL (3 mL) pen for injectionIndi cations:DM 2 Inject 50 Units under the skin 2 (two) times a day 45 mL 2 06/12/19 25 Active TRUEPLUS PEN NEEDLE 31 gauge x 1/4 needle daily 0 03/19/20 19 025 Discontinued insulin glargine (Lantus Solostar U-100 Insulin) 100 unit/mL (3 mL) insulin pen Inject 70 Units under the skin every 12 (twelve) hours 15 pen 2 10/29/19 20 025 Discontinued(Re order) Novofine 32 32 gauge x 1/4 needle [...] 7 days 2 mL 03/04/20 24 025 Discontinued( erapy completed) empagliflozin (JARDIANCE) 25 mg tabletIndicat [...] 02/06/2024 Assessment & Plan (05/22/2024 2:26 PM HOME DEMONSTRATOR): Chronic problem. Unknown status. Relates that PCP had labs drawn earlier this month. Release signed to get copy of those labs. Assessment & Plan (02/06/2024 10:01 AM HOME DEMONSTRATOR): Work on better glycemic control Hypertension well controlled Continue lisinopril Add SGLT2 inhibitors Type 2 diabetes mellitus wit h hyperglycemia, with long-term current use of insulin 05/16/2019 Assessment & Plan (05/22/2024 2:27 PM HOME DEMONSTRATOR): Chronic problem. Great improvement in A1c from [...] DM eye exam 3-4 mos ago at [facility] in [place]. Letter sent to get copy of report. [...] infection. Assessment & Plan (02/06/2024 10:01 AM HOME DEMONSTRATOR): Chronic, uncontrolled, worsening Hemoglobin A1c 9.5%, goal [...] Bydureon Assessment & Plan (05/16/2019 2:55 PM HOME DEMONSTRATOR): Hba1c was Lab Results Component Value Date [...] 05/16/2019 Assessment & Plan (05/22/2024 2:23 PM HOME DEMONSTRATOR): Chronic problem. Currently taking Atorvastatin 20mg & fenofibrate 120mg nightly. Last lipid panel: 07/09/21 LDL=81, CI=431. Relates that PCP had labs drawn earlier this month. Release signed to get copy of those labs. Assessment & Plan (02/06/2024 10:00 AM HOME DEMONSTRATOR): Continue statin therapy and fenofibrate Assessment & Plan (11/28/2019 12:10 PM CDT): LDL above goal. Needs to focus on lower fat food choices. Education provided Assessment & Plan (05/16/2019 2:56 PM HOME DEMONSTRATOR): Goal of treatment , LDL cholesterol less [...] 05/16/2019 Assessment & Plan (05/22/2024 2:24 PM HOME DEMONSTRATOR): Chronic problem. Controlled on current lisinopril 20mg daily. Relates that PCP had labs drawn earlier this month. Release signed to get copy of those labs. Assessment & Plan (02/06/2024 10:00 AM HOME DEMONSTRATOR): Chronic, well controlled Continue lisinopril Assessment & Plan (11/28/2019 12:09 PM CDT): Continue lisinopril. Follow DASH diet Assessment & Plan (05/16/2019 2:57 PM HOME DEMONSTRATOR): Goal blood pressure is less than 140/85 Low salt diet recommended Daily aerobic exercise Continue current meds, including JERSEY-I or ARB Restart Lisinopril 20 mg daily Erectile dysfunction 01/08/2018 S/P cardiac cath 10/07/2016 Angina, class II 10/07/2016 Smoking addiction 10/07/2016 Assessment & Plan (02/06/2024 10:00 AM HOME DEMONSTRATOR): Counseled patient to cut back and quit smoking Assessment & Plan (05/16/2019 2:55 PM HOME DEMONSTRATOR): Smoking cessation discussed Pt not ready to quit. Coronary artery disease invo lving [place] coronary artery of [place] heart with unstable angina pectoris 10/07/2016 Encounters Date Type Department Care Team Description 05/28/2024 Orders Only [facility] Medical [facility] Diabetes and Endocrinology [address] [place] [phone] ProviderAdealide MD 05/28/2024 Telephone [facility] Diabetes and Endocrinology [address] [place] [phone] Verenice Call NP Lab reports 05/24/2024 Telephone [facility] Diabetes and Endocrinology [address] [place] [phone] Verenice Call NP Prior Auth (Ozempic) 05/24/2024 Results Follow-Up [facility] Diabetes and Endocrinology [address] [place] [phone] Verenice Call NP 05/22/2024 2:25 PM HOME DEMONSTRATOR - 05/22/2024 11:59 PM HOME DEMONSTRATOR Hospital Encounter [address] [address] Type 2 diabetes mellitus with hyperglycemia, with long-term current use of insulin ([facility]) Discharge Disposition: Discharge to home or self care 05/22/2024 2:15 PM HOME DEMONSTRATOR Lab [facility] Medical [facility] Outpatient Lab at [address] [phone] 05/22/2024 1:30 PM HOME DEMONSTRATOR Office Visit [facility] Diabetes and Endocrinology [address] [place] [phone] Verenice Call NP Type 2 diabetes mellitus with hyperglycemia, with long-term current use of insulin (HCC) (Primary Dx); Hypertension associated with diabetes (HCC); Combined hyperlipidemia associated with type 2 diabetes mellitus (HCC); Stage 3a chronic kidney disease (HCC) 05/01/2024 2:30 PM HOME DEMONSTRATOR Office Visit [facility] Ophthalmology [address] [facility] [address]th [place] [phone] Kerwin Pope MD Diplopia [H53.2] (Primary Dx) from Last 3 Months Surgical History Surgery [...] on file Legal Sex Male 4:09 AM HOME DEMONSTRATOR Gender Identity Not on file Sexual Orientation Not on file Obstetrics History Last Filed Vital Signs Vital Sign Reading Time Taken Comments Blood Pressure 116/70 05/22/2024 1:33 PM HOME DEMONSTRATOR Pulse 66 05/22/2024 1:33 PM HOME DEMONSTRATOR Temperature 36.3 C (97.4 F) 01/17/2022 9:33 AM CDT Respiratory Rate 18 05/22/2024 1:33 PM HOME DEMONSTRATOR Oxygen Saturation 94% 01/12/2022 11:30 AM CDT Inhaled Oxygen Concentration - - Weight 101.6 kg (224 lb) 05/22/2024 1:33 PM HOME DEMONSTRATOR Height 180.3 cm (5' 10.98 ) 05/22/2024 1:[address] Body Mass Index 31.26 05/22/2024 1:33 PM HOME DEMONSTRATOR Plan of Treatment Health Maintenance Due Date [...] Urine 05/22/2025 Medical Devices Implanted Type Area Public Health Informatician Device Identifier Shelf Expiration Date Model / Serial / Lot CTQuan Niki Ams 700 Kit Accessory Penile Prosthesis [id number] - [id number] Implanted:Qty: 1 on 01/12/2022 by German Arenas MD at [facility] N/A: Penis [employer] Niki [id number] 12/26/2026 [id number] / / [id number] [employer] Niki Conceal Low Profile [place] 100ml Prosthesis Inhibizone Sterile Latex Free 855750-54 - [id number] Implanted:Qty: 1 on 01/12/2022 by German Arenas MD at [facility] N/A: Penis [employer] Niki [id number] 11/16/2023 [id number] / / [id number] [employer] Niki Prosthesis Penile Ams 700cx Ms Pump 18cm Preconnect 2 Cyl [id number] - [id number] Implanted:Qty: 1 on 01/12/2022 by German Arenas MD at [facility] N/A: Penis [employer] Niki [id number] 07/06/2023 [id number] / / [id number] [employer] Niki Ams Spectra 12/14mm 1cm Cylinder Concealable Malleable Rear Tip [id number] - [id number] Implanted:Qty: 1 on 01/12/2022 by German Arenas MD at [facility] N/A: Penis [employer] Niki [id number] 10/10/2026 [id number] / / [id number] Procedures Procedure Name Priority Date/Time Associated Diagnosis Comments ALBUMIN CREATININE RATIO, URINE Routine 05/22/2024 3:03 PM HOME DEMONSTRATOR Type 2 diabetes mellitus with hyperglycemia, with long-term current use of insulin ([facility]) POCT GLUCOSE Routine 05/22/2024 1:38 PM HOME DEMONSTRATOR Type 2 diabetes mellitus with hyperglycemia, with long-term current use of insulin ([facility]) POCT HEMOGLOBIN A1C Routine 05/22/2024 1 :38 PM HOME DEMONSTRATOR Type 2 diabetes mellitus with hyperglycemia, with long-term current use of insulin ([facility]) TESTOSTERONE, FREE AND TOTAL, SERUM Routine 05/07/2024 10:06 AM HOME DEMONSTRATOR PROSTATE SPECIFIC AG (PSA), DIAGNOSTIC Routine 05/07/2024 10:06 AM HOME DEMONSTRATOR COMPREHENSIVE METABOLIC PANEL Routine 05/07/2024 10:06 AM HOME DEMONSTRATOR POCT LIPID PANEL Routine 05/16/2019 1:39 PM HOME DEMONSTRATOR Type 2 diabetes mellitus with hyperglycemia, with long-term current use of insulin (HCC) from Last 3 Months or Most Recently Relevant to Health Maintenance Results * Albumin Creatinine Ratio, Urine (05/22/2024 3:03 PM HOME DEMONSTRATOR) Albumin Ur <12.0 mg/L Comment: Interpretive Data No reference range established. Current interpretive data was last revised 2018. Creatinine Ur 69.7 mg/dL JOSE Comment: Interpretive Data No reference range established. Current interpretive data was last revised 2018. Albumin Creatinine Ratio, Ur <17 1 - 29 mg/g JOSE Urine 05/22/2024 3:03 PM HOME DEMONSTRATOR 05/22/2024 8:06 PM HOME DEMONSTRATOR us Verenice Call NP LAB URINE ORDERABLES Jolie l Result JOSE [address] Department of Laboratories [place], [place] [id number] * (ABNORMAL) POCT hemoglobin A1c (05/22/2024 1:38 PM HOME DEMONSTRATOR) Hemoglobin A1C, POC 6.8 4.0 - 5.6 % Blood 05/22/2024 1:38 PM HOME DEMONSTRATOR us Verenice Call NP POINT OF CARE TEST ORDERA BLES Final Result * (ABNORMAL) POCT glucose (05/22/2024 1:38 PM HOME DEMONSTRATOR) Glucose Blood, POC 181 mg/dL Blood 05/22/2024 1:38 PM HOME DEMONSTRATOR Verenice Call NP POINT OF CARE TEST ORDERA BLES Final Result * Prostate Specific Ag (PSA), Diagnostic (05/07/2024 10:06 AM HOME DEMONSTRATOR) Blood 05/07/2024 10:0 6 AM HOME DEMONSTRATOR Impressions EXTERNAL LAB - 05/07/2024 10:20 AM HOME DEMONSTRATOR Result: <0.1 (<=4.0) Result [facility] Historical Provider MD LAB BLOOD ORDERABLES Edit ed Result - Final EXTERNAL LAB * Testosterone, Free and Total, Serum (05/07/2024 10:06 AM HOME DEMONSTRATOR) Blood 05/07/2024 10:0 6 AM HOME DEMONSTRATOR Impressions EXTERNAL LAB - 05/07/2024 10:20 AM HOME DEMONSTRATOR Testosterone Free: 26.2 (35.0-155.0) Testosterone Total: 286 (250-1100) Historical Provider MD LAB BLOOD ORDERABLES Edit ed Result - Final EXTERNAL LAB * (ABNORMAL) Comprehensive metabolic panel (05/07/2024 10:06 AM HOME DEMONSTRATOR) SCRIBED Sodium 140 137 - 145 mmol/L [...] Units/L EXTERNAL LAB SCRIBED eGFR in NonAfrican [place] 56 >=60 - NA EXTERNAL LAB Blood 05/07/2024 10:0 6 AM HOME DEMONSTRATOR Adelaide Provider LAB BLOOD ORDERABLES Edit ed Result - Final EXTERNAL LAB * POCT lipid panel (05/16/2019 1:39 PM HOME DEMONSTRATOR) Cholesterol, POC 299 mg/dL HDL, POC 22 mg/dL Triglycerides, POC 498 mg/dL LDL Cholesterol POC 177 mg/dL Chol/HDL Ratio, POC 13.7 Non-HDL Cholesterol, POC 277 mg/dL Cholesterol Total, POC 299 mg/dL Blood specimen (specimen) 05/16/2019 1:39 PM HOME DEMONSTRATOR Damaris Daniel MD POINT OF CARE TEST ORDERABLES Fi nal Result from Last 3 Months or Most Recently Relevant to Health Maintenance Insurance [facility] Care Teams Oil Lease Operator Relationship Specialty Start Date End Date Emmanuel Brito MD PCP - General Family Medicine 12/08/21 Isaiah Dooley MD [address] [place] [address] Referring Physician Ophthalmology 05/28/24
--- OUTSIDE RECORDS SUMMARY | 2024-06-18 00:32 | XMS_ITS | Referral Summary ---
Author Organization [facility] [place] [address] Address [address] [place] [address] Care Team Providers Care Cycle Touring Guide Name Role Phone Emmanuel Brito MD Primary Care Provider [phone] Isaiah Dooley MD Unavailable Encounters Date Type Department Care Team Description 05/28/2024 Orders Only [facility] Medical Group Diabetes and Endocrinology [address] [place] [phone] ProviderAdelaide MD 05/28/2024 Telephone [facility] Diabetes and Endocrinology [address] [place] [phone] Verenice Call NP Lab reports 05/24/2024 Telephone [facility] Diabetes and Endocrinology [address] [place] [phone] Verenice Call NP Prior Auth (Ozempic) 05/24/2024 Results Follow-Up [facility] Diabetes and Endocrinology [address] [place] [phone] Verenice Call NP 05/22/2024 2:25 PM CHEMICAL LABORATORY ASSISTANT - 05/22/2024 11:59 PM CHEMICAL LABORATORY ASSISTANT Hospital Encounter [address] [address] Type 2 diabetes mellitus with hyperglycemia, with long-term current use of insulin (HCC) Discharge Disposition: Discharge to home or self care 05/22/2024 2:15 PM CHEMICAL LABORATORY ASSISTANT Lab [facility] Medical Group Outpatient Lab at [address] [phone] 05/22/2024 1:30 PM CHEMICAL LABORATORY ASSISTANT Office Visit [facility] Medical Group Diabetes and Endocrinology [address] [place] [phone] Verenice Call NP Type 2 diabetes mellitus with hyperglycemia, with long-term current use of insulin (HCC) (Primary Dx); Hypertension associated with diabetes (HCC); Combined hyperlipidemia associated with type 2 diabetes mellitus (HCC); Stage 3a chronic kidney disease (HCC) 05/01/2024 2:30 PM CHEMICAL LABORATORY ASSISTANT Office Visit [facility] Ophthalmology [address] [facility] 6th [place] [address] Kerwin Pope MD Diplopia [H53.2] (Primary Dx) from Last 3 Months Allergies Active Allergy Reactions Criticality Noted Date Comments Empagliflozin Other (See comments) Medium 05/22/2024 Severe Constipation Penicillins Nausea & Vomiting Low 10/07/2016 Sulfa (Sulfonamide Antibiotics) Nausea & Vomiting Low 12/28/2021 Dulaglutide Other (See comments) Medium 05/22/2024 Severe Constipation Medications TRUE METRIX GLUCOSE TEST STRIP strip USE TO TEST BLOOD SUGAR TID 12/26/19 19 Active lisinopril (PRINIVIL,ZES TRIL) 20 [...] , with long-term current use of insulin ([facility]) Use one sensor every 10 days 9 each 3 03/04/20 24 Active liraglutide (Victoza 3-Aelssandro) 0.6 mg/0.1 mL (18 mg/3 mL) injectionIndi cations:type 2 diabetes mellitus Inject 0.6 mg under the skin daily for 7 days, THEN 1.2 mg daily. Indications: type 2 diabetes mellitus. 9 mL 05/28/19 25 026 Active pen needle, diabetic (TechLITE Pen Needle) 32 gauge x 5/32 needleIndicat ions:Type 2 diabetes mellitus with hyperglycemia , with long-term current use of insulin ([facility]) Use as directed with Liraglutide (Victoza) injection [...] , with long-term current use of insulin ([facility]) Inject 0.5 mL (0.75 mg total) under the skin every 7 days 2 mL 03/04/20 025 Discontinued(Th erapy completed) empagliflozin (JARDIANCE) 25 [...] mg total) by mouth daily 02/25/20 025 Discontinued(Th erapy completed) semaglutide (Ozempic) 0.25 [...] 02/06/2024 Assessment & Plan (05/22/2024 2:26 PM CHEMICAL LABORATORY ASSISTANT): Chronic problem. Unknown status. Relates that PCP had labs drawn earlier this month. Release signed to get copy of those labs. Assessment & Plan (02/06/2024 10:01 AM CHEMICAL LABORATORY ASSISTANT): Work on better glycemic control Hypertension well controlled Continue lisinopril Add SGLT2 inhibitors Type 2 diabetes mellitus wit h hyperglycemia, with long-term current use of insulin 05/16/2019 Assessment & Plan (05/22/2024 2:27 PM CHEMICAL LABORATORY ASSISTANT): Chronic problem. Great improvement in A1c from [...] DM eye exam 3-4 mos ago at [facility] in [place]. Letter sent to get copy of report. [...] infection. Assessment & Plan (02/06/2024 10:01 AM CHEMICAL LABORATORY ASSISTANT): Chronic, uncontrolled, worsening Hemoglobin A1c 9.5%, goal [...] Bydureon Assessment & Plan (05/16/2019 2:55 PM CHEMICAL LABORATORY ASSISTANT): Hba1c was Lab Results Component Value Date [...] 05/16/2019 Assessment & Plan (05/22/2024 2:23 PM CHEMICAL LABORATORY ASSISTANT): Chronic problem. Currently taking Atorvastatin 20mg & fenofibrate 120mg nightly. Last lipid panel: 07/09/21 LDL=81, [place]=679. Relates that PCP had labs drawn earlier this month. Release signed to get copy of those labs. Assessment & Plan (02/06/2024 10:00 AM CHEMICAL LABORATORY ASSISTANT): Continue statin therapy and fenofibrate Assessment & Plan (11/28/2019 12:10 PM CDT): LDL above goal. Needs to focus on lower fat food choices. Education provided Assessment & Plan (05/16/2019 2:56 PM CHEMICAL LABORATORY ASSISTANT): Goal of treatment , LDL cholesterol less [...] 05/16/2019 Assessment & Plan (05/22/2024 2:24 PM CHEMICAL LABORATORY ASSISTANT): Chronic problem. Controlled on current lisinopril 20mg daily. Relates that PCP had labs drawn earlier this month. Release signed to get copy of those labs. Assessment & Plan (02/06/2024 10:00 AM CHEMICAL LABORATORY ASSISTANT): Chronic, well controlled Continue lisinopril Assessment & Plan (11/28/2019 12:09 PM CDT): Continue lisinopril. Follow DASH diet Assessment & Plan (05/16/2019 2:57 PM CHEMICAL LABORATORY ASSISTANT): Goal blood pressure is less than 140/85 Low salt diet recommended Daily aerobic exercise Continue current meds, including JERSEY-I or ARB Restart Lisinopril 20 mg daily Erectile dysfunction 01/08/2018 S/P cardiac cath 10/07/2016 Angina, class II 10/07/2016 Smoking addiction 10/07/2016 Assessment & Plan (02/06/2024 10:00 AM CHEMICAL LABORATORY ASSISTANT): Counseled patient to cut back and quit smoking Assessment & Plan (05/16/2019 2:55 PM CHEMICAL LABORATORY ASSISTANT): Smoking cessation discussed Pt not ready to quit. Coronary artery disease invo lving [place] coronary artery of [place] heart with unstable angina pectoris 10/07/2016 Social [...] on file Legal Sex Male 4:09 AM CHEMICAL LABORATORY ASSISTANT Gender Identity Not on file Sexual Orientation Not on file Last Filed Vital Signs Vital Sign Reading Time Taken Comments Blood Pressure 116/70 05/22/2024 1:33 PM CHEMICAL LABORATORY ASSISTANT Pulse 66 05/22/2024 1:33 PM CHEMICAL LABORATORY ASSISTANT Temperature 36.3 C (97.4 F) 01/17/2022 9:33 AM CDT Respiratory Rate 18 05/22/2024 1:33 PM CHEMICAL LABORATORY ASSISTANT Oxygen Saturation 94% 01/12/2022 11:30 AM CDT Inhaled Oxygen Concentration - - Weight 101.6 kg (224 lb) 05/22/2024 1:33 PM CHEMICAL LABORATORY ASSISTANT Height 180.3 cm (5' 10.98 ) 05/22/2024 1:[address] Body Mass Index 31.26 05/22/2024 1:33 PM CHEMICAL LABORATORY ASSISTANT Plan of Treatment Not on file Medical Devices Implanted Type Area [employer] An[employer] Device Identifier Shelf Expiration Date Model / Serial / Lot [employer] Niki Ams 700 Kit Accessory Penile Prosthesis [id number] - [id number] Implanted:Qty: 1 on 01/12/2022 by German Arenas MD at [facility] N/A: Penis [employer] Niki [id number] 12/26/2026 [id number] / / [id number] [employer] Niki Conceal Low Profile [place] 100ml Prosthesis Inhibizone Sterile Latex Free 086834-95 - [id number] Implanted:Qty: 1 on 01/12/2022 by German Arenas MD at [facility] N/A: Penis [employer] Niki [id number] 11/16/2023 [id number] / / [id number] [employer] Niki Prosthesis Penile Ams 700cx Ms Pump 18cm Preconnect 2 Cyl [id number] - [id number] Implanted:Qty: 1 on 01/12/2022 by German Arenas MD at [facility] N/A: Penis [employer] Niki [id number] 07/06/2023 [id number] / / [id number] [employer] Niki Ams Spectra 12/14mm 1cm Cylinder Concealable Malleable Rear Tip [id number] - [id number] Implanted:Qty: 1 on 01/12/2022 by German Arenas MD at [facility] N/A: Penis [employer] Niki [id number] 10/10/2026 [id number] / / [id number] Procedures Procedure Name Priority Date/Time Associated Diagnosis Comments ALBUMIN CREATININE RATIO, URINE Routine 05/22/2024 3:03 PM CHEMICAL LABORATORY ASSISTANT Type 2 diabetes mellitus with hyperglycemia, with long-term current use of insulin ([facility]) POCT GLUCOSE Routine 05/22/2024 1:38 PM CHEMICAL LABORATORY ASSISTANT Type 2 diabetes mellitus with hyperglycemia, with long-term current use of insulin ([facility]) POCT HEMOGLOBIN A1C Routine 05/22/2024 1 :38 PM CHEMICAL LABORATORY ASSISTANT Type 2 diabetes mellitus with hyperglycemia, with long-term current use of insulin ([facility]) TESTOSTERONE, FREE AND TOTAL, SERUM Routine 05/07/2024 10:06 AM CHEMICAL LABORATORY ASSISTANT PROSTATE SPECIFIC AG (PSA), DIAGNOSTIC Routine 05/07/2024 10:06 AM CHEMICAL LABORATORY ASSISTANT COMPREHENSIVE METABOLIC PANEL Routine 05/07/2024 10:06 AM CHEMICAL LABORATORY ASSISTANT POCT LIPID PANEL Routine 05/16/2019 1:39 PM CHEMICAL LABORATORY ASSISTANT Type 2 diabetes mellitus with hyperglycemia, with long-term current use of insulin (HCC) from Last 3 Months or Most Recently Relevant to Health Maintenance Results * Albumin Creatinine Ratio, Urine (05/22/2024 3:03 PM CHEMICAL LABORATORY ASSISTANT) Albumin Ur <12.0 mg/L Comment: Interpretive Data No reference range established. Current interpretive data was last revised 2018. Creatinine Ur 69.7 mg/dL JOSE Comment: Interpretive Data No reference range established. Current interpretive data was last revised 2018. Albumin Creatinine Ratio, Ur <17 1 - 29 mg/g JOSE Urine 05/22/2024 3:03 PM CHEMICAL LABORATORY ASSISTANT 05/22/2024 8:06 PM CHEMICAL LABORATORY ASSISTANT us Verenice Call NP LAB URINE ORDERABLES Jolie l Result JOSE [address] Department [place] [address] * (ABNORMAL) POCT hemoglobin A1c (05/22/2024 1:38 PM CHEMICAL LABORATORY ASSISTANT) Hemoglobin A1C, POC 6.8 4.0 - 5.6 % Blood 05/22/2024 1:38 PM CHEMICAL LABORATORY ASSISTANT us Verenice Call NP POINT OF CARE TEST ORDERA BLES Final Result * (ABNORMAL) POCT glucose (05/22/2024 1:38 PM CHEMICAL LABORATORY ASSISTANT) Glucose Blood, POC 181 mg/dL Blood 05/22/2024 1:38 PM CHEMICAL LABORATORY ASSISTANT Verenice Call NP POINT OF CARE TEST ORDERA BLES Final Result * Prostate Specific Ag (PSA), Diagnostic (05/07/2024 10:06 AM CHEMICAL LABORATORY ASSISTANT) Blood 05/07/2024 10:0 6 AM CHEMICAL LABORATORY ASSISTANT Impressions EXTERNAL LAB - 05/07/2024 10:20 AM CHEMICAL LABORATORY ASSISTANT Result: <0.1 (<=4.0) Historical Provider MD LAB BLOOD ORDERABLES Edit ed Result - Final EXTERNAL LAB * Testosterone, Free and Total, Serum (05/07/2024 10:06 AM CHEMICAL LABORATORY ASSISTANT) Blood 05/07/2024 10:0 6 AM CHEMICAL LABORATORY ASSISTANT Impressions EXTERNAL LAB - 05/07/2024 10:20 AM CHEMICAL LABORATORY ASSISTANT Testosterone Free: 26.2 (35.0-155.0) Testosterone Total: 286 (250-1100) [facility] Provider MD LAB BLOOD ORDERABLES Edit ed Result - Final EXTERNAL LAB * (ABNORMAL) Comprehensive metabolic panel (05/07/2024 10:06 AM CHEMICAL LABORATORY ASSISTANT) SCRIBED Sodium 140 137 - 145 mmol/L [...] Units/L EXTERNAL LAB SCRIBED eGFR in NonAfrican Citizen [place] 56 >=60 - NA EXTERNAL LAB Blood 05/07/2024 10:0 6 AM CHEMICAL LABORATORY ASSISTANT Historical Provider LAB BLOOD ORDERABLES Edit ed Result - Final EXTERNAL LAB * POCT lipid panel (05/16/2019 1:39 PM CHEMICAL LABORATORY ASSISTANT) Cholesterol, POC 299 mg/dL HDL, POC 22 mg/dL Triglycerides, POC 498 mg/dL LDL Cholesterol POC 177 mg/dL Chol/HDL Ratio, POC 13.7 Non-HDL Cholesterol, POC 277 mg/dL Cholesterol Total, POC 299 mg/dL Blood specimen (specimen) 05/16/2019 1:39 PM CHEMICAL LABORATORY ASSISTANT Damaris Daniel MD POINT OF CARE TEST ORDERABLES Fi nal Result from Last 3 Months or Most Recently Relevant to Health Maintenance [place] [address] [place] [id number] [facility] Care Teams Cycle Touring Guide Relationship Specialty Start Date End Date Emmanuel Brito MD PCP - General Family Medicine 12/08/21 Isaiah Dooley MD [address] [place] [address] Referring Physician Ophthalmology 05/28/24
--- OUTSIDE RECORDS SUMMARY | 2024-06-18 00:32 | XMS_ITS | Clinical Summary ---
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
[2024-06-18 06:04] VITALS: BP 126/85; PULSE 64; RESP 18; TEMP 36; O2SAT 97
[2024-06-18] MEDS: LACTATED RINGERS 1,000 ML 30 ML IV CONT (06:25)
[2024-06-18 06:30] LABS: Glucose Point of Care 129 mg/dl (65-105)
--- NOTE | 2024-06-18 08:02 | P.PNAN_ITS ---
Anes - Initial Pre Proc Eval Procedure: Operation Date: 06/18/24 08:30 Proposed Procedures p Thermal Radiofrequency Ablation of Bilateral L3, L4, L5 Medial Branch/Dorsal Rami Addressing Bilateral L4-5, L5-S1 Facet Joint Under Fluoroscopic Guidance - Jean Valente MD Date/Time: 06/18/24 08:02 Surgeon: Jean Valente MD Pre Op Diagnosis: spondylosis lumbosacral region Patient Data Age: 63 Gender: M Height: 1.8 m Weight: 99.8 kg Last Vital Signs Temp 36.0 C L 06/18/24 06:04 Pulse 64 06/18/24 06:04 Resp 18 06/18/24 06:04 BP 126/85 06/18/24 06:04 Pulse Ox 97 06/18/24 06:04 O2 Del Method Room Air 06/18/24 06:04 Allergies Allergy/AdvReac Type Severity Reaction Status Date / Time Sulfa (Sulfonamide AdvReac Severe Gastrointestinal Verified 06/18/24 06:57 Antibiotics) Upset naproxen AdvReac Intermediate Diarrhea Verified 06/18/24 06:57 Penicillins AdvReac Intermediate Nausea Verified 06/18/24 06:57 Home Medications ?Medication ?Instructions ?Recorded ?Confirmed ?Type lisinopril 20 mg tablet 20 mg PO DAILY #90 tabs 12/29/20 06/18/24 Rx atorvastatin 20 mg tablet 20 mg PO DAILY 06/07/23 06/18/24 History cyclobenzaprine 10 mg tablet 10 mg PO TID PRN Muscle Spasm 06/07/23 06/10/24 History gabapentin 300 mg capsule 600 mg PO BID 06/29/23 06/18/24 History hydrocodone 10 mg-acetaminophen 1 tablet PO Q6-8H PRN Pain (Scale 06/29/23 06/10/24 History 325 mg tablet Score 4-6) oxymetazoline 0.05 % nasal spray 1 spray intranasal BID PRN Nasal 06/29/23 06/10/24 History (12 Hour Nasal [place]) Congestion insulin glargine 100 unit/mL (3 50 unit subcut BID 10/18/23 06/18/24 History mL) subcutaneous pen (Lantus Solostar U-100 Insulin) liraglutide 0.6 mg/0.1 mL (18 mg/3 1.2 mg subcut DAILY 06/10/24 06/18/24 History mL) subcutaneous pen injector (Victoza 2-Alessandro) Laboratory Tests 06/18/24 06:25 POC Capillary Glucose 129 H mg/dl (65-105) Patient hx anesthesia problems: none Family hx anesthesia problems: none Results Review: All pre-operative results and documents have been reviewed as part of the pre- operative evaluation. [facility] Past Medical History Medical History Burst fracture of lumbar vertebra with delayed healing L3 vertebral fracture Obesity History of stroke with current residual effects Anxiety Excessive bleeding Congestion of nasal sinus Wears glasses History of MRSA infection Diabetic peripheral neuropathy associated with type 2 diabetes mellitus Fracture of fifth metatarsal bone of left foot Left foot pain Obstructive sleep apnea Describes symptoms but has never had a formal polysomnogram Essential hypertension Hyperlipidemia Peripheral neuropathy Insulin dependent diabetes mellitus COPD (chronic obstructive pulmonary disease) Tobacco use Erectile dysfunction following simple prostatectomy Prostate cancer Radical prostatectomy October 2015 with recurrence treated with radiation therapy March 2017 Depression Coronary artery disease involving [place] coronary artery of [place] heart Surgical History Surgical History S/P foot surgery, left History of carpal tunnel release (~1995) Left History of shoulder surgery (~2001) History of cardiac catheterization (~09/2016) 100% occlusion of the distal left circumflex artery with evidence of collaterals with several collaterals filling the left PDA, RCA is a small vessel with 50% lesion not amenable to intervention, 30-40% lesion will small diagonal branch of the LAD, left main coronary is mild stenosis 10-20% History of colonoscopy with polypectomy (~11/2017) Status post prostatectomy (~10/2015) Radical prostatectomy Family History Family History Mother Diabetes mellitus Hypertension Father COPD (chronic obstructive pulmonary disease) Social History Social History Social History: He has smoked up to 2 pack of cigarettes per day since the age of 14. He denies any significant alcohol use. He lives at home with his girlfriend. He has 2 adult children. 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 Primary care physician: Dr. Levar Melgar Code status: Full code Smoking packs per day: 0.5 Smoking cigarettes per day: 10.0 Years smoked: 50 Smoking pack-years: 25.00 Smoking status: Current every day smoker Tobacco type: cigarettes and e-cigarettes/vaping Second hand tobacco smoke exposure: Yes Additional smoking assessment comments: Down to 1/2 pack a day of cigarettes but vapes also. Alcohol intake: never Drinks per week: 1 Substance use: never Substance use type: does not use Do You Feel Safe in your Home?: Yes Lack of Transportation: No Lack of Food: Never True Current Housing: Decline to Answer Concerned About Future Housing: Decline to Answer Difficulty Paying Gas/Electric Bills: Decline to Answer Difficulty Paying for Meds: Decline to Answer Currently Unemployed: Decline to Answer Education: Decline to Answer Difficulty w/ Childcare or Family Care: Decline to Answer Living arrangements: with family Occupation/Education: occupation Spiritual care concerns: No Anes - Eval Final PreProcedure Day of Procedure 06/18/24 08:02 Patient weight: obese Heart: regular rate and rhythm Lungs: clear to auscultation Airway: Mallampati scale class II Neurological: alert and oriented Last oral intake: >/= 8 hours ASA classification: IV Emergent: no Anesthetic plan: proceed Anesthesia type and monitoring: general GIVS and standard monitoring Results Review: All pre-operative results and documents have been reviewed as part of the pre- operative evaluation. Informed Consent: The patient's anesthetic plan and its attendant risks and benefits were discussed with the patient/family/POA. Questions were solicited and answers provided to the satisfaction of the patient/family/POA.
--- NOTE | 2024-06-18 08:27 | PM.HPGS ---
History of Present Illness History of Present Illness Consent: Risks, benefits, and alternatives have been discussed and questions answered. Patient agrees to proceed with procedure. Chief complaint: spondylosis lumbosacral region, chronic low back p Narrative: Israel Ward is a 63 year old male with chronic, recalcitrant and disabling bilateral lumbosacral back pain secondary to degenerative spondylosis with failure to respond to aggressive conservative measures including PT, oral and topical analgesics, opioid and nonopioid analgesics, rest, time and activity/behavioral modification over the past 1-2 years who presents for thermal radiofrequency ablation of the bilateral L3, L4, L5 medial branches/dorsal ramus addressing the bilateral L4-5, L5-S1 facet joints under fluoroscopic guidance. Review of Systems Review of Systems: Patient denies any new infectious, allergic, cardiopulmonary, neurologic or constitutional symptoms or changes in activity tolerance or exercise capacity including new or progressive SOB/METCALF, peripheral edema, productive cough, dysuria, nausea/vomiting, diarrhea, weight change, fevers/chills/night sweats, new or progressive neurologic deficit, cognitive or mood changes since last seen, except as documented in the HPI. All systems reviewed & are unremarkable except as noted in HPI and below PMFSH Past Medical History Medical History Burst fracture of lumbar vertebra with delayed healing L3 vertebral fracture Obesity History of stroke with current residual effects Anxiety Excessive bleeding Congestion of nasal sinus Wears glasses History of MRSA infection Diabetic peripheral neuropathy associated with type 2 diabetes mellitus Fracture of fifth metatarsal bone of left foot Left foot pain Obstructive sleep apnea Describes symptoms but has never had a formal polysomnogram Essential hypertension Hyperlipidemia Peripheral neuropathy Insulin dependent diabetes mellitus COPD (chronic obstructive pulmonary disease) Tobacco use Erectile dysfunction following simple prostatectomy Prostate cancer Radical prostatectomy October 2015 with recurrence treated with radiation therapy March 2017 Depression Coronary artery disease involving [place] coronary artery of [place] heart Surgical History Surgical History S/P foot surgery, left History of carpal tunnel release (~1995) Left History of shoulder surgery (~2001) History of cardiac catheterization (~09/2016) 100% occlusion of the distal left circumflex artery with evidence of collaterals with several collaterals filling the left PDA, RCA is a small vessel with 50% lesion not amenable to intervention, 30-40% lesion will small diagonal branch of the LAD, left main coronary is mild stenosis 10-20% History of colonoscopy with polypectomy (~11/2017) Status post prostatectomy (~10/2015) Radical prostatectomy Family History Family History Mother Diabetes mellitus Hypertension Father COPD (chronic obstructive pulmonary disease) Social History Social History Social History: He has smoked up to 2 pack of cigarettes per day since the age of 14. He denies any significant alcohol use. He lives at home with his girlfriend. He has 2 adult children. 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 Primary care physician: Dr. Levar Melgar Code status: Full code Smoking packs per day: 0.5 Smoking cigarettes per day: 10.0 Years smoked: 50 Smoking pack-years: 25.00 Smoking status: Current every day smoker Tobacco type: cigarettes and e-cigarettes/vaping Second hand tobacco smoke exposure: Yes Additional smoking assessment comments: Down to 1/2 pack a day of cigarettes but vapes also. Alcohol intake: never Drinks per week: 1 Substance use: never Substance use type: does not use Do You Feel Safe in your Home?: Yes Lack of Transportation: No Lack of Food: Never True Current Housing: Decline to Answer Concerned About Future Housing: Decline to Answer Difficulty Paying Gas/Electric Bills: Decline to Answer Difficulty Paying for Meds: Decline to Answer Currently Unemployed: Decline to Answer Education: Decline to Answer Difficulty w/ Childcare or Family Care: Decline to Answer Living arrangements: with family Occupation/Education: occupation Spiritual care concerns: No Meds Home Medications and Allergies Home Medications ?Medication ?Instructions ?Recorded ?Confirmed ?Type lisinopril 20 mg tablet 20 mg PO DAILY #90 tabs 12/29/20 06/18/24 Rx atorvastatin 20 mg tablet 20 mg PO DAILY 06/07/23 06/18/24 History cyclobenzaprine 10 mg tablet 10 mg PO TID PRN Muscle Spasm 06/07/23 06/10/24 History gabapentin 300 mg capsule 600 mg PO BID 06/29/23 06/18/24 History hydrocodone 10 mg-acetaminophen 1 tablet PO Q6-8H PRN Pain (Scale 06/29/23 06/10/24 History 325 mg tablet Score 4-6) oxymetazoline 0.05 % nasal spray 1 spray intranasal BID PRN Nasal 06/29/23 06/10/24 History (12 Hour Nasal [place]) Congestion insulin glargine 100 unit/mL (3 50 unit subcut BID 10/18/23 06/18/24 History mL) subcutaneous pen (Lantus Solostar U-100 Insulin) liraglutide 0.6 mg/0.1 mL (18 mg/3 1.2 mg subcut DAILY 06/10/24 06/18/24 History mL) subcutaneous pen injector (Victoza 2-Alessandro) Allergies Allergy/AdvReac Type Severity Reaction Status Date / Time Sulfa (Sulfonamide AdvReac Severe Gastrointestinal Verified 06/18/24 06:57 Antibiotics) Upset naproxen AdvReac Intermediate Diarrhea Verified 06/18/24 06:57 Penicillins AdvReac Intermediate Nausea Verified 06/18/24 06:57 Vital Signs Vital Signs - 24 hr 06/18/24 06:04 Temperature 96.8 F L Pulse Rate 64 Respiratory Rate 18 Blood Pressure 126/85 Pulse Oximetry 97 Oxygen Delivery Room Air Exam Narrative: The patient's physical exam is essentially unchanged from prior examination on 04/22/2024. Specifically, patient demonstrates normal lung capacity, tidal volume and respiratory rate without wheezes, crackles, rales or rubs. Heart rate and rhythm are regular without murmurs, gallops or rubs. No JVD. Pulses 2+ globally without increasing peripheral edema. AAOx3 with no evidence of confusion, intoxication or altered mental state, NC/AT without acute distress or altered consciousness. Speech, cognition, mood, insight and judgment at baseline and within normal limits. Assessment and Plan Assessment and plan (1) Lumbosacral spondylosis: Code(s): M47.817 - Spondylosis without myelopathy or radiculopathy, lumbosacral region Status: Acute Assessment and Plan: Proceed as planned with thermal radiofrequency ablation of the bilateral L3, L4, L5 medial branches/dorsal ramus addressing the bilateral L4-5, L5-S1 facet joints under fluoroscopic guidance. (2) Chronic low back pain: Code(s): M54.50 - Low back pain, unspecified; G89.29 - Other chronic pain Status: Acute
--- NOTE | 2024-06-18 08:29 | WPDHPUPDATE1 ---
History and Physical Update Update Date/Time: 06/18/24 08:29 History and Physical has been reviewed, including an updated exam of the patient. There are NO changes in the patient's condition. Risks, benefits, and alternatives have been discussed and questions answered. Patient agrees to proceed with procedure.
--- NOTE | 2024-06-18 08:30 | P.OP_ITS ---
Procedure Note - Detailed Date of Procedure 06/18/24 Pre-op Diagnosis spondylosis lumbosacral region, chronic low back p Post-op Diagnosis Same Procedure Performed Thermal Radiofrequency Ablation of the bilateral Lumbar Medial Branches/Dorsal Ramus at the L3, L4, L5 Levels Treating the bilateral L4-5, L5-S1 Facet Joints Under Fluoroscopic Guidance (4 Levels Treated). Surgeon Jean Valente MD Home Management Supervisor None. Anesthesia Local (w/ MAC) Description of Procedure INFORMED CONSENT: Risks, benefits and alternatives to the procedure were discussed in detail with the patient who expressed explicit understanding and consent to proceed. Patient was informed verbally and in written form regarding the risks associated with the procedure including the low risk of serious infection, bleeding/bruising, allergic reaction, nerve or organ injury, paralysis, procedural site pain or discomfort, worsening pain and/or mobility, failure to treat and/or disfigurement. The patient expressed explicit understanding and consent to proceed. All materials required for the procedure were available prior to procedure start. Site and side were marked prior to procedure and confirmed in the presence of the patient. PROCEDURE IN DETAIL: The patient was brought to the procedural suite and placed in the prone position. Patient was made comfortable with use of pillows under the head/chest, hips and ankles. ASA standard monitors were applied and used throughout the procedure. Skin overlying the injection site on the affected side(s) was prepared broadly with ChloraPrep applicator and draped in a sterile manner. Aseptic technique was used throughout. The endplates of the vertebral bodies at the site(s) of interest were aligned in the AP view. Ipsilateral oblique angulation was utilized to optimize visualization of the intersection between the superior articulating process and transverse process at each target site. Local anesthesia was established by infiltration with approximately 5 mL of 1% lidocaine via a 1-1/2 inch 27-gauge needle divided over each site treated. A 16-gauge 150 mm Rentoboian RF needle with curved 10mm active tip was advanced in the AP view until the needle tip contacted the periosteum at the target site, the right L3 medial branch. Lateral view was utilized to adjust and confirm the appropriate placement of the needle tip just anterior to the facet line, superior to the pedicle and posterior to the foramen. Grounding electrode was in place and functioning. The appropriately-sized RF cannula was inserted into the RF needle and motor stimulation was performed with no subjective or objective evidence of recruited muscle activity with stimulation up to 2.0 volts at a frequency of 2Hz. 1.5 mL of 2.0% PF lidocaine was injected after negative aspiration. After a 90s pause, lesioning was performed to 90 degrees centigrade for 90s ensuring lack of symptoms in the extremity throughout. Needle was rotated 180 degrees and lesioning repeated in a similar manner. Patient tolerated this well. No parasthesias were elicited. Needle was removed completely intact without difficulty. The same procedure was repeated for all intended levels/ structures on the ipsilateral side, right L4, L5 medial branch/dorsal ramus with identical methodology, modified to compensate for new location, with similar results and no evidence of complication. The same exact procedure was repeated for all remaining levels on the contralat eral side, left L3, L4, L5 medial branches/dorsal ramus, modified as necessary to accommodate for the new target location with identical findings/results and no evidence of complication. Images were saved and documented in the patient chart. Patient's skin was cleansed and sterile bandage applied. The patient tolerated the procedure well. The patient was transported to the recovery area in stable condition where they were observed for an appropriate amount of time prior to discharge, without evidence of complication. The patient was instructed to avoid excessive activity for the next 48 hours, including climbing and frequent use of stairs. Showers only for 48 hours. They were instructed not to drive or operate heavy machinery for 24 hours. They are to monitor for severe headaches, fevers, chills, night sweats, erythema/swelling at the site or any other signs of infection, bleeding/bruising, bowel or bladder changes as well as new pain, weakness or numbness in the upper or lower extre mity. Should they notice these changes, they are instructed to call our office immediately or report directly to the nearest Emergency Department if no answer or if after posted office hours. COMPLICATIONS: None COMMENTS: None Complications No immediate complications Condition Stable Disposition PACU [facility] Billing Surgery - Charge Forward: Surgery Billing
[2024-06-18] MEDS: ceFAZolin 2 GM/D5W 50 ML 2 GM/50 ML BAG IVPB (08:47)
[2024-06-18] MEDS: BUPivacaine HCL 0.5% 10 ML AMP INFILTRATE (09:07)
[2024-06-18] MEDS: LIDOCAINE 2% PF LOCAL INJ 5 ML VIAL 10 ML INFILTRATE (09:08)
[2024-06-18 09:28] VITALS: BP 117/67; PULSE 56; RESP 14; O2SAT 96
[2024-06-18 09:36] LABS: Glucose Point of Care 86 mg/dl (65-105)
[2024-06-18 09:45] VITALS: BP 103/62; PULSE 62
[2024-06-18 10:15] VITALS: BP 94/68; PULSE 60
== END 2024-06-18 10:35 | disposition home or self-care (01) ==
PROVIDERS: PCP Family Medicine; Visit Provider Anesthesiology Pain Medicine
PROC: (CPT 64635; principal; 2024-06-18 08:30)
DX: M47.817 Spondylosis without myelopathy or radiculopathy, lumbosacral region (principal); G89.29 Other chronic pain; E11.42 Type 2 diabetes mellitus with diabetic polyneuropathy; F17.210 Nicotine dependence, cigarettes, uncomplicated; F17.290 Nicotine dependence, other tobacco product, uncomplicated; E66.9 Obesity, unspecified; Z68.30 Body mass index [BMI] 30.0-30.9, adult
CPT/HCPCS: 64635; 64636 ×6; 82948; 99199; J0690; J2003; J2250; J2704; J3010; J7120

== ENCOUNTER 2024-07-24 13:20 | Outpatient (CLI) | payer OTHER, SELFPAY ==
--- NOTE | ~2024-07-24 | XR_ITS ---
3 VIEWS LUMBAR SPINE Ordering provider: Jean Valente MD History: . S32.030G - Wedge compression fracture of third lumbar sidney... . Comparison: August 28, 2023 FINDINGS: VERTEBRAL BODIES:Vertebroplasty seen in T12 and L3 with old compression fractures. Otherwise, No visi ble fracture or subluxation. Degenerative changes of the spine. DISK SPACES: Narrowing of the disc L2-L3 and L5-S1. SOFT TISSUES: Aortic calcification. Right sacroiliitis. IMPRESSION: No acute osseous abnormality lumbar spine. Multilevel degenerative disc disease. Reviewed, dictated and finalized at location A.
--- OUTSIDE RECORDS SUMMARY | 2024-07-24 14:13 | XMS_ITS | Referral Summary ---
Author Organization [facility] [address] [facility] [address] Address [address] [place] [address] Care Team Providers Care Furnace And Wash Equipment Operator Name Role Phone Emmanuel Brito MD Primary Care Provider [phone] Isaiah Dooley MD Unavailable Encounters Date Type Department Care Team Description 06/24/2024 Telephone [facility] Medical [facility] Diabetes and Endocrinology [address] [place] [phone] Verenice Call NP 05/28/2024 Orders Only [facility] Medical [facility] Diabetes and Endocrinology [address] [place] [phone] Provider, MD Adelaide 05/28/2024 Telephone [facility] Diabetes and Endocrinology [address] [place] [phone] Verenice Call NP Lab reports 05/24/2024 Telephone [facility] Diabetes and Endocrinology [address] [place] [phone] Verenice Call NP Prior Auth (Ozempic) 05/24/2024 Results Follow-Up [facility] Diabetes and Endocrinology [address] [place] [phone] Verenice Call NP 05/22/2024 2:25 PM CHEESE GRADER - 05/22/2024 11:59 PM CHEESE GRADER Hospital Encounter [address] [address] Type 2 diabetes mellitus with hyperglycemia, with long-term current use of insulin ([facility]) Discharge Disposition: Discharge to home or self care 05/22/2024 2:15 PM CHEESE GRADER Lab [facility] Medical Group Outpatient Lab at [address] [phone] 05/22/2024 1:30 PM CHEESE GRADER Office Visit [facility] Diabetes and Endocrinology [address] [place] [phone] Verenice Call, KRISTI Type 2 diabetes mellitus with hyperglycemia, with long-term current use of insulin ([facility]) (Primary Dx); Hypertension associated with diabetes ([facility]); Combined hyperlipidemia associated with type 2 diabetes mellitus ([facility]); Stage 3a chronic kidney disease ([facility]) 05/01/2024 2:30 PM CHEESE GRADER Office Visit [facility] Ophthalmology [facility] [address] [place] [address] Kerwin Pope MD Diplopia [H53.2] (Primary Dx) [...] TEST BLOOD SUGAR TID 11 9 Active lisinopril (PRINIVIL,ZESTR IL) 20 mg tablet Take 1 tablet (20 mg total) by mouth daily 30 tablet 11 0 Active blood glucose diagnostic (True Metrix Glucose [...] mg total) by mouth nightly 4 Active pregabalin (LYRICA) 300 mg capsule [...] for muscle spasms Active Dexcom G7 Sensor deviceIndicatio ns:Type 2 diabetes mellitus with hyperglycemia, with long-term current use of insulin (HCC) Use one sensor every 10 days 9 each 3 4 Active pen needle, diabetic (TechLITE Pen Needle) 32 gauge x /32 needleIndicatio ns:Type 2 diabetes mellitus with hyperglycemia, with long-term current use of insulin (HCC) Use as directed with Liraglutide (Victoza) injection syringe. 100 each 3 5 Active insulin glargine (LANTUS) 100 unit/mL (3 mL) pen for injectionIndica tions:DM 2 Inject 50 Units under the skin 2 (two) times a day 45 mL 2 5 Active liraglutide (VICTOZA) 0.6 mg/0.1 mL (18 mg/3 mL) injectionIndica tions:type 2 diabetes mellitus Inject 1.2 mg under the skin daily Indications: type 2 diabetes mellitus 9 mL 3 5 Active Active Problems Problem Noted Date Diagnosed Date Peripheral neuropathy 05/01/2024 Prostate cancer 05/01/2024 Overview (05/01/2024): Status post (s/p) resection and radiation (2008) Myocardial infarct 05/01/2024 Stage 3a chronic kidney disease 02/06/2024 Assessment & Plan (05/22/2024 2:26 PM CHEESE GRADER): Chronic problem. Unknown status. Relates that PCP had labs drawn earlier this month. Release signed to get copy of those labs. Assessment & Plan (02/06/2024 10:01 AM CHEESE GRADER): Work on better glycemic control Hypertension well controlled Continue lisinopril Add SGLT2 inhibitors Type 2 diabetes mellitus wit h hyperglycemia, with long-term current use of insulin 05/16/2019 Assessment & Plan (05/22/2024 2:27 PM CHEESE GRADER): Chronic problem. Great improvement in A1c from [...] DM eye exam 3-4 mos ago at [facility] in [place]. Letter sent to get copy of report. [...] infection. Assessment & Plan (02/06/2024 10:01 AM CHEESE GRADER): Chronic, uncontrolled, worsening Hemoglobin A1c 9.5%, goal [...] Bydureon Assessment & Plan (05/16/2019 2:55 PM CHEESE GRADER): Hba1c was Lab Results Component Value Date [...] 05/16/2019 Assessment & Plan (05/22/2024 2:23 PM CHEESE GRADER): Chronic problem. Currently taking Atorvastatin 20mg & fenofibrate 120mg nightly. Last lipid panel: 07/09/21 LDL=81, FJ=952. Relates that PCP had labs drawn earlier this month. Release signed to get copy of those labs. Assessment & Plan (02/06/2024 10:00 AM CHEESE GRADER): Continue statin therapy and fenofibrate Assessment & Plan (11/28/2019 12:10 PM CDT): LDL above goal. Needs to focus on lower fat food choices. Education provided Assessment & Plan (05/16/2019 2:56 PM CHEESE GRADER): Goal of treatment , LDL cholesterol less [...] 05/16/2019 Assessment & Plan (05/22/2024 2:24 PM CHEESE GRADER): Chronic problem. Controlled on current lisinopril 20mg daily. Relates that PCP had labs drawn earlier this month. Release signed to get copy of those labs. Assessment & Plan (02/06/2024 10:00 AM CHEESE GRADER): Chronic, well controlled Continue lisinopril Assessment & Plan (11/28/2019 12:09 PM CDT): Continue lisinopril. Follow DASH diet Assessment & Plan (05/16/2019 2:57 PM CHEESE GRADER): Goal blood pressure is less than 140/85 Low salt diet recommended Daily aerobic exercise Continue current meds, including JERSEY-I or ARB Restart Lisinopril 20 mg daily Erectile dysfunction 01/08/2018 S/P cardiac cath 10/07/2016 Angina, class II 10/07/2016 Smoking addiction 10/07/2016 Assessment & Plan (02/06/2024 10:00 AM CHEESE GRADER): Counseled patient to cut back and quit smoking Assessment & Plan (05/16/2019 2:55 PM CHEESE GRADER): Smoking cessation discussed Pt not ready to quit. Coronary artery disease invo lving resighini coronary artery of resighini heart with unstable angina pectoris 10/07/2016 Social [...] on file Legal Sex Male 4:09 AM CHEESE GRADER Gender Identity Not on file Sexual Orientation Not on file Last Filed Vital Signs Vital Sign Reading Time Taken Comments Blood Pressure 116/70 05/22/2024 1:33 PM CHEESE GRADER Pulse 66 05/22/2024 1:33 PM CHEESE GRADER Temperature 36.3 C (97.4 F) 01/17/2022 9:33 AM CDT Respiratory Rate 18 05/22/2024 1:33 PM CHEESE GRADER Oxygen Saturation 94% 01/12/2022 11:30 AM CDT Inhaled Oxygen Concentration - - Weight 101.6 kg (224 lb) 05/22/2024 1:33 PM CHEESE GRADER Height 180.3 cm (5' 10.98 ) 05/22/2024 1:[address] Body Mass Index 31.26 05/22/2024 1:33 PM CHEESE GRADER Plan of Treatment Not on file Medical Devices Implanted Type Area Solution Manager Device Identifier Shelf Expiration Date Model / Serial / Lot [employer] Niki Ams 700 Kit Accessory Penile Prosthesis [id number] - [id number] Implanted:Qty: 1 on 01/12/2022 by German Arenas MD at [facility] N/A: Penis [employer] Niki [id number] 12/26/2026 [id number] / / [id number] [employer] Niki Conceal Low Profile [place] 100ml Prosthesis Inhibizone Sterile Latex Free [id number] - [id number] Implanted:Qty: 1 on 01/12/2022 by German Arenas MD at [facility] N/A: Penis [employer] Niki [id number] 11/16/2023 [id number] / / [id number] [employer] Niki Prosthesis Penile Ams 700cx Ms Pump 18cm Preconnect 2 Cyl [id number] - [id number] Implanted:Qty: 1 on 01/12/2022 by German Arenas MD at [facility] N/A: Penis [employer] Niki [id number] 07/06/2023 [id number] / / [id number] [employer] Niki Ams Spectra 12/14mm 1cm Cylinder Concealable Malleable Rear Tip [id number] - [id number] Implanted:Qty: 1 on 01/12/2022 by German Arenas MD at [facility] N/A: Penis [employer] Niki [id number] 10/10/2026 [id number] / / [id number] Procedures Procedure Name Priority Date/Time Associated Diagnosis Comments ALBUMIN CREATININE RATIO, URINE Routine 05/22/2024 3:03 PM CHEESE GRADER Type 2 diabetes mellitus with hyperglycemia, with long-term current use of insulin (HCC) POCT GLUCOSE Routine 05/22/2024 1:38 PM CHEESE GRADER Type 2 diabetes mellitus with hyperglycemia, with long-term current use of insulin (HCC) POCT HEMOGLOBIN A1C Routine 05/22/2024 1 :38 PM CHEESE GRADER Type 2 diabetes mellitus with hyperglycemia, with long-term current use of insulin (HCC) TESTOSTERONE, FREE AND TOTAL, SERUM Routine 05/07/2024 10:06 AM CHEESE GRADER PROSTATE SPECIFIC AG (PSA), DIAGNOSTIC Routine 05/07/2024 10:06 AM CHEESE GRADER COMPREHENSIVE METABOLIC PANEL Routine 05/07/2024 10:06 AM CHEESE GRADER POCT LIPID PANEL Routine 05/16/2019 1:39 PM CHEESE GRADER Type 2 diabetes mellitus with hyperglycemia, with long-term current use of insulin (HCC) from Last 3 Months or Most Recently Relevant to Health Maintenance Results * Albumin Creatinine Ratio, Urine (05/22/2024 3:03 PM CHEESE GRADER) Albumin Ur <12.0 mg/L Comment: Interpretive Data No reference range established. Current interpretive data was last revised 2018. Creatinine Ur 69.7 mg/dL [facility] Comment: Interpretive Data No reference range established. Current interpretive data was last revised 2018. Albumin Creatinine Ratio, Ur <17 1 - 29 mg/g [facility] Urine 05/22/2024 3:03 PM CHEESE GRADER 05/22/2024 8:06 PM CHEESE GRADER us Verenice Call NP LAB URINE ORDERABLES Jolie l Result [facility]SE [facility] [address] Department [place] [address] * (ABNORMAL) POCT hemoglobin A1c (05/22/2024 1:38 PM CHEESE GRADER) Hemoglobin A1C, POC 6.8 4.0 - 5.6 % Blood 05/22/2024 1:38 PM CHEESE GRADER Verenice Call INDUSTRIAL SAFETY AND HEALTH MANAGER POINT OF CARE TEST ORDERA BLES Final Result * (ABNORMAL) POCT glucose (05/22/2024 1:38 PM CHEESE GRADER) Glucose Blood, POC 181 mg/dL Blood 05/22/2024 1:38 PM CHEESE GRADER Result [facility] Verenice Call INDUSTRIAL SAFETY AND HEALTH MANAGER POINT OF CARE TEST ORDERA BLES Final Result * Prostate Specific Ag (PSA), Diagnostic (05/07/2024 10:06 AM CHEESE GRADER) Blood 05/07/2024 10:0 6 AM CHEESE GRADER Impressions EXTERNAL LAB - 05/07/2024 10:20 AM CHEESE GRADER Result: <0.1 (<=4.0) Result [facility] Historical Provider MD LAB BLOOD ORDERABLES Edit ed Result - Final Performing Organization Address City/[facility]/ZIP Co de Phone Number EXTERNAL LAB * Testosterone, Free and Total, Serum (05/07/2024 10:06 AM CHEESE GRADER) Blood 05/07/2024 10:0 6 AM CHEESE GRADER Impressions EXTERNAL LAB - 05/07/2024 10:20 AM CHEESE GRADER Testosterone Free: 26.2 (35.0-155.0) Testosterone Total: 286 (250-1100) Result [facility] Historical Provider MD LAB BLOOD ORDERABLES Edit ed Result - Final EXTERNAL LAB * (ABNORMAL) Comprehensive metabolic panel (05/07/2024 10:06 AM CHEESE GRADER) SCRIBED Sodium 140 137 - 145 mmol/L [...] Units/L EXTERNAL LAB SCRIBED eGFR in NonAfrican Faroese 56 >=60 - NA EXTERNAL LAB Blood 05/07/2024 10:0 6 AM CHEESE GRADER Historical Provider LAB BLOOD ORDERABLES Edit ed Result - Final EXTERNAL LAB * POCT lipid panel (05/16/2019 1:39 PM CHEESE GRADER) Cholesterol, POC 299 mg/dL HDL, POC 22 mg/dL Triglycerides, POC 498 mg/dL LDL Cholesterol POC 177 mg/dL Chol/HDL Ratio, POC 13.7 Non-HDL Cholesterol, POC 277 mg/dL Cholesterol Total, POC 299 mg/dL Blood specimen (specimen) 05/16/2019 1:39 PM CHEESE GRADER Damaris Daniel MD POINT OF CARE TEST ORDERABLES Fi nal Result from Last 3 Months or Most Recently Relevant to Health Maintenance [place] [address] [address] [place] [address] [facility] Member Subscriber Plan / Payer (Ef fective 2023-Present) Name:Israel Ward Relation to Subscriber:Self Name:Israel Ward Payer ID:[id number] (NAIC) Group ID:Not on file Type:MEDICAID RISK OTHER Address: ATTN: CLAIMS DEPT [address] [place] [phone] [facility] Member Subscriber Plan / Payer (Ef fective 2023-Present) Name:Israel Ward Relation to Subscriber:Self Name:Israel Ward Payer ID:[id number] (NAIC) Group ID:Not on file Type:MEDICAID RISK OTHER Address: ATTN: CLAIMS DEPT [address] [place] [phone] Care Teams Furnace And Wash Equipment Operator Relationship Specialty Start Date End Date Emmanuel Brito MD PCP - General Family Medicine 12/08/21 Isaiah Dooley MD [address] [place] [address] Referring Physician Ophthalmology 05/28/24
--- OUTSIDE RECORDS SUMMARY | 2024-07-24 14:13 | XMS_ITS | Clinical Summary ---
Author Organization [facility] Address [address] [place] [address] Care Team Providers Care Business Analysis Consultant Name Role Phone Unavailable Primary Care Provider Unavailabl e Social History Tobacco Use Types Packs/Day Years Used Date Smoking Tobacco: Never Assessed Sex and Gender Information Value Date Recorded Sex Assigned at Not on file Legal Sex Male 5:45 PM TELEMARKETING AGENT Gender Identity Not on file Sexual Orientation Not on file Plan of Treatment Health Maintenance Due Date Last Done Comments Colorectal Cancer Screening Colonoscopy (10 Years) 1959 Annual Physical 12/20/1962 Hepatitis C 12/20/1977 DTaP, Tdap and Td Vaccines ( 1 - Tdap) 12/20/1978 Pneumococcal Vaccine: 50+ Ye ars (1 of 1 - PCV) 12/20/2009 Zoster Vaccines (1 of 2) 12/20/2009 COVID-19 Vaccine ( - 2023-2 5 season) 2023 RSV Immunization or 60+ Years (1 [...]
--- OUTSIDE RECORDS SUMMARY | 2024-07-24 14:13 | XMS_ITS | CONTINUITY OF CARE DOCUMENT ---
Author Name [email or web address] Address Unknown Organization [facility] Address [address] [facility] [facility] [address] [place] [address] Phone [phone] Care Team Providers Care Brazer Electronic Name Role Phone Zachery KIMBLE, Venkata Soto Unavailable [phone] RUTH JULIEN DO Unavailable [phone] RUTH JULIEN DO Unavailable [phone] INSURANCE PROVIDERS Payer name Policy type / Coverage type [place] red libertarian ID [employer] [place] Medicaid [id number]
--- OUTSIDE RECORDS SUMMARY | 2024-07-24 14:13 | XMS_ITS | Clinical Summary ---
Author Organization [facility] [address] Address [address] [place] [address] Care Team Providers Care Sole Layer Hand Name Role Phone Emmanuel Brito MD Primary Care Provider [phone] Isaiah Dooley MD Unavailable [phone] Allergies Active Allergy Reactions Criticality Noted [...] diabetic (TechLITE Pen Needle) 32 gauge x needleIndicatio ns:Type 2 diabetes mellitus with hyperglycemia, [...] 02/06/2024 Assessment & Plan (05/22/2024 2:26 PM SOLDERER ASSEMBLER): Chronic problem. Unknown status. Relates that PCP had labs drawn earlier this month. Release signed to get copy of those labs. Assessment & Plan (02/06/2024 10:01 AM SOLDERER ASSEMBLER): Work on better glycemic control Hypertension well controlled Continue lisinopril Add SGLT2 inhibitors Type 2 diabetes mellitus wit h hyperglycemia, with long-term current use of insulin 05/16/2019 Assessment & Plan (05/22/2024 2:27 PM SOLDERER ASSEMBLER): Chronic problem. Great improvement in A1c from [...] DM eye exam 3-4 mos ago at [facility] in [place]. Letter sent to get copy of report. [...] infection. Assessment & Plan (02/06/2024 10:01 AM SOLDERER ASSEMBLER): Chronic, uncontrolled, worsening Hemoglobin A1c 9.5%, goal [...] Bydureon Assessment & Plan (05/16/2019 2:55 PM SOLDERER ASSEMBLER): Hba1c was Lab Results Component Value Date [...] 05/16/2019 Assessment & Plan (05/22/2024 2:23 PM SOLDERER ASSEMBLER): Chronic problem. Currently taking Atorvastatin 20mg & fenofibrate 120mg nightly. Last lipid panel: 07/09/21 LDL=81, MQ=112. Relates that PCP had labs drawn earlier this month. Release signed to get copy of those labs. Assessment & Plan (02/06/2024 10:00 AM SOLDERER ASSEMBLER): Continue statin therapy and fenofibrate Assessment & Plan (11/28/2019 12:10 PM CDT): LDL above goal. Needs to focus on lower fat food choices. Education provided Assessment & Plan (05/16/2019 2:56 PM SOLDERER ASSEMBLER): Goal of treatment , LDL cholesterol less [...] 05/16/2019 Assessment & Plan (05/22/2024 2:24 PM SOLDERER ASSEMBLER): Chronic problem. Controlled on current lisinopril 20mg daily. Relates that PCP had labs drawn earlier this month. Release signed to get copy of those labs. Assessment & Plan (02/06/2024 10:00 AM SOLDERER ASSEMBLER): Chronic, well controlled Continue lisinopril Assessment & Plan (11/28/2019 12:09 PM CDT): Continue lisinopril. Follow DASH diet Assessment & Plan (05/16/2019 2:57 PM SOLDERER ASSEMBLER): Goal blood pressure is less than 140/85 Low salt diet recommended Daily aerobic exercise Continue current meds, including JERSEY-I or ARB Restart Lisinopril 20 mg daily Erectile dysfunction 01/08/2018 S/P cardiac cath 10/07/2016 Angina, class II 10/07/2016 Smoking addiction 10/07/2016 Assessment & Plan (02/06/2024 10:00 AM SOLDERER ASSEMBLER): Counseled patient to cut back and quit smoking Assessment & Plan (05/16/2019 2:55 PM SOLDERER ASSEMBLER): Smoking cessation discussed Pt not ready to quit. Coronary artery disease invo lving [facility] [place] coronary artery of [facility] heart with unstable angina pectoris 10/07/2016 Encounters Date Type Department Care Team Description 06/24/2024 Telephone [facility] Medical [facility] Diabetes and Endocrinology [address] [place] [phone] Verenice Call NP 05/28/2024 Orders Only [facility] Diabetes and Endocrinology [address] [place] [phone] Provider, MD Adelaide 05/28/2024 Telephone [facility] Diabetes and Endocrinology [address] [place] [phone] Verenice Call NP Lab reports 05/24/2024 Telephone [facility] Diabetes and Endocrinology [address] [place] [phone] Verenice Call NP Prior Auth (Ozempic) 05/24/2024 Results Follow-Up [facility] Diabetes and Endocrinology [address] [place] [phone] Verenice Call NP 05/22/2024 2:25 PM SOLDERER ASSEMBLER - 05/22/2024 11:59 PM SOLDERER ASSEMBLER Hospital Encounter [address] [address] Type 2 diabetes mellitus with hyperglycemia, with long-term current use of insulin (HCC) Discharge Disposition: Discharge to home or self care 05/22/2024 2:15 PM SOLDERER ASSEMBLER Lab [facility] Medical Group Outpatient Lab at [address] [phone] 05/22/2024 1:30 PM SOLDERER ASSEMBLER Office Visit [facility] Diabetes and Endocrinology [address] [place] [phone] Verenice Call NP Type 2 diabetes mellitus with hyperglycemia, with long-term current use of insulin (HCC) (Primary Dx); Hypertension associated with diabetes (HCC); Combined hyperlipidemia associated with type 2 diabetes mellitus (HCC); Stage 3a chronic kidney disease (HCC) 05/01/2024 2:30 PM SOLDERER ASSEMBLER Office Visit [facility] Ophthalmology [facility] [address] [place] [address] Kerwin Pope MD Diplopia [H53.2] [...] on file Legal Sex Male 4:09 AM SOLDERER ASSEMBLER Gender Identity Not on file Sexual Orientation Not on file Obstetrics History Last Filed Vital Signs Vital Sign Reading Time Taken Comments Blood Pressure 116/70 05/22/2024 1:33 PM SOLDERER ASSEMBLER Pulse 66 05/22/2024 1:33 PM SOLDERER ASSEMBLER Temperature 36.3 C (97.4 F) 01/17/2022 9:33 AM CDT Respiratory Rate 18 05/22/2024 1:33 PM SOLDERER ASSEMBLER Oxygen Saturation 94% 01/12/2022 11:30 AM CDT Inhaled Oxygen Concentration - - Weight 101.6 kg (224 lb) 05/22/2024 1:33 PM SOLDERER ASSEMBLER Height 180.3 cm (5' 10.98 ) 05/22/2024 1:[address] Body Mass Index 31.26 05/22/2024 1:33 PM SOLDERER ASSEMBLER Plan of Treatment Health Maintenance Due Date [...] 05/07/2025 05/07/2024 Albumin Creatinine Ratio, Urine 05/22/2025 5 Medical Devices Implanted Type Area Property Supervisor Device Identifier Shelf Expiration Date Model / Serial / Lot [employer] Niki Ams 700 Kit Accessory Penile Prosthesis [id number] - [id number] Implanted:Qty: 1 on 01/12/2022 by German Arenas MD at [facility] N/A: Penis [employer] Niki [id number] 12/26/2026 [id number] / / [id number] [employer] Niki Conceal Low Profile [place] 100ml Prosthesis Inhibizone Sterile Latex Free [id number] - [id number] Implanted:Qty: 1 on 01/12/2022 by German Arenas MD at [facility] N/A: Penis [employer] Niki [id number] 11/16/2023 [id number] / / [id number] [employer] Niki Prosthesis Penile Ams 700cx Ms Pump 18cm Preconnect 2 Cyl [id number] - [id number] Implanted:Qty: 1 on 01/12/2022 by German Arenas MD at [facility] N/A: Penis [employer] Niki [id number] 07/06/2023 [id number] / / [id number] [employer] Niki Ams Spectra 12/14mm 1cm Cylinder Concealable Malleable Rear Tip [id number] - [id number] Implanted:Qty: 1 on 01/12/2022 by German Arenas MD at [facility] N/A: Penis [employer] Niki [id number] 10/10/2026 [id number] / / [id number] Procedures Procedure Name Priority Date/Time Associated Diagnosis Comments ALBUMIN CREATININE RATIO, URINE Routine 05/22/2024 3:03 PM SOLDERER ASSEMBLER Type 2 diabetes mellitus with hyperglycemia, with long-term current use of insulin (HCC) POCT GLUCOSE Routine 05/22/2024 1:38 PM SOLDERER ASSEMBLER Type 2 diabetes mellitus with hyperglycemia, with long-term current use of insulin (HCC) POCT HEMOGLOBIN A1C Routine 05/22/2024 1 :38 PM SOLDERER ASSEMBLER Type 2 diabetes mellitus with hyperglycemia, with long-term current use of insulin (HCC) TESTOSTERONE, FREE AND TOTAL, SERUM Routine 05/07/2024 10:06 AM SOLDERER ASSEMBLER PROSTATE SPECIFIC AG (PSA), DIAGNOSTIC Routine 05/07/2024 10:06 AM SOLDERER ASSEMBLER COMPREHENSIVE METABOLIC PANEL Routine 05/07/2024 10:06 AM SOLDERER ASSEMBLER POCT LIPID PANEL Routine 05/16/2019 1:39 PM SOLDERER ASSEMBLER Type 2 diabetes mellitus with hyperglycemia, with long-term current use of insulin (HCC) from Last 3 Months or Most Recently Relevant to Health Maintenance Results * Albumin Creatinine Ratio, Urine (05/22/2024 3:03 PM SOLDERER ASSEMBLER) Albumin Ur <12.0 mg/L Comment: Interpretive Data No reference range established. Current interpretive data was last revised 2018. Creatinine Ur 69.7 mg/dL JO[facility] BULL Comment: Interpretive Data No reference range established. Current interpretive data was last revised 2018. Albumin Creatinine Ratio, Ur <17 1 - 29 mg/g JOSE BULL Urine 05/22/2024 3:03 PM SOLDERER ASSEMBLER 05/22/2024 8:06 PM SOLDERER ASSEMBLER us Verenice Call NP LAB URINE ORDERABLES Jolie l Result JOSE BULL [address] Department [place] [address] * (ABNORMAL) POCT hemoglobin A1c (05/22/2024 1:38 PM SOLDERER ASSEMBLER) Hemoglobin A1C, POC 6.8 4.0 - 5.6 % Blood 05/22/2024 1:38 PM SOLDERER ASSEMBLER Verenice Call NP POINT OF CARE TEST ORDERA BLES Final Result * (ABNORMAL) POCT glucose (05/22/2024 1:38 PM SOLDERER ASSEMBLER) Glucose Blood, POC 181 mg/dL Blood 05/22/2024 1:38 PM SOLDERER ASSEMBLER Verenice Call FRUIT BUYER POINT OF CARE TEST ORDERA BLES Final Result * Prostate Specific Ag (PSA), Diagnostic (05/07/2024 10:06 AM SOLDERER ASSEMBLER) Blood 05/07/2024 10:0 6 AM SOLDERER ASSEMBLER Impressions EXTERNAL LAB - 05/07/2024 10:20 AM SOLDERER ASSEMBLER Result: <0.1 (<=4.0) Result [facility] Historical Provider MD LAB BLOOD ORDERABLES Edit ed Result - Final EXTERNAL LAB * Testosterone, Free and Total, Serum (05/07/2024 10:06 AM SOLDERER ASSEMBLER) Blood 05/07/2024 10:0 6 AM SOLDERER ASSEMBLER Impressions EXTERNAL LAB - 05/07/2024 10:20 AM SOLDERER ASSEMBLER Testosterone Free: 26.2 (35.0-155.0) Testosterone Total: 286 (250-1100) Result [facility] Historical Provider MD LAB BLOOD ORDERABLES Edit ed Result - Final EXTERNAL LAB * (ABNORMAL) Comprehensive metabolic panel (05/07/2024 10:06 AM SOLDERER ASSEMBLER) SCRIBED Sodium 140 137 - 145 mmol/L [...] Units/L EXTERNAL LAB SCRIBED eGFR in NonAfrican [place] 56 >=60 - NA EXTERNAL LAB Blood 05/07/2024 10:0 6 AM SOLDERER ASSEMBLER Historical Provider LAB BLOOD ORDERABLES Edit ed Result - Final EXTERNAL LAB * POCT lipid panel (05/16/2019 1:39 PM SOLDERER ASSEMBLER) Cholesterol, POC 299 mg/dL HDL, POC 22 mg/dL Triglycerides, POC 498 mg/dL LDL Cholesterol POC 177 mg/dL Chol/HDL Ratio, POC 13.7 Non-HDL Cholesterol, POC 277 mg/dL Cholesterol Total, POC 299 mg/dL Blood specimen (specimen) 05/16/2019 1:39 PM SOLDERER ASSEMBLER Damaris Daniel MD POINT OF CARE TEST ORDERABLES Fi nal Result from Last 3 Months or Most Recently Relevant to Health Maintenance Insurance [facility] Care Teams Sole Layer Hand Relationship Specialty Start Date End Date Emmanuel Brito MD PCP - General Family Medicine 12/08/21 Isaiah Dooley MD [address] [place] [address] Referring Physician Ophthalmology 05/28/24
== END 2024-07-24 13:21 | disposition home or self-care (01) ==
PROVIDERS: Visit Provider Anesthesiology Pain Medicine
DX: M51.369 Other intervertebral disc degeneration, lumbar region without mention of lumbar back pain or lower extremity pain (principal); M51.379 Other intervertebral disc degeneration, lumbosacral region without mention of lumbar back pain or lower extremity pain; Z98.890 Other specified postprocedural states; S32.030G Wedge compression fracture of third lumbar vertebra, subsequent encounter for fracture with delayed healing
CPT/HCPCS: 72114

== ENCOUNTER 2024-08-10 09:37 | Outpatient (CLI) | payer OTHER, SELFPAY ==
--- NOTE | ~2024-08-10 | MR_ITS ---
MRI of the lumbar spine Clinical History: Back pain Technique: Axial T2-weighted images, and sagittal T1-weighted, T2-weighted, and T2 fat-sat images wer e acquired. COMPARISON: 08/10/2023 Findings: Status post interval vertebroplasty of T12. Probable additional prior vertebroplasty at L3, the cement appears largely at the anterior disc space at the L2-L3 level. No acute fracture evident. There is grade 1 retrolisthesis of L2 over L3. At L1-L2, there is no disc bulge or herniation. There is moderate facet arthropathy. No central canal stenosis or neural foraminal narrowing. L2-L3, there is severe degenerative spurring. There is diffuse disc bulge and moderate severe facet a rthropathy. There is minimal central canal stenosis. There is mild bilateral neural foraminal narrowi ng. At L3-L4, there is mild degenerative disc narrowing with diffuse disc bulge and moderate to advanced facet arthropathy. No central canal stenosis. There is moderate to advanced left neural foraminal kaiser rowing. There is minimal right neural foraminal narrowing. There is left lateral recess stenosis. At L4-L5, there is mild disc bulge with moderate to advanced facet arthropathy. No central canal sten osis. There is moderate left neural foraminal narrowing, and mild right neural foraminal narrowing. At L5-S1, there is minimal disc bulge and severe facet arthropathy. No central canal stenosis or defi nite neural foraminal narrowing. Paravertebral soft tissues are unremarkable. Impression: Moderate spondylosis overall, as detailed above. Prior vertebroplasty at T12 and L3, as above. Reviewed, dictated and finalized at [facility]. Impression: Moderate spondylosis overall, as detailed above. Prior vertebroplasty at T12 and L3, as above.
--- OUTSIDE RECORDS SUMMARY | 2024-08-10 09:47 | XMS_ITS | Referral Summary ---
Author Organization [facility] [address] [facility] [address] [place] [address] Care Team Providers Care Tong Setter Name Role Phone Emmanuel Brito MD Primary Care Provider [phone] Isaiah Dooley MD Unavailable Encounters Date Type Department Care Team Description 06/24/2024 Telephone [facility] Medical [facility] Diabetes and Endocrinology [address] [place], [place] [phone] Verenice Call NP 05/28/2024 Orders Only [facility] Medical [facility] Diabetes and Endocrinology [address] [place] [phone] Provider, MD Adelaide 05/28/2024 Telephone [facility] Diabetes and Endocrinology [address] [place] [phone] Verenice Call NP Lab reports 05/24/2024 Telephone [facility] Diabetes and Endocrinology [address] [place] [phone] Verenice Call NP Prior Auth (Ozempic) 05/24/2024 Results Follow-Up [facility] Diabetes and Endocrinology [address] [place] [phone] Verenice Call NP 05/22/2024 2:25 PM REGISTERED NURSE AMBULATORY - 05/22/2024 11:59 PM REGISTERED NURSE AMBULATORY Hospital Encounter [address] [address] Type 2 diabetes mellitus with hyperglycemia, with long-term current use of insulin ([facility]) Discharge Disposition: Discharge to home or self care 05/22/2024 2:15 PM REGISTERED NURSE AMBULATORY Lab [facility] Medical [facility] Outpatient Lab at [address] [phone] 05/22/2024 1:30 PM REGISTERED NURSE AMBULATORY Office Visit [facility] Diabetes and Endocrinology [address] [place] [phone] Verenice Call, KRISTI Type 2 diabetes mellitus with hyperglycemia, with long-term current use of insulin (HCC) (Primary Dx); Hypertension associated with diabetes (HCC); Combined hyperlipidemia associated with type 2 diabetes mellitus ([facility]); Stage 3a chronic kidney disease ([facility]) from Last 3 Months Allergies Active Allergy [...] with long-term current use of insulin ([facility]) Use one sensor every 10 days 9 [...] 02/06/2024 Assessment & Plan (05/22/2024 2:26 PM REGISTERED NURSE AMBULATORY): Chronic problem. Unknown status. Relates that PCP had labs drawn earlier this month. Release signed to get copy of those labs. Assessment & Plan (02/06/2024 10:01 AM REGISTERED NURSE AMBULATORY): Work on better glycemic control Hypertension well controlled Continue lisinopril Add SGLT2 inhibitors Type 2 diabetes mellitus wit h hyperglycemia, with long-term current use of insulin 05/16/2019 Assessment & Plan (05/22/2024 2:27 PM REGISTERED NURSE AMBULATORY): Chronic problem. Great improvement in A1c from 9.5% 11/11/24 to now 6.8%. Relates that he had [...] DM eye exam 3-4 mos ago at [facility] in [place]. Letter sent to get copy of report. [...] infection. Assessment & Plan (02/06/2024 10:01 AM REGISTERED NURSE AMBULATORY): Chronic, uncontrolled, worsening Hemoglobin A1c 9.5%, goal [...] Bydureon Assessment & Plan (05/16/2019 2:55 PM REGISTERED NURSE AMBULATORY): Hba1c was Lab Results Component Value Date [...] 05/16/2019 Assessment & Plan (05/22/2024 2:23 PM REGISTERED NURSE AMBULATORY): Chronic problem. Currently taking Atorvastatin 20mg & fenofibrate 120mg nightly. Last lipid panel: 07/09/21 LDL=81, ZJ=583. Relates that PCP had labs drawn earlier this month. Release signed to get copy of those labs. Assessment & Plan (02/06/2024 10:00 AM REGISTERED NURSE AMBULATORY): Continue statin therapy and fenofibrate Assessment & Plan (11/28/2019 12:10 PM CDT): LDL above goal. Needs to focus on lower fat food choices. Education provided Assessment & Plan (05/16/2019 2:56 PM REGISTERED NURSE AMBULATORY): Goal of treatment , LDL cholesterol less [...] 05/16/2019 Assessment & Plan (05/22/2024 2:24 PM REGISTERED NURSE AMBULATORY): Chronic problem. Controlled on current lisinopril 20mg daily. Relates that PCP had labs drawn earlier this month. Release signed to get copy of those labs. Assessment & Plan (02/06/2024 10:00 AM REGISTERED NURSE AMBULATORY): Chronic, well controlled Continue lisinopril Assessment & Plan (11/28/2019 12:09 PM CDT): Continue lisinopril. Follow DASH diet Assessment & Plan (05/16/2019 2:57 PM REGISTERED NURSE AMBULATORY): Goal blood pressure is less than 140/85 Low salt diet recommended Daily aerobic exercise Continue current meds, including JERSEY-I or ARB Restart Lisinopril 20 mg daily Erectile dysfunction 01/08/2018 S/P cardiac cath 10/07/2016 Angina, class II 10/07/2016 Smoking addiction 10/07/2016 Assessment & Plan (02/06/2024 10:00 AM REGISTERED NURSE AMBULATORY): Counseled patient to cut back and quit smoking Assessment & Plan (05/16/2019 2:55 PM REGISTERED NURSE AMBULATORY): Smoking cessation discussed Pt not ready to quit. Coronary artery disease invo lving [place] coronary artery of [place] heart with unstable angina pectoris 10/07/2016 Social [...] on file Legal Sex Male 4:09 AM REGISTERED NURSE AMBULATORY Gender Identity Not on file Sexual Orientation Not on file Last Filed Vital Signs Vital Sign Reading Time Taken Comments Blood Pressure 116/70 05/22/2024 1:33 PM REGISTERED NURSE AMBULATORY Pulse 66 05/22/2024 1:33 PM REGISTERED NURSE AMBULATORY Temperature 36.3 C (97.4 F) 01/17/2022 9:33 AM CDT Respiratory Rate 18 05/22/2024 1:33 PM REGISTERED NURSE AMBULATORY Oxygen Saturation 94% 01/12/2022 11:30 AM CDT Inhaled Oxygen Concentration - - Weight 101.6 kg (224 lb) 05/22/2024 1:33 PM REGISTERED NURSE AMBULATORY Height 180.3 cm (5' 10.98 ) 05/22/2024 1:[address] Body Mass Index 31.26 05/22/2024 1:33 PM REGISTERED NURSE AMBULATORY Plan of Treatment Not on file Medical Devices Implanted Type Area Ophthalmic Assistant Device Identifier Shelf Expiration Date Model / Serial / Lot [place] Niki Ams 700 Kit Accessory Penile Prosthesis [id number] - [id number] Implanted:Qty: 1 on 01/12/2022 by German Arenas MD at [facility] N/A: Penis [employer] Niki [id number] 12/26/2026 [id number] / / [id number] [employer] Niki Conceal Low Profile [place] 100ml Prosthesis Inhibizone Sterile Latex Free [id number] - [id number] Implanted:Qty: 1 on 01/12/2022 by German Arenas MD at [facility] N/A: Penis [employer] Niki [id number] 11/16/2023 [id number] / / [id number] [employer] Niki Prosthesis Penile Ams 700cx Ms Pump 18cm Preconnect 2 Cyl [id number] - [id number] Implanted:Qty: 1 on 01/12/2022 by German Arenas MD at [facility] N/A: Penis [employer] Niki [id number] 07/06/2023 [id number] / / [id number] [employer] Niki Ams Spectra 12/14mm 1cm Cylinder Concealable Malleable Rear Tip [id number] - [id number] Implanted:Qty: 1 on 01/12/2022 by eGrman Arenas MD at [facility] N/A: Penis [employer] Niki [id number] 10/10/2026 [id number] / / [id number] Procedures Procedure Name Priority Date/Time Associated Diagnosis Comments ALBUMIN CREATININE RATIO, URINE Routine 05/22/2024 3:03 PM REGISTERED NURSE AMBULATORY Type 2 diabetes mellitus with hyperglycemia, with long-term current use of insulin (HCC) POCT GLUCOSE Routine 05/22/2024 1:38 PM REGISTERED NURSE AMBULATORY Type 2 diabetes mellitus with hyperglycemia, with long-term current use of insulin (HCC) POCT HEMOGLOBIN A1C Routine 05/22/2024 1 :38 PM REGISTERED NURSE AMBULATORY Type 2 diabetes mellitus with hyperglycemia, with long-term current use of insulin (HCC) COMPREHENSIVE METABOLIC PANEL Routine 05/07/2024 10:06 AM REGISTERED NURSE AMBULATORY POCT LIPID PANEL Routine 05/16/2019 1:39 PM REGISTERED NURSE AMBULATORY Type 2 diabetes mellitus with hyperglycemia, with long-term current use of insulin (HCC) from Last 3 Months or Most Recently Relevant to Health Maintenance Results * Albumin Creatinine Ratio, Urine (05/22/2024 3:03 PM REGISTERED NURSE AMBULATORY) Albumin Ur <12.0 mg/L Comment: Interpretive Data No reference range established. Current interpretive data was last revised 2018. Creatinine Ur 69.7 mg/dL JOSE BULL Comment: Interpretive Data No reference range established. Current interpretive data was last revised 2018. Albumin Creatinine Ratio, Ur <17 1 - 29 mg/g JOSE BULL Urine 05/22/2024 3:03 PM REGISTERED NURSE AMBULATORY 05/22/2024 8:06 PM REGISTERED NURSE AMBULATORY us Verenice Call NP LAB URINE ORDERABLES Jolie l Result JOSE [address] Department [place] [address] * (ABNORMAL) POCT hemoglobin A1c (05/22/2024 1:38 PM REGISTERED NURSE AMBULATORY) Hemoglobin A1C, POC 6.8 4.0 - 5.6 % Blood 05/22/2024 1:38 PM REGISTERED NURSE AMBULATORY us Verenice Call NP POINT OF CARE TEST ORDERA BLES Final Result * (ABNORMAL) POCT glucose (05/22/2024 1:38 PM REGISTERED NURSE AMBULATORY) Glucose Blood, POC 181 mg/dL Blood 05/22/2024 1:38 PM REGISTERED NURSE AMBULATORY us Verenice Call NP POINT OF CARE TEST ORDERA BLES Final Result * (ABNORMAL) Comprehensive metabolic panel (05/07/2024 10:06 AM REGISTERED NURSE AMBULATORY) SCRIBED Sodium 140 137 - 145 mmol/L [...] Units/L EXTERNAL LAB SCRIBED eGFR in NonAfrican [place] 56 >=60 - NA EXTERNAL LAB Blood 05/07/2024 10:0 6 AM REGISTERED NURSE AMBULATORY Historical Provider LAB BLOOD ORDERABLES Edit ed Result - Final EXTERNAL LAB * POCT lipid panel (05/16/2019 1:39 PM REGISTERED NURSE AMBULATORY) Cholesterol, POC 299 mg/dL HDL, POC 22 mg/dL Triglycerides, POC 498 mg/dL LDL Cholesterol POC 177 mg/dL Chol/HDL Ratio, POC 13.7 Non-HDL Cholesterol, POC 277 mg/dL Cholesterol Total, POC 299 mg/dL Blood specimen (specimen) 05/16/2019 1:39 PM REGISTERED NURSE AMBULATORY us Damaris Daniel MD POINT OF CARE TEST ORDERABLES Fi nal Result from Last 3 Months or Most Recently Relevant to Health Maintenance Insurance [facility] Care Teams Tong Setter Relationship Specialty Start Date End Date Emmanuel Brito MD PCP - General Family Medicine 12/08/21 Isaiah Dooley MD [address] [place] [address] Referring Physician Ophthalmology 05/28/24
--- OUTSIDE RECORDS SUMMARY | 2024-08-10 09:47 | XMS_ITS | Clinical Summary ---
Author Organization [facility] Address [address] [place] [address] Care Team Providers Care Nailer Hand Name Role Phone Unavailable Primary Care Provider Unavailabl e Social History Tobacco Use Types Packs/Day Years Used Date Smoking Tobacco: Never Assessed Sex and Gender Information Value Date Recorded Sex Assigned at Not on file Legal Sex Male 5:45 PM BLANK DRILLER Gender Identity Not on file Sexual Orientation [...]
--- OUTSIDE RECORDS SUMMARY | 2024-08-10 09:47 | XMS_ITS | Clinical Summary ---
Author Organization [facility] [address] Address [address] [place] [address] Care Team Providers Care Planer Mill Grader Name Role Phone Emmanuel Brito MD Primary Care Provider [phone] Isaiah Dooley MD Unavailable [phone] Allergies Active Allergy Reactions Criticality Noted [...] 02/06/2024 Assessment & Plan (05/22/2024 2:26 PM BUNKER WORKER): Chronic problem. Unknown status. Relates that PCP had labs drawn earlier this month. Release signed to get copy of those labs. Assessment & Plan (02/06/2024 10:01 AM BUNKER WORKER): Work on better glycemic control Hypertension well controlled Continue lisinopril Add SGLT2 inhibitors Type 2 diabetes mellitus wit h hyperglycemia, with long-term current use of insulin 05/16/2019 Assessment & Plan (05/22/2024 2:27 PM BUNKER WORKER): Chronic problem. Great improvement in A1c from [...] DM eye exam 3-4 mos ago at [facility] in [place]. Letter sent to get copy of report. [...] infection. Assessment & Plan (02/06/2024 10:01 AM BUNKER WORKER): Chronic, uncontrolled, worsening Hemoglobin A1c 9.5%, goal [...] Bydureon Assessment & Plan (05/16/2019 2:55 PM BUNKER WORKER): Hba1c was Lab Results Component Value Date [...] 05/16/2019 Assessment & Plan (05/22/2024 2:23 PM BUNKER WORKER): Chronic problem. Currently taking Atorvastatin 20mg & fenofibrate 120mg nightly. Last lipid panel: 07/09/21 LDL=81, DE=941. Relates that PCP had labs drawn earlier this month. Release signed to get copy of those labs. Assessment & Plan (02/06/2024 10:00 AM BUNKER WORKER): Continue statin therapy and fenofibrate Assessment & Plan (11/28/2019 12:10 PM CDT): LDL above goal. Needs to focus on lower fat food choices. Education provided Assessment & Plan (05/16/2019 2:56 PM BUNKER WORKER): Goal of treatment , LDL cholesterol less [...] 05/16/2019 Assessment & Plan (05/22/2024 2:24 PM BUNKER WORKER): Chronic problem. Controlled on current lisinopril 20mg daily. Relates that PCP had labs drawn earlier this month. Release signed to get copy of those labs. Assessment & Plan (02/06/2024 10:00 AM BUNKER WORKER): Chronic, well controlled Continue lisinopril Assessment & Plan (11/28/2019 12:09 PM CDT): Continue lisinopril. Follow DASH diet Assessment & Plan (05/16/2019 2:57 PM BUNKER WORKER): Goal blood pressure is less than 140/85 Low salt diet recommended Daily aerobic exercise Continue current meds, including JERSEY-I or ARB Restart Lisinopril 20 mg daily Erectile dysfunction 01/08/2018 S/P cardiac cath 10/07/2016 Angina, class II 10/07/2016 Smoking addiction 10/07/2016 Assessment & Plan (02/06/2024 10:00 AM BUNKER WORKER): Counseled patient to cut back and quit smoking Assessment & Plan (05/16/2019 2:55 PM BUNKER WORKER): Smoking cessation discussed Pt not ready to quit. Coronary artery disease invo lving [place] coronary artery of [place] heart with unstable angina pectoris 10/07/2016 Encounters Date Type Department Care Team Description 06/24/2024 Telephone [facility] Diabetes and Endocrinology [address] [place] [phone] Verenice Call NP 05/28/2024 Orders Only [facility] Diabetes and Endocrinology [address] [place] [phone] Provider, MD Adelaide 05/28/2024 Telephone [facility] Diabetes and Endocrinology [address] [place] [phone] Verenice Call NP Lab reports 05/24/2024 Telephone [facility] Diabetes and Endocrinology [address] [place] [phone] Verenice Call NP Prior Auth (Ozempic) 05/24/2024 Results Follow-Up [facility] Diabetes and Endocrinology [address] [place] [phone] Verenice Call NP 05/22/2024 2:25 PM BUNKER WORKER - 05/22/2024 11:59 PM BUNKER WORKER Hospital Encounter [address] [address] Type 2 diabetes mellitus with hyperglycemia, with long-term current use of insulin (HCC) Discharge Disposition: Discharge to home or self care 05/22/2024 2:15 PM BUNKER WORKER Lab [facility] Medical Group Outpatient Lab at [address] [phone] 05/22/2024 1:30 PM BUNKER WORKER Office Visit [facility] Diabetes and Endocrinology [address] [place], [place] [phone] Verenice Call, KRISTI Type 2 diabetes mellitus with hyperglycemia, with long-term current use of insulin (HCC) (Primary Dx); Hypertension associated with diabetes (HCC); Combined hyperlipidemia associated with type 2 diabetes mellitus (HCC); Stage 3a chronic kidney disease (HCC) from Last 3 Months Surgical History Surgery [...] History of hypertension - (A dded by [employer]) Personal history of other en docrine, nutritional and metabolic disease History of hyperlipi demia - (Added by [employer]) Personal history of malignan t neoplasm [...] on file Legal Sex Male 4:09 AM BUNKER WORKER Gender Identity Not on file Sexual Orientation Not on file Obstetrics History Last Filed Vital Signs Vital Sign Reading Time Taken Comments Blood Pressure 116/70 05/22/2024 1:33 PM BUNKER WORKER Pulse 66 05/22/2024 1:33 PM BUNKER WORKER Temperature 36.3 C (97.4 F) 01/17/2022 9:33 AM CDT Respiratory Rate 18 05/22/2024 1:33 PM BUNKER WORKER Oxygen Saturation 94% 01/12/2022 11:30 AM CDT Inhaled Oxygen Concentration - - Weight 101.6 kg (224 lb) 05/22/2024 1:33 PM BUNKER WORKER Height 180.3 cm (5' 10.98 ) 05/22/2024 1:[address] Body Mass Index 31.26 05/22/2024 1:33 PM BUNKER WORKER Plan of Treatment Health Maintenance Due Date [...] 05/22/2025 5 Medical Devices Implanted Type Area Host Hostess Device Identifier Shelf Expiration Date Model / Serial / Lot [employer] Niki Ams 700 Kit Accessory Penile Prosthesis [id number] - [id number] Implanted:Qty: 1 on 01/12/2022 by German Arenas MD at [facility] N/A: Penis [employer] Niki [id number] 12/26/2026 [id number] / / [id number] [employer] Niki Conceal Low Profile Jolly 100ml Prosthesis Inhibizone Sterile Latex Free 526203-99 - [id number] Implanted:Qty: 1 on 01/12/2022 by German Arenas MD at [facility] N/A: Penis [employer] Niki [id number] 11/16/2023 [id number] / / [id number] [employer] Niki Prosthesis Penile Ams 700cx Ms Pump 18cm Preconnect 2 Cyl [id number] - [id number] Implanted:Qty: 1 on 01/12/2022 by German Arenas MD at [facility] N/A: Penis [employer] Niki [id number] 07/06/2023 [id number] / / [id number] [employer] Niki Ams Spectra 12/14mm 1cm Cylinder Concealable Malleable Rear Tip [id number] - [id number] Implanted:Qty: 1 on 01/12/2022 by German Arenas MD at [facility] N/A: Penis [employer] Niki [id number] 10/10/2026 [id number] / / [id number] Procedures Procedure Name Priority Date/Time Associated Diagnosis Comments ALBUMIN CREATININE RATIO, URINE Routine 05/22/2024 3:03 PM BUNKER WORKER Type 2 diabetes mellitus with hyperglycemia, with long-term current use of insulin (HCC) POCT GLUCOSE Routine 05/22/2024 1:38 PM BUNKER WORKER Type 2 diabetes mellitus with hyperglycemia, with long-term current use of insulin (HCC) POCT HEMOGLOBIN A1C Routine 05/22/2024 1 :38 PM BUNKER WORKER Type 2 diabetes mellitus with hyperglycemia, with long-term current use of insulin (HCC) COMPREHENSIVE METABOLIC PANEL Routine 05/07/2024 10:06 AM BUNKER WORKER POCT LIPID PANEL Routine 05/16/2019 1:39 PM BUNKER WORKER Type 2 diabetes mellitus with hyperglycemia, with long-term current use of insulin (HCC) from Last 3 Months or Most Recently Relevant to Health Maintenance Results * Albumin Creatinine Ratio, Urine (05/22/2024 3:03 PM BUNKER WORKER) Albumin Ur <12.0 mg/L Comment: Interpretive Data No reference range established. Current interpretive data was last revised 2018. Creatinine Ur 69.7 mg/dL [facility] Comment: Interpretive Data No reference range established. Current interpretive data was last revised 2018. Albumin Creatinine Ratio, Ur <17 1 - 29 mg/g [facility] Urine 05/22/2024 3:03 PM BUNKER WORKER 05/22/2024 8:06 PM BUNKER WORKER us Verenice Call NP LAB URINE ORDERABLES Jolie l Result JOSE [address] Department [place] [address] * (ABNORMAL) POCT hemoglobin A1c (05/22/2024 1:38 PM BUNKER WORKER) Pathologist [facility] Hemoglobin A1C, POC 6.8 4.0 - 5.6 % Blood 05/22/2024 1:38 PM BUNKER WORKER us Verenice Call NP POINT OF CARE TEST ORDERA BLES Final Result * (ABNORMAL) POCT glucose (05/22/2024 1:38 PM BUNKER WORKER) Glucose Blood, POC 181 mg/dL Blood 05/22/2024 1:38 PM BUNKER WORKER us Verenice Call NP POINT OF CARE TEST ORDERA BLES Final Result * (ABNORMAL) Comprehensive metabolic panel (05/07/2024 10:06 AM BUNKER WORKER) SCRIBED Sodium 140 137 - 145 mmol/L [...] Units/L EXTERNAL LAB SCRIBED eGFR in NonAfrican Vietnamese 56 >=60 - NA EXTERNAL LAB Blood 05/07/2024 10:0 6 AM BUNKER WORKER Historical Provider LAB BLOOD ORDERABLES Edit ed Result - Final EXTERNAL LAB * POCT lipid panel (05/16/2019 1:39 PM BUNKER WORKER) Cholesterol, POC 299 mg/dL HDL, POC 22 mg/dL Triglycerides, POC 498 mg/dL LDL Cholesterol POC 177 mg/dL Chol/HDL Ratio, POC 13.7 Non-HDL Cholesterol, POC 277 mg/dL Cholesterol Total, POC 299 mg/dL Blood specimen (specimen) 05/16/2019 1:39 PM BUNKER WORKER Damaris Daniel MD POINT OF CARE TEST ORDERABLES Fi nal Result from Last 3 Months or Most Recently Relevant to Health Maintenance Insurance [facility] Care Teams Planer Mill Grader Relationship Specialty Start Date End Date Emmanuel Brito MD PCP - General Family Medicine 12/08/21 Isaiah Dooley MD [address] [place] [address] Referring Physician Ophthalmology 05/28/24
--- OUTSIDE RECORDS SUMMARY | 2024-08-10 09:47 | XMS_ITS | CONTINUITY OF CARE DOCUMENT ---
Author Name junieguyqing Address Unknown Organization [facility] Address [address] [place] [address] Phone [phone] Care Team Providers Care Ophthalmic Asst Name Role Phone Zachery KIMBLE, Venkata Soto Unavailable [phone] RUTH JULIEN DO Unavailable [phone] RUTH JULIEN DO Unavailable [phone] INSURANCE PROVIDERS Payer name Policy type / Coverage type Bethany red constitution party ID [employer] [place] Medicaid [id number]
== END 2024-08-10 09:38 | disposition home or self-care (01) ==
PROVIDERS: PCP Family Medicine; Visit Provider Anesthesiology Pain Medicine
DX: M47.817 Spondylosis without myelopathy or radiculopathy, lumbosacral region (principal); G89.29 Other chronic pain; M81.0 Age-related osteoporosis without current pathological fracture
CPT/HCPCS: 72148

== ENCOUNTER 2024-08-20 07:25 | Day surgery (SDC) | payer OTHER, SELFPAY ==
--- NOTE | ~2024-08-20 | XR_ITS ---
INTRAOPERATIVE FLUOROSCOPY: CLINICAL HISTORY: 63 years old Male; MANUEL INTRA-ARTICULAR SI JT INJ PROCEDURE COMMENTS: Limited intraoperative fluoroscopy of the pelvis was performed. CUMULATIVE DOSE: 10.4 mGy FLUOROSCOPY TIME: 26.4 seconds FINDINGS/IMPRESSION: Please refer to operative note for further details. Reviewed, dictated and finalized at location A.
--- OUTSIDE RECORDS SUMMARY | 2024-08-20 07:30 | XMS_ITS | Referral Summary ---
Author Organization [facility] [address] Address [address] [place] [address] Care Team Providers Care Manager Motor Name Role Phone Emmanuel Brito MD Primary Care Provider [phone] Isaiah Dooley MD Unavailable Encounters Date Type Department Care Team Description 06/24/2024 Telephone [facility] Medical [facility] Diabetes and Endocrinology [address] [place] [phone] Verenice Call NP 05/28/2024 Orders Only [facility] Diabetes and Endocrinology [address] [place] [phone] ProviderAdelaide MD 05/28/2024 Telephone [facility] Diabetes and Endocrinology [address] [place] [phone] Verenice Call NP Lab reports 05/24/2024 Telephone [facility] Diabetes and Endocrinology [address] [place] [phone] Verenice Call NP Prior Auth (Ozempic) 05/24/2024 Results Follow-Up [facility] Diabetes and Endocrinology [address] [place] [phone] Verenice Call, KRISTI Albumin Creatinine Ratio, Urine from Last 3 Months Allergies Active Allergy [...] 02/06/2024 Assessment & Plan (05/22/2024 2:26 PM PAPER HANGER): Chronic problem. Unknown status. Relates that PCP had labs drawn earlier this month. Release signed to get copy of those labs. Assessment & Plan (02/06/2024 10:01 AM PAPER HANGER): Work on better glycemic control Hypertension well controlled Continue lisinopril Add SGLT2 inhibitors Type 2 diabetes mellitus wit h hyperglycemia, with long-term current use of insulin 05/16/2019 Assessment & Plan (05/22/2024 2:27 PM PAPER HANGER): Chronic problem. Great improvement in A1c from [...] DM eye exam 3-4 mos ago at [facility] in [place]. Letter sent to get copy of report. [...] infection. Assessment & Plan (02/06/2024 10:01 AM PAPER HANGER): Chronic, uncontrolled, worsening Hemoglobin A1c 9.5%, goal [...] Bydureon Assessment & Plan (05/16/2019 2:55 PM PAPER HANGER): Hba1c was Lab Results Component Value Date [...] 05/16/2019 Assessment & Plan (05/22/2024 2:23 PM PAPER HANGER): Chronic problem. Currently taking Atorvastatin 20mg & fenofibrate 120mg nightly. Last lipid panel: 07/09/21 LDL=81, TY=111. Relates that PCP had labs drawn earlier this month. Release signed to get copy of those labs. Assessment & Plan (02/06/2024 10:00 AM PAPER HANGER): Continue statin therapy and fenofibrate Assessment & Plan (11/28/2019 12:10 PM CDT): LDL above goal. Needs to focus on lower fat food choices. Education provided Assessment & Plan (05/16/2019 2:56 PM PAPER HANGER): Goal of treatment , LDL cholesterol less [...] 05/16/2019 Assessment & Plan (05/22/2024 2:24 PM PAPER HANGER): Chronic problem. Controlled on current lisinopril 20mg daily. Relates that PCP had labs drawn earlier this month. Release signed to get copy of those labs. Assessment & Plan (02/06/2024 10:00 AM PAPER HANGER): Chronic, well controlled Continue lisinopril Assessment & Plan (11/28/2019 12:09 PM CDT): Continue lisinopril. Follow DASH diet Assessment & Plan (05/16/2019 2:57 PM PAPER HANGER): Goal blood pressure is less than 140/85 Low salt diet recommended Daily aerobic exercise Continue current meds, including JERSEY-I or ARB Restart Lisinopril 20 mg daily Erectile dysfunction 01/08/2018 S/P cardiac cath 10/07/2016 Angina, class II 10/07/2016 Smoking addiction 10/07/2016 Assessment & Plan (02/06/2024 10:00 AM PAPER HANGER): Counseled patient to cut back and quit smoking Assessment & Plan (05/16/2019 2:55 PM PAPER HANGER): Smoking cessation discussed Pt not ready to quit. Coronary artery disease invo lving [place] coronary artery of [place] heart with unstable angina pectoris 10/07/2016 Social [...] on file Legal Sex Male 4:09 AM PAPER HANGER Gender Identity Not on file Sexual Orientation Not on file Last Filed Vital Signs Vital Sign Reading Time Taken Comments Blood Pressure 116/70 05/22/2024 1:33 PM PAPER HANGER Pulse 66 05/22/2024 1:33 PM PAPER HANGER Temperature 36.3 C (97.4 F) 01/17/2022 9:33 AM CDT Respiratory Rate 18 05/22/2024 1:33 PM PAPER HANGER Oxygen Saturation 94% 01/12/2022 11:30 AM CDT Inhaled Oxygen Concentration - - Weight 101.6 kg (224 lb) 05/22/2024 1:33 PM PAPER HANGER Height 180.3 cm (5' 10.98 ) 05/22/2024 1:[address] Body Mass Index 31.26 05/22/2024 1:33 PM PAPER HANGER Plan of Treatment Not on file Medical Devices Implanted Type Area Agency Recruiter Device Identifier Shelf Expiration Date Model / Serial / Lot [place] [employer] Niki Ams 700 Kit Accessory Penile Prosthesis [id number] - [id number] Implanted:Qty: 1 on 01/12/2022 by German Arenas MD at [facility] N/A: Penis [employer] Niki [id number] 12/26/2026 [id number] / / [id number] [employer] Niki Conceal Low Profile [place] 100ml Prosthesis Inhibizone Sterile Latex Free [id number] - [id number] Implanted:Qty: 1 on 01/12/2022 by German Arenas MD at [facility] N/A: Penis [place] [employer] Niki [id number] 11/16/2023 [id number] / / [id number] [employer] [employer] Niki Prosthesis Penile Ams 700cx Ms Pump 18cm Preconnect 2 Cyl [id number] - [id number] Implanted:Qty: 1 on 01/12/2022 by German Arenas MD at [facility] N/A: Penis [place] [employer] Niki [id number] 07/06/2023 [id number] / / [id number] [employer] Niki Ams Spectra 12/14mm 1cm Cylinder Concealable Malleable Rear Tip [id number] - [id number] Implanted:Qty: 1 on 01/12/2022 by German Arenas MD at [facility] N/A: Penis [employer] [employer] Niki [id number] 10/10/2026 [id number] / / [id number] Procedures Procedure Name Priority Date/Time Associated Diagnosis Comments ALBUMIN CREATININE RATIO, URINE Routine 05/22/2024 3:03 PM PAPER HANGER Type 2 diabetes mellitus with hyperglycemia, with long-term current use of insulin (HCC) POCT HEMOGLOBIN A1C Routine 05/22/2024 1 :38 PM PAPER HANGER Type 2 diabetes mellitus with hyperglycemia, with long-term current use of insulin ([facility]) COMPREHENSIVE METABOLIC PANEL Routine 05/07/2024 10:06 AM PAPER HANGER POCT LIPID PANEL Routine 05/16/2019 1:39 PM PAPER HANGER Type 2 diabetes mellitus with hyperglycemia, with long-term current use of insulin ([facility]) from Last 3 Months or Most Recently Relevant to Health Maintenance Results * Albumin Creatinine Ratio, Urine (05/22/2024 3:03 PM PAPER HANGER) Albumin Ur <12.0 mg/L Comment: Interpretive Data No reference range established. Current interpretive data was last revised 2018. Creatinine Ur 69.7 mg/dL [facility] Comment: Interpretive Data No reference range established. Current interpretive data was last revised 2018. Albumin Creatinine Ratio, Ur <17 1 - 29 mg/g [facility] Urine 05/22/2024 3:03 PM PAPER HANGER 05/22/2024 8:06 PM PAPER HANGER us Verenice Call ROLL MILL OPERATOR LAB URINE ORDERABLES Jolie l Result [facility] [address] Department [place] [address] * (ABNORMAL) POCT hemoglobin A1c (05/22/2024 1:38 PM PAPER HANGER) Pathologist [facility] Hemoglobin A1C, POC 6.8 4.0 - 5.6 % Blood 05/22/2024 1:38 PM PAPER HANGER us Verenice Call ROLL MILL OPERATOR POINT OF CARE TEST ORDERA BLES Final Result * (ABNORMAL) Comprehensive metabolic panel (05/07/2024 10:06 AM PAPER HANGER) Pathologist [facility] SCRIBED Sodium 140 137 - 145 mmol/L [...] Units/L EXTERNAL LAB SCRIBED eGFR in NonAfrican Sri [place]ankan 56 >=60 - NA EXTERNAL LAB Blood 05/07/2024 10:0 6 AM PAPER HANGER us Historical Provider LAB BLOOD ORDERABLES Edit ed Result - Final EXTERNAL LAB * POCT lipid panel (05/16/2019 1:39 PM PAPER HANGER) Cholesterol, POC 299 mg/dL HDL, POC 22 mg/dL Triglycerides, POC 498 mg/dL LDL Cholesterol POC 177 mg/dL Chol/HDL Ratio, POC 13.7 Non-HDL Cholesterol, POC 277 mg/dL Cholesterol Total, POC 299 mg/dL Blood specimen (specimen) 05/16/2019 1:39 PM PAPER HANGER Damaris Daniel MD POINT OF CARE TEST ORDERABLES Fi nal Result from Last 3 Months or Most Recently Relevant to Health Maintenance Insurance [facility] [place] [address] Care Teams Manager Motor Relationship Specialty Start Date End Date Emmanuel Brito MD PCP - General Family Medicine 12/08/21 Iasiah Dooley MD [address] [place] [address] Referring Physician Ophthalmology 05/28/24
--- OUTSIDE RECORDS SUMMARY | 2024-08-20 07:30 | XMS_ITS | Clinical Summary ---
Author Organization [facility] [address] Address [address] [place] [address] Care Team Providers Care Business Unit Director Name Role Phone Emmanuel Brito MD Primary Care Provider [phone] Isaiah Dooley MD Unavailable [phone] Allergies Active Allergy Reactions Criticality Noted [...] 02/06/2024 Assessment & Plan (05/22/2024 2:26 PM EMPLOYEE ADVISER): Chronic problem. Unknown status. Relates that PCP had labs drawn earlier this month. Release signed to get copy of those labs. Assessment & Plan (02/06/2024 10:01 AM EMPLOYEE ADVISER): Work on better glycemic control Hypertension well controlled Continue lisinopril Add SGLT2 inhibitors Type 2 diabetes mellitus wit h hyperglycemia, with long-term current use of insulin 05/16/2019 Assessment & Plan (05/22/2024 2:27 PM EMPLOYEE ADVISER): Chronic problem. Great improvement in A1c from [...] DM eye exam 3-4 mos ago at [facility] in [place]. Letter sent to get copy of report. [...] infection. Assessment & Plan (02/06/2024 10:01 AM EMPLOYEE ADVISER): Chronic, uncontrolled, worsening Hemoglobin A1c 9.5%, goal [...] Bydureon Assessment & Plan (05/16/2019 2:55 PM EMPLOYEE ADVISER): Hba1c was Lab Results Component Value Date [...] 05/16/2019 Assessment & Plan (05/22/2024 2:23 PM EMPLOYEE ADVISER): Chronic problem. Currently taking Atorvastatin 20mg & fenofibrate 120mg nightly. Last lipid panel: 07/09/21 LDL=81, NH=567. Relates that PCP had labs drawn earlier this month. Release signed to get copy of those labs. Assessment & Plan (02/06/2024 10:00 AM EMPLOYEE ADVISER): Continue statin therapy and fenofibrate Assessment & Plan (11/28/2019 12:10 PM CDT): LDL above goal. Needs to focus on lower fat food choices. Education provided Assessment & Plan (05/16/2019 2:56 PM EMPLOYEE ADVISER): Goal of treatment , LDL cholesterol less [...] 05/16/2019 Assessment & Plan (05/22/2024 2:24 PM EMPLOYEE ADVISER): Chronic problem. Controlled on current lisinopril 20mg daily. Relates that PCP had labs drawn earlier this month. Release signed to get copy of those labs. Assessment & Plan (02/06/2024 10:00 AM EMPLOYEE ADVISER): Chronic, well controlled Continue lisinopril Assessment & Plan (11/28/2019 12:09 PM CDT): Continue lisinopril. Follow DASH diet Assessment & Plan (05/16/2019 2:57 PM EMPLOYEE ADVISER): Goal blood pressure is less than 140/85 Low salt diet recommended Daily aerobic exercise Continue current meds, including JERSEY-I or ARB Restart Lisinopril 20 mg daily Erectile dysfunction 01/08/2018 S/P cardiac cath 10/07/2016 Angina, class II 10/07/2016 Smoking addiction 10/07/2016 Assessment & Plan (02/06/2024 10:00 AM EMPLOYEE ADVISER): Counseled patient to cut back and quit smoking Assessment & Plan (05/16/2019 2:55 PM EMPLOYEE ADVISER): Smoking cessation discussed Pt not ready to quit. Coronary artery disease invo lving [place] coronary artery of [place] heart with unstable angina pectoris 10/07/2016 Encounters Date Type Department Care Team Description 06/24/2024 Telephone [facility] [address] [place] [phone] Verenice Call NP 05/28/2024 Orders Only [facility] [address] [place] [phone] ProviderAdelaide MD 05/28/2024 Telephone [facility] [address] [place] [phone] Verenice Call NP Lab reports 05/24/2024 Telephone [facility] [address] [place] [phone] Verenice Call NP Prior Auth (Ozempic) 05/24/2024 Results Follow-Up [facility] [address] [place] [phone] Verenice Call NP Albumin Creatinine Ratio, Urine from Last 3 Months Surgical History Surgery [...] on file Legal Sex Male 4:09 AM EMPLOYEE ADVISER Gender Identity Not on file Sexual Orientation Not on file Obstetrics History Last Filed Vital Signs Vital Sign Reading Time Taken Comments Blood Pressure 116/70 05/22/2024 1:33 PM EMPLOYEE ADVISER Pulse 66 05/22/2024 1:33 PM EMPLOYEE ADVISER Temperature 36.3 C (97.4 F) 01/17/2022 9:33 AM CDT Respiratory Rate 18 05/22/2024 1:33 PM EMPLOYEE ADVISER Oxygen Saturation 94% 01/12/2022 11:30 AM CDT Inhaled Oxygen Concentration - - Weight 101.6 kg (224 lb) 05/22/2024 1:33 PM EMPLOYEE ADVISER Height 180.3 cm (5' 10.98 ) 05/22/2024 1:[address] Body Mass Index 31.26 05/22/2024 1:33 PM EMPLOYEE ADVISER Plan of Treatment Health Maintenance Due Date [...] - 2023-2 5 season) 2023 07/17/2020, 06/25/2020 Hemoglobin A1C 11/19/2024 05/22/2024, 01/25, 12/08/2021, Additional history exists Influenza Vaccine (Season Ended) 2024 Foot Exam 02/04/2025 02/05/2024, 05/16/2019 eGFR 05/07/2025 05/07/2024 Albumin Creatinine Ratio, Urine 05/22/2025 Medical Devices Implanted Type Area Chess Instructor Device Identifier Shelf Expiration Date Model / Serial / Lot [employer] Niki Ams 700 Kit Accessory Penile Prosthesis [id number] - [id number] Implanted:Qty: 1 on 01/12/2022 by German Arenas MD at [facility] N/A: Penis [employer] Niki [id number] 12/26/2026 [id number] / / [id number] [employer] Niki Conceal Low Profile [place] 100ml Prosthesis Inhibizone Sterile Latex Free [id number] - [id number] Implanted:Qty: 1 on 01/12/2022 by German Arenas MD at [facility] N/A: Penis [employer] Niki [id number] 11/16/2023 [id number] / / [id number] [employer] Niki Prosthesis Penile Ams 700cx Ms Pump 18cm Preconnect 2 Cyl [id number] - [id number] Implanted:Qty: 1 on 01/12/2022 by German Arenas MD at [facility] N/A: Penis [employer] Niki [id number] 07/06/2023 [id number] / / [id number] [employer] Niki Ams Spectra 12/14mm 1cm Cylinder Concealable Malleable Rear Tip [id number] - [id number] Implanted:Qty: 1 on 01/12/2022 by German Arenas MD at [facility] N/A: Penis [employer] Niki [id number] 10/10/2026 [id number] / / [id number] Procedures Procedure Name Priority Date/Time Associated Diagnosis Comments ALBUMIN CREATININE RATIO, URINE Routine 05/22/2024 3:03 PM EMPLOYEE ADVISER Type 2 diabetes mellitus with hyperglycemia, with long-term current use of insulin (HCC) POCT HEMOGLOBIN A1C Routine 05/22/2024 1 :38 PM EMPLOYEE ADVISER Type 2 diabetes mellitus with hyperglycemia, with long-term current use of insulin (HCC) COMPREHENSIVE METABOLIC PANEL Routine 05/07/2024 10:06 AM EMPLOYEE ADVISER POCT LIPID PANEL Routine 05/16/2019 1:39 PM EMPLOYEE ADVISER Type 2 diabetes mellitus with hyperglycemia, with long-term current use of insulin (HCC) from Last 3 Months or Most Recently Relevant to Health Maintenance Results * Albumin Creatinine Ratio, Urine (05/22/2024 3:03 PM EMPLOYEE ADVISER) Albumin Ur <12.0 mg/L Comment: Interpretive Data No reference range established. Current interpretive data was last revised 2018. Creatinine Ur 69.7 mg/dL [facility] Comment: Interpretive Data No reference range established. Current interpretive data was last revised 2018. Albumin Creatinine Ratio, Ur <17 1 - 29 mg/g [facility] Urine 05/22/2024 3:03 PM EMPLOYEE ADVISER 05/22/2024 8:06 PM EMPLOYEE ADVISER us Verenice Call TIRE CENTER SUPERVISOR LAB URINE ORDERABLES Jolie l Result JOSE [facility] [id number] [place] [address] * (ABNORMAL) POCT hemoglobin A1c (05/22/2024 1:38 PM EMPLOYEE ADVISER) Hemoglobin A1C, POC 6.8 4.0 - 5.6 % Blood 05/22/2024 1:38 PM EMPLOYEE ADVISER Verenice Call TIRE CENTER SUPERVISOR POINT OF CARE TEST ORDERA BLES Final Result * (ABNORMAL) Comprehensive metabolic panel (05/07/2024 10:06 AM EMPLOYEE ADVISER) SCRIBED Sodium 140 137 - 145 mmol/L [...] Units/L EXTERNAL LAB SCRIBED eGFR in NonAfrican [place] 56 >=60 - NA EXTERNAL LAB Blood 05/07/2024 10:0 6 AM EMPLOYEE ADVISER Adelaide Provider LAB BLOOD ORDERABLES Edit ed Result - Final EXTERNAL LAB * POCT lipid panel (05/16/2019 1:39 PM EMPLOYEE ADVISER) Cholesterol, POC 299 mg/dL HDL, POC 22 mg/dL Triglycerides, POC 498 mg/dL LDL Cholesterol POC 177 mg/dL Chol/HDL Ratio, POC 13.7 Non-HDL Cholesterol, POC 277 mg/dL Cholesterol Total, POC 299 mg/dL Blood specimen (specimen) 05/16/2019 1:39 PM EMPLOYEE ADVISER Damaris Daniel MD POINT OF CARE TEST ORDERABLES Fi nal Result from Last 3 Months or Most Recently Relevant to Health Maintenance Insurance [facility] Care Teams Business Unit Director Relationship Specialty Start Date End Date Emmanuel Brito MD PCP - General Family Medicine 12/08/21 Isaiah Dooley MD [address] [place] [address] Referring Physician Ophthalmology 05/28/24
--- OUTSIDE RECORDS SUMMARY | 2024-08-20 07:30 | XMS_ITS | CONTINUITY OF CARE DOCUMENT ---
Author Name junieguyqing Address Unknown Organization [facility] Address [address] [place] [address] Phone [phone] Care Team Providers Care Apprentice Painter Brush Name Role Phone Zachery KIMBLE, Venkata Soto Unavailable [phone] RUTH JULIEN DO Unavailable [phone] RUTH JULIEN DO Unavailable [phone] INSURANCE PROVIDERS Payer name Policy type / Coverage type [place] red republican ID [employer] [place] Medicaid [id number] 600
[2024-08-20 07:49] VITALS: BP 115/71; PULSE 51; RESP 18; TEMP 36.7; O2SAT 95
--- NOTE | 2024-08-20 08:49 | PM.HPGS ---
History of Present Illness History of Present Illness Consent: Risks, benefits, and alternatives have been discussed and questions answered. Patient agrees to proceed with procedure. Chief complaint: Sacroiliitis Narrative: Israel Ward is a 63 year old male with chronic, recalcitrant and disabling bilateral lumbosacral back pain secondary to sacroiliac joint arthropathy, sacroiliitis with failure to respond to aggressive conservative measures including PT, oral and topical analgesics, opioid and nonopioid analgesics, rest, time and activity/behavioral modification over the past 1-2 years who presents for therapeutic intra-articular steroid injections of the bilateral sacroiliac joints under fluoroscopic guidance and with contrast control. Review of Systems Review of Systems: Patient denies any new infectious, allergic, cardiopulmonary, neurologic or constitutional symptoms or changes in activity tolerance or exercise capacity including new or progressive SOB/METCALF, peripheral edema, productive cough, dysuria, nausea/vomiting, diarrhea, weight change, fevers/chills/night sweats, new or progressive neurologic deficit, cognitive or mood changes since last seen, except as documented in the HPI. All systems reviewed & are unremarkable except as noted in HPI and below PMFSH Past Medical History Medical History Burst fracture of lumbar vertebra with delayed healing L3 vertebral fracture Obesity History of stroke with current residual effects Anxiety Excessive bleeding Congestion of nasal sinus Wears glasses History of MRSA infection Diabetic peripheral neuropathy associated with type 2 diabetes mellitus Fracture of fifth metatarsal bone of left foot Left foot pain Obstructive sleep apnea Describes symptoms but has never had a formal polysomnogram Essential hypertension Hyperlipidemia Peripheral neuropathy Insulin dependent diabetes mellitus COPD (chronic obstructive pulmonary disease) Tobacco use Erectile dysfunction following simple prostatectomy Prostate cancer Radical prostatectomy October 2015 with recurrence treated with radiation therapy March 2017 Depression Coronary artery disease involving [place] coronary artery of [place] heart Surgical History Surgical History S/P foot surgery, left History of carpal tunnel release (~1995) Left History of shoulder surgery (~2001) History of cardiac catheterization (~09/2016) 100% occlusion of the distal left circumflex artery with evidence of collaterals with several collaterals filling the left PDA, RCA is a small vessel with 50% lesion not amenable to intervention, 30-40% lesion will small diagonal branch of the LAD, left main coronary is mild stenosis 10-20% History of colonoscopy with polypectomy (~11/2017) Status post prostatectomy (~10/2015) Radical prostatectomy Family History Family History Mother Diabetes mellitus Hypertension Father COPD (chronic obstructive pulmonary disease) Social History Social History Social History: He has smoked up to 2 pack of cigarettes per day since the age of 14. He denies any significant alcohol use. He lives at home with his girlfriend. He has 2 adult children. 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 Primary care physician: Dr. Levar Melgar Code status: Full code Smoking packs per day: 0.5 Smoking cigarettes per day: 10.0 Years smoked: 50 Smoking pack-years: 25.00 Smoking status: Current every day smoker Tobacco type: cigarettes and e-cigarettes/vaping Second hand tobacco smoke exposure: Yes Additional smoking assessment comments: Down to 1/2 pack a day of cigarettes but vapes also. Alcohol intake: never Drinks per week: 1 Substance use: never Substance use type: does not use Do You Feel Safe in your Home?: Yes Lack of Transportation: No Lack of Food: Never True Current Housing: Decline to Answer Concerned About Future Housing: Decline to Answer Difficulty Paying Gas/Electric Bills: Decline to Answer Difficulty Paying for Meds: Decline to Answer Currently Unemployed: Decline to Answer Education: Decline to Answer Difficulty w/ Childcare or Family Care: Decline to Answer Living arrangements: with family Occupation/Education: occupation Spiritual care concerns: No Meds Home Medications and Allergies Home Medications ?Medication ?Instructions ?Recorded ?Confirmed ?Type lisinopril 20 mg tablet 20 mg PO DAILY #90 tabs 12/29/20 08/20/24 Rx atorvastatin 20 mg tablet 20 mg PO DAILY 06/07/23 08/20/24 History cyclobenzaprine 10 mg tablet 10 mg PO TID PRN Muscle Spasm 06/07/23 08/20/24 History gabapentin 300 mg capsule 600 mg PO BID 06/29/23 08/20/24 History hydrocodone 10 mg-acetaminophen 1 tablet PO Q6-8H PRN Pain (Scale 06/29/23 08/20/24 History 325 mg tablet Score 4-6) oxymetazoline 0.05 % nasal spray 1 spray intranasal BID PRN Nasal 06/29/23 08/20/24 History (12 Hour Nasal Jamison) Congestion insulin glargine 100 unit/mL (3 50 unit subcut BID 10/18/23 08/20/24 History mL) subcutaneous pen (Lantus Solostar U-100 Insulin) Allergies Allergy/AdvReac Type Severity Reaction Status Date / Time Sulfa (Sulfonamide AdvReac Severe Gastrointestinal Verified 08/20/24 07:47 Antibiotics) Upset naproxen AdvReac Intermediate Diarrhea Verified 08/20/24 07:47 Penicillins AdvReac Intermediate Nausea Verified 08/20/24 07:47 Vital Signs Vital Signs - 24 hr 08/20/24 07:49 Temperature 98.1 F Pulse Rate 51 L Respiratory Rate 18 Blood Pressure 115/71 Pulse Oximetry 95 Oxygen Delivery Room Air Exam Narrative: The patient's physical exam is essentially unchanged from prior examination on 07/15/2024. Specifically, patient demonstrates normal lung capacity, tidal volume and respiratory rate without wheezes, crackles, rales or rubs. Heart rate and rhythm are regular without murmurs, gallops or rubs. No JVD. Pulses 2+ globally without increasing peripheral edema. AAOx3 with no evidence of confusion, intoxication or altered mental state, NC/AT without acute distress or altered consciousness. Speech, cognition, mood, insight and judgment at baseline and within normal limits. Assessment and Plan Assessment and plan (1) Chronic low back pain: Code(s): M54.50 - Low back pain, unspecified; G89.29 - Other chronic pain Status: Acute (2) Bilateral sacroiliitis: Code(s): M46.1 - Sacroiliitis, not elsewhere classified Status: Acute Assessment and Plan: Proceed as planned with therapeutic intra-articular steroid injections of the bilateral sacroiliac joints under fluoroscopic guidance and with contrast control. (3) Arthropathy of sacroiliac joint: Code(s): M47.818 - Spondylosis without myelopathy or radiculopathy, sacral and sacrococcygeal region Status: Acute
--- NOTE | 2024-08-20 08:51 | WPDHPUPDATE1 ---
History and Physical Update Update Date/Time: 08/20/24 08:51 History and Physical has been reviewed, including an updated exam of the patient. There are NO changes in the patient's condition. Risks, benefits, and alternatives have been discussed and questions answered. Patient agrees to proceed with procedure.
--- NOTE | 2024-08-20 08:52 | P.OP_ITS ---
Procedure Note - Detailed Date of Procedure 08/20/24 Pre-op Diagnosis Sacroiliitis Post-op Diagnosis Same Procedure Performed Bilateral Sacroiliac Joint Steroid Injection under Fluoroscopic Guidance and with Contrast Control. Surgeon Jean Valente MD Machines Technician None Anesthesia Local Description of Procedure INFORMED CONSENT: Risks, benefits and alternatives to the procedure were discussed in detail with the patient who expressed explicit understanding and consent to proceed. Patient was informed verbally and in written form regarding the risks associated with the procedure including the low risk of serious infection, bleeding/bruising, allergic reaction, nerve or organ injury, paralysis, procedural site pain or discomfort, worsening pain and/or mobility, failure to treat and/or disfigurement. The patient expressed explicit understanding and consent to proceed. All materials required for the procedure were available prior to procedure start. Site and side were marked prior to procedure and confirmed in the presence of the patient. PROCEDURE IN DETAIL: The patient was brought to the procedural suite and placed in the prone position. Patient was made comfortable with use of pillows under the head/chest, hips and ankles. Skin overlying the injection site on the affected side(s) was prepared broadly with ChloraPrep applicator and draped in a sterile manner. Aseptic technique was used throughout. The right SI joint was identified in the AP view and contralateral oblique angulation with caudal tilt was utilized to optimize visualization of the inferior and medial joint line representing the posterior portion of the joint. Local anesthesia was established by infiltration with approximately 5 mL of 2% lidocaine via a 1-1/2 inch 27-gauge needle. A 22-gauge 3.5 inch Quincke spinal needle was advanced until the needle entered the inferior third of the joint space approximately 1cm cephalad from its most inferior point. In the AP view, 0.5 mL of Omnipaque 300 contrast medium was injected after negative aspiration for CSF, blood or other bodily fluid, showing appropriate intra-articular spread of contrast without evidence of intravascular, perineural or intrathecal placement. A 1.5 mL solution containing 3 mg of betamethasone in 0.5% PF bupivacaine was injected after repeat negative aspiration. Appropriate spread of the injectate was confirmed with washout of previous injected contrast. No parasthesias were elicited. Needle was removed completely intact without difficulty. The same exact procedure was repeated for all remaining levels on the contralateral side, left SI joint, modified as necessary to accommodate for the new target location with identical findings/results and no evidence of complication. Images were saved and documented in the patient chart. Patient's skin was cleansed and sterile bandage applied. The patient tolerated the procedure well. The patient was transported to the recovery area in stable condition where they were observed for an appropriate amount of time prior to discharge, without evidence of complication. The patient was instructed to avoid excessive activity for the next 48 hours, including climbing and frequent use of stairs. Showers only for 48 hours. They were instructed not to drive or operate heavy machinery for 24 hours. They are to monitor for severe headaches, fevers, chills, night sweats, erythema/swelling at the site or any other signs of infection, bleeding/bruising, bowel or bladder changes as well as new pain, weakness or numbness in the upper or lower extremity. Should they notice these changes, they are instructed to call our office immediately or report directly to the nearest Emergency Department if no answer or if after posted office hours. COMPLICATIONS: None COMMENTS: None CONTRAST WASTED: 29mL Omnipaque 300. Complications No immediate complications Condition Stable Disposition Same day [facility] Billing Surgery - Charge Forward: Surgery Billing
[2024-08-20 09:01] VITALS: BP 115/57; PULSE 52; RESP 16; O2SAT 95
[2024-08-20] MEDS: BETAMETHASONE SODIUM PHOSPHATE PF INJ 6 MG/ML VIAL INFILTRATE (09:04)
[2024-08-20] MEDS: BUPivacaine HCL 0.5% 10 ML AMP INFILTRATE (09:05)
[2024-08-20] MEDS: LIDOCAINE 1% PF INJ 5 ML VIAL INFILTRATE (09:05)
[2024-08-20 09:08] VITALS: BP 110/56; PULSE 56; RESP 15; O2SAT 97
== END 2024-08-20 09:38 | disposition home or self-care (01) ==
PROVIDERS: PCP Family Medicine; Visit Provider Anesthesiology Pain Medicine
PROC: (CPT 27096; principal; 2024-08-20 08:35)
DX: M46.1 Sacroiliitis, not elsewhere classified (principal); G89.29 Other chronic pain
CPT/HCPCS: 27096; 99199; G0260

== ENCOUNTER 2024-08-28 07:13 | Outpatient (RCR) | payer OTHER, SELFPAY | END 2024-09-26 23:59 | disposition home or self-care (01) | LOC: ANHWOC 07:13 | PROVIDERS: PCP Family Medicine; Visit Provider Podiatrist Foot & Ankle Surgery | DX: L97.512 Non-pressure chronic ulcer of other part of right foot with fat layer exposed (principal); E11.621 Type 2 diabetes mellitus with foot ulcer; Z48.00 Encounter for change or removal of nonsurgical wound dressing | CPT/HCPCS: 72114; 99213; 99214; A9270; G0463 ==

== ENCOUNTER 2025-01-04 12:30 | Outpatient (CLI) | payer MEDICARE, SELFPAY ==
[2025-01-04 12:59] LABS: Hematocrit 43.8 % (42.0-52.0); Hemoglobin 14.0 g/dL (14.0-18.0); Mean Corpuscular HGB Conc 32.0 g/dl (32-36); Mean Corpuscular Hemoglobin 27.1 pg (26-34); Mean Corpuscular Volume 84.7 fl (80-100); Platelet Count Result 231 k/mm3 (150-375); Red Blood Count 5.17 M/mm3 (4.6-6.20); White Blood Count 8.3 K/mm3 (4.5-10.0)
[2025-01-04 13:13] LABS: Alanine Aminotransferase 16 U/L (6-50); Albumin Level 4.1 g/dL (3.5-5.1); Alkaline Phosphatase 37 U/L (38-126); Anion Gap 9 mmol/L (4-12); Aspartate Amino Transferase 31 U/L (17-59); Bilirubin,Total 0.6 mg/dL (0.2-1.3); Blood Urea Nitrogen 34 mg/dL (9-20); Calcium 9.3 mg/dL (8.4-10.2); Carbon Dioxide 28 mmol/L (22-30); Chloride 102 mmol/L (98-107); Cholesterol 201 mg/dL (0-200); Estimated Glomerular Filt Rate 47; Glucose 112 mg/dL (65-110); HDL Direct 30 mg/dL; Magnesium 2.3 mg/dL (1.6-2.3); Potassium 4.6 mmol/L (3.4-5.0); Sodium 139 mmol/L (137-145); Total Protein 8.5 g/dL (6.3-8.2); Triglycerides 214 mg/dL (<150)
[2025-01-04 13:21] LABS: Hemoglobin A1C 6.4 % (<5.7)
[2025-01-04 13:48] LABS: Prostate Specific Antigen < 0.1 ng/mL (< OR = 4.0)
[2025-01-04 13:51] LABS: Thyroid Stimulating Hormone Reflex 0.885 uIU/mL (0.465-4.68)
[2025-01-04 14:24] LABS: Vitamin B12 395.0 pg/mL (239-931)
== END 2025-01-04 12:31 | disposition home or self-care (01) ==
LOC: ANHLAB 12:38
PROVIDERS: PCP Family Medicine; Visit Provider Nurse Practitioner Family
DX: C61 Malignant neoplasm of prostate (principal); I10 Essential (primary) hypertension; E78.5 Hyperlipidemia, unspecified; E11.42 Type 2 diabetes mellitus with diabetic polyneuropathy; R53.83 Other fatigue; E11.21 Type 2 diabetes mellitus with diabetic nephropathy
CPT/HCPCS: 36415; 80053; 80061; 82306; 82607; 82746; 83036; 83735; 84153; 84443; 85027

== ENCOUNTER 2025-01-07 18:46 | Observation (INO) | payer MEDICARE, MEDICAID, SELFPAY ==
[2025-01-07] VITALS (20 sets, daily range): BP systolic 109–135; BP diastolic 57–76; PULSE 63–92; RESP 12–20; TEMP 37.1–37.2; O2SAT 91–98
--- NOTE | ~2025-01-07 | XR_ITS ---
XR chest 2V HOSTORY: wheezing COMPARISON:[ None] FINDINGS: Frontal and lateral views of the chest were obtained. The lungs are clear. The heart size is normal in size. Pulmonary vasculature is unremarkable. Osseous structures are intact. IMPRESSION: No acute lung findings.] [ ] Reviewed, dictated and finalized at location S.
--- NOTE | ~2025-01-07 | CT_ITS ---
CT CERVICAL SPINE WITHOUT CONTRAST HISTORY: neck pain/ injury COMPARISON: None TECHNIQUE: Axial images of the cervical spine were obtained. Multiplanar reconstruction in the coronal, sagittal and axial reformats to evaluate for cervical fracture. FINDINGS: The images demonstrate no acute fracture or paravertebral soft tissue swelling. There is no high-grade central or foraminal stenosis. No significant degenerative changes are noted. The visualized aspect of the upper lungs are clear. IMPRESSION: No acute fracture or subluxation. All CT scans at this facility are performed using low dose modulation techniques as appropriate to perform exam including the following: automated exposure control; adjustment of the mA and/or kV according to patient size (this includes techniques or standardized protocols for targeted exams where does is matched to indication/reason for exam; i.e. extremities or head); use of iterative reconstruction technique). Reviewed, dictated and finalized at location S. IMPRESSION: No acute fracture or subluxation. All CT scans at this facility are performed using low dose modulation techniqu es as appropriate to perform exam including the following: automated exposure c ontrol; adjustment of the mA and/or kV according to patient size (this includes techniques or standardized protocols for targeted exams where does is matched to indication/reason for exam; i.e. extremities or head); use of iterative goldy nstruction technique).
--- NOTE | ~2025-01-07 | CT_ITS ---
CT HEAD NON-CONTRAST Clinical History: headache Comparison: None Technique: Unenhanced axial images skull base to vertex Coronal, sagittal reformats CT images acquired with automatic exposure control for dose reduction DLP: 681 mGy-cm Findings: Left basal ganglia chronic infarcts with associated ventricular ex vacuo dilatation. White matter changes, typically chronic microvascular ischemic disease Sulci, ventricles: Unremarkable. No intracerebral hemorrhage. No evidence acute territorial infarct. No mass effect, midline shift. Bony calvarium intact. Visualized paranasal sinuses: Clear. Mastoid air cells: Clear. IMPRESSION: 1. No acute intracranial findings. Reviewed, dictated and finalized at location R.
--- NOTE | ~2025-01-07 | US_ITS ---
EXAMINATION: US thyroid DATE: 01/08/2025 08:17 INDICATION: Left thyroid nodule. TECHNIQUE: Multiple ultrasound images of the thyroid were obtained. COMPARISON: None. FINDINGS: The right thyroid lobe measures 4.1 x 2.7 x 2.0 cm. The left thyroid lobe measures 4.1 x 2.0 x 1.7 cm. In the left thyroid lobe, there is a 7 mm solid, hypoechoic, wider than tall nodule with smooth margin without echogenic foci (TI-RADS TR4). There are no pathologically enlarged lymph nodes. IMPRESSION: 1. Small thyroid nodule, likely not clinically significant. No follow-up is needed. Reviewed, dictated and finalized at location E. IMPRESSION: 1. Small thyroid nodule, likely not clinically significant. No follow-up is nee ded.
--- NOTE | 2025-01-07 20:22 | ECG_ITS ---
Test Date: 2025-01-07 21:39:29 Measurements Intervals [place] Rate: 74 P: 63 HI: 189 QRS: 38 QRSD: 110 T: 63 QT: 362 QTc: 402 Interpretive Statements SINUS RHYTHM WITH SINUS ARRHYTHMIA BASELINE ARTIFACT- I, II, AVR, AVL, AVF, V1-V6 NORMAL ECG Compared to ECG 10/20/2023 11:39:38 HEART RATE HAS INCREASED Electronically Signed On 01-08-2025 06:10:12 CDT by Radhames Glasgow D.O.
--- NOTE | 2025-01-07 20:26 | ED_ITS ---
HPI - Neck Pain/Injury General Chief Complaint: Neck Pain/Injury <Billie Charles APRN - Last Filed: 01/08/25 03:06> Stated Complaint: neck pain <Billie Charles APRN - Last Filed: 01/08/25 03:06> Time Seen by Provider: 01/07/25 19:48 <Billie Charles APRN - Last Filed: 01/08/25 03:06> History of Present Illness HPI Narrative: Patient is a 64-year-old male who presents to the ER with complaints of severe neck pain that started last night and is associated with bilateral upper arm tremors. He also endorses increased weakness and headache. Patient endorses a history of diabetes, but has a Dexcom and reports his sugars have been stable. He denies any numbness and tingling to one side of his body, recent fevers visual changes, or recent alcohol use. Patient's medical history includes bilateral neuropathy, chronic lower extremity pain, high blood pressure, and hyperlipidemia. <Billie Charles APRN - Last Filed: 01/08/25 03:06> Related Data Home Medications: Home Medications ?Medication ?Instructions ?Recorded ?Confirmed ?Last Taken ?Type atorvastatin 20 mg tablet 20 mg PO DAILY 06/07/2312/2506/17/24 History cyclobenzaprine 10 mg tablet 10 mg PO TID PRN Muscle S pasm 06/07/23 01/07/25 Unknown History gabapentin 300 mg capsule 600 mg PO BID 06/29/2301/0706/17/24 History hydrocodone 10 mg-acetaminophen 1 tablet PO Q6-8H PRN Pain (Scale 06/29/23 01/07/25 03/28/24 History 325 mg tablet Score 4-6) oxymetazoline 0.05 % nasal spray 1 spray intranasal BI D PRN Nasal 06/29/23 01/07/25 Unknown History (12 Hour Nasal [place]) Congestion insulin glargine 100 unit/mL (3 50 unit subcut BID 01/07/25 06/17/24 History mL) subcutaneous pen (Lantus Solostar U-100 Insulin) dulaglutide 0.75 mg/0.5 mL 0.75 mg subcut WEEKLY 09/1201/07/25 Unknown History subcutaneous pen injector (Trulicity) empagliflozin 25 mg tablet 25 mg PO DAILY 09/12/24 Unknown History (Jardiance) <Billie Charles, CARINA - Last Filed: 01/08/25 03:06> Allergies/Adverse Reactions: Allergies Allergy/AdvReac Type Severity Reaction Status Date / Time Sulfa (Sulfonamide AdvReac Severe Gastrointestinal Verified 01/07/25 21:44 Antibiotics) Upset naproxen AdvReac Intermediate Diarrhea Verified 01/07/25 21:44 Penicillins AdvReac Intermediate Nausea Verified 01/07/25 21:44 <Billie Charles APRN - Last Filed: 01/08/25 03:06> [facility] Past Medical History Medical History: Medical History Burst fracture of lumbar vertebra with delayed healing L3 vertebral fracture Obesity History of stroke with current residual effects Anxiety Excessive bleeding Congestion of nasal sinus Wears glasses History of MRSA infection Diabetic peripheral neuropathy associated with type 2 diabetes mellitus Fracture of fifth metatarsal bone of left foot Left foot pain Obstructive sleep apnea Describes symptoms but has never had a formal polysomnogram Essential hypertension Hyperlipidemia Peripheral neuropathy Insulin dependent diabetes mellitus COPD (chronic obstructive pulmonary disease) Tobacco use Erectile dysfunction following simple prostatectomy Prostate cancer Radical prostatectomy October 2015 with recurrence treated with radiation therapy March 2017 Depression Coronary artery disease involving the [place] coronary artery of the [place] heart <Billie Charles APRN - Last Filed: 01/08/25 03:06> Surgical History Surgical History: Surgical History S/P foot surgery, left History of carpal tunnel release (~1995) Left History of shoulder surgery (~2001) History of cardiac catheterization (~09/2016) 100% occlusion of the distal left circumflex artery with evidence of collaterals with several collaterals filling the left PDA, RCA is a small vessel with 50% lesion not amenable to intervention, 30-40% lesion will small diagonal branch of the LAD, left main coronary is mild stenosis 10-20% History of colonoscopy with polypectomy (~11/2017) Status post prostatectomy (~10/2015) Radical prostatectomy <Billie Charles APRN - Last Filed: 01/08/25 03:06> Family History Family History: Family History Mother Diabetes mellitus Hypertension Father COPD (chronic obstructive pulmonary disease) <Billie Charles, [employer] - Last Filed: 01/08/25 03:06> Social History Social History: Social History Social History: He has smoked up to 2 pack of cigarettes per day since the age of 14. He denies any significant alcohol use. He lives at home with his girlfriend. He has 2 adult children. 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 Primary care physician: Dr. Levar Melgar Code status: Full code Smoking packs per day: 0.5 Smoking cigarettes per day: 10.0 Years smoked: 50 Smoking pack-years: 25.00 Smoking status: Current every day smoker Tobacco type: cigarettes and e-cigarettes/vaping Second hand tobacco smoke exposure: Yes Additional smoking assessment comments: Down to 1/2 pack a day of cigarettes but vapes also. Alcohol intake: never Substance use: never Substance use type: does not use Do You Feel Safe in your Home?: Yes Lack of Transportation: No Lack of Food: Never True Current Housing: Decline to Answer Concerned About Future Housing: Decline to Answer Difficulty Paying Gas/Electric Bills: Decline to Answer Difficulty Paying for Meds: Decline to Answer Currently Unemployed: Decline to Answer Education: Decline to Answer Difficulty w/ Childcare or Family Care: Decline to Answer Living arrangements: with family Occupation/Education: occupation Spiritual care concerns: No <Billie Charles, [employer] - Last Filed: 01/08/25 03:06> Exam 2 Narrative: GENERAL: Ill appearing, well-nourished, non-toxic, in acute distress d/t pain. HEAD: Normocephalic, atraumatic. NECK: Pain with palpation to cervical spine. Palpable L cervical mass, possible lymph node. No palpable posterior cervical lymph nodes. RESPIRATORY: Airway patent, respirations mildly labored. + wheezing CARDIOVASCULAR: Regular rate and rhythm without murmurs, rubs, or gallops. Peripheral pulses 2+ and equal bilaterally. ABDOMINAL: Soft, nontender, nondistended, no hepatosplenomegaly. Normoactive BS. MUSCULOSKELETAL: Moves all extremities. Strength/ROM intact without gross deformities. SKIN: Warm, dry, normal color. No rashes. NEURO: A&O X3. Speech clear. Cranial nerves II-XII intact. Negative Brudzinski sign. Negative Kernig's sign. + tremors upper extremities PSYCHIATRIC: Appropriate mood and affect. Normal interaction. <Billie Charles APRN - Last Filed: 01/08/25 03:06> Course CHILD CARE ASSISTANT/PA Physician Supervision This visit was performed by both a physician and an APC. For this patient encounter, I reviewed the CHILD CARE ASSISTANT or PA documentation, treatment plan, and medical decision making and had [id number] time with this patient. I performed all aspects of the MDM as documented. <Radha Marshall MD - Last Filed: 01/08/25 02:17> Vital Signs Vital signs: Vital Signs Temperature 37.2 C 01/07/25 19:01 Pulse Rate 81 01/07/25 19:01 Respiratory Rate 20 01/07/25 19:01 Blood Pressure 112/57 L 01/07/25 19:01 Pulse Oximetry 98 01/07/25 19:01 Oxygen Delivery Room Air 01/07/25 19:01 Temperature 37.1 C 01/07/25 21:40 Pulse Rate 55 L 01/08/25 02:33 Respiratory Rate 20 01/08/25 02:33 Blood Pressure 123/49 L 01/08/25 01:02 Pulse Oximetry 92 01/08/25 01:02 Oxygen Delivery Room Air 01/07/25 21:40 <Billie Charles APRN - Last Filed: 01/08/25 03:06> Vital Signs Temperature 37.2 C 01/07/25 19:01 Pulse Rate 81 01/07/25 19:01 Respiratory Rate 20 01/07/25 19:01 Blood Pressure 112/57 L 01/07/25 19:01 Pulse Oximetry 98 01/07/25 19:01 Oxygen Delivery Room Air 01/07/25 19:01 Temperature 37.1 C 01/07/25 21:40 Pulse Rate 55 L 01/08/25 02:33 Respiratory Rate 20 01/08/25 02:33 Blood Pressure 123/49 L 01/08/25 01:02 Pulse Oximetry 92 01/08/25 01:02 Oxygen Delivery Room Air 01/07/25 21:40 <Radha Marshall MD - Last Filed: 01/08/25 02:17> MDM - Neck Pain/Injury MDM Narrative Medical decision making narrative: Patient is a 64-year-old male who presents to the ER with complaints of severe neck pain that started last night and is associated with bilateral upper arm tremors. He also endorses increased weakness and headache. Patient endorses a history of diabetes, but has a Dexcom and reports his sugars have been stable. He denies any numbness and tingling to one side of his body, recent fevers visual changes, or recent or chronic alcohol use. Patient's medical history includes bilateral neuropathy, chronic lower extremity pain, high blood pressure, and hyperlipidemia. Labs Ordered: CBC, CMP, TSH, PTT, INR, lactic acid, ethanol, UA, UDS Imaging Ordered: CT head, CT cervical spine Medications Ordered: 3 L normal saline IV bolus, DuoNebs, Dilaudid 0.5 mg IV Results: Patient's CT head indicates no acute intracranial hemorrhage. No midline shift or mass effect. The territorial greater white matter differentiation is maintained throughout. Age related cerebral volume loss. Periventricular and subcortical white matter hypoattenuation, consistent with chronic microangiopathy. Pt's CT cervical spine indicates The images demonstrate no acute fracture or paravertebral soft tissue swelling. There is no high-grade central or foraminal stenosis. No significant degenerative changes are noted. The visualized aspect of the upper lungs are clear. Pt's chest x-ray indicates Frontal and lateral views of the chest were obtained. The lungs are clear. The heart size is normal in size. Pulmonary vasculature is unremarkable. Osseous structures are intact. His CK is 5946. Diagnosis: Acute kidney injury, rhabdomyolysis, thyroid abnormality Patient Education/Shared MDM: Results of lab work and imaging shared with patient. He endorses improvement of symptoms following pain medication administration, but reports his pain is returning. His tremors in his upper extremities have subsided at this time. It was advised patient be admitted to the hospital for further evaluation and treatment. Patient verbalized understanding and isin agreement with plan. 0200- Spoke with Dr. Roberts, hospitalist, who is in agreement with plan for admission. Pt will be admitted to med/surg with telemetry. He will have an US ordered of his thyroid for morning. CRITICAL CARE ADDENDUM: Indication: IV fluid replacement, r/o sepsis Time type: intermittent I provided a total of 45 minutes of critical care excluding separately billable procedures. This includes time w/ initial bedside evaluation, reviewing old records, review of testing done while under my care, discussion w/ the family, nurses, end user consultant and guiding the patient?s care while in the emergency department. Approximate time distribution: 5 minutes ? Initial evaluation, d/w involved parties, attempting to gather old records. 10 minutes ? Documenting medical record 10 minutes ? Review of results (EKGs, labs, imaging) 10 minutes ? Serial repeat bedside evaluation 10 minutes ? Discussing case with multiple providers Please see main chart for details. Excludes separately billable procedures. <Billie Charles, CARINA - Last Filed: 01/08/25 03:06> Differential Diagnosis Differential diagnosis: Likely whiplash injury to neck, cervical radiculopathy and other (Rhabdomyolysis, meningitis, opiate withdrawal, alcohol withdrawal, thyroiditis, thyroid lesion, lymphadenopathy) <Billie Charles [employer] - Last Filed: 01/08/25 03:06> Lab Data Attestation: I reviewed the patient's lab results. <Billie Charles [employer] - Last Filed: 01/08/25 03:06> Result diagrams: 01/07/25 21:53 01/07/25 22:47 <Billie Charles [employer] - Last Filed: 01/08/25 03:06> Labs: Lab Results 01/07/25 01/07/25 01/08/25 Range/Units 21:53 22:47 00:58 WBC 12.1 H (4.5-10.0) K/mm3 RBC 5.63 (4.6-6.20) M/mm3 Hgb 15.0 (14.0-18.0) g/dL Hct 47.9 (42.0-52.0) % MCV 85.1 (80-100) fl MCH 26.6 (26-34) pg MCHC 31.3 L (32-36) g/dl RDW 16.3 H (11.5-14.5) % Plt Count 232 (150-375) k/mm3 MPV 11.2 H (7.4-10.4) fl Immature Gran % (Auto) 0.5 (0-0.5) % Neut % (Auto) 77.2 H (45.5-73.1) % Lymph % (Auto) 14.4 L (18.3-44.2) % Stewart % (Auto) 5.1 (2.6-8.5) % Eos % (Auto) 2.5 (0-4.4) % Baso % (Auto) 0.3 (0.2-1.2) % Lymph # (Auto) 1.74 (0.9-3.2) K/mm3 Stewart # (Auto) 0.6 (0.1-0.6) K/mm3 Eos # (Auto) 0.3 (0-0.3) K/mm3 Baso # (Auto) 0.0 (0.0-0.1) K/mm3 Abs Immat Gran (auto) 0.06 H (0.00-0.031) K/mm3 Absolute Neuts (auto) 9.3 H (1.3-6.7) K/mm3 Absolute Nucleated RBC 0.000 (0.0-0.012) K/mm3 Nucleated RBC % 0.0 (0.0-0.2) % PT 14.5 (11.1-14.7) Seconds INR 1.1 APTT 27.4 (22.3-36.8) Seconds Sodium 137 (137-145) mmol/L Potassium 5.1 H (3.4-5.0) mmol/L Chloride 105 (98-107) mmol/L Carbon Dioxide 26 (22-30) mmol/L Anion Gap 6 (4-12) mmol/L BUN 45 H D (9-20) mg/dL Creatinine 2.65 H (0.7-1.3) mg/dL Estim Creat Clear Calc 31 ml/min Estimated GFR 24 L (59 - ) Glucose 95 (65-110) mg/dL POC Capillary Glucose 89 (65-105) mg/dl Lactic Acid 1.3 (0.7-2.0) mmol/L Calcium 8.4 (8.4-10.2) mg/dL Total Bilirubin 0.5 (0.2-1.3) mg/dL AST 85 H (17-59) U/L ALT 28 (6-50) U/L Alkaline Phosphatase 44 (38-126) U/L Total Creatine Kinase 5946 H (55-170) U/L Total Protein 7.0 (6.3-8.2) g/dL Albumin 3.7 (3.5-5.1) g/dL TSH 0.114 L (0.465-4.680) uIU/mL Free T4 Pending Free T3 pg/mL Pending Urine Color Yellow (Yellow) Urine Appearance Clear (Clear) Urine pH 5.0 (5.0-9.0) Ur Specific [place] 1.015 (1.001-1.035) Urine Protein Trace (Negative) mg/dL Urine Glucose (UA) 3+ H (Negative) mg/dL Urine Ketones Negative (Negative) mg/dL Ur Blood (Man) 2+ H (Negative) Urine Nitrate Negative (Negative) Urine Bilirubin Negative (Negative) Urine Urobilinogen 0.2 (<2.0) mg/dL Leukocyte Esterase Rfl Negative (Negative) TERRI/UL Urine RBC 0-2 (0-2) /hpf Urine WBC 0-5 (0-3) /hpf Ur Squamous Epith Cells None seen (Few) /hpf Urine Bacteria None seen /hpf Urine Casts 0-2 Urine Opiates Screen Positive A (Negative) Urine Methadone Screen Negative (Negative) Ur Barbiturates Screen Negative (Negative) Ur Phencyclidine Scrn Negative (Negative) Ur Amphetamine Screen Negative (Negative) U Benzodiazepines Scrn Negative (Negative) Urine Cocaine Screen Negative (Negative) U Cannabinoids Screen Positive A (Negative) Ethyl Alcohol < 10 (<10) mg/dL <Billie Charles, [employer] - Last Filed: 01/08/25 03:06> Lab Results 01/07/25 01/07/25 01/08/25 Range/Units 21:53 22:47 00:58 WBC 12.1 H (4.5-10.0) K/mm3 RBC 5.63 (4.6-6.20) M/mm3 Hgb 15.0 (14.0-18.0) g/dL Hct 47.9 (42.0-52.0) % MCV 85.1 (80-100) fl MCH 26.6 (26-34) pg MCHC 31.3 L (32-36) g/dl RDW 16.3 H (11.5-14.5) % Plt Count 232 (150-375) k/mm3 MPV 11.2 H (7.4-10.4) fl Immature Gran % (Auto) 0.5 (0-0.5) % Neut % (Auto) 77.2 H (45.5-73.1) % Lymph % (Auto) 14.4 L (18.3-44.2) % Stewart % (Auto) 5.1 (2.6-8.5) % Eos % (Auto) 2.5 (0-4.4) % Baso % (Auto) 0.3 (0.2-1.2) % Lymph # (Auto) 1.74 (0.9-3.2) K/mm3 Stewart # (Auto) 0.6 (0.1-0.6) K/mm3 Eos # (Auto) 0.3 (0-0.3) K/mm3 Baso # (Auto) 0.0 (0.0-0.1) K/mm3 Abs Immat Gran (auto) 0.06 H (0.00-0.031) K/mm3 Absolute Neuts (auto) 9.3 H (1.3-6.7) K/mm3 Absolute Nucleated RBC 0.000 (0.0-0.012) K/mm3 Nucleated RBC % 0.0 (0.0-0.2) % PT 14.5 (11.1-14.7) Seconds INR 1.1 APTT 27.4 (22.3-36.8) Seconds Sodium 137 (137-145) mmol/L Potassium 5.1 H (3.4-5.0) mmol/L Chloride 105 (98-107) mmol/L Carbon Dioxide 26 (22-30) mmol/L Anion Gap 6 (4-12) mmol/L BUN 45 H D (9-20) mg/dL Creatinine 2.65 H (0.7-1.3) mg/dL Estim Creat Clear Calc 31 ml/min Estimated GFR 24 L (59 - ) Glucose 95 (65-110) mg/dL POC Capillary Glucose 89 (65-105) mg/dl Lactic Acid 1.3 (0.7-2.0) mmol/L Calcium 8.4 (8.4-10.2) mg/dL Total Bilirubin 0.5 (0.2-1.3) mg/dL AST 85 H (17-59) U/L ALT 28 (6-50) U/L Alkaline Phosphatase 44 (38-126) U/L Total Creatine Kinase 5946 H (55-170) U/L Total Protein 7.0 (6.3-8.2) g/dL Albumin 3.7 (3.5-5.1) g/dL TSH 0.114 L (0.465-4.680) uIU/mL Free T4 Pending Free T3 pg/mL Pending Urine Color Yellow (Yellow) Urine Appearance Clear (Clear) Urine pH 5.0 (5.0-9.0) Ur Specific [place] 1.015 (1.001-1.035) Urine Protein Trace (Negative) mg/dL Urine Glucose (UA) 3+ H (Negative) mg/dL Urine Ketones Negative (Negative) mg/dL Ur Blood (Man) 2+ H (Negative) Urine Nitrate Negative (Negative) Urine Bilirubin Negative (Negative) Urine Urobilinogen 0.2 (<2.0) mg/dL Leukocyte Esterase Rfl Negative (Negative) TERRI/UL Urine RBC 0-2 (0-2) /hpf Urine WBC 0-5 (0-3) /hpf Ur Squamous Epith Cells None seen (Few) /hpf Urine Bacteria None seen /hpf Urine Casts 0-2 Urine Opiates Screen Positive A (Negative) Urine Methadone Screen Negative (Negative) Ur Barbiturates Screen Negative (Negative) Ur Phencyclidine Scrn Negative (Negative) Ur Amphetamine Screen Negative (Negative) U Benzodiazepines Scrn Negative (Negative) Urine Cocaine Screen Negative (Negative) U Cannabinoids Screen Positive A (Negative) Ethyl Alcohol < 10 (<10) mg/dL <Radha Marshall MD - Last Filed: 01/08/25 02:17> Imaging Data Attestation: I personally reviewed and interpreted this imaging study as follows: < Billie Charles APRN - Last Filed: 01/08/25 03:06> Radiologist's impression: Impressions Cervical Spine CT 01/07/25 19:25 IMPRESSION: No acute fracture or subluxation. All CT scans at this facility are performed using low dose modulation techniques as appropriate to perform exam including the following: automated exposure control; adjustment of the mA and/or kV according to patient size (this includes techniques or standardized protocols for targeted exams where does is matched to indication/reason for exam; i.e. extremities or head); use of iterative reconstruction technique). Chest X-Ray 01/07/25 21:23 IMPRESSION: No acute lung findings.] [ ] <Billie Charles APRN - Last Filed: 01/08/25 03:06> Critical Care Time Critical Care Time Critical Care Time: Yes <Billie Charles APRN - Last Filed: 01/08/25 03:06> Total Critical Care Time: 45 <Billie Charles APRN - Last Filed: 01/08/25 03:06> Discharge Plan Discharge Clinical Impression: Dehydration, Rhabdomyolysis, Acute kidney injury, Abnormal thyroid exam, Abnormal serum thyroid stimulating hormone (TSH) level, Neck pain <Billie Charles APRN - Last Filed: 01/08/25 03:06> Patient Disposition: Still a Patient <Billie Charles APRN - Last Filed: 01/08/25 03:06> Condition: Stable <Billie Charles APRN - Last Filed: 01/08/25 03:06>
--- OUTSIDE RECORDS SUMMARY | 2025-01-07 20:26 | XMS_ITS | Clinical Summary ---
Author Organization [facility] Address [address] [place] [id number] Care Team Providers Care Digital Marketing Lead Name Role Phone Florence Cosme CAREER AND TRANSITION TEACHER Primary Care Provider [phone] Social History Tobacco Use Types Packs/Day Years Used Date Smoking Tobacco: Never Assessed Sex and Gender Information Value Date Recorded Sex Assigned at Not on file Legal Sex Male 5:45 PM [employer]CH[employer]ICAL [employer]ELD ENG[employer] Gender Identity Not on file Sexual Orientation Not on file Plan of Treatment Health Maintenance Due Date Last Done Comments Colorectal Cancer Screening Colonoscopy (10 Years) 1960 Hepatitis C 12/20/1977 DTaP, Tdap and Td Vaccines ( 1 - Tdap) 12/20/1978 Pneumococcal Vaccine: 50+ Ye ars (1 of 1 - PCV) 12/20/2009 Zoster Vaccines (1 of 2) 12/20/2009 COVID-19 Vaccine (1 - 2023-2 5 season) 2024 Influenza Adult (#1) 2024 RSV Immunization or 60+ Years (1 - 1-dose 75+ series) 12/20/2034 Hepatitis A Vaccines Aged Out No long er eligible based on patient's age to complete this topic Meningococcal B Vaccine Aged Out No l onger eligible based on patient's age to complete this topic Meningococcal Vaccine Aged Out No gema juan eligible based on patient's age to complete this topic RSV Immunizations Under 20 Months Aged Out No longer eligible based on patient's age to complete this topic Care Teams Digital Marketing Lead Relationship Specialty Start Date End Date Florence Cosme NP [address] [place] [address] PCP - General NURSE PRACTITIONER 01/06/25
--- OUTSIDE RECORDS SUMMARY | 2025-01-07 20:26 | XMS_ITS | Clinical Summary ---
Author Organization [facility] [address] Address [address] [place] [address] Care Team Providers Care Bulk Tank Car Unloader Name Role Phone Emmanuel Brito MD Primary Care Provider [phone] Isaiah Dooley MD Unavailable [phone] Allergies Active Allergy Reactions Criticality Noted [...] diabetic (TechLITE Pen Needle) 32 gauge x 32 needleIndicatio ns:Type 2 diabetes mellitus with hyperglycemia, with long-term current use of insulin (HCC) Use as directed with Liraglutide (Victoza) injection syringe. 100 each 3 5 Active insulin glargine (LANTUS) 100 unit/mL (3 mL) pen for injectionIndica tions:DM 2 Inject 50 Units under the skin 2 (two) times a day 45 mL 2 5 Active Jardiance 25 mg tabletIndicatio ns:Type 2 diabetes mellitus with hyperglycemia, with long-term current use of insulin (HCC) Take 1 tablet (25 mg total) by mouth daily 30 tablet 5 09/03/19 26 Active dulaglutide (TRULICITY) 0.75 mg/0.5 mL pen injectorIndicat ions:Type 2 diabetes mellitus with hyperglycemia, with long-term current use of insulin ([facility]) Inject 0.5 mL (0.75 mg total) under the skin every 7 days 2 mL 11 5 09/03/19 26 Active Active Problems Problem Noted Date Diagnosed Date Class 1 obesity due to exces s calories with serious comorbidity and body mass index (BMI) of 31.0 to 31.9 in adult 09/02/2024 Peripheral neuropathy 05/01/2024 Prostate cancer 05/01/2024 Overview (05/01/2024): Status post (s/p) resection and radiation (2008) Myocardial infarct 05/01/2024 Stage 3a chronic kidney disease 02/06/2024 Assessment & Plan (05/22/2024 2:26 PM TALENT DEVELOPMENT MANAGER): Chronic problem. Unknown status. Relates that PCP had labs drawn earlier this month. Release signed to get copy of those labs. Assessment & Plan (02/06/2024 10:01 AM TALENT DEVELOPMENT MANAGER): Work on better glycemic control Hypertension well controlled Continue lisinopril Add SGLT2 inhibitors Type 2 diabetes mellitus wit h hyperglycemia, with long-term current use of insulin 05/16/2019 Assessment & Plan (05/22/2024 2:27 PM TALENT DEVELOPMENT MANAGER): Chronic problem. Great improvement in A1c from [...] DM eye exam 3-4 mos ago at [facility] in [place]. Letter sent to get copy of report. [...] infection. Assessment & Plan (02/06/2024 10:01 AM TALENT DEVELOPMENT MANAGER): Chronic, uncontrolled, worsening Hemoglobin A1c 9.5%, goal [...] and also cut back on smoking Try dexFrankly Chat G 7 and dexFrankly Chat clarity mela We will try to obtain [...] Bydureon Assessment & Plan (05/16/2019 2:55 PM TALENT DEVELOPMENT MANAGER): Hba1c was Lab Results Component Value Date [...] 05/16/2019 Assessment & Plan (05/22/2024 2:23 PM TALENT DEVELOPMENT MANAGER): Chronic problem. Currently taking Atorvastatin 20mg & fenofibrate 120mg nightly. Last lipid panel: 07/09/21 LDL=81, MQ=605. Relates that PCP had labs drawn earlier this month. Release signed to get copy of those labs. Assessment & Plan (02/06/2024 10:00 AM TALENT DEVELOPMENT MANAGER): Continue statin therapy and fenofibrate Assessment & Plan (11/28/2019 12:10 PM CDT): LDL above goal. Needs to focus on lower fat food choices. Education provided Assessment & Plan (05/16/2019 2:56 PM TALENT DEVELOPMENT MANAGER): Goal of treatment , LDL cholesterol less [...] 05/16/2019 Assessment & Plan (05/22/2024 2:24 PM TALENT DEVELOPMENT MANAGER): Chronic problem. Controlled on current lisinopril 20mg daily. Relates that PCP had labs drawn earlier this month. Release signed to get copy of those labs. Assessment & Plan (02/06/2024 10:00 AM TALENT DEVELOPMENT MANAGER): Chronic, well controlled Continue lisinopril Assessment & Plan (11/28/2019 12:09 PM CDT): Continue lisinopril. Follow DASH diet Assessment & Plan (05/16/2019 2:57 PM TALENT DEVELOPMENT MANAGER): Goal blood pressure is less than 140/85 Low salt diet recommended Daily aerobic exercise Continue current meds, including JERSEY-I or ARB Restart Lisinopril 20 mg daily Erectile dysfunction 01/08/2018 S/P cardiac cath 10/07/2016 Angina, class II 10/07/2016 Smoking addiction 10/07/2016 Assessment & Plan (02/06/2024 10:00 AM TALENT DEVELOPMENT MANAGER): Counseled patient to cut back and quit smoking Assessment & Plan (05/16/2019 2:55 PM TALENT DEVELOPMENT MANAGER): Smoking cessation discussed Pt not ready to quit. 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 10/07/2016 Encounters Date Type Department Care Team Description 12/19/2024 Telephone [facility] [address] [address] Julian Mathis MD Med Management (Avelino ALMONTE) from Last 3 Months Surgical History Surgery Date Site/Laterality Comments PROSTATECTOMY FOOT FRACTURE SURGERY Left 2020 CARPAL TUNNEL RELEASE Bilateral SHOULDER SURGERY TOE AMPUTATION Medical History Medical History Date Comments Chest pain Diabetes mellitus Hypertension Cancer (HCC) S/P cardiac cath 10/07/2016 [...] radiation therapy 2011 Type 2 diabetes mellitus Stroke (HCC) Stroke (cerebrum) Family History Medical History Relation Name Comments COPD Father Diabetes Mother Family history of diabetes mellitus - (Added by TW Conv) Hypertension Mother Stroke Mother Blindness Neg Hx Glaucoma Neg Hx Retinal detachment Neg Hx Strabismus Neg Hx Relation Name Status Comments Father Mother Social History Tobacco Use Types Packs/Day Years Used Date Smoking Tobacco: Every Day Cigarettes Passive Smoke Exposure: Past Smokeless Tobacco: Never [...] on file Legal Sex Male 4:09 AM TALENT DEVELOPMENT MANAGER Gender Identity Not on file Sexual Orientation Not on file Obstetrics History Last Filed Vital Signs Vital Sign Reading Time Taken Comments Blood Pressure 120/70 09/02/2024 2:24 PM CDT Pulse 57 09/02/2024 2:24 PM CDT Temperature 36.3 C (97.4 F) 01/17/2022 9:33 AM CDT Respiratory Rate 16 09/02/2024 2:24 PM CDT Oxygen Saturation 94% 01/12/2022 11:30 AM CDT Inhaled Oxygen Concentration - - Weight 101.2 kg (223 lb) 09/02/2024 2:24 PM CDT Height 177.8 cm (5' 10) 09/02/2024 2:24 PM CDT Body Mass Index 32 09/02/2024 2:24 PM CDT Plan of Treatment Health Maintenance Due Date Last Done Comments Colon Cancer Screening-Colonoscopy 1959 Depression Screening 1959 Fall Risk Assessment 1959 Hepatitis C Screening 1959 Prostate Cancer Screening-PSA 1959 Dilated Eye Exam 1959 DTaP/Tdap/Td Vaccine (1 - Tdap) 12/20/1970 Hepatitis B Screening 12/20/1977 Pneumococcal vaccine 65+ (1 of 2 - PCV) 12/20/1978 Zoster Vaccine (1 of 2) 12/20/2009 Lipid Panel 07/09/2022 07/09/2021, 04/28, 12/14/2017 Covid-19 Vaccine (3 - 2024-2 6 season) 2024 07/17/2020, 06/25/2020 Influenza Vaccine (#1) 2024 Abdominal Aortic Aneurysm (A AA) Screen 12/20/2024 Well Visit 65+ 12/20/2024 Foot Exam 02/04/2025 02/05/2024, 05/16/2019 Hemoglobin A1C 03/04/2025 09/02/2024, 04/28, 02/05/2024, Additional history exists eGFR 05/07/2025 05/07/2024 Albumin Creatinine Ratio, Urine 05/22/2025 Medical Devices Implanted Type Area Gear Lapper Device Identifier Shelf Expiration Date Model / Serial / Lot [employer] Niki Ams 700 Kit Accessory Penile Prosthesis [id number] - [id number] Implanted:Qty: 1 on 01/12/2022 by German Arenas MD at [facility] N/A: Penis [employer] Niki [id number] 12/26/2026 [id number] / / [id number] [employer] Inki Conceal Low Profile [place] 100ml Prosthesis Inhibizone Sterile Latex Free [id number] - [id number] Implanted:Qty: 1 on 01/12/2022 by German Arenas MD at [facility] N/A: Penis [employer] Niki [id number] 11/16/2023 [id number] / / [id number] [employer] Niki Prosthesis Penile Ams 700cx Ms Pump 18cm Preconnect 2 Cyl [id number] - [id number] Implanted:Qty: 1 on 01/12/2022 by German Arenas MD at [facility] N/A: Penis [employer] Niki [id number] 07/06/2023 [id number] / / [id number] [employer] Ams Spectra 12/14mm 1cm Cylinder Concealable Malleable Rear Tip [id number] - [id number] Implanted:Qty: 1 on 01/12/2022 by German Arenas MD at [facility] N/A: Penis [employer] [id number] 10/10/2026 [id number] / / [id number] Procedures Procedure Name Priority Date/Time Associated Diagnosis Comments POCT HEMOGLOBIN A1C Routine 09/02/2024 2 :27 PM CDT Type 2 diabetes mellitus with hyperglycemia, with long-term current use of insulin (HCC) ALBUMIN CREATININE RATIO, URINE Routine 05/22/2024 3:03 PM TALENT DEVELOPMENT MANAGER Type 2 diabetes mellitus with hyperglycemia, with long-term current use of insulin (HCC) COMPREHENSIVE METABOLIC PANEL Routine 05/07/2024 10:06 AM TALENT DEVELOPMENT MANAGER POCT LIPID PANEL Routine 05/16/2019 1:39 PM TALENT DEVELOPMENT MANAGER Type 2 diabetes mellitus with hyperglycemia, with long-term current use of insulin (HCC) from Last 3 Months or Most Recently Relevant to Health Maintenance Results * (ABNORMAL) POCT hemoglobin A1c (09/02/2024 2:27 PM CDT) Pathologist [facility] Hemoglobin A1C, POC 7.2(A) 4.0 - 5.6 % Blood 09/02/2024 2:27 PM CDT Julian Hanson MD POINT OF CARE TEST ORDERABLES Final Result * Albumin Creatinine Ratio, Urine (05/22/2024 3:03 PM TALENT DEVELOPMENT MANAGER) Pathologist [facility] Albumin Ur <12.0 mg/L Comment: Interpretive Data No reference range established. Current interpretive data was last revised 2018. Creatinine Ur 69.7 mg/dL [facility] Comment: Interpretive Data No reference range established. Current interpretive data was last revised 2018. Albumin Creatinine Ratio, Ur <17 1 - 29 mg/g JOSE Urine 05/22/2024 3:03 PM TALENT DEVELOPMENT MANAGER 05/22/2024 8:06 PM TALENT DEVELOPMENT MANAGER Verenice Call MARKETING AUTOMATION ANALYST LAB URINE ORDERABLES Jolie l Result JOSE [address] Department [place] [address] * (ABNORMAL) Comprehensive metabolic panel (05/07/2024 10:06 AM TALENT DEVELOPMENT MANAGER) SCRIBED Sodium 140 137 - 145 mmol/L [...] - 59 Units/L EXTERNAL LAB SCRIBED eGFR 56 >=60 - NA EXTERNAL LAB Blood 05/07/2024 10:0 6 AM TALENT DEVELOPMENT MANAGER Historical Provider LAB BLOOD ORDERABLES Edit ed Result - Final EXTERNAL LAB * POCT lipid panel (05/16/2019 1:39 PM TALENT DEVELOPMENT MANAGER) Cholesterol, POC 299 mg/dL HDL, POC 22 mg/dL Triglycerides, POC 498 mg/dL LDL Cholesterol POC 177 mg/dL Chol/HDL Ratio, POC 13.7 Non-HDL Cholesterol, POC 277 mg/dL Cholesterol Total, POC 299 mg/dL Blood specimen (specimen) 05/16/2019 1:39 PM TALENT DEVELOPMENT MANAGER Damaris Daniel MD POINT OF CARE TEST ORDERABLES Fi nal Result from Last 3 Months or Most Recently Relevant to Health Maintenance Insurance [facility] [id number] [place] [address] [facility] Care Teams Bulk Tank Car Unloader Relationship Specialty Start Date End Date Emmanuel Brito MD PCP - General Family Medicine 12/08/21 Isaiah Dooley MD [address] [place] [address] Referring Physician Ophthalmology 05/28/24
[2025-01-07] MEDS: IPRATROPIUM 0.5 MG/ALBUTEROL SULFATE 2.5 MG (BASE) AMPUL.NEB 3 ML INHALATION (21:42)
[2025-01-07] MEDS: SODIUM CHLORIDE 0.9% IV 1,000 ML 999 ML IV CONT ×3 (21:50→23:40)
[2025-01-07] MEDS: HYDROmorphone HCL INJ (*CRX) 1 MG/ML SYR 0.5 MG IV PUSH (21:50)
[2025-01-07 21:58] LABS: Hematocrit 47.9 % (42.0-52.0); Hemoglobin 15.0 g/dL (14.0-18.0); Immature Granulocyte Percent A 0.5 % (0-0.5); Lymphocytes Absolute Auto 1.74 K/mm3 (0.9-3.2); Mean Corpuscular HGB Conc 31.3 g/dl (32-36); Mean Corpuscular Hemoglobin 26.6 pg (26-34); Mean Corpuscular Volume 85.1 fl (80-100); Nucleated Red Blood Cells Absolute Auto 0.000 K/mm3 (0.0-0.012); Nucleated Red Blood Cells Perc 0.0 % (0.0-0.2); Platelet Count Result 232 k/mm3 (150-375); Red Blood Count 5.63 M/mm3 (4.6-6.20); White Blood Count 12.1 K/mm3 (4.5-10.0)
[2025-01-07 23:08] LABS: Alanine Aminotransferase 28 U/L (6-50); Albumin Level 3.7 g/dL (3.5-5.1); Alkaline Phosphatase 44 U/L (38-126); Anion Gap 6 mmol/L (4-12); Aspartate Amino Transferase 85 U/L (17-59); Bilirubin,Total 0.5 mg/dL (0.2-1.3); Blood Urea Nitrogen 45 mg/dL (9-20); Calcium 8.4 mg/dL (8.4-10.2); Carbon Dioxide 26 mmol/L (22-30); Chloride 105 mmol/L (98-107); Estimated CRCL calculation 31 ml/min; Estimated Glomerular Filt Rate 24; Glucose 95 mg/dL (65-110); Potassium 5.1 mmol/L (3.4-5.0); Sodium 137 mmol/L (137-145); Total Protein 7.0 g/dL (6.3-8.2)
[2025-01-07 23:09] LABS: Creatine Kinase 5946 U/L (55-170); Thyroid Stimulating Hormone 0.114 uIU/mL (0.465-4.680)
[2025-01-07 23:24] LABS: INR 1.1; Partial Thromboplastin Time 27.4 Seconds (22.3-36.8); Prothrombin Time 14.5 Seconds (11.1-14.7)
--- NOTE | 2025-01-07 23:53 | PC.NURSE ---
per edp henrry - order clarified. Pt is to get only 3000ml bolus total.
[2025-01-08] VITALS (68 sets, daily range): BP systolic 71–142; BP diastolic 34–78; PULSE 46–86; RESP 8–22; TEMP 36.5–36.8; O2SAT 90–100; BMI 31.3; BMI 30.9
[2025-01-08] MEDS: HYDROmorphone HCL INJ (*CRX) 1 MG/ML SYR 0.5 MG IV PUSH ×2 (00:55→03:24)
--- NOTE | 2025-01-08 01:08 | PC.NURSE ---
pt with improved 1 assist gait to use restroom and provide ua. Pt did have 1 episode of incontinence.
[2025-01-08 01:13] LABS: Add Urine Microscopic? YES; Appearance Urine Clear (Clear); Glucose Urine UA 3+ mg/dL (Negative); Leukocyte Esterase Ur Negative LEU/UL (Negative); Nitrate Urine Negative (Negative); Non Pathogenic Casts 0-2; Specific Grav Ur 1.015 (1.001-1.035)
[2025-01-08 01:25] LABS: Cannabinoid Screen Urine Positive (Negative)
[2025-01-08] MEDS: IPRATROPIUM 0.5 MG/ALBUTEROL SULFATE 2.5 MG (BASE) AMPUL.NEB 3 ML INHALATION ×4 (02:24→20:14)
[2025-01-08] MEDS: SODIUM CHLORIDE 0.9% IV 1,000 ML 125 ML IV CONT ×3 (03:14→21:16)
--- NOTE | 2025-01-08 03:19 | PC.NURSE ---
ok to feed pt per edp henrry
[2025-01-08] MEDS: HYDROcodone/acetaminophen (*CRX) 10-325 MG TABLET 1 TAB PO ×3 (03:24→22:32)
[2025-01-08 04:54] LABS: Free T4 Free Thyroxine 1.16 ng/dL (0.78-2.19)
[2025-01-08] MEDS: SODIUM CHLORIDE 0.9% IV 1,000 ML 999 ML IV CONT (06:18)
--- NOTE | 2025-01-08 06:19 | PC.NURSE ---
edp aware of lower bp, hr. EDP Chu ordered 1LNS Bolus and increase Maintenance fluids to 200ml/hr.
--- NOTE | 2025-01-08 06:30 | PC.NURSE ---
Patient's blood pressure has been on the low side - received his fluid boluses and pain medications. Patient changing from [facility] to IMU. Notified Sales Service Technician and Dr Chu notified Dr Roberts.
--- OUTSIDE RECORDS SUMMARY | 2025-01-08 06:39 | XMS_ITS | Clinical Summary ---
Author Organization [facility] Address [address] [place] [address] Care Team Providers Care Retinal Surgeon Name Role Phone Florence Cosme PLANTING SUPERVISOR Primary Care Provider [phone] Social History Tobacco Use Types Packs/Day Years Used Date Smoking Tobacco: Never Assessed Sex and Gender Information Value Date Recorded Sex Assigned at Not on file Legal Sex Male 5:45 PM OFFAL TRIMMER Gender Identity Not on file Sexual Orientation [...] age to complete this topic Care Teams Retinal Surgeon Relationship Specialty Start Date End Date Florence Cosme NP [address] [place] [address] PCP - General NURSE PRACTITIONER 01/06/25
--- OUTSIDE RECORDS SUMMARY | 2025-01-08 06:39 | XMS_ITS | Clinical Summary ---
Author Organization [facility] [address] Address [address] [place] [address] Care Team Providers Care Editor Trade Journal Name Role Phone Emmanuel Brito MD Primary Care Provider [phone] Isaiah Dooley MD Unavailable [phone] Allergies Active Allergy Reactions Criticality Noted [...] with long-term current use of insulin ([facility]) Inject 0.5 mL (0.75 mg [...] 02/06/2024 Assessment & Plan (05/22/2024 2:26 PM ONLINE ADVERTISING ANALYST): Chronic problem. Unknown status. Relates that PCP had labs drawn earlier this month. Release signed to get copy of those labs. Assessment & Plan (02/06/2024 10:01 AM ONLINE ADVERTISING ANALYST): Work on better glycemic control Hypertension well controlled Continue lisinopril Add SGLT2 inhibitors Type 2 diabetes mellitus wit h hyperglycemia, with long-term current use of insulin 05/16/2019 Assessment & Plan (05/22/2024 2:27 PM ONLINE ADVERTISING ANALYST): Chronic problem. Great improvement in A1c from [...] DM eye exam 3-4 mos ago at [facility] in [place]. Letter sent to get copy of report. [...] infection. Assessment & Plan (02/06/2024 10:01 AM ONLINE ADVERTISING ANALYST): Chronic, uncontrolled, worsening Hemoglobin A1c 9.5%, goal [...] and also cut back on smoking Try dexPix4D G 7 and dexPix4D clarity mela We will try to obtain [...] Bydureon Assessment & Plan (05/16/2019 2:55 PM ONLINE ADVERTISING ANALYST): Hba1c was Lab Results Component Value Date [...] 05/16/2019 Assessment & Plan (05/22/2024 2:23 PM ONLINE ADVERTISING ANALYST): Chronic problem. Currently taking Atorvastatin 20mg & fenofibrate 120mg nightly. Last lipid panel: 07/09/21 LDL=81, OI=652. Relates that PCP had labs drawn earlier this month. Release signed to get copy of those labs. Assessment & Plan (02/06/2024 10:00 AM ONLINE ADVERTISING ANALYST): Continue statin therapy and fenofibrate Assessment & Plan (11/28/2019 12:10 PM CDT): LDL above goal. Needs to focus on lower fat food choices. Education provided Assessment & Plan (05/16/2019 2:56 PM ONLINE ADVERTISING ANALYST): Goal of treatment , LDL cholesterol less [...] 05/16/2019 Assessment & Plan (05/22/2024 2:24 PM ONLINE ADVERTISING ANALYST): Chronic problem. Controlled on current lisinopril 20mg daily. Relates that PCP had labs drawn earlier this month. Release signed to get copy of those labs. Assessment & Plan (02/06/2024 10:00 AM ONLINE ADVERTISING ANALYST): Chronic, well controlled Continue lisinopril Assessment & Plan (11/28/2019 12:09 PM CDT): Continue lisinopril. Follow DASH diet Assessment & Plan (05/16/2019 2:57 PM ONLINE ADVERTISING ANALYST): Goal blood pressure is less than 140/85 Low salt diet recommended Daily aerobic exercise Continue current meds, including JERSEY-I or ARB Restart Lisinopril 20 mg daily Erectile dysfunction 01/08/2018 S/P cardiac cath 10/07/2016 Angina, class II 10/07/2016 Smoking addiction 10/07/2016 Assessment & Plan (02/06/2024 10:00 AM ONLINE ADVERTISING ANALYST): Counseled patient to cut back and quit smoking Assessment & Plan (05/16/2019 2:55 PM ONLINE ADVERTISING ANALYST): Smoking cessation discussed Pt not ready to quit. Coronary artery disease invo lving [place] coronary artery of [place] heart with unstable angina pectoris 10/07/2016 Encounters Date Type Department Care Team Description 12/19/2024 Telephone [facility] [address] [address] Julian Mathis MD Med Management [...] on file Legal Sex Male 4:09 AM ONLINE ADVERTISING ANALYST Gender Identity Not on file Sexual Orientation [...] Urine 05/22/2025 Medical Devices Implanted Type Area Model Technician Device Identifier Shelf Expiration Date Model / Serial / Lot [employer] Niki Ams 700 Kit Accessory Penile Prosthesis [id number] - [id number] Implanted:Qty: 1 on 01/12/2022 by German Arenas MD at [facility] N/A: Penis [employer] Niki [id number] 12/26/2026 [id number] / / [id number] [employer] Niki Conceal Low Profile [place] 100ml Prosthesis Inhibizone Sterile Latex Free 262534-30 - [id number] Implanted:Qty: 1 on 01/12/2022 by German Arenas MD at [facility] N/A: Penis [employer] Niki [id number] 11/16/2023 [id number] / / [id number] [employer] Niki Prosthesis Penile Ams 700cx Ms Pump 18cm Preconnect 2 Cyl [id number] - [id number] Implanted:Qty: 1 on 01/12/2022 by German Arenas MD at [facility] N/A: Penis [employer] Niki [id number] 07/06/2023 [id number] / / [id number] [employer] Ams Spectra 12/14mm 1cm Cylinder Concealable Malleable Rear Tip [id number] - [id number] Implanted:Qty: 1 on 01/12/2022 by German Arenas MD at [facility] N/A: Penis [employer] [id number] 10/10/2026 [id number] / / [id number] Procedures Procedure Name Priority Date/Time Associated Diagnosis Comments POCT HEMOGLOBIN A1C Routine 09/02/2024 2 :27 PM CDT Type 2 diabetes mellitus with hyperglycemia, with long-term current use of insulin (HCC) ALBUMIN CREATININE RATIO, URINE Routine 05/22/2024 3:03 PM ONLINE ADVERTISING ANALYST Type 2 diabetes mellitus with hyperglycemia, with long-term current use of insulin (HCC) COMPREHENSIVE METABOLIC PANEL Routine 05/07/2024 10:06 AM ONLINE ADVERTISING ANALYST POCT LIPID PANEL Routine 05/16/2019 1:39 PM ONLINE ADVERTISING ANALYST Type 2 diabetes mellitus with hyperglycemia, with long-term current use of insulin (HCC) from Last 3 Months or Most Recently Relevant to Health Maintenance Results * (ABNORMAL) POCT hemoglobin A1c (09/02/2024 2:27 PM CDT) Pathologist [facility] Hemoglobin A1C, POC 7.2(A) 4.0 - 5.6 % Blood 09/02/2024 2:27 PM CDT Julian Hanson MD POINT OF CARE TEST ORDERABLES Final Result * Albumin Creatinine Ratio, Urine (05/22/2024 3:03 PM ONLINE ADVERTISING ANALYST) Pathologist [facility] Albumin Ur <12.0 mg/L Comment: Interpretive Data No reference range established. Current interpretive data was last revised 2018. Creatinine Ur 69.7 mg/dL [facility] Comment: Interpretive Data No reference range established. Current interpretive data was last revised 2018. Albumin Creatinine Ratio, Ur <17 1 - 29 mg/g JOSE Urine 05/22/2024 3:03 PM ONLINE ADVERTISING ANALYST 05/22/2024 8:06 PM ONLINE ADVERTISING ANALYST Verenice Call B[facility] BRUS[facility] LAB URINE ORDERABLES Jolie l Result JOSE [address] Department [place] [address] * (ABNORMAL) Comprehensive metabolic panel (05/07/2024 10:06 AM ONLINE ADVERTISING ANALYST) SCRIBED Sodium 140 137 - 145 mmol/L [...] EXTERNAL LAB Blood 05/07/2024 10:0 6 AM ONLINE ADVERTISING ANALYST Historical Provider LAB BLOOD ORDERABLES Edit ed Result - Final EXTERNAL LAB * POCT lipid panel (05/16/2019 1:39 PM ONLINE ADVERTISING ANALYST) Cholesterol, POC 299 mg/dL HDL, POC 22 mg/dL Triglycerides, POC 498 mg/dL LDL Cholesterol POC 177 mg/dL Chol/HDL Ratio, POC 13.7 Non-HDL Cholesterol, POC 277 mg/dL Cholesterol Total, POC 299 mg/dL Blood specimen (specimen) 05/16/2019 1:39 PM ONLINE ADVERTISING ANALYST Damaris Daniel MD POINT OF CARE TEST ORDERABLES Fi nal Result from Last 3 Months or Most Recently Relevant to Health Maintenance Insurance [facility] [id number] [place] [address] Member Subscriber Plan / Payer ( fective 2023-Present) Name:Israel Ward Relation to Subscriber:Self Name:Israel Ward Payer ID:[id number] (NAIC) Group ID:Not on file Type:MEDICAID RISK OTHER Address: ATTN: CLAIMS DEPT [address] [place] [id number] [facility] Care Teams Editor Trade Journal Relationship Specialty Start Date End Date Emmanuel Brito MD PCP - General Family Medicine 12/08/21 Isaiah Dooley MD [address] [place] [address] Referring Physician Ophthalmology 05/28/24
--- NOTE | 2025-01-08 07:06 | P.HP_ITS ---
H&P: HPI History of Present Illness Date/Time: 01/08/25 07:06 Chief Complaint: neck pain, tremors Narrative: Patient is a 64 yo male with PMH of T2DM, hypertension, HLD, COPD, tobacco use who presents to the emergency department with complaints of neck pain, arm tremors. Patient patient states he was in his usual state of health until Monday when he began experiencing severe neck pain/shoulder pain and upper extremity tremors. Denies any significant injury, falls. Has a mild associated headache. Denies blurred vision, photophobia, fevers, chills. He does have chronic back pain for which he takes [place]. He states that he went on a fishing trip lasting about 7 days and returned on Monday. Does state that he exerted himself more than usual during this as he is usually pretty sedentary. He is on atorvastatin at home. Denies any other new medications. Denies illicit substance use or significant alcohol abuse. In ED, WBC 12, K+ 5.1, BUN 45, Cr 2.65, AST 85, CK 5946. UA with 3+ glucose, 2+ blood, no RBCs. UDS positive for opiates and cannabis. CT head and neck with no acute abnormality. Patient admitted to IMU for further evaluation and management SUSI and rhabdomyolysis. Review of Systems Review of Systems: All systems reviewed & are unremarkable except as noted in HPI and below PMFSH Past Medical History Medical History Burst fracture of lumbar vertebra with delayed healing L3 vertebral fracture Obesity History of stroke with current residual effects Anxiety Excessive bleeding Congestion of nasal sinus Wears glasses History of MRSA infection Diabetic peripheral neuropathy associated with type 2 diabetes mellitus Fracture of fifth metatarsal bone of left foot Left foot pain Obstructive sleep apnea Describes symptoms but has never had a formal polysomnogram Essential hypertension Hyperlipidemia Peripheral neuropathy Insulin dependent diabetes mellitus COPD (chronic obstructive pulmonary disease) Tobacco use Erectile dysfunction following simple prostatectomy Prostate cancer Radical prostatectomy October 2015 with recurrence treated with radiation therapy March 2017 Depression Coronary artery disease involving igiugig coronary artery of igiugig heart Surgical History Surgical History S/P foot surgery, left History of carpal tunnel release (~1995) Left History of shoulder surgery (~2001) History of cardiac catheterization (~09/2016) 100% occlusion of the distal left circumflex artery with evidence of collaterals with several collaterals filling the left PDA, RCA is a small vessel with 50% lesion not amenable to intervention, 30-40% lesion will small diagonal branch of the LAD, left main coronary is mild stenosis 10-20% History of colonoscopy with polypectomy (~11/2017) Status post prostatectomy (~10/2015) Radical prostatectomy Family History Family History Mother Diabetes mellitus Hypertension Father COPD (chronic obstructive pulmonary disease) Social History Social History Social History: He has smoked up to 2 pack of cigarettes per day since the age of 14. He denies any significant alcohol use. He lives at home with his girlfriend. He has 2 adult children. 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 Primary care physician: Dr. Levar Melgar Code status: Full code Smoking packs per day: 0.5 Smoking cigarettes per day: 10.0 Years smoked: 50 Smoking pack-years: 25.00 Smoking status: Current every day smoker Tobacco type: cigarettes and e-cigarettes/vaping Second hand tobacco smoke exposure: Yes Additional smoking assessment comments: Down to 1/2 pack a day of cigarettes but vapes also. Alcohol intake: never Substance use: never Substance use type: does not use Do You Feel Safe in your Home?: Yes Lack of Transportation: No Lack of Food: Never True Current Housing: I Have Housing Concerned About Future Housing: No Difficulty Paying Gas/Electric Bills: No Difficulty Paying for Meds: No Currently Unemployed: No Education: High School Diploma/GED Difficulty w/ Childcare or Family Care: No Living arrangements: with family Occupation/Education: occupation Spiritual care concerns: No Meds Home Medications and Allergies Home Medications ?Medication ?Instructions ?Recorded ?Confirmed ?Type lisinopril 20 mg tablet 20 mg PO DAILY #90 tabs 08/1401/07/25 Rx atorvastatin 20 mg tablet 20 mg PO DAILY 06/07/2312/25 History cyclobenzaprine 10 mg tablet 10 mg PO TID PRN Muscle S pasm 06/07/23 01/07/25 History gabapentin 300 mg capsule 600 mg PO BID 06/29/2301/07 History hydrocodone 10 mg-acetaminophen 1 tablet PO Q6-8H PRN Pain (Scale 06/29/23 01/07/25 History 325 mg tablet Score 4-6) oxymetazoline 0.05 % nasal spray 1 spray intranasal BI D PRN Nasal 06/29/23 01/07/25 History (12 Hour Nasal [place]) Congestion insulin glargine 100 unit/mL (3 50 unit subcut BID 01/07/25 History mL) subcutaneous pen (Lantus Solostar U-100 Insulin) dulaglutide 0.75 mg/0.5 mL 0.75 mg subcut WEEKLY 09/1201/07/25 History subcutaneous pen injector (Trulicity) empagliflozin 25 mg tablet 25 mg PO DAILY 09/12/24 History (Jardiance) Allergies Allergy/AdvReac Type Severity Reaction Status Date / Time Sulfa (Sulfonamide AdvReac Severe Gastrointestinal Verified 01/08/25 09:54 Antibiotics) Upset naproxen AdvReac Intermediate Diarrhea Verified 01/08/25 09:54 Penicillins AdvReac Intermediate Nausea Verified 01/08/25 09:54 Vital Signs Vital Signs - 24 hr 01/07/25 19:01 01/07/25 21:40 01/07/25 21:42 Temperature 99.0 F 98.8 F Pulse Rate 81 81 63 Respiratory Rate 20 16 20 Blood Pressure 112/57 L 119/67 Pulse Oximetry 98 98 Oxygen Delivery Room Air Room Air 01/07/25 21:42 01/07/25 21:43 01/07/25 21:45 Temperature Pulse Rate 69 64 76 Respiratory Rate 14 14 18 Blood Pressure 119/67 Pulse Oximetry Oxygen Delivery 01/07/25 21:46 01/07/25 21:51 01/07/25 22:00 Temperature Pulse Rate 64 76 87 Respiratory Rate 14 20 16 Blood Pressure 135/60 Pulse Oximetry 92 Oxygen Delivery 01/07/25 22:01 01/07/25 22:15 01/07/25 22:16 Temperature Pulse Rate 85 91 92 Respiratory Rate 13 13 14 Blood Pressure 134/75 130/76 Pulse Oximetry 94 93 Oxygen Delivery 01/07/25 22:30 01/07/25 22:31 01/07/25 22:45 Temperature Pulse Rate 88 89 89 Respiratory Rate 13 14 12 Blood Pressure 109/70 Pulse Oximetry 92 Oxygen Delivery 01/07/25 23:00 01/07/25 23:15 01/07/25 23:30 Temperature Pulse Rate 82 83 74 Respiratory Rate 13 12 12 Blood Pressure Pulse Oximetry 92 Oxygen Delivery 01/07/25 23:35 01/07/25 23:45 01/07/25 23:46 Temperature Pulse Rate 81 81 83 Respiratory Rate 13 12 Blood Pressure 110/58 L 126/63 Pulse Oximetry 94 97 91 Oxygen Delivery 01/08/25 00:19 01/08/25 00:40 01/08/25 01:00 Temperature Pulse Rate 79 73 68 Respiratory Rate 16 16 14 Blood Pressure Pulse Oximetry 98 Oxygen Delivery 01/08/25 01:02 01/08/25 01:03 01/08/25 01:15 Temperature Pulse Rate 76 75 86 Respiratory Rate 14 11 L 17 Blood Pressure 123/49 L Pulse Oximetry 92 90 94 Oxygen Delivery 01/08/25 01:16 01/08/25 01:30 01/08/25 01:31 Temperature Pulse Rate 74 57 L 57 L Respiratory Rate 16 Blood Pressure 94/78 L 108/62 Pulse Oximetry 94 Oxygen Delivery 01/08/25 01:45 01/08/25 01:46 01/08/25 02:00 Temperature Pulse Rate 58 L 59 L 55 L Respiratory Rate 12 Blood Pressure 114/64 Pulse Oximetry 91 94 Oxygen Delivery 01/08/25 02:01 01/08/25 02:15 01/08/25 02:16 Temperature Pulse Rate 61 54 L 55 L Respiratory Rate 18 13 15 Blood Pressure 106/76 71/53 L Pulse Oximetry Oxygen Delivery 01/08/25 02:24 01/08/25 02:30 01/08/25 02:31 Temperature Pulse Rate 58 L 54 L 55 L Respiratory Rate 20 11 L Blood Pressure 119/63 Pulse Oximetry 100 100 Oxygen Delivery 01/08/25 02:33 01/08/25 02:45 01/08/25 02:46 Temperature Pulse Rate 55 L 59 L 65 Respiratory Rate 20 14 14 Blood Pressure 83/53 L Pulse Oximetry Oxygen Delivery 01/08/25 03:00 01/08/25 03:01 01/08/25 03:16 Temperature Pulse Rate 61 70 Respiratory Rate 14 12 Blood Pressure 132/59 L 142/75 H Pulse Oximetry Oxygen Delivery 01/08/25 03:17 01/08/25 03:30 01/08/25 03:31 Temperature Pulse Rate 81 73 80 Respiratory Rate 20 14 12 Blood Pressure 126/57 L Pulse Oximetry 90 93 92 Oxygen Delivery 01/08/25 03:45 01/08/25 04:00 01/08/25 04:15 Temperature Pulse Rate 72 61 58 L Respiratory Rate 13 11 L 14 Blood Pressure Pulse Oximetry 90 90 91 Oxygen Delivery 01/08/25 04:30 01/08/25 04:45 01/08/25 04:59 Temperature Pulse Rate 59 L 58 L 54 L Respiratory Rate 14 12 Blood Pressure 87/42 L Pulse Oximetry 95 97 94 Oxygen Delivery 01/08/25 05:00 01/08/25 05:01 01/08/25 05:21 Temperature Pulse Rate 53 L 54 L 64 Respiratory Rate 13 Blood Pressure 96/51 L Pulse Oximetry 96 97 92 Oxygen Delivery 01/08/25 05:29 01/08/25 05:30 01/08/25 05:31 Temperature Pulse Rate 50 L 51 L 50 L Respiratory Rate Blood Pressure 71/38 L 74/34 L Pulse Oximetry 91 92 92 Oxygen Delivery 01/08/25 05:45 01/08/25 05:46 01/08/25 06:00 Temperature Pulse Rate 49 L 48 L 46 L Respiratory Rate Blood Pressure Pulse Oximetry 91 93 Oxygen Delivery 01/08/25 06:01 01/08/25 06:05 01/08/25 06:06 Temperature Pulse Rate 48 L Respiratory Rate Blood Pressure 75/36 L 88/39 L 87/45 L Pulse Oximetry 91 92 91 Oxygen Delivery 01/08/25 06:15 01/08/25 06:20 01/08/25 06:35 Temperature Pulse Rate 53 L 49 L 50 L Respiratory Rate 12 14 8 L Blood Pressure 93/53 L 111/53 L 121/64 Pulse Oximetry 93 98 98 Oxygen Delivery 01/08/25 06:46 Temperature Pulse Rate 49 L Respiratory Rate 11 L Blood Pressure 112/58 L Pulse Oximetry 100 Oxygen Delivery Exam Narrative: General: NAD, nontoxic appearing Eyes: EOMI ENT: neck supple Cardiovascular: Regular rate and rhythm Respiratory: Clear to auscultation, respirations even and unlabored on RA Gastrointestinal: Soft, non tender Genitourinary: no suprapubic tenderness Musculoskeletal: midline tenderness of lower cervical spine and tenderness of paraspinal musculature. Mildly decreased ROM of neck without meningeal signs. Skin: warm, dry Neuro: Alert. [place] 5/5 in BUE/BLEs. Psych: Mood appropriate H&P: Results Labs Labs: Short CBC 01/07/25 Range/Units 21:53 WBC 12.1 H (4.5-10.0) K/mm3 Hgb 15.0 (14.0-18.0) g/dL Hct 47.9 (42.0-52.0) % Plt Count 232 (150-375) k/mm3 BMP 01/07/25 22:47 Sodium 137 Potassium 5.1 H Chloride 105 Carbon Dioxide 26 BUN 45 H D Creatinine 2.65 H Glucose 95 Calcium 8.4 Cardiac Enzymes 01/07/25 Range/Units 22:47 Total Creatine Kinase 5946 H (55-170) U/L Liver Function 01/07/25 Range/Units 22:47 Total Bilirubin 0.5 (0.2-1.3) mg/dL AST 85 H (17-59) U/L ALT 28 (6-50) U/L Alkaline Phosphatase 44 (38-126) U/L Albumin 3.7 (3.5-5.1) g/dL Urine 01/08/25 Range/Units 00:58 Urine Color Yellow (Yellow) Urine Appearance Clear (Clear) Urine pH 5.0 (5.0-9.0) Ur Specific [place] 1.015 (1.001-1.035) Urine Protein Trace (Negative) mg/dL Urine Glucose (UA) 3+ H (Negative) mg/dL Assessment and Plan Assessment and plan (1) Rhabdomyolysis: Code(s): M62.82 - Rhabdomyolysis Status: Acute Assessment and Plan: - suspect secondary to overexertion and statin use. - CK 5946, AST 85. SUSI as below. - continue aggressive IV fluids. Trend CK - strict I&Os - hold statin (2) SUSI (acute kidney injury): Code(s): N17.9 - Acute kidney failure, unspecified Status: Acute Assessment and Plan: - BUN 45, Cr 2.65. Baseline Cr around 1.50. - likely secondary to rhabdomyolysis - continue IV fluids. Monitor urine output. (3) Neck pain: Code(s): M54.2 - Cervicalgia Status: Acute Assessment and Plan: - CT head and neck with no acute findings - denied injury other than possible whiplash with near fall. Pain could be secondary to rhabdomyolysis. - continue pain control with [place], IV morphine and Flexeril. Heating pad. - consider MRI C-spine if not improving (4) Chronic low back pain: Code(s): M54.50 - Low back pain, unspecified; G89.29 - Other chronic pain Status: Acute Assessment and Plan: - follows with pain management - continue home [place], Flexeril (5) Hypertension: Code(s): I10 - Essential (primary) hypertension Status: Chronic Assessment and Plan: - BP 125/62 - hold home lisinopril due to SUSI - monitor BP trend (6) Diabetes mellitus with hyperglycemia: Code(s): E11.65 - Type 2 diabetes mellitus with hyperglycemia Status: Acute Assessment and Plan: - last HgbA1c 12/2024 6.4 - hold home PO meds - continue home lantus at reduced dose with SSI - POCT glucose qACHS - hypoglycemia management protocol (7) Tobacco use: Code(s): Z72.0 - Tobacco use Status: Acute Assessment and Plan: - nicotine patch ordered - encouraged cessation (8) Coronary artery disease involving igiugig coronary artery of igiugig heart: Code(s): I25.10 - Atherosclerotic heart disease of igiugig coronary artery without angina pectoris Status: Acute Assessment and Plan: - nonobstructive - resume ASA 81mg - statin on hold due to rhabdo (9) Leukocytosis: Code(s): D72.829 - Elevated white blood cell count, unspecified Status: Acute Assessment and Plan: - WBC 12, afebrile - CXR with no acute process - UA noninfectious - low suspicion for meningitis - no meningeal signs, afebrile, nontoxic. Procal and CRP low. - suspect reactive due to dehydration/rhabdo Plan DVT prophylaxis: Lovenox Code status: modified code - NO CPR, OK to intubate and cardiovert/defibrillate Disposition: TBD pending hospital course Quality VTE Prophylaxis VTE prophylaxis: pharmacologic ordered
--- NOTE | 2025-01-08 07:17 | PC.NURSE ---
Patient assisted to use of urinal. Patient in no distress. patient resting in stretcher
[2025-01-08 07:31] LABS: Anion Gap 5 mmol/L (4-12); Blood Urea Nitrogen 36 mg/dL (9-20); Calcium 7.5 mg/dL (8.4-10.2); Carbon Dioxide 26 mmol/L (22-30); Chloride 107 mmol/L (98-107); Estimated CRCL calculation 40 ml/min; Estimated Glomerular Filt Rate 33; Glucose 139 mg/dL (65-110); Magnesium 2.2 mg/dL (1.6-2.3); Potassium 4.5 mmol/L (3.4-5.0); Sodium 138 mmol/L (137-145)
[2025-01-08 07:51] LABS: Creatine Kinase 5361 U/L (55-170)
[2025-01-08] MEDS: INSULIN GLARGINE (*BKC) 100 UNITS/ML 40 UNITS SUB-Q ×2 (08:14→17:34)
[2025-01-08] MEDS: GABAPENTIN 300 MG CAPSULE 600 MG PO ×2 (08:41→17:34)
[2025-01-08] MEDS: ENOXAPARIN 40 MG/0.4 ML SYRINGE SUB-Q (08:42)
[2025-01-08 09:59] LABS: CRP 4.2 mg/dL (<1.0)
--- NOTE | 2025-01-08 09:59 | ADMGEN ---
This patient, Israel Ward, was admitted to IMU Room 207-01. Patient/family oriented to hospital policies and general routines including ID bracelet, bed and alarms, visiting hours, pain management, procedures, bathroom and other care routines, personal items, smoking policy, room service/diet, and visiting hours. Information on how to activate the Rapid Response Team has been discussed. Patient/Family are encouraged to report perceived risks to care and to ask questions if they do not understand what they are told or what they should do.
[2025-01-08 10:17] LABS: Procalcitonin 0.1 ng/mL
[2025-01-08] MEDS: NICOTINE (*PBKC) 14 MG PATCH 1 PATCH TRANSDERM (10:47)
[2025-01-08] MEDS: CYCLOBENZAPRINE HCL 10 MG TABLET PO (10:50)
[2025-01-08] MEDS: MORPHINE SULFATE (*CRX) 4 MG/ML INJ IV PUSH (15:49)
[2025-01-08 16:04] LABS: Free T3 4.64 pg/mL (2.45-5.93)
[2025-01-08 17:08] LABS: Creatine Kinase 4281 U/L (55-170)
[2025-01-08] MEDS: OXYMETAZOLINE HCL 0.05% NAS 15 ML BTL (*BKC) 1 SPRAY NASAL (17:34)
--- NOTE | 2025-01-08 23:00 | PC.NURSE ---
Vspe found im bed given to charge nurse
[2025-01-09] VITALS (12 sets, daily range): BP systolic 114–128; BP diastolic 54–58; PULSE 51–96; RESP 12–20; TEMP 36.6–36.9; O2SAT 93–96
[2025-01-09] MEDS: IPRATROPIUM 0.5 MG/ALBUTEROL SULFATE 2.5 MG (BASE) AMPUL.NEB 3 ML INHALATION ×2 (02:13→08:21)
[2025-01-09 03:20] LABS: Hematocrit 34.5 % (42.0-52.0); Hemoglobin 10.7 g/dL (14.0-18.0); Immature Granulocyte Percent A 0.5 % (0-0.5); Lymphocytes Absolute Auto 2.05 K/mm3 (0.9-3.2); Mean Corpuscular HGB Conc 31.0 g/dl (32-36); Mean Corpuscular Hemoglobin 26.7 pg (26-34); Mean Corpuscular Volume 86.0 fl (80-100); Nucleated Red Blood Cells Absolute Auto 0.000 K/mm3 (0.0-0.012); Nucleated Red Blood Cells Perc 0.0 % (0.0-0.2); Platelet Count Result 177 k/mm3 (150-375); Red Blood Count 4.01 M/mm3 (4.6-6.20); White Blood Count 7.9 K/mm3 (4.5-10.0)
[2025-01-09 03:44] LABS: Alanine Aminotransferase 26 U/L (6-50); Albumin Level 3.1 g/dL (3.5-5.1); Alkaline Phosphatase 38 U/L (38-126); Anion Gap 5 mmol/L (4-12); Aspartate Amino Transferase 63 U/L (17-59); Bilirubin,Total 0.4 mg/dL (0.2-1.3); Blood Urea Nitrogen 24 mg/dL (9-20); Calcium 8.1 mg/dL (8.4-10.2); Carbon Dioxide 23 mmol/L (22-30); Chloride 108 mmol/L (98-107); Creatine Kinase 2754 U/L (55-170); Estimated CRCL calculation 56 ml/min; Estimated Glomerular Filt Rate 50; Glucose 159 mg/dL (65-110); Potassium 4.3 mmol/L (3.4-5.0); Sodium 136 mmol/L (137-145); Total Protein 6.4 g/dL (6.3-8.2)
[2025-01-09] MEDS: SODIUM CHLORIDE 0.9% IV 1,000 ML 125 ML IV CONT ×2 (04:24→13:11)
[2025-01-09] MEDS: HYDROcodone/acetaminophen (*CRX) 10-325 MG TABLET 1 TAB PO (06:37)
[2025-01-09] MEDS: ENOXAPARIN 40 MG/0.4 ML SYRINGE SUB-Q (08:22)
[2025-01-09] MEDS: GABAPENTIN 300 MG CAPSULE 600 MG PO (08:23)
[2025-01-09] MEDS: INSULIN GLARGINE (*BKC) 100 UNITS/ML 40 UNITS SUB-Q (08:23)
[2025-01-09] MEDS: NICOTINE (*PBKC) 14 MG PATCH 1 PATCH TRANSDERM (08:23)
[2025-01-09] MEDS: ASPIRIN 81 MG ENTERIC TABLET PO (08:23)
--- NOTE | 2025-01-09 08:59 | P.PNIM_ITS ---
Progress Note: A&P Assessment and Plan (1) Rhabdomyolysis: Code(s): M62.82 - Rhabdomyolysis Status: Acute Assessment and Plan: - suspect secondary to overexertion and statin use. - admit CK 5946, AST 85. SUSI as below. - continue aggressive IV fluids. CK trending down - strict I&Os - hold statin (2) SUSI (acute kidney injury): Code(s): N17.9 - Acute kidney failure, unspecified Status: Acute Assessment and Plan: - BUN 45, Cr 2.65. Baseline Cr around 1.50. - likely secondary to rhabdomyolysis - continue IV fluids. Monitor urine output. - Cr trended down to 1.43 today (3) Neck pain: Code(s): M54.2 - Cervicalgia Status: Acute Assessment and Plan: - CT head and neck with no acute findings - denied injury other than possible whiplash with near fall. Pain could be secondary to rhabdomyolysis. - continue pain control with [place], IV morphine and Flexeril. Heating pad. - consider MRI C-spine if not improving (4) Chronic low back pain: Code(s): M54.50 - Low back pain, unspecified; G89.29 - Other chronic pain Status: Acute Assessment and Plan: - follows with pain management - continue home [place], Flexeril (5) Hypertension: Code(s): I10 - Essential (primary) hypertension Status: Chronic Assessment and Plan: - BP 125/62 - hold home lisinopril due to SUSI - monitor BP trend (6) Diabetes mellitus with hyperglycemia: Code(s): E11.65 - Type 2 diabetes mellitus with hyperglycemia Status: Acute Assessment and Plan: - last HgbA1c 12/2024 6.4 - hold home PO meds - continue home lantus at reduced dose with SSI - POCT glucose qACHS - hypoglycemia management protocol (7) Tobacco use: Code(s): Z72.0 - Tobacco use Status: Acute Assessment and Plan: - nicotine patch ordered - encouraged cessation (8) Coronary artery disease involving [place] coronary artery of [place] heart: Code(s): I25.10 - Atherosclerotic heart disease of [place] coronary artery without angina pectoris Status: Acute Assessment and Plan: - nonobstructive - resume ASA 81mg - statin on hold due to rhabdo (9) Leukocytosis: Code(s): D72.829 - Elevated white blood cell count, unspecified Status: Acute Assessment and Plan: - WBC 12, afebrile - CXR with no acute process - UA noninfectious - low suspicion for meningitis - no meningeal signs, afebrile, nontoxic. Procal and CRP low. - suspect reactive due to dehydration/rhabdo (10) Acute anemia: Code(s): D64.9 - Anemia, unspecified Status: Acute Assessment and Plan: - Hgb 15.0-->10.7 - check iron studies Plan DVT prophylaxis: Lovenox Code status: modified code - NO CPR, OK to intubate and cardiovert/defibrillate Disposition: TBD pending hospital course Subjective Date/time seen: 01/09/25 08:59 Interval history: Patient seen and examined at bedside. Review of Systems Review of Systems: All systems reviewed & are unremarkable except as noted in HPI and below Exam Narrative: General: NAD, nontoxic appearing Eyes: EOMI ENT: neck supple Cardiovascular: Regular rate and rhythm Respiratory: Clear to auscultation, respirations even and unlabored on RA Gastrointestinal: Soft, non tender Genitourinary: no suprapubic tenderness Musculoskeletal: midline tenderness of lower cervical spine and tenderness of paraspinal musculature. Mildly decreased ROM of neck without meningeal signs. Skin: warm, dry Neuro: Alert. [place] 5/5 in BUE/BLEs. Psych: Mood appropriate Objective Data Vital Signs Vital Signs: Vital Signs - 24 hr 01/08/25 10:00 01/08/25 10:00 01/08/25 11:59 Temperature 97.7 F 98.1 F Pulse Rate 56 L 57 L 53 L Respiratory Rate 22 H 20 Blood Pressure 125/61 125/62 Pulse Oximetry 98 97 Oxygen Delivery Fraction of Inspired Oxygen 01/08/25 12:00 01/08/25 12:00 01/08/25 13:30 Temperature Pulse Rate 58 L 56 L Respiratory Rate 16 Blood Pressure Pulse Oximetry Oxygen Delivery Room Air Fraction of Inspired Oxygen 01/08/25 13:38 01/08/25 14:00 01/08/25 15:46 Temperature 97.9 F Pulse Rate 61 68 65 Respiratory Rate 16 20 Blood Pressure 128/66 Pulse Oximetry 98 Oxygen Delivery Fraction of Inspired Oxygen 01/08/25 15:53 01/08/25 16:00 01/08/25 17:54 Temperature Pulse Rate 79 67 Respiratory Rate Blood Pressure Pulse Oximetry Oxygen Delivery Room Air Fraction of Inspired Oxygen 01/08/25 19:51 01/08/25 20:00 01/08/25 20:15 Temperature 98.3 F Pulse Rate 58 L 57 L 56 L Respiratory Rate 16 20 20 Blood Pressure 105/46 L Pulse Oximetry 95 97 Oxygen Delivery Room Air Fraction of Inspired Oxygen 21 01/08/25 20:17 01/08/25 20:24 01/08/25 21:00 Temperature Pulse Rate 56 L 57 L 59 L Respiratory Rate 20 20 Blood Pressure Pulse Oximetry 97 Oxygen Delivery Room Air Fraction of Inspired Oxygen 21 01/08/25 21:54 01/08/25 23:29 01/09/25 00:00 Temperature 98.3 F Pulse Rate 57 L 60 56 L Respiratory Rate 15 20 Blood Pressure 120/44 L Pulse Oximetry 93 93 Oxygen Delivery Room Air Fraction of Inspired Oxygen 21 01/09/25 00:00 01/09/25 02:13 01/09/25 02:24 Temperature Pulse Rate 56 L 55 L 56 L Respiratory Rate 20 20 Blood Pressure Pulse Oximetry Oxygen Delivery Fraction of Inspired Oxygen 01/09/25 04:00 01/09/25 04:00 01/09/25 04:52 Temperature 98.2 F Pulse Rate 96 96 54 L Respiratory Rate 20 16 Blood Pressure 114/58 L Pulse Oximetry 93 95 Oxygen Delivery Room Air Fraction of Inspired Oxygen 21 01/09/25 06:00 01/09/25 08:00 01/09/25 08:21 Temperature 98.4 F Pulse Rate 54 L 51 L 53 L Respiratory Rate 20 20 Blood Pressure 120/54 L Pulse Oximetry 96 Oxygen Delivery Fraction of Inspired Oxygen 01/09/25 08:30 Temperature Pulse Rate 55 L Respiratory Rate 20 Blood Pressure Pulse Oximetry Oxygen Delivery Fraction of Inspired Oxygen Intake/Output Intake/Output: Intake & Output 01/06/25 01/07/25 01/08/25 01/09/25 23:59 23:59 23:59 23:59 Intake Total 1000 5663.3 1891.7 Output Total 500 Balance 1000 5163.3 1891.7 Meds/Results Medications: Active Medications Generic Name Dose Route Start Last Admin Trade Name Freq PRN Reason Stop Dose Admin Hydrocodone Bitart/Acetaminophen 1 tab 01/08/25 09:39 01/09/25 06:37 Hydrocodone/Acetaminophen (*Crx) 10-325 Mg Tablet PO 1 tab Q12H PRN Administration Pain Scale Score 4-6 Albuterol/Ipratropium 3 ml 01/08/25 02:00 01/09/25 08:21 Ipratropium 0.5 Mg/Albuterol Sulfate 2.5 Mg (Base) Ampul.Neb 3 Ml INHALATION 3 ml Q6HRT ALFREDITO Administration Aspirin 81 mg 01/09/25 09:00 01/09/25 08:23 Aspirin 81 Mg Enteric Tablet PO 81 mg QAM ALFREDITO Administration Cyclobenzaprine HCl 10 mg 01/08/25 07:32 01/08/25 10:50 Cyclobenzaprine Hcl 10 Mg Tablet PO 10 mg TID PRN Administration Muscle Spasm Dextrose 12.5 gm 01/08/25 07:35 Dextrose 50% 25 Gm/50 Ml Syringe IV PUSH PRN PRN Hypoglycemia Protocol Enoxaparin Sodium 40 mg 01/08/25 09:00 01/09/25 08:22 Enoxaparin 40 Mg/0.4 Ml Syringe SUB-Q 40 mg DAILY ALFREDITO Administration Gabapentin 600 mg 01/08/25 09:00 01/09/25 08:23 Gabapentin 300 Mg Capsule PO 600 mg BID ALFREDITO Administration Glucagon 1 mg 01/08/25 07:35 Glucagon For Inj 1 Mg Vial IM PRN PRN Hypoglycemia Protocol Glucose 15 gm 01/08/25 07:35 Glucose Oral Gel 15 Gm Of Glucse In 37.5 Gm Tube PO PRN PRN Hypoglycemia Protocol Sodium Chloride 1,000 mls @ 125 mls/hr 01/08/25 02:15 01/09/25 04:24 Normal Saline Iv IV CONT 125 mls/hr .Q8H ALFREDITO Administration Dextrose 1,000 mls @ 100 mls/hr 01/08/25 07:35 Dextrose 5% 1,000 Ml IVPB PRN PRN Hypoglycemia Protocol Insulin Aspart 3 - 6 units 01/08/25 08:00 01/09/25 08:24 Insulin Aspart (*Bkc) 100 Units/Ml SUB-Q Not Given TIDWM ALFREDITO Protocol Insulin Glargine 40 units 01/08/25 09:00 01/09/25 08:23 Insulin Glargine (*Bkc) 100 Units/Ml SUB-Q 40 units BID ALFREDITO Administration Morphine Sulfate 4 mg 01/08/25 09:39 01/08/25 15:49 Morphine Sulfate (*Crx) 4 Mg/Ml Inj IV PUSH 4 mg Q4H PRN Administration Pain Rated 7-10 Nicotine 1 patch 01/08/25 09:45 01/09/25 08:23 Nicotine (*Pbkc) 14 Mg Patch TRANSDERM 1 patch DAILY ALFREDITO Administration Oxymetazoline HCl 1 spray 01/08/25 07:32 01/08/25 17:34 Oxymetazoline Hcl 0.05% [place] 15 Ml Btl (*Bkc) NASAL 1 spray BID PRN Administration Nasal Congestion Radiology Results: ITS Impressions Cervical Spine CT 01/07/25 19:25 IMPRESSION: No acute fracture or subluxation. All CT scans at this facility are performed using low dose modulation techniques as appropriate to perform exam including the following: automated exposure control; adjustment of the mA and/or kV according to patient size (this includes techniques or standardized protocols for targeted exams where does is matched to indication/reason for exam; i.e. extremities or head); use of iterative reconstruction technique). Chest X-Ray 01/07/25 21:23 IMPRESSION: No acute lung findings.] [ ] Head CT 01/08/25 05:54 IMPRESSION: 1. No acute intracranial findings. Thyroid Ultrasound 01/08/25 08:20 IMPRESSION: 1. Small thyroid nodule, likely not clinically significant. No follow-up is needed. Labs Labs: Laboratory Results - last 24 hr 01/07/25 01/07/25 01/08/25 22:47 22:47 06:58 WBC RBC Hgb Hct MCV MCH MCHC RDW Plt Count MPV Immature Gran % (Auto) Neut % (Auto) Lymph % (Auto) [place] % (Auto) Eos % (Auto) Baso % (Auto) Lymph # (Auto) [place] # (Auto) Eos # (Auto) Baso # (Auto) Abs Immat Gran (auto) Absolute Neuts (auto) Absolute Nucleated RBC Nucleated RBC % Sodium 138 Potassium 4.5 Chloride 107 Carbon Dioxide 26 Anion Gap 5 BUN 36 H Creatinine 2.02 H Estim Creat Clear Calc 40 Estimated GFR 33 L Glucose 139 H POC Capillary Glucose Calcium 7.5 L Magnesium 2.2 Total Bilirubin AST ALT Alkaline Phosphatase Total Creatine Kinase C-Reactive Protein 4.2 H Total Protein Albumin Procalcitonin 0.1 Free T3 pg/mL 4.64 Cancelled 01/08/25 01/08/25 01/08/25 11:38 15:04 15:47 WBC RBC Hgb Hct MCV MCH MCHC RDW Plt Count MPV Immature Gran % (Auto) Neut % (Auto) Lymph % (Auto) [place] % (Auto) Eos % (Auto) Baso % (Auto) Lymph # (Auto) [place] # (Auto) Eos # (Auto) Baso # (Auto) Abs Immat Gran (auto) Absolute Neuts (auto) Absolute Nucleated RBC Nucleated RBC % Sodium Potassium Chloride Carbon Dioxide Anion Gap BUN Creatinine Estim Creat Clear Calc Estimated GFR Glucose POC Capillary Glucose 151 H 198 H Calcium Magnesium Total Bilirubin AST ALT Alkaline Phosphatase Total Creatine Kinase 4281 H C-Reactive Protein Total Protein Albumin Procalcitonin Free T3 pg/mL 01/08/25 01/09/25 01/09/25 20:18 02:56 07:08 WBC 7.9 RBC 4.01 L Hgb 10.7 L D Hct 34.5 L MCV 86.0 MCH 26.7 MCHC 31.0 L RDW 15.9 H Plt Count 177 MPV 11.2 H Immature Gran % (Auto) 0.5 Neut % (Auto) 63.3 Lymph % (Auto) 25.8 [place] % (Auto) 6.9 Eos % (Auto) 3.1 Baso % (Auto) 0.4 Lymph # (Auto) 2.05 [place] # (Auto) 0.6 Eos # (Auto) 0.3 Baso # (Auto) 0.0 Abs Immat Gran (auto) 0.04 H Absolute Neuts (auto) 5.0 Absolute Nucleated RBC 0.000 Nucleated RBC % 0.0 Sodium 136 L Potassium 4.3 Chloride 108 H Carbon Dioxide 23 Anion Gap 5 BUN 24 H D Creatinine 1.43 H Estim Creat Clear Calc 56 Estimated GFR 50 L Glucose 159 H POC Capillary Glucose 145 H 113 H Calcium 8.1 L Magnesium Total Bilirubin 0.4 AST 63 H ALT 26 Alkaline Phosphatase 38 Total Creatine Kinase 2754 H C-Reactive Protein Total Protein 6.4 Albumin 3.1 L Procalcitonin Free T3 pg/mL Quality VTE Prophylaxis VTE prophylaxis: pharmacologic ordered
--- NOTE | 2025-01-09 11:31 | PCPTNOTE ---
Attempted PT evaluation, pt refused/does not want physical therapy (pt independent in the room). Nursing aware.
[2025-01-09 12:09] LABS: Hematocrit 36.9 % (42.0-52.0); Hemoglobin 11.6 g/dL (14.0-18.0)
[2025-01-09 12:32] LABS: Creatine Kinase 2240 U/L (55-170)
--- NOTE | 2025-01-09 12:35 | PM.DS ---
DS: Admitting Diagnosis Discharge Date 01/09/25 Admitting Diagnosis - rhabdomyolysis - SUSI - neck pain - chronic back pain - HTN - diabetes DS: Discharge Diagnosis Discharge Diagnosis (1) Rhabdomyolysis: Code(s): M62.82 - Rhabdomyolysis Status: Acute (2) SUSI (acute kidney injury): Code(s): N17.9 - Acute kidney failure, unspecified Status: Acute (3) Neck pain: Code(s): M54.2 - Cervicalgia Status: Acute (4) Chronic low back pain: Code(s): M54.50 - Low back pain, unspecified; G89.29 - Other chronic pain Status: Acute (5) Hypertension: Code(s): I10 - Essential (primary) hypertension Status: Chronic (6) Diabetes mellitus with hyperglycemia: Code(s): E11.65 - Type 2 diabetes mellitus with hyperglycemia Status: Acute (7) Tobacco use: Code(s): Z72.0 - Tobacco use Status: Acute (8) Coronary artery disease involving [place] coronary artery of [place] heart: Code(s): I25.10 - Atherosclerotic heart disease of [place] coronary artery without angina pectoris Status: Acute (9) Leukocytosis: Code(s): D72.829 - Elevated white blood cell count, unspecified Status: Acute (10) Acute anemia: Code(s): D64.9 - Anemia, unspecified Status: Acute DS: Summary Hospital Course Reason for hospitalization: - rhabdomyolysis - SUSI - neck pain - chronic back pain - HTN - diabetes Hospital Course: Patient is a 64 yo male with PMH of T2DM, hypertension, HLD, COPD, tobacco use who presents to the emergency department with complaints of neck pain, arm tremors. Patient patient states he was in his usual state of health until Monday when he began experiencing severe neck pain/shoulder pain and upper extremity tremors. Denies any significant injury, falls. Has a mild associated headache. Denies blurred vision, photophobia, fevers, chills. He does have chronic back pain for which he takes [place]. He states that he went on a fishing trip lasting about 7 days and returned on Monday. Does state that he exerted himself more than usual during this as he is usually pretty sedentary. He is on atorvastatin at home. Denies any other new medications. Denies illicit substance use or significant alcohol abuse. In ED, WBC 12, K+ 5.1, BUN 45, Cr 2.65, AST 85, CK 5946. UA with 3+ glucose, 2+ blood, no RBCs. UDS positive for opiates and cannabis. CT head and neck with no acute abnormality. Patient admitted to IMU for further evaluation and management SUSI and rhabdomyolysis. Patient was started on aggressive IV fluid hydration for rhabdomyolysis and SUSI. Suspect rhabdo related to overexertion on recent fishing trip compounded on statin use. SSUI secondary to dehydration, hypotension and rhabo. Patient's CK and creatinine trended down significantly with IV fluids. Patient's neck pain and shoulder pain also improved. Patient requested to be discharged. He was instructed to maintain p.o. hydration and to follow up closely with his PCP. He will have a repeat BMP and CK in 3-5 days prior to this appointment. He was also instructed to hold his lisinopril and statin at this time. In regards to patient's neck pain, there was a low suspicion for meningitis given no meningeal signs, leukocytosis resolved and inflammatory markers were low. Patient remained afebrile. Leukocytosis resolved with IV fluids. He had no neurologic deficits. Patient's neck pain improved with muscle relaxers and home pain medication as well as treatment of rhabdo as above. Patient has chronic lower back pain and follows with pain management. He was instructed to follow up with his pain management if pain continues and consider outpatient MRI C-spine for further evaluation. Patient was ambulating independently on discharge. Patient was discharged home in stable condition. Status at Discharge Functional status at discharge: independent ambulation Overall status at discharge: patient is back to baseline Time Spent with Patient Time attestation: Total time spent providing and/or coordinating discharge services: Time spent: Greater than 30 minutes Exam Narrative: General: NAD, nontoxic appearing Eyes: EOMI ENT: neck supple Cardiovascular: Regular rate and rhythm Respiratory: Clear to auscultation, respirations even and unlabored on RA Gastrointestinal: Soft, non tender Genitourinary: no suprapubic tenderness Musculoskeletal: midline tenderness of lower cervical spine and tenderness of paraspinal musculature. Mildly decreased ROM of neck without meningeal signs. Skin: warm, dry Neuro: Alert. [place] 5/5 in BUE/BLEs. Psych: Mood appropriate DS: Data Data Completed and Pending Completed studies during hospitalization: ITS Impressions Cervical Spine CT 01/07/25 19:25 IMPRESSION: No acute fracture or subluxation. All CT scans at this facility are performed using low dose modulation techniques as appropriate to perform exam including the following: automated exposure control; adjustment of the mA and/or kV according to patient size (this includes techniques or standardized protocols for targeted exams where does is matched to indication/reason for exam; i.e. extremities or head); use of iterative reconstruction technique). Chest X-Ray 01/07/25 21:23 IMPRESSION: No acute lung findings.] [ ] Head CT 01/08/25 05:54 IMPRESSION: 1. No acute intracranial findings. Thyroid Ultrasound 01/08/25 08:20 IMPRESSION: 1. Small thyroid nodule, likely not clinically significant. No follow-up is needed. Labs on day of discharge: Labs from last 24 hours 01/09/25 01/09/25 01/09/25 11:58 11:09 11:02 WBC RBC Hgb 11.6 L Hct 36.9 L MCV MCH MCHC RDW Plt Count MPV Immature Gran % (Auto) Neut % (Auto) Lymph % (Auto) [place] % (Auto) Eos % (Auto) Baso % (Auto) Lymph # (Auto) [place] # (Auto) Eos # (Auto) Baso # (Auto) Abs Immat Gran (auto) Absolute Neuts (auto) Absolute Nucleated RBC Nucleated RBC % Sodium Potassium Chloride Carbon Dioxide Anion Gap BUN Creatinine Estim Creat Clear Calc Estimated GFR Glucose POC Capillary Glucose 116 H Calcium Total Bilirubin AST ALT Alkaline Phosphatase Total Creatine Kinase 2240 H Total Protein Albumin Free T3 pg/mL 01/09/25 01/09/25 01/08/25 07:08 02:56 20:18 WBC 7.9 RBC 4.01 L Hgb 10.7 L D Hct 34.5 L MCV 86.0 MCH 26.7 MCHC 31.0 L RDW 15.9 H Plt Count 177 MPV 11.2 H Immature Gran % (Auto) 0.5 Neut % (Auto) 63.3 Lymph % (Auto) 25.8 [place] % (Auto) 6.9 Eos % (Auto) 3.1 Baso % (Auto) 0.4 Lymph # (Auto) 2.05 [place] # (Auto) 0.6 Eos # (Auto) 0.3 Baso # (Auto) 0.0 Abs Immat Gran (auto) 0.04 H Absolute Neuts (auto) 5.0 Absolute Nucleated RBC 0.000 Nucleated RBC % 0.0 Sodium 136 L Potassium 4.3 Chloride 108 H Carbon Dioxide 23 Anion Gap 5 BUN 24 H D Creatinine 1.43 H Estim Creat Clear Calc 56 Estimated GFR 50 L Glucose 159 H POC Capillary Glucose 113 H 145 H Calcium 8.1 L Total Bilirubin 0.4 AST 63 H ALT 26 Alkaline Phosphatase 38 Total Creatine Kinase 2754 H Total Protein 6.4 Albumin 3.1 L Free T3 pg/mL 01/08/25 01/08/25 01/07/25 15:47 15:04 22:47 WBC RBC Hgb Hct MCV MCH MCHC RDW Plt Count MPV Immature Gran % (Auto) Neut % (Auto) Lymph % (Auto) [place] % (Auto) Eos % (Auto) Baso % (Auto) Lymph # (Auto) [place] # (Auto) Eos # (Auto) Baso # (Auto) Abs Immat Gran (auto) Absolute Neuts (auto) Absolute Nucleated RBC Nucleated RBC % Sodium Potassium Chloride Carbon Dioxide Anion Gap BUN Creatinine Estim Creat Clear Calc Estimated GFR Glucose POC Capillary Glucose 198 H Calcium Total Bilirubin AST ALT Alkaline Phosphatase Total Creatine Kinase 4281 H Total Protein Albumin Free T3 pg/mL Cancelled 01/07/25 22:47 WBC RBC Hgb Hct MCV MCH MCHC RDW Plt Count MPV Immature Gran % (Auto) Neut % (Auto) Lymph % (Auto) [place] % (Auto) Eos % (Auto) Baso % (Auto) Lymph # (Auto) [place] # (Auto) Eos # (Auto) Baso # (Auto) Abs Immat Gran (auto) Absolute Neuts (auto) Absolute Nucleated RBC Nucleated RBC % Sodium Potassium Chloride Carbon Dioxide Anion Gap BUN Creatinine Estim Creat Clear Calc Estimated GFR Glucose POC Capillary Glucose Calcium Total Bilirubin AST ALT Alkaline Phosphatase Total Creatine Kinase Total Protein Albumin Free T3 pg/mL 4.64 Discharge Plan Discharge Attending physician on discharge: Charlette Bolden Consulting providers: Berta Acosta Discharging Clinician: Berta Acosta Anticipated Discharge Date/Time: 01/09/25 12:25 Patient Disposition: Home Activity: as tolerated Diet: as tolerated Discharge Instructions: Follow-up with your primary care provider in 5-7 days. Have your labwork recheck in 3-5 days prior to your appointment with your primary care provider. STOP taking atorvastatin. Return to the emergency department if you develop chest pain, shortness of breath, persistent fever >100.4, confusion, loss of consciousness. Patient Instructions: Antibiotic Form Patient Language: Ch[place] Stand Alone Forms: General Discharge Information Follow-up/Referrals: Emmanuel Brito MD [Primary Care Provider, [facility]] - Call for Appointment Referral Note: 5-7 days Discharge Medications: New aspirin 81 mg Tablet,Delayed Release (Dr/Ec) 81 mg PO QAM Qty: 30 0RF Continued cyclobenzaprine 10 mg tablet 10 mg PO TID PRN (Reason: Muscle Spasm) Jardiance 25 mg tablet 25 mg PO DAILY Trulicity 0.75 mg/0.5 mL pen injector 0.75 mg subcut WEEKLY oxymetazoline [12 Hour Nasal [place]] 0.05 % [place],Non-Aerosol 1 spray INTRANASAL BID PRN (Reason: Nasal Congestion) hydrocodone-acetaminophen 10-325 mg tablet 1 tablet PO Q6-8H PRN (Reason: Pain (Scale Score 4-6)) Rx Instructions: says takes bid gabapentin 300 mg capsule 600 mg PO BID insulin glargine [Lantus Solostar U-100 Insulin] 100 unit/mL (3 mL) insulin pen 50 unit SUBCUT BID Held lisinopril 20 mg tablet 20 mg PO DAILY Qty: 90 0RF Hold Instructions: Resume on 01/16/25. HOLD until you follow-up with your primary care doctor and your kidney function is rechecked Discontinued atorvastatin 20 mg tablet 20 mg PO DAILY Other Ambulatory Orders: Basic Metabolic Panel (Routine) Timeframe: 3 Days Location: Determined by Patient Ordered By: Berta Acosta Creatine Kinase (Routine) Timeframe: 3 Days Location: Determined by Patient Ordered By: Berta Acosta Date of admission: 01/08/25 02:13 Primary Care Provider: Emmanuel Brito Admitting Provider: Candice Roberts Attending physician on admission: Candice Roberts Condition: Stable
== END 2025-01-09 13:22 | disposition home or self-care (01) ==
LOC: ANHED 01-08 02:13 → ANHIMU 01-08 09:08
PROVIDERS: Physician Assistant; Registered Nurse; Admitting Provider Internal Medicine; Emergency Provider Student in an Organized Health Care Education/Training Program; PCP Family Medicine; Visit Provider Internal Medicine
DX: M62.82 Rhabdomyolysis (principal); N17.9 Acute kidney failure, unspecified; M54.2 Cervicalgia; D72.829 Elevated white blood cell count, unspecified; E11.65 Type 2 diabetes mellitus with hyperglycemia; D64.9 Anemia, unspecified; I10 Essential (primary) hypertension; E78.5 Hyperlipidemia, unspecified; E11.42 Type 2 diabetes mellitus with diabetic polyneuropathy; Z79.4 Long term (current) use of insulin; Z79.85 Long-term (current) use of injectable non-insulin antidiabetic drugs; Z79.84 Long term (current) use of oral hypoglycemic drugs; J44.9 Chronic obstructive pulmonary disease, unspecified; I25.10 Atherosclerotic heart disease of native coronary artery without angina pectoris; F41.8 Other specified anxiety disorders; M54.50 Low back pain, unspecified; G89.29 Other chronic pain; Z85.46 Personal history of malignant neoplasm of prostate; Z90.79 Acquired absence of other genital organ(s); Z83.3 Family history of diabetes mellitus; Z82.49 Family history of ischemic heart disease and other diseases of the circulatory system; F17.210 Nicotine dependence, cigarettes, uncomplicated; F17.290 Nicotine dependence, other tobacco product, uncomplicated
CPT/HCPCS: 36415; 70450; 71046; 72125; 76536; 80048; 80053; 80307; 81001; 82077; 82550; 82948; 83605; 83735; 84145; 84439; 84443; 84481; 85014; 85018; 85025; 85610; 85730; 86140; 93005; 94640; 96361; 96372; 96374; 96375; 99285; A9270; G0378; J1171; J1650; J1815; J2270; J7030

== ENCOUNTER 2025-01-10 14:27 | Outpatient (CLI) | payer MEDICARE, MEDICAID, SELFPAY ==
--- NOTE | ~2025-01-10 | MR_ITS ---
EXAMINATION: MR thoracic spine wo con DATE: 01/10/2025 15:10 INDICATION: Thoracic spine pain TECHNIQUE: Magnetic resonance imaging (MRI) of the thoracic spine was performed without intravenous contrast. Sagittal localizer T1-weighted FSE of the cervicothoracic spine was obtained. Thoracic spine sequences included sagittal T2-weighted FSE, sagittal T1-weighted SE, Sagittal T2-weighted FS FSE, and axial T2-weighted FSE. COMPARISON: None FINDINGS: Alignment is normal. Chronic T12 compression fracture with 20% anterior vertebral body height loss and central low signal intensity consistent with prior vertebroplasty.There are Schmorl's nodes along the inferior endplates of T8-T11 and at the superior endplates of T11 and T12. Remaining vertebral body heights are normal. Severe disc height loss with bibasilar vascular degenerative endplate changes at L1-L2. Bone marrow signal is otherwise unremarkable. There is multilevel mild disc height loss throughout the thoracic spine. Disc bulges contributing to minimal central canal stenosis at C4-C5 and C5-C6 and mild central canal stenosis at C6-C7. Right paracentral disc protrusions at C7-T1, T1-T2, T4-T5 and T7-T8 ankle, left paracentral disc protrusion at T3-T4, central disc protrusion at T5-T6 and T8-T9 contributing to multilevel mild central canal stenosis. This most prominent at T1-T2 were obtained density right ventral surface of the cord. Annular fissure and moderate sized disc extrusion at C6-C7 with disc material extending a few millimeter cephalad and caudal to the level of the endplates and result in mild central canal stenosis with indentation of the central ventral surface of the cord. Mild diffuse disc bulge at T10-T11 and T11-T12 causing mild central canal stenosis. Annular fissure and prominent disc bulge at L1-L2 contributing moderate to severe central canal stenosis at this level. There is normal spinal cord signal. The conus terminates at L1. There is multilevel mild to moderate thoracic facet osteoarthritis contributes to mild neural foraminal stenosis bilaterally at a few levels in the upper and lower thoracic spine. 4.5 x 3.2 x 1.7 cm intramuscular lipoma along the superficial margin of the left trapezius muscle at the level of T4-T6. On the sagittal images there appears to be increased fluid signal in the posterior paraspinal musculature of the lower cervical spine, potentially related to muscle strain given report prior neck injury from one week prior. IMPRESSION: 1. Mild thoracic spondylosis with chronic mild T11 compression fracture with prior vertebroplasty. 2. Severe spondylosis at L1-L2 with moderate to severe central canal stenosis at this level. 3. Edema in the visualized lower cervical and posterior paraspinal musculature seen on the sagittal T2-weighted images potentially related to reported neck injury with from one week prior. Reviewed, dictated and finalized at location A. IMPRESSION: 1. Mild thoracic spondylosis with chronic mild T11 compression fracture with pr ior vertebroplasty. 2. Severe spondylosis at L1-L2 with moderate to severe central canal stenosis a t this level. 3. Edema in the visualized lower cervical and posterior paraspinal musculature seen on the sagittal T2-weighted images potentially related to reported neck in jury with from one week prior.
--- OUTSIDE RECORDS SUMMARY | 2025-01-10 14:33 | XMS_ITS | Clinical Summary ---
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
--- OUTSIDE RECORDS SUMMARY | 2025-01-10 14:33 | XMS_ITS | Clinical Summary ---
Author Organization [facility] [address] Address [address] [place] [address] Care Team Providers Care Nuclear Weapons Mechanical Specialist Name Role Phone Emmanuel Brito MD Primary Care Provider [phone] Isaiah Dooley MD Unavailable [phone] Allergies Active Allergy Reactions Criticality Noted [...] hyperglycemia, with long-term current use of insulin ([facility]) Inject 0.5 mL (0.75 mg [...] 02/06/2024 Assessment & Plan (05/22/2024 2:26 PM AQUATIC BIOLOGIST): Chronic problem. Unknown status. Relates that PCP had labs drawn earlier this month. Release signed to get copy of those labs. Assessment & Plan (02/06/2024 10:01 AM AQUATIC BIOLOGIST): Work on better glycemic control Hypertension well controlled Continue lisinopril Add SGLT2 inhibitors Type 2 diabetes mellitus wit h hyperglycemia, with long-term current use of insulin 05/16/2019 Assessment & Plan (05/22/2024 2:27 PM AQUATIC BIOLOGIST): Chronic problem. Great improvement in A1c from [...] DM eye exam 3-4 mos ago at [facility] in [place]. Letter sent to get copy of report. [...] infection. Assessment & Plan (02/06/2024 10:01 AM AQUATIC BIOLOGIST): Chronic, uncontrolled, worsening Hemoglobin A1c 9.5%, goal [...] and also cut back on smoking Try dexNativo G 7 and dexNativo clarity mela We will try to obtain [...] Bydureon Assessment & Plan (05/16/2019 2:55 PM AQUATIC BIOLOGIST): Hba1c was Lab Results Component Value Date [...] 05/16/2019 Assessment & Plan (05/22/2024 2:23 PM AQUATIC BIOLOGIST): Chronic problem. Currently taking Atorvastatin 20mg & fenofibrate 120mg nightly. Last lipid panel: 07/09/21 LDL=81, TG=036. Relates that PCP had labs drawn earlier this month. Release signed to get copy of those labs. Assessment & Plan (02/06/2024 10:00 AM AQUATIC BIOLOGIST): Continue statin therapy and fenofibrate Assessment & Plan (11/28/2019 12:10 PM CDT): LDL above goal. Needs to focus on lower fat food choices. Education provided Assessment & Plan (05/16/2019 2:56 PM AQUATIC BIOLOGIST): Goal of treatment , LDL cholesterol less [...] 05/16/2019 Assessment & Plan (05/22/2024 2:24 PM AQUATIC BIOLOGIST): Chronic problem. Controlled on current lisinopril 20mg daily. Relates that PCP had labs drawn earlier this month. Release signed to get copy of those labs. Assessment & Plan (02/06/2024 10:00 AM AQUATIC BIOLOGIST): Chronic, well controlled Continue lisinopril Assessment & Plan (11/28/2019 12:09 PM CDT): Continue lisinopril. Follow DASH diet Assessment & Plan (05/16/2019 2:57 PM AQUATIC BIOLOGIST): Goal blood pressure is less than 140/85 Low salt diet recommended Daily aerobic exercise Continue current meds, including JERSEY-I or ARB Restart Lisinopril 20 mg daily Erectile dysfunction 01/08/2018 S/P cardiac cath 10/07/2016 Angina, class II 10/07/2016 Smoking addiction 10/07/2016 Assessment & Plan (02/06/2024 10:00 AM AQUATIC BIOLOGIST): Counseled patient to cut back and quit smoking Assessment & Plan (05/16/2019 2:55 PM AQUATIC BIOLOGIST): Smoking cessation discussed Pt not ready to quit. Coronary artery disease invo lving [place] coronary artery of [place] heart with unstable angina pectoris 10/07/2016 Encounters Date Type Department Care Team Description 12/19/2024 Telephone [facility] [address] [address] Julian Mathis MD Med Management [...] on file Legal Sex Male 4:09 AM AQUATIC BIOLOGIST Gender Identity Not on file Sexual Orientation [...] Urine 05/22/2025 Medical Devices Implanted Type Area [employer] Device Identifier Shelf Expiration Date Model / Serial / Lot [employer] Niki Ams 700 Kit Accessory Penile Prosthesis [id number] - [id number] Implanted:Qty: 1 on 01/12/2022 by German Arenas MD at [facility] N/A: Penis [employer] Niki [id number] 12/26/2026 [id number] / / [id number] [employer] Niki Conceal Low Profile [place] 100ml Prosthesis Inhibizone Sterile Latex Free [id number] - [id number] Implanted:Qty: 1 on 01/12/2022 by German Arenas MD at [facility] N/A: Penis [employer] Niki [id number] 11/16/2023 [id number] / / [id number] [employer] Niki Prosthesis Penile Ams 700cx Ms Pump 18cm Preconnect 2 Cyl [id number] - [id number] Implanted:Qty: 1 on 01/12/2022 by German Arenas MD at [facility] N/A: Penis [employer] Niki [id number] 07/06/2023 [id number] / / [id number] IID Ams Spectra 12/14mm 1cm Cylinder Concealable Malleable Rear Tip [id number] - [id number] Implanted:Qty: 1 on 01/12/2022 by German Arenas MD at [facility] N/A: Penis IID [id number] 10/10/2026 [id number] / / [id number] Procedures Procedure Name Priority Date/Time Associated Diagnosis Comments POCT HEMOGLOBIN A1C Routine 09/02/2024 2 :27 PM CDT Type 2 diabetes mellitus with hyperglycemia, with long-term current use of insulin (HCC) ALBUMIN CREATININE RATIO, URINE Routine 05/22/2024 3:03 PM AQUATIC BIOLOGIST Type 2 diabetes mellitus with hyperglycemia, with long-term current use of insulin (HCC) COMPREHENSIVE METABOLIC PANEL Routine 05/07/2024 10:06 AM AQUATIC BIOLOGIST POCT LIPID PANEL Routine 05/16/2019 1:39 PM AQUATIC BIOLOGIST Type 2 diabetes mellitus with hyperglycemia, with long-term current use of insulin (HCC) from Last 3 Months or Most Recently Relevant to Health Maintenance Results * (ABNORMAL) POCT hemoglobin A1c (09/02/2024 2:27 PM CDT) Pathologist [facility] Hemoglobin A1C, POC 7.2(A) 4.0 - 5.6 % Blood 09/02/2024 2:27 PM CDT Julian Hanson MD POINT OF CARE TEST ORDERABLES Final Result * Albumin Creatinine Ratio, Urine (05/22/2024 3:03 PM AQUATIC BIOLOGIST) Pathologist [facility] Albumin Ur <12.0 mg/L Comment: Interpretive Data No reference range established. Current interpretive data was last revised 2018. Creatinine Ur 69.7 mg/dL [facility] Comment: Interpretive Data No reference range established. Current interpretive data was last revised 2018. Albumin Creatinine Ratio, Ur <17 1 - 29 mg/g JOSE Urine 05/22/2024 3:03 PM AQUATIC BIOLOGIST 05/22/2024 8:06 PM AQUATIC BIOLOGIST Verenice Call [facility] URINE ORDERABLES Jolie l Result JOSE [address] Department [place] [address] * (ABNORMAL) Comprehensive metabolic panel (05/07/2024 10:06 AM AQUATIC BIOLOGIST) SCRIBED Sodium 140 137 - 145 mmol/L [...] EXTERNAL LAB Blood 05/07/2024 10:0 6 AM AQUATIC BIOLOGIST Historical Provider LAB BLOOD ORDERABLES Edit ed Result - Final EXTERNAL LAB * POCT lipid panel (05/16/2019 1:39 PM AQUATIC BIOLOGIST) Cholesterol, POC 299 mg/dL HDL, POC 22 mg/dL Triglycerides, POC 498 mg/dL LDL Cholesterol POC 177 mg/dL Chol/HDL Ratio, POC 13.7 Non-HDL Cholesterol, POC 277 mg/dL Cholesterol Total, POC 299 mg/dL Blood specimen (specimen) 05/16/2019 1:39 PM AQUATIC BIOLOGIST Damaris Daniel MD POINT OF CARE TEST ORDERABLES Fi nal Result from Last 3 Months or Most Recently Relevant to Health Maintenance Insurance [facility] [id number] [place] [address] [facility] Care Teams Nuclear Weapons Mechanical Specialist Relationship Specialty Start Date End Date Emmanuel Brito MD PCP - General Family Medicine 12/08/21 Isaiah Dooley MD [address] [place] [address] Referring Physician Ophthalmology 05/28/24
== END 2025-01-10 14:28 | disposition home or self-care (01) ==
PROVIDERS: PCP Family Medicine; Visit Provider Nurse Practitioner Adult Health
DX: M47.814 Spondylosis without myelopathy or radiculopathy, thoracic region (principal); S22.080S Wedge compression fracture of T11-T12 vertebra, sequela; X58.XXXS Exposure to other specified factors, sequela; M47.816 Spondylosis without myelopathy or radiculopathy, lumbar region; Z98.890 Other specified postprocedural states; M48.061 Spinal stenosis, lumbar region without neurogenic claudication; R60.0 Localized edema
CPT/HCPCS: 72146

== ENCOUNTER 2025-03-13 00:35 | Day surgery (SDC) | payer MEDICARE, MEDICAID, SELFPAY ==
[2025-03-06 08:31] VITALS: BMI 29.3
[2025-03-13 06:54] VITALS: BP 120/75; PULSE 47; RESP 18; TEMP 36.2; O2SAT 93
[2025-03-13] MEDS: LACTATED RINGERS 1,000 ML 150 ML IV CONT (07:08)
--- NOTE | 2025-03-13 07:09 | WPDANESEPPF ---
Anes - Initial Pre Proc Eval Procedure: Operation Date: 03/13/25 08:00 Proposed Procedures p Screening Colonoscopy - Dennys Browning MD Date/Time: 03/13/25 07:09 Surgeon: Dennys Browning MD Pre Op Diagnosis: Screening/Positive Cologuard Patient Data Age: 64 Gender: M Height: 1.8 m Weight: 97.5 kg Last Vital Signs Temp 97.2 F L 03/13/25 06:54 Pulse 47 L 03/13/25 06:54 Resp 18 03/13/25 06:54 BP 120/75 03/13/25 06:54 Pulse Ox 93 03/13/25 06:54 O2 Del Method Room Air 03/13/25 06:54 Allergies Allergy/AdvReac Type Severity Reaction Status Date / Time Sulfa (Sulfonamide AdvReac Severe Gastrointestinal Verified 03/13/25 06:52 Antibiotics) Upset naproxen AdvReac Intermediate Diarrhea Verified 03/13/25 06:52 Penicillins AdvReac Intermediate Nausea Verified 03/13/25 06:52 Home Medications ?Medication ?Instructions ?Recorded ?Confirmed ?Type lisinopril 20 mg tablet 20 mg PO DAILY #90 tabs 12/29/20 03/13/25 Rx cyclobenzaprine 10 mg tablet 10 mg PO TID PRN Muscle Spasm 06/07/23 03/13/25 History gabapentin 300 mg capsule 300 mg PO BID 06/29/23 03/13/25 History hydrocodone 10 mg-acetaminophen 1 tablet PO Q6-8H PRN Pain (Scale 06/29/23 03/13/25 History 325 mg tablet Score 4-6) oxymetazoline 0.05 % nasal spray 1 spray intranasal BID PRN Nasal 06/29/23 03/13/25 History (12 Hour Nasal [place]) Congestion insulin glargine 100 unit/mL (3 50 unit subcut BID 10/18/23 03/13/25 History mL) subcutaneous pen (Lantus Solostar U-100 Insulin) dulaglutide 0.75 mg/0.5 mL 0.75 mg subcut WEEKLY 09/12/24 03/13/25 History subcutaneous pen injector (Trulicity) empagliflozin 25 mg tablet 25 mg PO DAILY 09/12/24 03/13/25 History (Jardiance) aspirin 81 mg tablet,delayed 81 mg PO QAM #30 tabs 01/09/25 03/13/25 Rx release Patient hx anesthesia problems: none Family hx anesthesia problems: none Results Review: All pre-operative results and documents have been reviewed as part of the pre-operative evaluation. [facility] Past Medical History Medical History Burst fracture of lumbar vertebra with delayed healing L3 vertebral fracture Obesity History of stroke with current residual effects Anxiety Excessive bleeding Congestion of nasal sinus Wears glasses History of MRSA infection Diabetic peripheral neuropathy associated with type 2 diabetes mellitus Fracture of fifth metatarsal bone of left foot Left foot pain Obstructive sleep apnea Describes symptoms but has never had a formal polysomnogram Essential hypertension Hyperlipidemia Peripheral neuropathy Insulin dependent diabetes mellitus COPD (chronic obstructive pulmonary disease) Tobacco use Erectile dysfunction following simple prostatectomy Prostate cancer Radical prostatectomy October 2015 with recurrence treated with radiation therapy March 2017 Depression Coronary artery disease involving [place] coronary artery of [place] heart Surgical History Surgical History S/P foot surgery, left History of carpal tunnel release (~1995) Left History of shoulder surgery (~2001) History of cardiac catheterization (~09/2016) 100% occlusion of the distal left circumflex artery with evidence of collaterals with several collaterals filling the left PDA, RCA is a small vessel with 50% lesion not amenable to intervention, 30-40% lesion will small diagonal branch of the LAD, left main coronary is mild stenosis 10-20% History of colonoscopy with polypectomy (~11/2017) Status post prostatectomy (~10/2015) Radical prostatectomy Family History Family History Mother Diabetes mellitus Hypertension Father COPD (chronic obstructive pulmonary disease) Social History Social History Social History: He has smoked up to 2 pack of cigarettes per day since the age of 14. He denies any significant alcohol use. He lives at home with his girlfriend. He has 2 adult children. 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 Primary care physician: Dr. Levar Melgar Code status: Full code Smoking packs per day: 0.5 Smoking cigarettes per day: 10.0 Years smoked: 50 Smoking pack-years: 25.00 Smoking status: Current every day smoker Tobacco type: cigarettes and e-cigarettes/vaping Second hand tobacco smoke exposure: Yes Additional smoking assessment comments: Down to 1/2 pack a day of cigarettes but vapes also. Alcohol intake: never Substance use: never Substance use type: does not use Lack of Transportation: No Lack of Food: Never True Current Housing: I Have Housing Concerned About Future Housing: No Difficulty Paying Gas/Electric Bills: No Difficulty Paying for Meds: No Currently Unemployed: No Education: High School Diploma/GED Difficulty w/ Childcare or Family Care: No Living arrangements: with family Occupation/Education: occupation Spiritual care concerns: No Anes - Eval Final PreProcedure Day of Procedure 03/13/25 07:09 Patient weight: obese Lungs: normal air movement Airway: Mallampati scale class II and special considerations (Upper dentures. ) Neurological: alert and oriented Last oral intake: >/= 8 hours ASA classification: III Emergent: no Anesthetic plan: proceed Anesthesia type and monitoring: general GIVS and standard monitoring Results Review: All pre-operative results and documents have been reviewed as part of the pre-operative evaluation. HTN, DM, COPD w smoking still/vapes, hx CVA 2020 w residual slow speech. Pt can walk short distances, no cp or sob. Informed Consent: The patient's anesthetic plan and its attendant risks and benefits were discussed with the patient/family/POA. Questions were solicited and answers provided to the satisfaction of the patient/family/POA.
--- NOTE | 2025-03-13 07:10 | SUR.PREOP ---
Pt. blood sugar 101 per Dexcom.
--- NOTE | 2025-03-13 07:51 | PM.IMHP2 ---
H&P: HPI History of Present Illness Date/Time: 03/13/25 07:51 Chief Complaint: Positive Cologuard test Narrative: This is the patient's 2nd screening colonoscopy, the 1st 1 was more than 10 years ago. He was recently found to be Cologuard positive. There are no GI symptoms and there is no family history of colorectal cancer. Review of Systems Review of Systems: All systems reviewed & are unremarkable except as noted in HPI and below PMFSH Past Medical History Medical History Burst fracture of lumbar vertebra with delayed healing L3 vertebral fracture Obesity History of stroke with current residual effects Anxiety Excessive bleeding Congestion of nasal sinus Wears glasses History of MRSA infection Diabetic peripheral neuropathy associated with type 2 diabetes mellitus Fracture of fifth metatarsal bone of left foot Left foot pain Obstructive sleep apnea Describes symptoms but has never had a formal polysomnogram Essential hypertension Hyperlipidemia Peripheral neuropathy Insulin dependent diabetes mellitus COPD (chronic obstructive pulmonary disease) Tobacco use Erectile dysfunction following simple prostatectomy Prostate cancer Radical prostatectomy October 2015 with recurrence treated with radiation therapy March 2017 Depression Coronary artery disease involving [place] coronary artery of [place] heart Surgical History Surgical History S/P foot surgery, left History of carpal tunnel release (~1995) Left History of shoulder surgery (~2001) History of cardiac catheterization (~09/2016) 100% occlusion of the distal left circumflex artery with evidence of collaterals with several collaterals filling the left PDA, RCA is a small vessel with 50% lesion not amenable to intervention, 30-40% lesion will small diagonal branch of the LAD, left main coronary is mild stenosis 10-20% History of colonoscopy with polypectomy (~11/2017) Status post prostatectomy (~10/2015) Radical prostatectomy Family History Family History Mother Diabetes mellitus Hypertension Father COPD (chronic obstructive pulmonary disease) Social History Social History Social History: He has smoked up to 2 pack of cigarettes per day since the age of 14. He denies any significant alcohol use. He lives at home with his girlfriend. He has 2 adult children. 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 Primary care physician: Dr. Levar Melgar Code status: Full code Smoking packs per day: 0.5 Smoking cigarettes per day: 10.0 Years smoked: 50 Smoking pack-years: 25.00 Smoking status: Current every day smoker Tobacco type: cigarettes and e-cigarettes/vaping Second hand tobacco smoke exposure: Yes Additional smoking assessment comments: Down to 1/2 pack a day of cigarettes but vapes also. Alcohol intake: never Substance use: never Substance use type: does not use Lack of Transportation: No Lack of Food: Never True Current Housing: I Have Housing Concerned About Future Housing: No Difficulty Paying Gas/Electric Bills: No Difficulty Paying for Meds: No Currently Unemployed: No Education: High School Diploma/GED Difficulty w/ Childcare or Family Care: No Living arrangements: with family Occupation/Education: occupation Spiritual care concerns: No Meds Home Medications and Allergies Home Medications ?Medication ?Instructions ?Recorded ?Confirmed ?Type lisinopril 20 mg tablet 20 mg PO DAILY #90 tabs 12/29/20 03/13/25 Rx cyclobenzaprine 10 mg tablet 10 mg PO TID PRN Muscle Spasm 06/07/23 03/13/25 History gabapentin 300 mg capsule 300 mg PO BID 06/29/23 03/13/25 History hydrocodone 10 mg-acetaminophen 1 tablet PO Q6-8H PRN Pain (Scale 06/29/23 03/13/25 History 325 mg tablet Score 4-6) oxymetazoline 0.05 % nasal spray 1 spray intranasal BID PRN Nasal 06/29/23 03/13/25 History (12 Hour Nasal [place]) Congestion insulin glargine 100 unit/mL (3 50 unit subcut BID 10/18/23 03/13/25 History mL) subcutaneous pen (Lantus Solostar U-100 Insulin) dulaglutide 0.75 mg/0.5 mL 0.75 mg subcut WEEKLY 09/12/24 03/13/25 History subcutaneous pen injector (Trulicity) empagliflozin 25 mg tablet 25 mg PO DAILY 09/12/24 03/13/25 History (Jardiance) aspirin 81 mg tablet,delayed 81 mg PO QAM #30 tabs 01/09/25 03/13/25 Rx release Allergies Allergy/AdvReac Type Severity Reaction Status Date / Time Sulfa (Sulfonamide AdvReac Severe Gastrointestinal Verified 03/13/25 06:52 Antibiotics) Upset naproxen AdvReac Intermediate Diarrhea Verified 03/13/25 06:52 Penicillins AdvReac Intermediate Nausea Verified 03/13/25 06:52 Vital Signs Vital Signs - 24 hr 03/13/25 06:54 Temperature 97.2 F L Pulse Rate 47 L Respiratory Rate 18 Blood Pressure 120/75 Pulse Oximetry 93 Oxygen Delivery Room Air Exam Const: General: cooperative and healthy appearing Resp: Effort & Inspection: normal respiratory effort and able to speak in complete sentences Auscultation: clear to auscultation bilaterally Cardio: Rate: regular rate Rhythm: regular rhythm GI: Inspection: normal to inspection GI Palp: No No hepatosplenomegaly present Auscultation: normal bowel sounds Rectal Exam: deferred Skin: General skin exam: normal color Psych: Appearance: grossly normal Mental Status: mental status grossly normal Assessment and Plan Assessment and plan (1) Positive colorectal cancer screening using Cologuard test: Code(s): R19.5 - Other fecal abnormalities Status: Acute Assessment and Plan: The patient is deemed a good candidate for the procedure. Consent signed. Will proceed. Prior Studies I have reviewed the following patient records and this information was taken into consideration when formulating the assessment and plan.: previous labs, previous ER visits, previous hospitalizations and previous clinic visits
[2025-03-13 08:34] VITALS: BP 91/48; PULSE 63; RESP 12; O2SAT 93
--- NOTE | 2025-03-13 08:34 | S_PTH ---
PATIENT: Israel Ward LOC: [facility] #:[id number] AGE/SX: 64/M ROOM: RE03/13/[address]: Dennys Browning MD : 1960 BED: DIS: 03/13/2025 SPEC #: [id number] RECD: 03/13/25 10:54 STATUS: JESSICA REBri #: [id number] MADELAINE: 03/13/25 08:[address]: Dennys Browning DEPT: [facility] Surgical RECD BY: Monique Mello ENTERED: 03/13/25 10:54 SP TYPE: Surgical OTHR DR: Emmanuel Brito MD Tissues: A - Colon Polypectomy B - Colon Polypectomy C - Colon Polypectomy Procedures: Hematoxylin and Eosin Stain Gross and Microscopic Level 4
[2025-03-13 08:44] VITALS: BP 110/68; PULSE 67; RESP 20; O2SAT 95
[2025-03-13 08:54] VITALS: BP 122/62; PULSE 66; RESP 22; O2SAT 96
--- NOTE | 2025-03-13 09:08 | SUR.PHASEII ---
Pt's blood sugar 79.
== END 2025-03-13 09:15 | disposition home or self-care (01) ==
PROVIDERS: PCP Family Medicine; Referring Provider Nurse Practitioner Family; Visit Provider Internal Medicine Gastroenterology
PROC: 0DJD8ZZ Inspection of Lower Intestinal Tract, Via Natural or Artificial Opening Endoscopic (ICD-10-PCS; CPT 45378; principal; 2025-03-13 08:00)
DX: R19.5 Other fecal abnormalities (principal); D12.3 Benign neoplasm of transverse colon; D12.2 Benign neoplasm of ascending colon; D12.4 Benign neoplasm of descending colon; I10 Essential (primary) hypertension; E78.5 Hyperlipidemia, unspecified; E11.42 Type 2 diabetes mellitus with diabetic polyneuropathy; I25.10 Atherosclerotic heart disease of native coronary artery without angina pectoris; J44.9 Chronic obstructive pulmonary disease, unspecified; G47.33 Obstructive sleep apnea (adult) (pediatric); F41.9 Anxiety disorder, unspecified; N52.9 Male erectile dysfunction, unspecified; F32.A Depression, unspecified; F17.210 Nicotine dependence, cigarettes, uncomplicated; F17.290 Nicotine dependence, other tobacco product, uncomplicated; E66.9 Obesity, unspecified; Z68.30 Body mass index [BMI] 30.0-30.9, adult; Z79.891 Long term (current) use of opiate analgesic; Z79.85 Long-term (current) use of injectable non-insulin antidiabetic drugs; Z79.84 Long term (current) use of oral hypoglycemic drugs; Z79.82 Long term (current) use of aspirin; Z79.4 Long term (current) use of insulin; Z98.890 Other specified postprocedural states; Z98.61 Coronary angioplasty status; Z92.3 Personal history of irradiation; Z85.46 Personal history of malignant neoplasm of prostate; Z86.79 Personal history of other diseases of the circulatory system; Z86.73 Personal history of transient ischemic attack (TIA), and cerebral infarction without residual deficits
CPT/HCPCS: 45390; 88305; J2704; J7120